=== PATIENT | female | born 1940 | race Caucasian/White ===

== ENCOUNTER 2020-07-13 | Outpatient (REF) | payer MEDICARE, SELFPAY | END 2020-07-13 00:01 | disposition home or self-care (01) | LOC: HO.VC | PROVIDERS: Visit Provider Internal Medicine | DX: Z23 Encounter for immunization (principal) | CPT/HCPCS: 0011A ==

== ENCOUNTER → 2020-07-18 12:46 | Outpatient (REF) | payer MEDICARE, SELFPAY ==
--- NOTE | 2020-07-18 13:08 | CA_ITS ---
Transthoracic Echocardiogram Patient (Last, First, Middle): Eloisa Richards E Gender: Female Date of : 1940 Age: 80 Procedure Date: 07/18/2020 Procedure Type: Transthoracic Echocardiogram Location: OP Height: 157.48 cm Weight: 62.14 kg BSA: 1.63 m2 Heart Rate: bpm BP: 134 / 73 mmHg Engineering Technology Instructor: CHRISTIANA Referring MD: Emmett Vogt MD Symptoms: Z95.2 - Presence of prosthetic heart valve Study Quality: Good ECG Rhythm: Sinus Conclusions: - The left ventricular systolic function is normal. The visually estimated ejection fraction is between 60-65%. - Evidence suggests grade II (moderate) diastolic dysfunction. - [id number] interatrial shunting noted by doppler. Atrial septal defect versus PFO. - A bioprosthetic aortic valve is present. The prosthetic aortic valve appears to be functioning normally. - Mild pulmonary hypertension is present. Findings Left Ventricle Normal left ventricular cavity size. There is mildly increased left ventricular wall thickness. The left ventricular systolic function is normal. The visually estimated ejection fraction is between 60-65%. There is no evidence of regional wall motion abnormalities. E/E prime ratio is >15, consistent with elevated filling pressures. Evidence suggests grade II (moderate) diastolic dysfunction. Right Ventricle Normal right ventricular cavity size and systolic function. Atria Both atria are normal in size. [id number] interatrial shunting noted by doppler. Atrial septal defect versus PFO. Aortic Valve A bioprosthetic aortic valve is present. The prosthetic aortic valve appears to be functioning normally. There is no aortic valve regurgitation. Mitral Valve The mitral valve appears normal. There is mild mitral valve regurgitation. There is no mitral valve stenosis. Pulmonic Valve The pulmonic valve was not well visualized. There is trace pulmonic valve regurgitation. Tricuspid Valve Normal tricuspid valve structure. There is mild tricuspid valve regurgitation. The right ventricular systolic pressure is 36 mmHg. Mild pulmonary hypertension is present. Great Vessels The asc aorta is normal in size. Venous The inferior vena cava is normal in size and collapses greater than 50% with inspiration. Pericardium/Pleural There is no evidence of pericardial effusion. Prior Study Comparison No significant change compared to prior study dated: 07/20/2019. Measurements 2D Linear Measurements IVSd: 1.06 0.6-0.9/0.6-1.0 cm LVIDd: 3.81 3.9-5.3/4.2-5.9 cm LVIDd Index: 2.34 2.4-3.2/2.2-3.1 cm/m2 LVIDs: 2.71 2.0-3.6 cm LVPWd: 1.02 0.7-1.1 cm LA Diam: 3.50 2.7-3.8/3.0-4.0 cm LAIDs Index: 2.15 1.5-2.3 cm/m2 LV Mass: 154.99 67-162/88-224 g LV Mass Index: 95.09 43-95/49-115 g/m2 LVOT Diam: 1.80 3.0+(-)1.3 cm 2D Systolic Function EF 4C: 62.20 >55% EF 2C: 60.40 >55% EF BiP: 62.60 >55% Mitral Valve MV Pk E: 1.19 MV PK A: 0.74 MV Decel Time: 224.00 E/A: 1.60 E'Lateral: 7.94 E'Medial: 6.64 E/E' Med: 17.90 E/E' Lat: 15.00 PHT: 66.00 MVA PHT: 3.33 Decel [place]: 5.33 Aortic Valve AoV Pk Walt: 2.04 AoV Mn Walt: 1.38 AoV VTI: 0.48 AoV Pk Grad: 17.00 Aov Mn Grad: 9.00 HUNTER Cont.VTI: 1.55 LVOT LVOT Pk Walt: 1.17 LVOT Mn Walt: 0.82 LVOT VTI: 0.29 LVOT Pk Grad: 5.00 LVOT Mn Grad: 3.00 LVOT Diam: 1.80 LVOT Area: 2.54 Diastolic Function MV Pk E: 1.19 MV Pk A: 0.74 E/A: 1.60 E'Medial: 6.64 E/E' Med: 17.90 E' Laterial: 7.94 E/E' Lat: 15.00 Tricuspid Valve TR Pk Walt: 2.88 TR Pk Grad: 33.00 RA Press: 3.00 RVSP: 36.00 Great Vessels Aorta Ao Asc: 3.00 2.1-3.4 cm Ao Arch: 2.50 Updated in Other Vendor System with Status of Final Arthur Neymar MD electronically signed on 07/19/2020 11:55:36 AM with status of Final
== END ==
LOC: HO.CARD 12:46
PROVIDERS: PCP Internal Medicine; Visit Provider Internal Medicine Cardiovascular Disease
DX: Z95.2 Presence of prosthetic heart valve (principal)
CPT/HCPCS: 93306

== ENCOUNTER 2020-07-27 08:55 | Outpatient (REF) | payer BC, SELFPAY ==
--- NOTE | ~2020-07-27 | MM_ITS ---
EXAMINATION: MM SCREENING DIGITAL BREAST TOMOSYNTHESIS, BILATERAL CLINICAL INFORMATION: Screening. Asymptomatic. The lifetime risk of breast cancer based on the Tyrer-Cuzick Model is 2%. COMPARISON: Mammography: 07/22/2019, 07/16/2018, 07/08/2017; targeted left breast ultrasound 07/24/2019 TECHNIQUE: Digital breast tomosynthesis is performed in both the craniocaudal and mediolateral oblique views along with computer-aided detection (CAD). Synthesized 2D images are generated from the tomosynthesis. FINDINGS: There are scattered areas of fibroglandular density (ACR BI-RADS breast composition Category b). There are no significant masses, abnormal calcifications, or other abnormalities. Parenchymal pattern similar to prior studies. There is a stable nodule anterior medial left breast. Findings are consistent on targeted ultrasound. No significant changes. The axilla and skin contours are unremarkable. MM/MM tomosynthesis screening BI IMPRESSION: No mammographic evidence of malignancy. ASSESSMENT: BI-RADS 2: Benign RECOMMENDATION: Routine annual mammography screening. This patient's information was entered into a reminder system with a target due date for their next mammogram.
== END 2020-07-27 08:56 | disposition home or self-care (01) ==
LOC: HO.MAMMO 08:55
PROVIDERS: PCP Internal Medicine; Visit Provider Internal Medicine
DX: Z12.31 Encounter for screening mammogram for malignant neoplasm of breast (principal)
CPT/HCPCS: 77063; 77067

== ENCOUNTER → 2020-07-28 08:42 | Outpatient (BNVA) | payer BC, SELFPAY | PROVIDERS: PCP Internal Medicine; Visit Provider Internal Medicine Cardiovascular Disease | DX: I51.89 Other ill-defined heart diseases (principal); Z95.2 Presence of prosthetic heart valve | CPT/HCPCS: 93005 ==

== ENCOUNTER 2020-08-02 07:26 | Outpatient (REF) | payer MEDICARE, SELFPAY ==
[2020-08-02 08:07] LABS: MANUAL DIFF FLAG NO
[2020-08-02 08:12] LABS: Basophils Absolute Auto 0.1 X10*3/uL (0.0-0.2); Basophils Percent Auto 0.9 % (0-2); Eosinophils Absolute Auto 0.1 X10*3/uL (0.0-0.4); Eosinophils Percent Auto 2.3 % (0-4); Hematocrit 38.7 % (37-47); Hemoglobin 12.4 g/dl (12.0-16.0); Imm Gran Abs Auto 0.01 X10*3/uL (0.00-0.03); Imm Gran Pct Auto 0.2 % (0.0-0.4); Lymphocytes Absolute Auto 1.1 X10*3/uL (1.2-4.9); Lymphocytes Percent Auto 18.6 % (20-40); Mean Corpuscular Hemoglobin 30.5 pg (27.0-33.0); Mean Corpuscular Volume 95.3 fL (80-98); Mean Platelet Volume 10.9 fL (9.4-12.3); Monocytes Absolute Auto 0.6 X10*3/uL (0.1-1.2); Monocytes Percent Auto 9.7 % (2-11); Neutrophils Absolute Auto 3.9 X10*3/uL (2.0-8.3); Neutrophils Percent Auto 68.3 % (45-73); Platelet Count 229 X10*3/uL (160-400); Red Blood Count 4.06 X10*6/uL (4.20-5.50); Red Cell Distribution Width 13.2 % (11.0-16.0); White Blood Count 5.8 X10*3/uL (4.8-10.8)
[2020-08-02 09:24] LABS: Alanine Aminotransferase 21 U/L (0-31); Albumin Level 4.2 g/dL (3.5-5.0); Alkaline Phosphatase 52 U/L (39-117); Anion Gap 12 (12-20); Aspartate Amino Transferase 25 U/L (5-31); Bilirubin Total 0.5 mg/dL (0.0-1.0); Blood Urea Nitrogen 24 mg/dL (9-16); Calcium 9.2 mg/dL (8.4-10.2); Carbon Dioxide 25 mmol/L (22-29); Chloride 111 mmol/L (96-108); Cholesterol 133 mg/dL; Estimated Glomerular Filt Rate > 60; Glucose Fasting 90 mg/dL (60-99); HDL Cholesterol 48 mg/dL; LDL Cholesterol Calculated 70 mg/dl; Potassium 4.4 mmol/L (3.3-5.1); Sodium 144 mmol/L (135-145); Total Protein 6.3 g/dL (6.5-8.0); Triglycerides 79 mg/dL
[2020-08-02 09:46] LABS: T4 Thyroxine 6.3 ug/dL (4.5-12.0)
[2020-08-04 22:15] LABS: Folate 12.6 ng/mL (> or = 4.0); Vitamin B12 325 pg/mL (200-900)
== END 2020-08-02 07:27 | disposition home or self-care (01) ==
LOC: HO.LAB 07:26
PROVIDERS: Absent Provider Internal Medicine Cardiovascular Disease; PCP Internal Medicine; Visit Provider Internal Medicine
DX: I72.0 Aneurysm of carotid artery (principal); C34.90 Malignant neoplasm of unspecified part of unspecified bronchus or lung; E04.1 Nontoxic single thyroid nodule; E78.00 Pure hypercholesterolemia, unspecified; Z95.3 Presence of xenogenic heart valve
CPT/HCPCS: 36415; 80053; 80061; 82306; 82607; 82746; 84436; 84443; 85025

== ENCOUNTER 2020-08-10 | Outpatient (REF) | payer MEDICARE, SELFPAY | END 2020-08-10 00:01 | disposition home or self-care (01) | LOC: HO.VC | PROVIDERS: Visit Provider Internal Medicine | DX: Z23 Encounter for immunization (principal) | CPT/HCPCS: 0012A ==

== ENCOUNTER → 2021-01-20 09:36 | Outpatient (BNVA) | payer MEDICARE, SELFPAY | PROVIDERS: PCP Internal Medicine; Referring Provider Internal Medicine; Visit Provider Internal Medicine Cardiovascular Disease | DX: I51.89 Other ill-defined heart diseases (principal); Z95.2 Presence of prosthetic heart valve | CPT/HCPCS: 99212 ==

== ENCOUNTER → 2021-06-19 09:19 | Outpatient (REF) | payer MEDICARE, SELFPAY ==
--- NOTE | 2021-06-19 09:23 | CA_ITS ---
Transthoracic Echocardiogram Patient (Last, First, Middle): Eloisa Richards E Gender: Female Date of : 1940 Age: 81 Procedure Date: 06/19/2021 Procedure Type: Transthoracic Echocardiogram Location: OP Height: 157.48 cm Weight: 62.14 kg BSA: 1.63 m2 Heart Rate: bpm BP: 158 / 64 mmHg Licensed Customs Broker: CHRISTIANA Referring MD: Emmett Vogt MD Symptoms: Z95.2 - Presence of prosthetic heart valve Study Quality: Good ECG Rhythm: Sinus Conclusions: - The visually estimated ejection fraction is between 65-70%. There is no evidence of regional wall motion abnormalities. - Left to right interatrial shunt by doppler, PFO or ASD. - A bioprosthetic aortic valve is present. The prosthetic aortic valve appears to be functioning normally. - Mild pulmonary hypertension is present. Findings Left Ventricle Normal left ventricular cavity size. The left ventricular systolic function is normal. The visually estimated ejection fraction is between 65-70%. There is no evidence of regional wall motion abnormalities. Diastolic function is indeterminate on the basis of available data. There is mild septal asymmetric hypertrophy. Right Ventricle Normal right ventricular cavity size and systolic function. Atria Both atria are normal in size. Left to right interatrial shunt by doppler, PFO or ASD. Aortic Valve A bioprosthetic aortic valve is present. The prosthetic aortic valve appears to be functioning normally. The mean gradient is 8 mmHg. There is no aortic valve regurgitation. Acceleration time 87ms, within acceptable limits. Mitral Valve The mitral valve appears normal. There is mild mitral valve regurgitation. There is no mitral valve stenosis. Pulmonic Valve The pulmonic valve was not well visualized. Tricuspid Valve Normal tricuspid valve structure. There is trace tricuspid valve regurgitation. The right ventricular systolic pressure is 39 mmHg. Mild pulmonary hypertension is present. Great Vessels The aortic annulus, sinuses of valsalva, and asc aorta are normal in size. Venous The inferior vena cava is normal in size and collapses greater than 50% with inspiration. Pericardium/Pleural There is no evidence of pericardial effusion. Prior Study Comparison No significant change compared to prior study dated: 07/18/2020. Measurements 2D Linear Measurements IVSd: 1.03 0.6-0.9/0.6-1.0 cm LVIDd: 3.83 3.9-5.3/4.2-5.9 cm LVIDd Index: 2.35 2.4-3.2/2.2-3.1 cm/m2 LVIDs: 2.28 2.0-3.6 cm LVPWd: 0.89 0.7-1.1 cm LA Diam: 3.50 2.7-3.8/3.0-4.0 cm LAIDs Index: 2.15 1.5-2.3 cm/m2 LV Mass: 139.18 67-162/88-224 g LV Mass Index: 85.39 43-95/49-115 g/m2 LVOT Diam: 1.90 3.0+(-)1.3 cm 2D Systolic Function EF 4C: 65.30 >55% EF 2C: 57.10 >55% EF BiP: 61.60 >55% Mitral Valve MV Pk E: 1.09 MV PK A: 0.90 MV Decel Time: 156.00 E/A: 1.20 E'Lateral: 7.40 E'Medial: 7.40 E/E' Med: 14.70 E/E' Lat: 14.70 PHT: 46.00 MVA PHT: 4.78 Decel [place]: 7.00 Aortic Valve AoV Pk Walt: 2.07 AoV Mn Walt: 1.32 AoV VTI: 0.43 AoV Pk Grad: 17.00 Aov Mn Grad: 8.00 HUNTER Cont.VTI: 1.62 LVOT LVOT Pk Walt: 1.10 LVOT Mn Walt: 0.68 LVOT VTI: 0.24 LVOT Pk Grad: 5.00 LVOT Mn Grad: 2.00 LVOT Diam: 1.90 LVOT Area: 2.84 Diastolic Function MV Pk E: 1.09 MV Pk A: 0.90 E/A: 1.20 E'Medial: 7.40 E/E' Med: 14.70 E' Laterial: 7.40 E/E' Lat: 14.70 Right Ventricle TAPSE (mm): 2.38 TVS' Walt: 13.60 Tricuspid Valve TR Pk Walt: 2.78 TR Pk Grad: 31.00 RA Press: 8.00 RVSP: 39.00 Great Vessels Aorta Ao Asc: 2.90 2.1-3.4 cm Ao Arch: 2.30 Updated in Other Vendor System with Status of Final Arthur Neymar MD electronically signed on 06/20/2021 1:49:51 PM with status of Final
== END ==
LOC: HO.CARD 09:19
PROVIDERS: PCP Internal Medicine; Visit Provider Internal Medicine Cardiovascular Disease
DX: Z95.2 Presence of prosthetic heart valve (principal)
CPT/HCPCS: 93306

== ENCOUNTER 2021-06-28 07:01 | Outpatient (REF) | payer MEDICARE, SELFPAY ==
[2021-06-28 07:26] LABS: MANUAL DIFF FLAG NO
[2021-06-28 07:33] LABS: Basophils Absolute Auto 0.1 X10*3/uL (0.0-0.2); Basophils Percent Auto 0.9 % (0-2); Eosinophils Absolute Auto 0.3 X10*3/uL (0.0-0.4); Eosinophils Percent Auto 5.6 % (0-4); Hemoglobin 11.6 g/dl (12.0-16.0); Imm Gran Abs Auto 0.02 X10*3/uL (0.00-0.03); Imm Gran Pct Auto 0.4 % (0.0-0.4); Lymphocytes Absolute Auto 0.9 X10*3/uL (1.2-4.9); Lymphocytes Percent Auto 16.5 % (20-40); Mean Corpuscular HGB Conc 31.4 g/dl (31.0-35.0); Mean Corpuscular Volume 95.6 fL (80.0-98.0); Monocytes Absolute Auto 0.7 X10*3/uL (0.1-1.2); Monocytes Percent Auto 11.4 % (2-11); Neutrophils Absolute Auto 3.7 x10*3/uL (2.0-8.3); Neutrophils Percent Auto 65.2 % (45-73); Platelet Count 238 X10*3/uL (160-400); Red Blood Count 3.87 X10*6/uL (4.20-5.50); White Blood Count 5.7 X10*3/uL (4.8-10.8)
[2021-06-28 07:55] LABS: B Type Natriuretic Peptide 338 pg/mL (<100)
[2021-06-28 07:57] LABS: Alanine Aminotransferase 16 U/L (0-31); Albumin Level 3.8 g/dL (3.5-5.0); Alkaline Phosphatase 50 U/L (39-117); Anion Gap 9 (12-20); Aspartate Amino Transferase 24 U/L (5-31); Bilirubin Total 0.6 mg/dL (0.0-1.0); Blood Urea Nitrogen 21 mg/dL (9-16); Calcium 9.8 mg/dL (8.4-10.2); Carbon Dioxide 29 mmol/L (22-29); Chloride 111 mmol/L (96-108); Cholesterol 149 mg/dL; Estimated Glomerular Filt Rate > 60; Glucose Random 92 mg/dL (60-115); HDL Cholesterol 43 mg/dL; LDL Cholesterol Calculated 88 mg/dl; Potassium 4.6 mmol/L (3.3-5.1); Sodium 144 mmol/L (135-145); Total Protein 6.3 g/dL (6.5-8.0); Triglycerides 91 mg/dL
[2021-06-28 08:04] LABS: Cholesterol 151 mg/dL; HDL Cholesterol 46 mg/dL; LDL Cholesterol Calculated 87 mg/dl; Triglycerides 94 mg/dL
[2021-06-28 08:20] LABS: Free T4 (Free Thyroxine) 1.04 ng/dL (0.71-1.85); Vitamin D 25-OH Total 30.3 ng/mL (>30)
[2021-06-28 08:31] LABS: Folate 11.6 ng/mL (> or = 4.0); Vitamin B12 1043 pg/mL (200-900)
== END 2021-06-28 07:02 | disposition home or self-care (01) ==
LOC: HO.LAB 07:01
PROVIDERS: Absent Provider Internal Medicine Cardiovascular Disease; PCP Internal Medicine; Visit Provider Internal Medicine
DX: E78.00 Pure hypercholesterolemia, unspecified (principal); I10 Essential (primary) hypertension; I25.10 Atherosclerotic heart disease of native coronary artery without angina pectoris
CPT/HCPCS: 36415; 80053; 80061; 82306; 82607; 82746; 83880; 84439; 84443; 85025

== ENCOUNTER 2021-08-01 11:44 | Outpatient (REF) | payer MEDICARE, SELFPAY ==
--- NOTE | ~2021-08-01 | MM_ITS ---
EXAMINATION: BONE DENSITOMETRY CLINICAL INDICATION: Other specified disorders of bone density and structure. COMPARISON: Previous BD dated 03/10/2019 and baseline BD dated 09/06/2006. TECHNIQUE: Using a [employer] DXA System (software version: 13.1) manufactured by [employer], dual-energy x-ray absorptiometry was performed of the lumbar spine and left hip. The images are of good technical quality. Summary results are attached. FINDINGS: AP SPINE L1-L4: Current: BMD 1.277 g/cm2, Z-score 2.7, T-score 0.8, normal, 2.7% decrease from previous, 0.9% decrease from baseline (<5% change is not significant). Prior: BMD 1.312 g/cm2. Baseline: BMD 1.288 g/cm2. LEFT FEMUR, NECK: Current: BMD 0.818 g/cm2, Z-score 0.6, T-score -1.6, osteopenia. Prior: BMD 0.851 g/cm2. Baseline: BMD 0.884 g/cm2. LEFT FEMUR, TOTAL: Current: BMD 0.774 g/cm2, Z-score 0.2, T-score -1.9, osteopenia, 5.3% decrease from previous, 16.0% decrease from baseline (<5% change is not significant). Prior: BMD 0.817 g/cm2. Baseline: BMD 0.921 g/cm2. IDENTIFIED RISK FACTORS: Menopause, hysterectomy, bilateral oophorectomy, thiazide. HISTORY OF FRACTURE: None listed. MEDICATIONS: Calcium supplements or multivitamin, vitamin D. MM/XR DEXA axial skeleton IMPRESSION: 1. DIAGNOSIS: Osteopenia based on the lowest T-score value of -1.9 in the total femur applying World Health Organization criteria. 2. 10-YEAR FRACTURE RISK PREDICTION, FRAX: Major osteoporotic fracture (clinical spine, forearm, hip or shoulder) 14.2%. Hip fracture 3.6%. 3. Treatment Recommendations: NOF guidelines recommend consideration for treatment in postmenopausal women and men age 50 and older presenting with the following: -A hip or vertebral (clinical or morphometric) fracture. -T-score less than or equal to -2.5 at the femoral neck or spine after appropriate evaluation to exclude secondary causes. -Low bone mass at the hip or spine and a 10-year fracture probability by FRAX of greater than or equal to 3% for hip fracture or greater than or equal to 20% for major osteoporotic fracture based on the [place] adapted WHO algorithm. 4. Other Recommendations: All treatment decisions require clinical judgment and consideration of individual patient factors, including patient preferences, comorbidities, previous drug use, risk factors not captured in the FRAX model (e.g. frailty, falls, vitamin D deficiency, increased bone turnover, interval significant decline in bone density) and possible under or overestimation of fracture risk by FRAX. Additional medical evaluation for secondary cause of low bone mineral density may be appropriate. FUTURE SCAN RECOMMENDATION: People with diagnosed cases of osteoporosis or at high risk for fracture should have regular bone mineral density tests. For patients eligible for Medicare, routine testing is allowed once every 2 years. The testing frequency can be increased to one year for patients who have rapidly progressing disease, those who are receiving or discontinuing medical therapy to restore bone mass, or have additional risk factors.
--- NOTE | ~2021-08-01 | MM_ITS ---
EXAMINATION: MM SCREENING DIGITAL BREAST TOMOSYNTHESIS, BILATERAL CLINICAL INFORMATION: Screening. Asymptomatic. The lifetime risk of breast cancer based on the Tyrer-Cuzick Model is 2%. COMPARISON: Mammography: 07/27/2020, 07/22/2019, 07/16/2018, 07/08/2017, 06/14/2016 TECHNIQUE: Digital breast tomosynthesis is performed in both the craniocaudal and mediolateral oblique views along with computer-aided detection (CAD). Synthesized 2D images are generated from the tomosynthesis. FINDINGS: There are scattered areas of fibroglandular density (ACR BI-RADS breast composition Category b). There are no significant masses, abnormal calcifications, or other abnormalities. Parenchymal pattern is similar to prior studies. There are no significant changes. MM/MM tomosynthesis screening BI IMPRESSION: No mammographic evidence of malignancy. ASSESSMENT: BI-RADS 1: Negative RECOMMENDATION: Routine annual mammography screening. This patient's information was entered into a reminder system with a target due date for their next mammogram.
== END 2021-08-01 11:45 | disposition home or self-care (01) ==
LOC: HO.MAMMO 11:44
PROVIDERS: Visit Provider Internal Medicine
DX: Z12.31 Encounter for screening mammogram for malignant neoplasm of breast (principal); Z13.820 Encounter for screening for osteoporosis; M85.80 Other specified disorders of bone density and structure, unspecified site; Z78.0 Asymptomatic menopausal state; Z79.899 Other long term (current) drug therapy
CPT/HCPCS: 77063; 77067; 77080

== ENCOUNTER → 2021-08-03 09:43 | Outpatient (BNVA) | payer MEDICARE, SELFPAY | PROVIDERS: PCP Internal Medicine; Referring Provider Internal Medicine; Visit Provider Internal Medicine Cardiovascular Disease | DX: I10 Essential (primary) hypertension (principal); R06.02 Shortness of breath; I83.892 Varicose veins of left lower extremity with other complications; Z95.2 Presence of prosthetic heart valve; Z79.82 Long term (current) use of aspirin | CPT/HCPCS: 93005; 99212 ==

== ENCOUNTER 2022-06-14 07:06 | Outpatient (REF) | payer MEDICARE, SELFPAY ==
[2022-06-14 07:18] LABS: MANUAL DIFF FLAG NO
[2022-06-14 07:41] LABS: Basophils Absolute Auto 0.1 X10*3/uL (0.0-0.2); Basophils Percent Auto 0.9 % (0-2); Eosinophils Absolute Auto 0.2 X10*3/uL (0.0-0.4); Hematocrit 38.8 % (37.0-47.0); Hemoglobin 12.4 g/dl (12.0-16.0); Imm Gran Abs Auto 0.02 X10*3/uL (0.00-0.03); Imm Gran Pct Auto 0.4 % (0.0-0.4); Lymphocytes Absolute Auto 1.5 X10*3/uL (1.2-4.9); Lymphocytes Percent Auto 27.1 % (20-40); Mean Corpuscular Volume 93.7 fL (80.0-98.0); Mean Platelet Volume 10.3 fL (9.4-12.3); Monocytes Absolute Auto 0.5 X10*3/uL (0.1-1.2); Monocytes Percent Auto 8.8 % (2-11); Neutrophils Absolute Auto 3.4 x10*3/uL (2.0-8.3); Neutrophils Percent Auto 59.8 % (45-73); Platelet Count 237 X10*3/uL (160-400); Red Blood Count 4.14 X10*6/uL (4.20-5.50); Red Cell Distribution Width 13.4 % (11.0-16.0); White Blood Count 5.7 X10*3/uL (4.8-10.8)
[2022-06-14 08:15] LABS: B Type Natriuretic Peptide 322 pg/mL (<100)
[2022-06-14 08:16] LABS: Alanine Aminotransferase 22 U/L (0-31); Albumin Level 4.1 g/dL (3.5-5.0); Alkaline Phosphatase 45 U/L (39-117); Anion Gap 13 (12-20); Aspartate Amino Transferase 30 U/L (5-31); Bilirubin Total 0.5 mg/dL (0.0-1.0); Blood Urea Nitrogen 24 mg/dL (9-16); Carbon Dioxide 26 mmol/L (22-29); Chloride 111 mmol/L (96-108); Cholesterol 146 mg/dL; Estimated Glomerular Filt Rate > 60; Glucose Random 93 mg/dL (60-115); HDL Cholesterol 47 mg/dL; LDL Cholesterol Calculated 80 mg/dl; Potassium 4.7 mmol/L (3.3-5.1); Sodium 145 mmol/L (135-145); Total Protein 6.3 g/dL (6.5-8.0); Triglycerides 98 mg/dL
[2022-06-14 08:35] LABS: Vitamin B12 735 pg/mL (200-900)
[2022-06-14 08:40] LABS: Free T4 (Free Thyroxine) 0.88 ng/dL (0.71-1.85); Thyroid Stimulating Hormone 1.71 uIU/mL (0.32-4.0); Vitamin D 25-OH Total 24.8 ng/mL (>30)
[2022-06-14 10:44] LABS: Folate 9.4 ng/mL (> or = 4.0)
== END 2022-06-14 07:07 | disposition home or self-care (01) ==
LOC: HO.LAB 07:06
PROVIDERS: PCP Internal Medicine; Visit Provider Internal Medicine
DX: I10 Essential (primary) hypertension (principal); E78.00 Pure hypercholesterolemia, unspecified
CPT/HCPCS: 36415; 80053; 80061; 82306; 82607; 82746; 83880; 84439; 84443; 85025

== ENCOUNTER → 2022-07-18 08:50 | Outpatient (REF) | payer MEDICARE, SELFPAY ==
--- NOTE | 2022-07-18 08:53 | CA_ITS ---
Transthoracic Echocardiogram Patient (Last, First, Middle): Eloisa Richards E Gender: Female Date of : 1940 Age: 82 Procedure Date: 07/18/2022 Procedure Type: Transthoracic Echocardiogram Location: OP Height: 157.48 cm Weight: 61.24 kg BSA: 1.62 m2 Heart Rate: bpm BP: 140 / 50 mmHg Community Outreach Director: TO Referring MD: Emmett Vogt MD Batch Analyst: Emmett Vogt MD Symptoms: Z95.2 - Presence of prosthetic heart valve Study Quality: Fair ECG Rhythm: Sinus Conclusions: - 1. Normal LV systolic function with impaired relaxation filling pattern 2. Mild left atrial enlargement 3. Normally function bioprosthetic aortic valve with mean gradient of 7 mmHg 4. Mild mitral regurgitation 5. Normal RV systolic pressure 6. No pericardial effusion Findings Left Ventricle Normal left ventricular size, thickness, and systolic function. The visually estimated ejection fraction is between 60-65%. Spectral Doppler is indicative of an impaired relaxation filling pattern. E/E prime ratio is between 8 and 15 consistent with indeterminate filling pressures. Right Ventricle Normal right ventricular cavity size and systolic function. Atria The left atrium is mildly dilated. There is no evidence of interatrial shunt. The right atrium is normal in size. Aortic Valve A bioprosthetic aortic valve is present. The prosthetic aortic valve appears to be functioning normally. The mean gradient is 7 mmHg. Mitral Valve There is mild anterior and posterior mitral leaflet thickening. There is mild mitral annular calcification. There is mild mitral valve regurgitation. There is no mitral valve stenosis. Pulmonic Valve The pulmonic valve was not well visualized. Tricuspid Valve Likely normal tricuspid valve structure and function. There is mild tricuspid valve regurgitation. The right ventricular systolic pressure is normal. The right ventricular systolic pressure is 29 mmHg. Normal right atrial pressure. There is no evidence of pulmonary hypertension. Great Vessels All visible segments of the aorta are normal in size. The pulmonary artery was not well visualized. Venous The inferior vena cava is normal in size and collapses greater than 50% with inspiration. Pericardium/Pleural There is no evidence of pericardial effusion. Prior Study Comparison No significant change compared to prior study dated: 06/19/2021. Measurements 2D Linear Measurements IVSd: 1.03 0.6-0.9/0.6-1.0 cm LVIDd: 3.69 3.9-5.3/4.2-5.9 cm LVIDd Index: 2.28 2.4-3.2/2.2-3.1 cm/m2 LVIDs: 2.40 2.0-3.6 cm LVPWd: 0.95 0.7-1.1 cm LA Diam: 3.40 2.7-3.8/3.0-4.0 cm LAIDs Index: 2.10 1.5-2.3 cm/m2 LV Mass: 158.96 67-162/88-224 g LV Mass Index: 98.12 43-95/49-115 g/m2 LVOT Diam: 1.80 3.0+(-)1.3 cm 2D Systolic Function EF 4C: 65.80 >55% EF 2C: 63.90 >55% EF BiP: 64.50 >55% Mitral Valve E'Lateral: 7.51 E'Medial: 6.53 Aortic Valve AoV Pk Walt: 1.83 AoV Mn Walt: 1.19 AoV VTI: 0.41 AoV Pk Grad: 13.00 Aov Mn Grad: 7.00 HUNTER Cont.VTI: 1.51 LVOT LVOT Pk Walt: 1.08 LVOT Mn Walt: 0.67 LVOT VTI: 0.25 LVOT Pk Grad: 5.00 LVOT Mn Grad: 2.00 LVOT Diam: 1.80 LVOT Area: 2.54 Diastolic Function E'Medial: 6.53 E' Laterial: 7.51 Right Ventricle TAPSE (mm): 24.60 TVS' Walt: 14.90 Tricuspid Valve TR Pk Walt: 2.55 TR Pk Grad: 26.00 RA Press: 3.00 RVSP: 29.00 Great Vessels Aorta Ao Asc: 3.00 2.1-3.4 cm Updated in Other Vendor System with Status of Final Emmett Vogt MD electronically signed on 07/19/2022 5:00:43 PM with status of Final
== END ==
LOC: HO.CARD 08:50
PROVIDERS: PCP Internal Medicine; Visit Provider Internal Medicine Cardiovascular Disease
DX: Z95.2 Presence of prosthetic heart valve (principal)
CPT/HCPCS: 93306

== ENCOUNTER → 2022-07-31 09:35 | Outpatient (BNVA) | payer MEDICARE, SELFPAY | PROVIDERS: PCP Internal Medicine; Referring Provider Internal Medicine; Visit Provider Internal Medicine Cardiovascular Disease | DX: R60.0 Localized edema (principal); I10 Essential (primary) hypertension; Z95.2 Presence of prosthetic heart valve | CPT/HCPCS: 93005; 99212 ==

== ENCOUNTER 2022-08-20 11:30 | Outpatient (REF) | payer MEDICARE, SELFPAY ==
--- NOTE | ~2022-08-20 | MM_ITS ---
EXAMINATION: MM SCREENING DIGITAL BREAST TOMOSYNTHESIS, BILATERAL CLINICAL INFORMATION: Screening. Asymptomatic. The lifetime risk of breast cancer based on the Tyrer-Cuzick Model is 1.4%. COMPARISON: Mammography: August 01, 2021 and studies dating back to June 14, 2016 TECHNIQUE: Digital breast tomosynthesis is performed in both the craniocaudal and mediolateral oblique views along with computer-aided detection (CAD). Synthesized 2D images are generated from the tomosynthesis. FINDINGS: There are scattered areas of fibroglandular density (ACR BI-RADS breast composition Category b). There are no new significant masses, abnormal calcifications, or other abnormalities. Circumscribed density about the inferior medial aspect of the left breast again evident. MM/MM tomosynthesis screening BI IMPRESSION: No significant changes from prior exam. ASSESSMENT: BI-RADS 2: Benign RECOMMENDATION: Routine annual mammography screening. This patient's information was entered into a reminder system with a target due date for their next mammogram.
== END 2022-08-20 11:31 | disposition home or self-care (01) ==
LOC: HO.MAMMO 11:30
PROVIDERS: Visit Provider Internal Medicine
DX: Z12.31 Encounter for screening mammogram for malignant neoplasm of breast (principal)
CPT/HCPCS: 77063; 77067

== ENCOUNTER → 2022-10-29 14:00 | Outpatient (BNVA) | payer MEDICARE, SELFPAY | PROVIDERS: PCP Internal Medicine; Visit Provider Internal Medicine Cardiovascular Disease ==

== ENCOUNTER 2022-10-29 14:37 | Inpatient (IN) | payer MEDICARE, SELFPAY ==
--- NOTE | ~2022-10-29 | XR_ITS ---
EXAMINATION: XR CHEST CLINICAL INFORMATION: Weakness COMPARISON: Previous chest x-ray May 2019 and lung biopsy May 2019 and PET/CT scan April 2019 TECHNIQUE: 2 views of the chest were obtained. FINDINGS: The cardiac silhouette does not appear enlarged. There is a new aortic valve stent graft. The thoracic aorta is calcified. Hilar and mediastinal contours are otherwise unremarkable. There are small bilateral pleural effusions. There is an abnormal density in the right perihilar region. It is uncertain whether this corresponds to known pulmonary nodule in the superior segment of the right lower lobe. The lungs are otherwise clear. There are degenerative changes of the spine. XR/XR chest 2V IMPRESSION: Small bilateral pleural effusions. 2 cm abnormal density in the right perihilar region. It is uncertain whether this corresponds to known superior segment right lower lobe pulmonary nodule. Clinical correlation recommended.
[2022-10-29 14:38] VITALS: BP 148/76; PULSE 141; RESP 22; TEMP 36.6; O2SAT 98; BMI 24.3
--- NOTE | 2022-10-29 14:38 | ECG_ITS ---
Test Reason : TACHYCARDIA Blood Pressure : / mmHG Vent. Rate : 135 BPM Atrial Rate : 000 BPM P-R Int : 000 ms QRS Dur : 084 ms QT Int : 322 ms P-R-T Axes : 000 031 042 degrees QTc Int : 483 ms Atrial fibrillation with rapid ventricular response Nonspecific ST abnormality Abnormal ECG When compared with ECG of 19-SEP-2005 15:55, Atrial fibrillation has replaced Sinus rhythm Vent. rate has increased BY 63 BPM Referred By: Kandice Almanza Electronically Signed By:JOHN LORA
--- NOTE | 2022-10-29 14:38 | ED_ITS ---
HPI - General Adult General Chief complaint: Arrhythmia/Palpitations Stated complaint: a fib Time Seen by Provider: 10/29/22 15:01 Source: patient Mode of arrival: ambulatory Limitations: no limitations Related Data Home Medications Medication Instructions Recorded Confirmed aspirin 81 mg tablet,delayed 81 mg PO DAILY 07/28/20 10/29/22 release (Adult Aspirin Regimen) atorvastatin 40 mg tablet 40 mg PO BEDTIME 10/29/22 10/29/22 Previous Rx's Medication Instructions Recorded atenolol 100 mg tablet 100 mg PO DAILY #90 tabs 06/27/22 fenofibrate nanocrystallized 145 145 mg PO DAILY #90 tabs 06/27/22 mg tablet nifedipine 30 mg tablet,extended 30 mg PO DAILY #90 tabs 06/27/22 release Allergies Allergy/AdvReac Type Severity Reaction Status Date / Time Sulfa (Sulfonamide Allergy Mild RASH Verified 06/27/22 11:03 Antibiotics) [SULFA (SULFONAMIDE ANTIBIOTICS)] [facility] Past Medical History Medical History Aortic stenosis Atrial fibrillation Carotid aneurysm, right Diastolic dysfunction HTN (hypertension) Hypercholesterolemia Intracranial aneurysm Non-small cell cancer of right lung Peripheral vascular disease Pre-operative clearance Prolapsed bladder Pulmonary nodule Thyroid nodule Varicose vein of leg Varicose veins of left leg with edema Surgical History History of cataract surgery History of lung biopsy Hx of cardiac cath Hx of hysterectomy Hx of tonsillectomy S/P TAVR (transcatheter aortic valve replacement) Family History Family History Father Brain tumor Mother Uterine cancer, sarcoma Social History Social History Housing: House Alcohol intake: current Alcohol intake frequency: does not drink Alcohol type: wine Patient Tobacco Use Status: Never used Tobacco Smoked in Last 30 Days: No e-Cigarette/Vaping Use: Never Used Second Hand Smoke Exposure: No Use of substances other than those prescribed or required for medical reasons: No Advance Directives: Yes Advance Directives Information Provided: No Advance Directives on File: No service: No Current occupational status: retired Cognitive needs: No Hearing needs: No Vision needs: Yes (glasses) Physical Exam ED Vital Signs: Vital Signs - 24 hr 10/29/22 14:38 10/29/22 16:00 Temperature 97.9 F Pulse Rate 141 H 140 H Respiratory Rate 22 H Blood Pressure 148/76 H Pulse Oximetry 98 Oxygen Delivery Method Room Air BMI result Body Mass Index 24.3 Course Course Course Narrative: This is a rapid medical exam. deferred additional HPI, ROS, PE to primary provider. 82 yo female with history of HTN, HLD, TAVR on 81mg asa daily here with several weeks of feeling generally weak. Went to Dr Vogt and noticed to be in afib with RVR. No history of same. Will obtain labs, EKG, CXR. HR 130-150's in triage. BP stable. Reevaluation(s) Reevaluation #1: Patient does have an elevated troponin level. I believe this is rate related troponin leak. Patient does not have any active chest pain do not believe this represents an unstable plaque or evidence of acute coronary syndrome. This was discussed with the patient. I let the denture technician know as well. Time: 15:52 Reevaluation #2: Heart rate approximately 70 after Cardizem bolus. Will not put patient on a Cardizem drip at this time. Time: 16:04 Consultations Consultation #1: Catrachito Edmonds, recommending Cardizem plus or minus a Cardizem drip, Eliquis and admission. Time: 15:30 Medications Administered Generic Name Dose Route Start Last Admin Trade Name Freq PRN Reason Stop Dose Admin Furosemide 20 mg 10/29/22 16:45 10/29/22 18:01 Furosemide 20 Mg/2 Ml Vial IVPUSH 20 mg DAILY DIAN Administration Protocol Discontinued Medications Generic Name Dose Route Start Last Admin Trade Name Freq PRN Reason Stop Dose Admin Diltiazem HCl 20 mg 10/29/22 15:12 10/29/22 15:56 Diltiazem Hcl 50 Mg/10 Ml Vial IVPUSH 10/29/22 15:13 20 mg STAT STA Administration Medical Decision Making Lab Data 10/29/22 15:00 10/29/22 15:00 Labs: Lab Results 10/29/22 10/29/22 10/29/22 Range/Units 15:00 15:00 15:00 WBC 8.5 (4.8-10.8) X10*3/uL RBC 3.88 L (4.20-5.50) X10*6/uL Hgb 11.5 L (12.0-16.0) g/dl Hct 36.4 L (37.0-47.0) % MCV 93.8 (80.0-98.0) fL MCH 29.6 (27.0-33.0) pg MCHC 31.6 (31.0-35.0) g/dl RDW 13.9 (11.0-16.0) % Plt Count 395 D (160-400) X10*3/uL MPV 10.1 (9.4-12.3) fL Immature Gran % (Auto) 0.5 H (0.0-0.4) % Neut % (Auto) 71.9 (45-73) % Lymph % (Auto) 17.1 L (20-40) % [place] % (Auto) 8.4 (2-11) % Eos % (Auto) 1.3 (0-4) % Baso % (Auto) 0.8 (0-2) % Lymph # (Auto) 1.5 (1.2-4.9) X10*3/uL [place] # (Auto) 0.7 (0.1-1.2) X10*3/uL Eos # (Auto) 0.1 (0.0-0.4) X10*3/uL Baso # (Auto) 0.1 (0.0-0.2) X10*3/uL Abs Immat Gran (auto) 0.04 H (0.00-0.03) X10*3/uL Absolute Neuts (auto) 6.1 (2.0-8.3) x10*3/uL Absolute Nucleated RBC 0.000 (0.0-0.012) X10*3/uL Nucleated RBC % (auto) 0.0 (0.0-0.2) /100WBC PT 11.8 (10.0-13.1) SEC INR 1.0 (0.9-1.1) Sodium 141 (135-145) mmol/L Potassium 4.3 (3.3-5.1) mmol/L Chloride 110 H (96-108) mmol/L Carbon Dioxide 24 (22-29) mmol/L Anion Gap 11 L (12-20) BUN 27 H (9-16) mg/dL Creatinine 0.87 (0.5-1.4) mg/dL Estim Creat Clear Calc 43.4 Estimated GFR > 60 Random Glucose 98 (60-115) mg/dL Calcium 9.7 (8.4-10.2) mg/dL Magnesium 2.3 (1.6-2.6) mg/dL Total Bilirubin 0.4 (0.0-1.0) mg/dL Direct Bilirubin 0.1 (0.0-0.5) mg/dL AST 34 H (5-31) U/L ALT 20 (0-31) U/L Alkaline Phosphatase 60 (39-117) U/L Troponin I High Sens (<3.5-17.0) ng/L Total Protein 6.6 (6.5-8.0) g/dL Albumin 3.9 (3.5-5.0) g/dL 10/29/22 Range/Units 15:00 WBC (4.8-10.8) X10*3/uL RBC (4.20-5.50) X10*6/uL Hgb (12.0-16.0) g/dl Hct (37.0-47.0) % MCV (80.0-98.0) fL MCH (27.0-33.0) pg MCHC (31.0-35.0) g/dl RDW (11.0-16.0) % Plt Count (160-400) X10*3/uL MPV (9.4-12.3) fL Immature Gran % (Auto) (0.0-0.4) % Neut % (Auto) (45-73) % Lymph % (Auto) (20-40) % [place] % (Auto) (2-11) % Eos % (Auto) (0-4) % Baso % (Auto) (0-2) % Lymph # (Auto) (1.2-4.9) X10*3/uL [place] # (Auto) (0.1-1.2) X10*3/uL Eos # (Auto) (0.0-0.4) X10*3/uL Baso # (Auto) (0.0-0.2) X10*3/uL Abs Immat Gran (auto) (0.00-0.03) X10*3/uL Absolute Neuts (auto) (2.0-8.3) x10*3/uL Absolute Nucleated RBC (0.0-0.012) X10*3/uL Nucleated RBC % (auto) (0.0-0.2) /100WBC PT (10.0-13.1) SEC INR (0.9-1.1) Sodium (135-145) mmol/L Potassium (3.3-5.1) mmol/L Chloride (96-108) mmol/L Carbon Dioxide (22-29) mmol/L Anion Gap (12-20) BUN (9-16) mg/dL Creatinine (0.5-1.4) mg/dL Estim Creat Clear Calc Estimated GFR Random Glucose (60-115) mg/dL Calcium (8.4-10.2) mg/dL Magnesium (1.6-2.6) mg/dL Total Bilirubin (0.0-1.0) mg/dL Direct Bilirubin (0.0-0.5) mg/dL AST (5-31) U/L ALT (0-31) U/L Alkaline Phosphatase (39-117) U/L Troponin I High Sens 125.2 H* (<3.5-17.0) ng/L Total Protein (6.5-8.0) g/dL Albumin (3.5-5.0) g/dL Critical Care Time Critical Care Time Critical Care Time: Yes Total Critical Care Time: 35 Attestation: I personally performed approximately 35 minutes of critical care time with direct patient care, documentation, consultation with Cardiology, documentation, interpretation and medical data for the diagnosis of atrial fibrillation with rapid ventricular response. Critical care time outside of any procedures. Discharge Plan Discharge Clinical Impression: Atrial fibrillation Patient Disposition: Admitted As Inpatient
[2022-10-29 15:14] LABS: MANUAL DIFF FLAG NO
--- NOTE | 2022-10-29 15:17 | ED_ITS ---
HPI - Arrhythmia/Palpitations General Chief Complaint: Arrhythmia/Palpitations Stated Complaint: a fib Time Seen by Provider: 10/29/22 15:01 Source: patient Mode of arrival: ambulatory Limitations: no limitations History of Present Illness HPI narrative: 82-year-old female with history of TAVR, hypertension, lung cancer presents with feeling unwell, excitable and palpitations intermittently for the past week. Sh e has also felt some generalized weakness. Symptoms are mild to moderate nature. There is no clear relieving or exacerbating features. Patient has no history of these symptoms. She denies any chest pain, lightheadedness. She is not on any blood thinning medications. She was seen by 1 of the providers at her umbrella repairer office earlier today. An EKG showed atrial fibrillation with rapid ventricular response at that time and she was sent to the hospital for evaluation and management. Related Data Home Medications Medication Instructions Recorded Confirmed aspirin 81 mg tablet,delayed 81 mg PO DAILY 07/28/20 07/31/22 release (Adult Aspirin Regimen) estradiol 0.01% (0.1 mg/gram) g vaginal 07/28/20 07/31/22 vaginal cream Previous Rx's Medication Instructions Recorded atenolol 100 mg tablet 100 mg PO DAILY #90 tabs 06/27/22 atorvastatin 40 mg tablet 40 mg PO DAILY #90 tabs 06/27/22 fenofibrate nanocrystallized 145 145 mg PO DAILY #90 tabs 06/27/22 mg tablet nifedipine 30 mg tablet,extended 30 mg PO DAILY #90 tabs 06/27/22 release Allergies Allergy/AdvReac Type Severity Reaction Status Date / Time Sulfa (Sulfonamide Allergy Mild RASH Verified 06/27/22 11:03 Antibiotics) [SULFA (SULFONAMIDE ANTIBIOTICS)] [facility] Past Medical History Medical History Aortic stenosis Carotid aneurysm, right Diastolic dysfunction HTN (hypertension) Hypercholesterolemia Intracranial aneurysm Non-small cell cancer of right lung Peripheral vascular disease Pre-operative clearance Prolapsed bladder Pulmonary nodule Thyroid nodule Varicose vein of leg Varicose veins of left leg with edema Surgical History History of cataract surgery History of lung biopsy Hx of cardiac cath Hx of hysterectomy Hx of tonsillectomy S/P TAVR (transcatheter aortic valve replacement) Family History Family History Father Brain tumor Mother Uterine cancer, sarcoma Social History Social History Housing: House Alcohol intake: current Alcohol intake frequency: a few times a month Alcohol type: wine Patient Tobacco Use Status: Never used Tobacco e-Cigarette/Vaping Use: Never Used Second Hand Smoke Exposure: No service: No Current occupational status: retired Cognitive needs: No Hearing needs: No Vision needs: Yes (glasses) Physical Exam Vital Signs: Vital Signs: Last Vital Signs Temp 97.9 F 10/29/22 14:38 Pulse 141 H 10/29/22 14:38 Resp 22 H 10/29/22 14:38 BP 148/76 H 10/29/22 14:38 Pulse Ox 98 10/29/22 14:38 O2 Del Method Room Air 10/29/22 14:38 BMI result Body Mass Index 24.3 GEN: Well developed, no acute distress, alert, oriented HEENT: Normocephalic, atraumatic, normal external ears, nose appears normal, no oropharyngeal edema or exudates Eyes: Normal to appearance Neck: Supple, no lymphadenopathy Respiratory: Talks in complete sentences, no respiratory distress, clear to auscultation bilaterally Cardiovascular: Irregularly irregular and tachycardic Abdomen: Soft, nontender, nondistended, no guarding, no rebound Back: No CVA tenderness Extremities: No clubbing cyanosis 1+ pitting edema Neurologic: No focal neurologic deficits, cranial nerves 2-12 intact, strength is 5/5 bilaterally Skin: No rash Course Course Course Narrative: 82-year-old female presents with atrial fibrillation with rapid ventricular response. An IV was placed. She will get Cardizem 20 mg IV push. L provider with a dose of Lovenox. Her symptoms of going on for approximately 1 week. She is not a candidate for cardioversion at this time either electrical or chemically. Her CHADS2 score is 2. Will contact Cardiology to determine a ppropriate disposition assuming her heart rate is appropriately controlled. She is currently on nifedipine and atenolol which have potential AV blocking components to their treatment. Medical Decision Making Medical Decision Making MDM Narrative: Patient presents with atrial fibrillation with rapid ventricular response. Differential diagnosis could include anemia, electrolyte will abnormality, s tructural heart disease. Will check laboratory analysis, continuous cardiac monitoring. Will provide patient with IV Cardizem and subcutaneous Lovenox for treatment. Will need to see if patient might be considered appropriate for NOAC. Differential Diagnosis Differential Diagnoses: The differential diagnosis associated with the presen tation includes (see above) Admission/Observation Consideration of admission/observation: Escalation of care including admission/observation considered (depending on response to treatment and word form cardiology) Consult Healthcare Provider Management of the patient was discussed with: Pipelines Laborer (Cardiology) Lab Data MDM Lab Attestation statement: I reviewed the patient's lab results. 10/29/22 15:00 10/29/22 15:00 Labs: Lab Results 10/29/22 10/29/22 Range/Units 15:00 15:00 WBC 8.5 (4.8-10.8) X10*3/uL RBC 3.88 L (4.20-5.50) X10*6/uL Hgb 11.5 L (12.0-16.0) g/dl Hct 36.4 L (37.0-47.0) % MCV 93.8 (80.0-98.0) fL MCH 29.6 (27.0-33.0) pg MCHC 31.6 (31.0-35.0) g/dl RDW 13.9 (11.0-16.0) % Plt Count 395 D (160-400) X10*3/uL MPV 10.1 (9.4-12.3) fL Immature Gran % (Auto) 0.5 H (0.0-0.4) % Neut % (Auto) 71.9 (45-73) % Lymph % (Auto) 17.1 L (20-40) % [place] % (Auto) 8.4 (2-11) % Eos % (Auto) 1.3 (0-4) % Baso % (Auto) 0.8 (0-2) % Lymph # (Auto) 1.5 (1.2-4.9) X10*3/uL [place] # (Auto) 0.7 (0.1-1.2) X10*3/uL Eos # (Auto) 0.1 (0.0-0.4) X10*3/uL Baso # (Auto) 0.1 (0.0-0.2) X10*3/uL Abs Immat Gran (auto) 0.04 H (0.00-0.03) X10*3/uL Absolute Neuts (auto) 6.1 (2.0-8.3) x10*3/uL Absolute Nucleated RBC 0.000 (0.0-0.012) X10*3/uL Nucleated RBC % (auto) 0.0 (0.0-0.2) /100WBC PT 11.8 (10.0-13.1) SEC INR 1.0 (0.9-1.1) Independent Interpretation I performed an independent interpretation of an: EKG (Atrial fibrillation with rapid ventricular response heart rate 135, nonspecific T-wave changes, no acute ST elevations depressions, QTC 483 milliseconds) and Plain X-Ray (Chest: NAD) Independent Historian Clinical information obtained from an independent historian. History obtained from or confirmed by: Spouse External Record Review External record reviewed: Office record Prescription Management I considered prescription management with: Other (Cardizem for rate control) Chronic Conditions Patient?s care impacted by: Hypertension Discharge Plan Discharge Clinical Impression: Atrial fibrillation Patient Disposition: Still a Patient Instructions: A-fib (Atrial Fibrillation) (ED), Blood Thinners (ED) Prescriptions: No Action atenolol 100 mg tablet 100 mg PO DAILY Qty: 90 3RF atorvastatin 40 mg tablet 40 mg PO DAILY Qty: 90 3RF fenofibrate nanocrystallized 145 mg tablet 145 mg PO DAILY Qty: 90 3RF nifedipine 30 mg tablet extended release 30 mg PO DAILY Qty: 90 3RF estradiol 0.01 % (0.1 mg/gram) cream vaginal aspirin [Adult Aspirin Regimen] 81 mg tablet,delayed release (DR/EC) 81 mg PO DAILY Referrals: Emmett Vogt MD [Physician] -
[2022-10-29 15:19] LABS: Basophils Absolute Auto 0.1 X10*3/uL (0.0-0.2); Basophils Percent Auto 0.8 % (0-2); Eosinophils Absolute Auto 0.1 X10*3/uL (0.0-0.4); Eosinophils Percent Auto 1.3 % (0-4); Hematocrit 36.4 % (37.0-47.0); Hemoglobin 11.5 g/dl (12.0-16.0); Imm Gran Abs Auto 0.04 X10*3/uL (0.00-0.03); Imm Gran Pct Auto 0.5 % (0.0-0.4); Lymphocytes Absolute Auto 1.5 X10*3/uL (1.2-4.9); Lymphocytes Percent Auto 17.1 % (20-40); Mean Corpuscular HGB Conc 31.6 g/dl (31.0-35.0); Mean Corpuscular Hemoglobin 29.6 pg (27.0-33.0); Mean Corpuscular Volume 93.8 fL (80.0-98.0); Mean Platelet Volume 10.1 fL (9.4-12.3); Monocytes Absolute Auto 0.7 X10*3/uL (0.1-1.2); Monocytes Percent Auto 8.4 % (2-11); Neutrophils Absolute Auto 6.1 x10*3/uL (2.0-8.3); Neutrophils Percent Auto 71.9 % (45-73); Platelet Count 395 X10*3/uL (160-400); Red Blood Count 3.88 X10*6/uL (4.20-5.50); Red Cell Distribution Width 13.9 % (11.0-16.0); White Blood Count 8.5 X10*3/uL (4.8-10.8)
[2022-10-29 15:24] LABS: Prothrombin Time 11.8 SEC (10.0-13.1)
[2022-10-29 15:37] LABS: Alanine Aminotransferase 20 U/L (0-31); Albumin Level 3.9 g/dL (3.5-5.0); Alkaline Phosphatase 60 U/L (39-117); Anion Gap 11 (12-20); Aspartate Amino Transferase 34 U/L (5-31); Bilirubin Direct 0.1 mg/dL (0.0-0.5); Bilirubin Total 0.4 mg/dL (0.0-1.0); Blood Urea Nitrogen 27 mg/dL (9-16); Calcium 9.7 mg/dL (8.4-10.2); Carbon Dioxide 24 mmol/L (22-29); Chloride 110 mmol/L (96-108); Creatinine Clr Calc Pharmacy 43.4; Estimated Glomerular Filt Rate > 60; Glucose Random 98 mg/dL (60-115); Magnesium 2.3 mg/dL (1.6-2.6); Potassium 4.3 mmol/L (3.3-5.1); Sodium 141 mmol/L (135-145); Total Protein 6.6 g/dL (6.5-8.0)
[2022-10-29 15:45] LABS: Troponin-I High Sensitivity 125.2 ng/L (<3.5-17.0)
[2022-10-29] MEDS: dilTIAZem HCL 50 MG/10 ML VIAL 20 MG IVPUSH (15:56)
[2022-10-29 16:00] VITALS: PULSE 140
--- NOTE | 2022-10-29 16:00 | PC.NURSE ---
HR low to mid 140s. IV push Cardizem given, HR down mid to high 70s. pt denies chest pain/headache/dizziness/sob.
--- NOTE | 2022-10-29 16:45 | PHA.MEDREC ---
Pharmacy Consult ? Medication Reconciliation Pharmacy has completed the medication reconciliation. Spoke with patient and spouse in ED. Had list of medications. Took all medications this am
--- NOTE | 2022-10-29 16:48 | P.HPHOSP_ITS ---
History of Present Illness Date of Service: 10/29/22 Attending physician on admission: Wilton Reid Chief Complaint: afib rvr 82 year old female with history TAVR (bioprosthetic), hypertension, non-small cell lung cancer in remission ( s/p radiation therapy in 2019), osteopenia, and hyperlipidemia presented to the ED from Cardiology office. She states she has been experiencing fatigue and weakness along with palpitations and anxiety over the last week. She has also had increased dyspnea on exertion ongoing for several weeks. She denies any lightheadedness, chest pain. States she has chronic edema of the bilateral lower extremities. Denies any history of similar symptoms. She was at her cardiology office earlier today for routine follow-up with EKG showing atrial fibrillation with RVR and she was referred to the ED for further evaluation and management. On arrival, patient tachycardic to 141, tachypneic to 22, vital signs otherwise reassuring. There is no leukocytosis. Renal function and electrolyte levels within normal limits. Initial troponin 125.2, repeat pending. CXR showing small bilateral pleural effusions and 2 cm abnormal density in the right perihilar region, question related to known right lower lobe pulmonary nodule. EKG showing AFib with RVR, rate [address] abnormality. In the ED, patient given 20 mg IV push of diltiazem with improvement in heart rate to 50-70s. Review of Systems Review of Systems: General: No fevers, malaise, unintentional weight loss. +fatigue, + generalized weakness HEENT: No blurred vision, diplopia. No sore throat, nasal congestion, rhinorrhea, sinus pain, ear pain Cardiovascular: No chest pain, palpitations. +BLE edema Respiratory: +AGUIAR. No shortness of breath at rest, orthopnea, wheezing, cough GI: No abdominal pain, nausea, vomiting, diarrhea, constipation, melena, hematochezia : No dysuria, hematuria, increased urinary frequency, decreased urinary output MSK: No myalgia, back pain Neuro: No headaches, weakness, paresthesias Skin: No rashes or lesions [facility] Medical History Aortic stenosis Atrial fibrillation Carotid aneurysm, right Diastolic dysfunction HTN (hypertension) Hypercholesterolemia Intracranial aneurysm Non-small cell cancer of right lung Peripheral vascular disease Pre-operative clearance Prolapsed bladder Pulmonary nodule Thyroid nodule Varicose vein of leg Varicose veins of left leg with edema Family History Father Brain tumor Mother Uterine cancer, sarcoma Surgical History History of cataract surgery History of lung biopsy Hx of cardiac cath Hx of hysterectomy Hx of tonsillectomy S/P TAVR (transcatheter aortic valve replacement) Social History Housing: House Alcohol intake: current Alcohol intake frequency: does not drink Alcohol type: wine Patient Tobacco Use Status: Never used Tobacco e-Cigarette/Vaping Use: Never Used Second Hand Smoke Exposure: No service: No Current occupational status: retired Cognitive needs: No Hearing needs: No Vision needs: Yes (glasses) Meds Allergies Allergy/AdvReac Type Severity Reaction Status Date / Time Sulfa (Sulfonamide Allergy Mild RASH Verified 06/27/22 11:03 Antibiotics) [SULFA (SULFONAMIDE ANTIBIOTICS)] Active Medications: Current Medications Acetaminophen (Acetaminophen 325 Mg Tablet) 650 mg PO Q6H PRN PRN Reason: Pain, Mild (Pain Scale 1-3) Apixaban (Apixaban 5 Mg Tablet) 5 mg PO BID DIAN Docusate Sodium (Docusate Sodium 100 Mg Capsule) 100 mg PO DAILY PRN PRN Reason: Constipation Furosemide (Furosemide 20 Mg/2 Ml Vial) 20 mg IVPUSH DAILY DIAN; Protocol Metoprolol Tartrate (Metoprolol Tartrate 50 Mg Tablet) 50 mg PO BID DIAN; Protocol Sodium Chloride (0.9 % Sodium Chloride Flush 3 Ml Syringe) 3 ml IVFLUSH [facility] Home Medications Medication Instructions Recorded Confirmed Last Taken Type aspirin 81 mg tablet,delayed 81 mg PO DAILY 07/28/20 10/29/22 10/29/22 History release (Adult Aspirin Regimen) atorvastatin 40 mg tablet 40 mg PO BEDTIME 10/29/22 10/29/22 10/28/22 History Physical Exam Vital Signs and Narrative: Vital Signs: Last Vital Signs Temp 97.9 F 10/29/22 14:38 Pulse 140 H 10/29/22 16:00 Resp 22 H 10/29/22 14:38 BP 148/76 H 10/29/22 14:38 Pulse Ox 98 10/29/22 14:38 O2 Del Method Room Air 10/29/22 14:38 BMI result Body Mass Index 24.3 Constitutional - Awake and Alert, No apparent distress Eyes - PERRLA, EOMI Cardiovascular - S1S2, RRR, 3+ pitting edema LLE, 2+ pitting edema RLE Respiratory - Normal lung expansion, Normal respiratory effort, No respiratory distress, bibasilar crackles Gastrointestinal - NT / ND; +BS; No rebound or guarding Extremities - no calf tenderness bilaterally, no swelling Skin - Warm/Dry Neurological - Alert & oriented x3, CN II-XII in tact, 5/5 strength BUE and BLE Psychological - Appropriate affect Results Labs 10/29/22 15:00 10/29/22 15:00 Labs: Laboratory Results - last 24 hr 10/29/22 10/29/22 10/29/22 15:00 15:00 15:00 MCV 93.8 MCH 29.6 MCHC 31.6 RDW 13.9 Plt Count 395 D MPV 10.1 Immature Gran % (Auto) 0.5 H Neut % (Auto) 71.9 Lymph % (Auto) 17.1 L [place] % (Auto) 8.4 Eos % (Auto) 1.3 Baso % (Auto) 0.8 Lymph # (Auto) 1.5 [place] # (Auto) 0.7 Eos # (Auto) 0.1 Baso # (Auto) 0.1 Abs Immat Gran (auto) 0.04 H Absolute Neuts (auto) 6.1 Absolute Nucleated RBC 0.000 Nucleated RBC % (auto) 0.0 PT 11.8 INR 1.0 Anion Gap 11 L Estim Creat Clear Calc 43.4 Estimated GFR > 60 Random Glucose 98 Calcium 9.7 Magnesium 2.3 Total Bilirubin 0.4 Direct Bilirubin 0.1 AST 34 H ALT 20 Alkaline Phosphatase 60 Troponin I High Sens Total Protein 6.6 Albumin 3.9 10/29/22 15:00 MCV MCH MCHC RDW Plt Count MPV Immature Gran % (Auto) Neut % (Auto) Lymph % (Auto) [place] % (Auto) Eos % (Auto) Baso % (Auto) Lymph # (Auto) [place] # (Auto) Eos # (Auto) Baso # (Auto) Abs Immat Gran (auto) Absolute Neuts (auto) Absolute Nucleated RBC Nucleated RBC % (auto) PT INR Anion Gap Estim Creat Clear Calc Estimated GFR Random Glucose Calcium Magnesium Total Bilirubin Direct Bilirubin AST ALT Alkaline Phosphatase Troponin I High Sens 125.2 H* Total Protein Albumin Imaging Radiologist's Impressions: Impressions Chest X-Ray 10/29/22 15:24 IMPRESSION: Small bilateral pleural effusions. 2 cm abnormal density in the right perihilar region. It is uncertain whether this corresponds to known superior segment right lower lobe pulmonary nodule. Clinical correlation recommended. Assessment and Plan (1) Atrial fibrillation: Status: Acute (2) Acute exacerbation of CHF (congestive heart failure): Status: Acute (3) Elevated troponin: Status: Acute Plan 82 year old female with history TAVR (bioprosthetic), hypertension, non-small cell lung cancer in remission ( s/p radiation therapy in 2019), osteopenia, and hyperlipidemia admitted for new onset atrial fibrillation. #New onset atrial fibrillation -initially with RVR, rate now controlled following 20mg IV diltiazem -Change atenolol to metoprolol 50mg BID, continue nifedipine -[id number] score 5. Initiate eliquis 5mg BID. No hx GI bleeding, cerebral hemorrhage, or known bleeding disorder -Last echo 07/18/22 showing Normal LV systolic function, EF 60-65%, with impaired relaxation filling pattern, mild left atrial enlargement, normal function of bioprosthetic aortic valve - cardiac diet - appreciate cardiology input - monitor on telemetry # acute CHF exacerbation -HFpEF as above at baseline - CXR with small bilateral pleural effusions with 3+ lower extremity edema, symptomatic with dyspnea on exertion - BNP pending - IV Lasix 20 mg daily - strict I&O - cardiac diet - appreciate cardiology input # elevated troponins- likely related to demand from AFib with RVR and CHF exacerbation - initial 127, repeat pending. EKG is nonischemic # hypertension-reasonably controlled - change atenolol to metoprolol as above, continue nifedipine # HLD - continue fenofibrate # non-small cell lung cancer in remission - CXR showing possible right lower lobe nodule - outpatient follow-up with [facility] on 11/08 as scheduled DVT prophylaxis-Eliquis full code patient requires inpatient stay at least 2 midnights for management of new onset atrial fibrillation with RVR and acute CHF exacerbation Time Spent With Patient Time: Total time managing care of this patient today ____ minutes. Quality Stroke Does the patient have a stroke diagnosis?: No VTE Prior VTE?: No VTE Risk Level:: Medical - moderate - high VTE Device Contraindication: Treatment Not Indicated VTE Drug Contraindication: N/A - Med Ordered
[2022-10-29 17:46] LABS: B Type Natriuretic Peptide 878 pg/mL (<100)
[2022-10-29] MEDS: Furosemide 20 MG/2 ML VIAL IVPUSH ×2 (18:01→19:16)
[2022-10-29 18:04] LABS: Troponin-I High Sensitivity 143.7 ng/L (<3.5-17.0)
--- NOTE | 2022-10-29 19:53 | PC.NURSE ---
Attempted to call report at 1950. Stefanie attempted around 1900. Pt is being transferred upstairs. Receiving RN has been messaged and will call down for report when she can.
[2022-10-29 20:08] VITALS: BMI 53.6
[2022-10-29 20:23] VITALS: BP 170/50; PULSE 82; RESP 20; TEMP 36.6; O2SAT 100
[2022-10-29] MEDS: 0.9 % Sodium Chloride Flush 3 ML SYRINGE IVFLUSH (20:31)
[2022-10-29] MEDS: Atorvastatin Calcium 40 MG TABLET PO (20:31)
[2022-10-29] MEDS: Apixaban 5 MG TABLET PO (20:31)
[2022-10-29 20:40] VITALS: BP 158/50; PULSE 60; RESP 18
--- NOTE | 2022-10-30 | ECG_ITS ---
Test Reason : converted to sr Blood Pressure : / mmHG Vent. Rate : 078 BPM Atrial Rate : 078 BPM P-R Int : 166 ms QRS Dur : 092 ms QT Int : 408 ms P-R-T Axes : 070 050 049 degrees QTc Int : 465 ms Normal sinus rhythm Normal ECG When compared with ECG of 29-OCT-2022 15:02, Sinus rhythm has replaced Atrial fibrillation Vent. rate has decreased BY 57 BPM Referred By: Wilton Reid Electronically Signed By:JOHN LORA
[2022-10-30 03:53] VITALS: BP 138/64; PULSE 71; RESP 18; TEMP 36.8; O2SAT 97
[2022-10-30 06:35] LABS: MANUAL DIFF FLAG NO
[2022-10-30 07:00] LABS: Anion Gap 11 (12-20); Blood Urea Nitrogen 25 mg/dL (9-16); Calcium 9.2 mg/dL (8.4-10.2); Carbon Dioxide 25 mmol/L (22-29); Chloride 111 mmol/L (96-108); Creatinine Clr Calc Pharmacy 60.4; Estimated Glomerular Filt Rate 56; Glucose Random 75 mg/dL (60-115); Potassium 3.6 mmol/L (3.3-5.1); Sodium 143 mmol/L (135-145)
[2022-10-30 07:01] LABS: Basophils Absolute Auto 0.1 X10*3/uL (0.0-0.2); Basophils Percent Auto 0.9 % (0-2); Eosinophils Absolute Auto 0.2 X10*3/uL (0.0-0.4); Eosinophils Percent Auto 2.9 % (0-4); Hemoglobin 10.9 g/dl (12.0-16.0); Imm Gran Abs Auto 0.01 X10*3/uL (0.00-0.03); Imm Gran Pct Auto 0.2 % (0.0-0.4); Lymphocytes Absolute Auto 1.5 X10*3/uL (1.2-4.9); Mean Corpuscular HGB Conc 32.1 g/dl (31.0-35.0); Mean Corpuscular Hemoglobin 29.5 pg (27.0-33.0); Mean Corpuscular Volume 91.9 fL (80.0-98.0); Mean Platelet Volume 9.9 fL (9.4-12.3); Monocytes Absolute Auto 0.7 X10*3/uL (0.1-1.2); Monocytes Percent Auto 11.3 % (2-11); Neutrophils Absolute Auto 3.5 x10*3/uL (2.0-8.3); Neutrophils Percent Auto 59.7 % (45-73); Platelet Count 299 X10*3/uL (160-400); White Blood Count 5.8 X10*3/uL (4.8-10.8)
[2022-10-30 07:05] LABS: B Type Natriuretic Peptide 518 pg/mL (<100)
[2022-10-30 07:30] VITALS: BP 166/50; PULSE 75; RESP 20; TEMP 36.6; O2SAT 98
--- NOTE | 2022-10-30 09:00 | MHC.CM.PN ---
CM met with Patient and her at bedside and addressed IMM with her, providing her with the original and placing a copy on the chart. Patient lives in a house with her /HCP and she required no services nor DME [employer]. Home/self care is the goal and CM has initiated and will follow for dc planning. Patient has received Moderna/Covid vax x4 and her PCP is Dr. Shelbi Infante.
[2022-10-30] MEDS: NIFEdipine ER 30 MG TAB.ER.24 PO (09:09)
[2022-10-30] MEDS: Potassium Chloride ER 20 MEQ TAB.ER.PRT PO (09:10)
[2022-10-30] MEDS: Apixaban 5 MG TABLET PO (09:10)
[2022-10-30] MEDS: 0.9 % Sodium Chloride Flush 3 ML SYRINGE IVFLUSH (09:10)
[2022-10-30] MEDS: Fenofibrate 160 MG TABLET PO (09:10)
[2022-10-30] MEDS: Metoprolol Tartrate 50 MG TABLET PO (09:10)
[2022-10-30] MEDS: Furosemide 20 MG/2 ML VIAL 40 MG IVPUSH (09:23)
[2022-10-30] MEDS: Acetaminophen 325 MG TABLET 650 MG PO (09:41)
--- NOTE | 2022-10-30 10:24 | P.CONCA_ITS ---
History of Present Illness History of Present Illness Date of Service: 10/30/22 Chief complaint: Afib w/ RVR Narrative: This is a cardiology consultation regarding atrial fibrillation rapid ventricular rate. Patient has a history of transcatheter aortic valve replacement as listed her last office note. Otherwise, multiple medical comorbidities including hypertension, non-small cell lung cancer in remission, hyperlipidemia who was sent to the emergency room from cardiology office. It seems that she was generally not feeling well for the last few days including generalized weakness, fatigue, palpitations and shortness of breath. EKG had apparently shown atrial fibrillation with rapid rate and then she was sent to the emergency room. While in the emergency room, she got IV diltiazem and over time, she converted from atrial fibrillation sinus rhythm. Currently she stays in sinus rhythm. She is also being treated for congestive heart failure with diuretics. Overall, she states that she is feeling better since the time of admission. Review of Systems Review of Systems: Yes all other systems are reviewed and are negative Constitutional: Constitutional: Reports as per HPI, Reports no additional constitutional complaints, Reports fatigue, Reports lethargy, Reports malaise and Reports weakness Eyes: Eyes: Reports as per HPI and Denies no additional eye complaints ENT: Denies system reviewed and no additional complaints, except as documented and Reports as per HPI Cardiovascular: Cardiovascular: Reports as per HPI, Reports no additional cardiovascular complaints, Denies acrocyanosis, Denies cool extremities, Denies chest pain, Denies leg edema, Denies lightheadedness, Denies palpitations and Reports dyspnea Respiratory: Respiratory: Reports as per HPI, Denies no additional respiratory complaints and Reports dyspnea Gastrointestinal: Gastrointestinal: Reports as per HPI and Denies no additional gastrointestinal complaints Genitourinary: Genitourinary: Reports as per HPI Musculoskeletal: Musculoskeletal: Reports no additional musculoskeletal complaints and Reports as per HPI Integumentary/Breasts: Skin/Breast: Reports system reviewed and no additional complaints, except as docu Neurologic: Reports system reviewed and no additional complaints, except as documented, Reports as per HPI and Reports weakness Psychiatric: Psychiatric: Reports no additional psychiatric complaints and Reports as per HPI Endocrine: Endocrine: Reports no additional endocrine complaints, Reports as per HPI, Reports fatigue and Denies palpitations Hematologic/Lymphatic: Hematologic/Lymphatic: Reports no additional hematologic/lymphatic complaints and Reports as per HPI Allergic/Immunologic: Allergic/Immunologic: Reports no additional allergic/immunologic complaints and Reports as per HPI PMFSH Past Medical History Medical History Aortic stenosis Atrial fibrillation Carotid aneurysm, right Diastolic dysfunction HTN (hypertension) Hypercholesterolemia Intracranial aneurysm Non-small cell cancer of right lung Peripheral vascular disease Pre-operative clearance Prolapsed bladder Pulmonary nodule Thyroid nodule Varicose vein of leg Varicose veins of left leg with edema Family History Family History Father Brain tumor Mother Uterine cancer, sarcoma Surgical History Surgical History History of cataract surgery History of lung biopsy Hx of cardiac cath Hx of hysterectomy Hx of tonsillectomy S/P TAVR (transcatheter aortic valve replacement) Social History Social History Household Members: Spouse Housing: House Alcohol intake: current Alcohol intake frequency: does not drink Alcohol type: wine Patient Tobacco Use Status: Never used Tobacco Smoked in Last 30 Days: No e-Cigarette/Vaping Use: Never Used Second Hand Smoke Exposure: No Use of substances other than those prescribed or required for medical reasons: No Currently Displaying Signs/Symptoms of Drug Intoxication Withdrawal: No Have you been hit, kicked, punched, or otherwise hurt by someone within the past year? If so, by whom?: No Do you feel safe in your current relationship?: Yes Is there a partner from a previous relationship who is making you feel unsafe now?: No Are you made to feel afraid or neglected: No Advance Directives: Yes Advance Directives Information Provided: No Advance Directives on File: No Advance Directives Date on File: 10/29/22 Do you have thoughts of harming others: None Do you have a plan to hurt others: No Plan Recently lost weight without trying: No Nutrition Risks: No Nutritional Risk Patient : No : No service: No Current occupational status: retired Cognitive needs: No Hearing needs: No Vision needs: Yes (glasses) Meds Allergies Allergy/AdvReac Type Severity Reaction Status Date / Time Sulfa (Sulfonamide Allergy Mild RASH Verified 06/27/22 11:03 Antibiotics) [SULFA (SULFONAMIDE ANTIBIOTICS)] Active Medications: Current Medications Acetaminophen (Acetaminophen 325 Mg Tablet) 650 mg PO Q6H PRN PRN Reason: Pain, Mild (Pain Scale 1-3) Last Admin: 10/30/22 09:41 Dose: 650 mg Apixaban (Apixaban 5 Mg Tablet) 5 mg PO BID [facility] Last Admin: 10/30/22 09:10 Dose: 5 mg Atorvastatin Calcium (Atorvastatin Calcium 40 Mg Tablet) 40 mg PO BEDTIME [facility] Last Admin: 10/29/22 20:31 Dose: 40 mg Docusate Sodium (Docusate Sodium 100 Mg Capsule) 100 mg PO DAILY PRN PRN Reason: Constipation Fenofibrate (Fenofibrate 160 Mg Tablet) 160 mg PO DAILY [facility] Last Admin: 10/30/22 09:10 Dose: 160 mg Furosemide (Furosemide 20 Mg/2 Ml Vial) 40 mg IVPUSH DAILY [facility]; Protocol Last Admin: 10/30/22 09:23 Dose: 40 mg Metoprolol Tartrate (Metoprolol Tartrate 50 Mg Tablet) 50 mg PO BID [facility]; Protocol Last Admin: 10/30/22 09:10 Dose: 50 mg Nifedipine (Nifedipine Er 30 Mg Tab.Er.24) 30 mg PO DAILY [facility] Last Admin: 10/30/22 09:09 Dose: 30 mg Potassium Chloride (Potassium Chloride Er 20 Meq Tab.Er.Prt) 20 meq PO DAILY [facility] Last Admin: 10/30/22 09:10 Dose: 20 meq Sodium Chloride (0.9 % Sodium Chloride Flush 3 Ml Syringe) 3 ml IVFLUSH QSHIFT [facility] Last Admin: 10/30/22 09:10 Dose: 3 ml Home Medications Medication Instructions Recorded Confirmed Last Taken Type aspirin 81 mg tablet,delayed 81 mg PO DAILY 07/28/20 10/29/22 10/29/22 History release (Adult Aspirin Regimen) atorvastatin 40 mg tablet 40 mg PO BEDTIME 10/29/22 10/29/22 10/28/22 History Physical Exam Vital Signs: Vital Signs: Last Vital Signs Temp 97.8 F 10/30/22 07:30 Pulse 75 10/30/22 07:30 Resp 20 10/30/22 07:30 BP 166/50 H 10/30/22 07:30 Pulse Ox 98 10/30/22 07:30 O2 Del Method Room Air 10/30/22 07:30 BMI result Body Mass Index 53.6 Const: General: comfortable and no acute distress Orientation/consciousness: patient oriented x3 HEENT: Other: Unremarkable Head: Yes normal to inspection Neck: Neck: Yes normal visual inspection Chest: Chest palpation & inspection: normal inspection of the chest Resp: Auscultation: clear to auscultation bilaterally Cardio: Palpation: normal PMI Heart sounds: S1 normal heart sound present, S2 normal heart sound present, no gallops, no murmurs and no rubs GI: Palpation (GI): Soft to palpation Back/Spine/Pelvis: Other: unremarkable Skin: General skin exam: no rashes or lesions noted Neuro: General: patient oriented x3 Extrem: General: Yes normal to inspection Psych: Mental Status: mental status grossly normal Objective Labs and Meds 10/30/22 06:16 10/30/22 06:16 Lab results: Laboratory Results - last 24 hr 10/29/22 10/29/22 10/29/22 15:00 15:00 15:00 WBC 8.5 RBC 3.88 L Hgb 11.5 L Hct 36.4 L MCV 93.8 MCH 29.6 MCHC 31.6 RDW 13.9 Plt Count 395 D MPV 10.1 Immature Gran % (Auto) 0.5 H Neut % (Auto) 71.9 Lymph % (Auto) 17.1 L [place] % (Auto) 8.4 Eos % (Auto) 1.3 Baso % (Auto) 0.8 Lymph # (Auto) 1.5 [place] # (Auto) 0.7 Eos # (Auto) 0.1 Baso # (Auto) 0.1 Abs Immat Gran (auto) 0.04 H Absolute Neuts (auto) 6.1 Absolute Nucleated RBC 0.000 Nucleated RBC % (auto) 0.0 PT 11.8 INR 1.0 Sodium 141 Potassium 4.3 Chloride 110 H Carbon Dioxide 24 Anion Gap 11 L BUN 27 H Creatinine 0.87 Estim Creat Clear Calc 43.4 Estimated GFR > 60 Random Glucose 98 Calcium 9.7 Magnesium 2.3 Total Bilirubin 0.4 Direct Bilirubin 0.1 AST 34 H ALT 20 Alkaline Phosphatase 60 Troponin I High Sens B-Natriuretic Peptide Total Protein 6.6 Albumin 3.9 10/29/22 10/29/22 10/29/22 15:00 17:17 17:17 WBC RBC Hgb Hct MCV MCH MCHC RDW Plt Count MPV Immature Gran % (Auto) Neut % (Auto) Lymph % (Auto) [place] % (Auto) Eos % (Auto) Baso % (Auto) Lymph # (Auto) [place] # (Auto) Eos # (Auto) Baso # (Auto) Abs Immat Gran (auto) Absolute Neuts (auto) Absolute Nucleated RBC Nucleated RBC % (auto) PT INR Sodium Potassium Chloride Carbon Dioxide Anion Gap BUN Creatinine Estim Creat Clear Calc Estimated GFR Random Glucose Calcium Magnesium Total Bilirubin Direct Bilirubin AST ALT Alkaline Phosphatase Troponin I High Sens 125.2 H* 143.7 H* B-Natriuretic Peptide 878 H Total Protein Albumin 10/30/22 10/30/22 10/30/22 06:16 06:16 06:16 WBC 5.8 RBC 3.70 L Hgb 10.9 L Hct 34.0 L MCV 91.9 MCH 29.5 MCHC 32.1 RDW 14.0 Plt Count 299 MPV 9.9 Immature Gran % (Auto) 0.2 Neut % (Auto) 59.7 Lymph % (Auto) 25.0 [place] % (Auto) 11.3 H Eos % (Auto) 2.9 Baso % (Auto) 0.9 Lymph # (Auto) 1.5 [place] # (Auto) 0.7 Eos # (Auto) 0.2 Baso # (Auto) 0.1 Abs Immat Gran (auto) 0.01 Absolute Neuts (auto) 3.5 Absolute Nucleated RBC 0.000 Nucleated RBC % (auto) 0.0 PT INR Sodium 143 Potassium 3.6 Chloride 111 H Carbon Dioxide 25 Anion Gap 11 L BUN 25 H Creatinine 0.96 Estim Creat Clear Calc 60.4 Estimated GFR 56 Random Glucose 75 Calcium 9.2 Magnesium Total Bilirubin Direct Bilirubin AST ALT Alkaline Phosphatase Troponin I High Sens B-Natriuretic Peptide 518 H Total Protein Albumin ECG Interpretation: EKG today shows sinus rhythm at 78/Min; no significant ST-T changes and otherwise unremarkable. EKG from yesterday shows atrial fibrillation at a rate of 135/Min with nonspecific ST-T changes. Imaging Radiologist's impression: Impressions Chest X-Ray 10/29/22 15:24 IMPRESSION: Small bilateral pleural effusions. 2 cm abnormal density in the right perihilar region. It is uncertain whether this corresponds to known superior segment right lower lobe pulmonary nodule. Clinical correlation recommended. Assessment and Plan (1) Atrial fibrillation with rapid ventricular response: Status: Acute (2) Elevated troponin: Status: Acute (3) Acute diastolic (congestive) heart failure: Status: Acute Plan Last echocardiogram shows LVEF of 60-65%. Mild diastolic dysfunction with indeterminate filling pressures are normally functioning bioprosthetic aortic valve. With regard to labs, troponins are 125 and 143. Cardiac BNP is 518. On admission, 878. Prior to that, 322. Overall, atrial fibrillation with rapid ventricular rate leading to acute diastolic heart failure and also some troponin leak. She seems otherwise improved. Continue home dose of atenolol. Add amiodarone loading followed by maintenance. Continue Eliquis. Overall diuretics. Discharge planning. Discussed with . Time Spent With Patient Time: Total time managing care of this patient today ____ minutes. Procedures Date of Service Date of Service: 10/30/22
--- NOTE | 2022-10-30 11:07 | MHC.CM.PN ---
Per ROUNDS discussion, Patient will be medically cleared for dc to home today, self care. IMM addressed with Patient this morning.
[2022-10-30] MEDS: Amiodarone HCL 200 MG TABLET 400 MG PO (11:26)
[2022-10-30 11:30] VITALS: BP 178/62; PULSE 75; RESP 20; TEMP 36.9; O2SAT 98
--- NOTE | 2022-10-30 12:14 | MHC.CM.PN ---
Per MD's request, MEG provided Patient with the Eliquis 3o day free trial coupon.
--- NOTE | 2022-10-30 13:13 | PM.DS ---
DS: Providers Provider Date of Service: 10/30/22 Date of admission: 10/29/22 16:38 Primary care physician: Shelbi Infante MD Consults: 10/29/22 16:42 Consult to Cardiology Routine Consulting Provider: [facility] [place] [facility] Reason for consultation: new onset afib DS: Diagnosis Discharge Diagnosis (1) Atrial fibrillation with rapid ventricular response: Status: Acute (2) Elevated troponin: Status: Acute (3) Acute diastolic (congestive) heart failure: Status: Acute DS: Summary Hospital Course Hospital Course: History of presenting illness : Date of Service: 10/29/22 Attending physician on admission: Wilton Reid Chief Complaint: afib rvr 82 year old female with history TAVR (bioprosthetic), hypertension, non-small cell lung cancer in remission ( s/p radiation therapy in 2019),? osteopenia, and hyperlipidemia presented to the ED from Cardiology office.? She states she has been experiencing fatigue and weakness along with palpitations and anxiety over the last week.? She has also had increased dyspnea on exertion ongoing for several weeks.? She denies any lightheadedness, chest pain.? States she has chronic edema of the bilateral lower extremities.? Denies any history of similar symptoms.? She was at her cardiology office earlier today for routine follow-up with EKG showing atrial fibrillation with RVR and she was referred to the ED for further evaluation and management. ? On arrival, patient tachycardic to 141, tachypneic to 22, vital signs otherwise reassuring. ? There is no leukocytosis.? Renal function and electrolyte levels within normal limits.? Initial troponin 125.2, repeat pending.? CXR showing small bilateral pleural effusions and 2 cm abnormal density in the right perihilar region, question related to known right lower lobe pulmonary nodule.? EKG showing AFib with RVR, rate [address] abnormality.? In the ED, patient given 20 mg IV push of diltiazem with improvement in heart rate to 50-70s. Hospital course: 82 year old female with history TAVR (bioprosthetic), hypertension, non-small cell lung cancer in remission ( s/p radiation therapy in 2019),? osteopenia, and hyperlipidemia admitted for new onset atrial fibrillation. #New onset atrial fibrillation,initially with RVR, treated with 20mg IV diltiazem, ventricular rate improved ,admitted to intermediate care unit, continued on beta blockers started on Eliquis 5 mg b.i.d. due to [id number] score 5,Last echo 07/18/22 showed Normal LV systolic function, EF 60-65%, with impaired relaxation filling pattern, mild left atrial enlargement, normal function of bioprosthetic aortic valve Overnight patient converted to normal sinus rhythm this morning seen by community association manager placed on amiodarone 400 mg twice daily for 2 weeks followed by amiodarone 200 mg daily since patient is hemodynamically stable and feeling better is being discharged home and recommended to continue atenolol and nifedipine. # acute CHF exacerbation, patient noted to have heart failure with preserved EF, CXR with small bilateral pleural effusions with elevated BNP patient treated with IV Lasix with good response , stable renal function BNPs trended down therefore will discharge home on Lasix 20 mg by mouth daily. # elevated troponins-? likely related to demand from AFib with RVR and CHF exacerbation, EKG non STEMI CKD4 no further workup recommended. # hypertension-reasonably controlled recommend to continue atenolol and nifedipine and follow BP closely # HLD continue fenofibrate and statins # non-small cell lung cancer in remission, CXR showing possible right lower lobe nodule, outpatient follow-up with [facility]? on 11/08 as scheduled. # morbid obesity recommended low-calorie diet and exercise. Time Spent with Patient Time attestation: Total time managing care of this patient today ____ minutes. Discharge coordination time: Greater than 30 minutes Quality: Safe Use of Opioids Does Pt have an Active Cancer Diagnosis on the Problem List?: No Quality: Stroke Does the patient have a stroke diagnosis?: No Physical Exam Vital Signs: Vital Signs: Last Vital Signs Temp 98.4 F 10/30/22 11:30 Pulse 75 10/30/22 11:30 Resp 20 10/30/22 11:30 BP 178/62 H 10/30/22 11:30 Pulse Ox 98 10/30/22 11:30 O2 Del Method Room Air 10/30/22 11:30 BMI result Body Mass Index 53.6 Const: Other: General awake alert x3, resting comfortably in no acute distress. Neck supple no JVD. CVS regular rate rhythm, Respiratory lungs clear to auscultation, no respiratory distress, no wheeze, no rhonchi. Gastrointestinal abdomen soft, nontender, bowel sounds audible, no guarding , no rigidity. Extremities no edema. Neuro nonfocal Skin no rash Psych appropriate affect DS: Data Data Completed and Pending Labs on day of discharge: Laboratory Results - last 24 hr 10/29/22 10/29/22 10/29/22 15:00 15:00 15:00 WBC 8.5 RBC 3.88 L Hgb 11.5 L Hct 36.4 L MCV 93.8 MCH 29.6 MCHC 31.6 RDW 13.9 Plt Count 395 D MPV 10.1 Immature Gran % (Auto) 0.5 H Neut % (Auto) 71.9 Lymph % (Auto) 17.1 L [place] % (Auto) 8.4 Eos % (Auto) 1.3 Baso % (Auto) 0.8 Lymph # (Auto) 1.5 [place] # (Auto) 0.7 Eos # (Auto) 0.1 Baso # (Auto) 0.1 Abs Immat Gran (auto) 0.04 H Absolute Neuts (auto) 6.1 Absolute Nucleated RBC 0.000 Nucleated RBC % (auto) 0.0 PT 11.8 INR 1.0 Sodium 141 Potassium 4.3 Chloride 110 H Carbon Dioxide 24 Anion Gap 11 L BUN 27 H Creatinine 0.87 Estim Creat Clear Calc 43.4 Estimated GFR > 60 Random Glucose 98 Calcium 9.7 Magnesium 2.3 Total Bilirubin 0.4 Direct Bilirubin 0.1 AST 34 H ALT 20 Alkaline Phosphatase 60 Troponin I High Sens B-Natriuretic Peptide Total Protein 6.6 Albumin 3.9 10/29/22 10/29/22 10/29/22 15:00 17:17 17:17 WBC RBC Hgb Hct MCV MCH MCHC RDW Plt Count MPV Immature Gran % (Auto) Neut % (Auto) Lymph % (Auto) [place] % (Auto) Eos % (Auto) Baso % (Auto) Lymph # (Auto) [place] # (Auto) Eos # (Auto) Baso # (Auto) Abs Immat Gran (auto) Absolute Neuts (auto) Absolute Nucleated RBC Nucleated RBC % (auto) PT INR Sodium Potassium Chloride Carbon Dioxide Anion Gap BUN Creatinine Estim Creat Clear Calc Estimated GFR Random Glucose Calcium Magnesium Total Bilirubin Direct Bilirubin AST ALT Alkaline Phosphatase Troponin I High Sens 125.2 H* 143.7 H* B-Natriuretic Peptide 878 H Total Protein Albumin 10/30/22 10/30/22 10/30/22 06:16 06:16 06:16 WBC 5.8 RBC 3.70 L Hgb 10.9 L Hct 34.0 L MCV 91.9 MCH 29.5 MCHC 32.1 RDW 14.0 Plt Count 299 MPV 9.9 Immature Gran % (Auto) 0.2 Neut % (Auto) 59.7 Lymph % (Auto) 25.0 [place] % (Auto) 11.3 H Eos % (Auto) 2.9 Baso % (Auto) 0.9 Lymph # (Auto) 1.5 [place] # (Auto) 0.7 Eos # (Auto) 0.2 Baso # (Auto) 0.1 Abs Immat Gran (auto) 0.01 Absolute Neuts (auto) 3.5 Absolute Nucleated RBC 0.000 Nucleated RBC % (auto) 0.0 PT INR Sodium 143 Potassium 3.6 Chloride 111 H Carbon Dioxide 25 Anion Gap 11 L BUN 25 H Creatinine 0.96 Estim Creat Clear Calc 60.4 Estimated GFR 56 Random Glucose 75 Calcium 9.2 Magnesium Total Bilirubin Direct Bilirubin AST ALT Alkaline Phosphatase Troponin I High Sens B-Natriuretic Peptide 518 H Total Protein Albumin Discharge Plan Discharge Anticipated Discharge Date/Time: 10/30/22 13:07 Patient Disposition: Home, Self-Care Discharge Diagnosis: Acute diastolic congestive heart failure Atrial fibrillation with RVR Referrals: Shelbi Infante MD [Primary Care Provider] - 1 Week Emmett Vogt MD [Physician] - Discharge Medications: New Eliquis 5 mg Tablet 5 mg PO BID Qty: 60 0RF amiodarone 200 mg tablet 200 mg PO BID Qty: 90 0RF Rx Instructions: Take amiodarone 400 mg ( 2x 200mg ) twice daily for 2 weeks, followed by amiodarone 200 mg 1 tablet daily furosemide [Lasix] 20 mg tablet 20 mg PO DAILY Qty: 30 0RF Continued atorvastatin 40 mg tablet 40 mg PO BEDTIME atenolol 100 mg tablet 100 mg PO DAILY Qty: 90 3RF fenofibrate nanocrystallized 145 mg tablet 145 mg PO DAILY Qty: 90 3RF nifedipine 30 mg tablet extended release 30 mg PO DAILY Qty: 90 3RF Discontinued aspirin [Adult Aspirin Regimen] 81 mg tablet,delayed release (DR/EC) 81 mg PO DAILY Discharge Orders: Discharge Order (Routine); Ordered 10/30/22 Ordered By: Wilton Reid Diet: Low fat, low cholesterol Activity on Discharge: As tolerated Stand Alone Forms: Patient Portal Discharge page Care Plan Goals: Take amiodarone 400 mg ( 200mg x2 twice daily) x 2 weeks, then amiodarone 200 mg 1 tablet daily Take Lasix 20 mg 1 tablet daily Eliquis 5 mg 1 tablet twice daily stop Aspirin Health Concerns: Non-small cell lung cancer/New onset AFib Plan of Treatment: Call primary care physician and community association manager Dr. Harris for follow-up appointment Follow-up with Oncology in regard to right lung nodule Assessment: As above Patient Instructions: A-fib (Atrial Fibrillation) (ED), Blood Thinners (ED)
== END 2022-10-30 14:50 | disposition home or self-care (01) | DRG 308 ==
LOC: HO.ED 15:53 → HO.EDOVER 16:45 → HO.IMC 18:54
PROVIDERS: Nurse Practitioner Family; Admitting Provider Physician Assistant; Emergency Provider Emergency Medicine; PCP Internal Medicine; Visit Provider Hospitalist
DX: I48.91 Unspecified atrial fibrillation (principal); I50.33 Acute on chronic diastolic (congestive) heart failure; I24.8 Other forms of acute ischemic heart disease; Z68.43 Body mass index [BMI] 50.0-59.9, adult; R91.1 Solitary pulmonary nodule; I11.0 Hypertensive heart disease with heart failure; E66.01 Morbid (severe) obesity due to excess calories; E78.5 Hyperlipidemia, unspecified; Z85.118 Personal history of other malignant neoplasm of bronchus and lung; Z92.3 Personal history of irradiation; Z95.2 Presence of prosthetic heart valve; Z88.2 Allergy status to sulfonamides; Z79.899 Other long term (current) drug therapy
CPT/HCPCS: 36415; 71046; 80048; 80076; 83735; 83880; 84484; 85025; 85610; 93005; 99285; J1940

== ENCOUNTER → 2022-11-06 13:24 | Outpatient (BNVA) | payer MEDICARE, SELFPAY | PROVIDERS: PCP Internal Medicine; Visit Provider Internal Medicine Cardiovascular Disease | DX: E78.00 Pure hypercholesterolemia, unspecified (principal); Z79.899 Other long term (current) drug therapy | CPT/HCPCS: 93005 ==

== ENCOUNTER → 2022-11-14 12:45 | Outpatient (REF) | payer MEDICARE, SELFPAY ==
--- NOTE | 2022-11-14 12:47 | HM_ITS ---
Conclusion: 1. Patient was monitored for total period of 6 days and 16 hours with 11% of data artifactual 2. Baseline was normal sinus rhythm with average heart of 61 beats per minute 3. Intermittent episodes of atrial fibrillation with total burden of 1% with longest episode lasting 1 hour and 3 minutes with fastest heart of 117 beats per minute 4. No significant pauses noted 5. Rare PACs noted 6. No patient reported events MTDD
== END ==
LOC: HO.CARD 12:45
PROVIDERS: PCP Internal Medicine; Visit Provider Internal Medicine Cardiovascular Disease
DX: I49.9 Cardiac arrhythmia, unspecified (principal); I48.91 Unspecified atrial fibrillation
CPT/HCPCS: 93242

== ENCOUNTER 2022-12-26 08:26 | Outpatient (AMB) | payer MEDICARE, SELFPAY ==
[2022-12-26 08:30] VITALS: BP 122/62; PULSE 64; O2SAT 97; BMI 22.9
--- NOTE | 2022-12-26 08:30 | A.OFFPC_ITS ---
Vital Signs 12/26/22 08:30 Height 5 ft 2 in Weight 125 lb BMI 22.9 BP 122/62 Blood Pressure Location Lt brachial Position Sitting Pulse 64 Pulse Source Pulse Oximeter Pulse Oximetry (%) 97 Oxygen Delivery Method Room Air Intake Visit Reasons: 6m F/U s/p TAVR, PVD Allergies Sulfa (Sulfonamide Antibiotics) [SULFA (SULFONAMIDE ANTIBIOTICS)] Allergy (Mild, Verified 12/26/22 08:30) RASH Medication List - Last Reconciled 12/26/22 by Shelbi Infante MD amiodarone 200 mg PO DAILY apixaban (Eliquis) 5 mg PO BID atenolol 100 mg PO DAILY atorvastatin 40 mg PO BEDTIME fenofibrate nanocrystallized 145 mg PO DAILY furosemide (Lasix) 20 mg PO DAILY nifedipine ER 30 mg PO DAILY Tobacco use date assessed: 11/14/22 Fall risk assessment: No Falls in past year Last assessed Fall Risk: 12/26/22 Dental Screening Dental Screen Date: 12/26/22 Did you have a dental visit in the last 12 months?: Yes Did you have a dental problem in the last 6 months where you did not have access to dental care?: No Was dental information given to patient?: Patient has dentist HPI 6m F/U s/p TAVR, PVD HPI Details 82-year-old female with history of status post TAVR right lung cancer(status post radiation therapy 2019) hypercholesterolemia hypertension and peripheral vascular disease last seen in June 2022. Review of the notes was in the hospital in October 2022 for atrial fibrillation and congestive heart failure. Placed on anticoagulation echocardiogram in July 2022 ejection fraction 60-65% with impaired relaxation normal bioprosthetic valve placed on amiodarone patient discharged home on diuretic. [facility] Medical History (Updated 12/26/22 @ 08:40 by Shelbi Infante MD) Aortic stenosis Atrial fibrillation Carotid aneurysm, right Diastolic dysfunction Elevated troponin Hospital discharge follow-up HTN (hypertension) Hypercholesterolemia Intracranial aneurysm Non-small cell cancer of right lung Peripheral vascular disease Pre-operative clearance Prolapsed bladder Pulmonary nodule Thyroid nodule Varicose vein of leg Varicose veins of left leg with edema Surgical History History of cataract surgery History of lung biopsy Hx of cardiac cath Hx of hysterectomy Hx of tonsillectomy S/P TAVR (transcatheter aortic valve replacement) Family History Father Brain tumor Mother Uterine cancer, sarcoma Social History Household Members: Spouse Housing: House Alcohol intake: current Alcohol intake frequency: does not drink Alcohol type: wine Patient Tobacco Use Status: Never used Tobacco e-Cigarette/Vaping Use: Never Used Second Hand Smoke Exposure: No Advance Directives Date on File: 10/29/22 service: No Current occupational status: retired Cognitive needs: No Hearing needs: No Vision needs: Yes (glasses) Questionnaire PHQ-9 Over the last 2 weeks, how often have you been bothered by any of the following problems? 1. Little interest or pleasure in doing things: not at all 2. Feeling down, depressed, or hopeless: not at all 3. Trouble falling or staying asleep, or sleeping too much: not at all 4. Feeling tired or having little energy: not at all 5. Poor appetite or overeating: not at all 6. Feeling bad about yourself - or that you are a failure or have let yourself or your family down: not at all 7. Trouble concentrating on things, such as reading the newspaper or watching television: not at all 8. Moving or speaking so slowly that other people could have noticed. Or the opposite - being so fidgety or restless that you have been moving around a lot more than usual: not at all 9. Thoughts that you would be better off or of hurting yourself in some way: not at all Total score: 0 Depression Screening Interpretation: Negative 48381 - PHQ-9 Billing: Yes Source: Developed by Drs. Steve Kim, Madalyn Vee, Isaac Maza and colleagues, with an educational eddie from [employer]. Thrive Questionnaire Date Thrive assessed: 11/14/22 AUDIT C Alcohol Use Questionnaire (AUDIT-C) 1. How often do you have a drink containing alcohol?: Never 3. How often do you have six or more drinks on one occasion?: Never Total Score: 0 Score Reviewed/Action Taken: No CRISTAL-7 AMB Questionnaire CRISTAL-7 Date CRISTAL - 7 assessed: 11/14/22 Source: Developed by Drs. Steve Kim, Madalyn Vee, Isaac Maza and colleagues, with an educational eddie from [employer]. Physical exam (Primary Care) Vital Signs: Last Vital Signs Pulse 64 12/26/22 08:30 BP 122/62 12/26/22 08:30 Pulse Ox 97 12/26/22 08:30 Oxygen Delivery Method Room Air 12/26/22 08:30 BMI result Body Mass Index 22.9 Tobacco/Smoking Status: Tobacco use Status Tobacco use date assessed 11/14/22 12/26/22 08:31 Patient Tobacco Use Status Never used Tobacco 12/26/22 08:31 e-Cigarette/Vaping Use Never Used 12/26/22 08:31 PHQ-9: PHQ-9 Score PHQ-9: Total score 0 12/26/22 08:31 Depression Screening Interpretation: Negative Thrive Assessment: Date of Thrive Assessment Date Thrive assessed 11/14/22 12/26/22 08:31 Const General: alert; No acute distress Eyes Conjunctivae: conjunctivae normal Resp Auscultation: clear to auscultation bilaterally Cardio Rate: regular rate Rhythm: regular rhythm GI Inspection: Yes normal to inspection Extrem General: Yes normal to inspection and No edema Assessment and Plan Assessment & Plan (1) S/P TAVR (transcatheter aortic valve replacement): Comment: 07/30. 26 mm Evolut bioprosthesis Code(s): Z95.2 - Presence of prosthetic heart valve Plan: Stable (2) HTN (hypertension): Comment: Heart catheterization for TAVR severe July 2019 echo normal left ventricular function with grade 2 diastolic dysfunction Code(s): I10 - Essential (primary) hypertension Plan: Continue with blood pressure medication. Decrease salt intake and exercise continue with atenolol 100 mg once a day nifedipine 30 mg once a day (3) Hypercholesterolemia: Code(s): E78.00 - Pure hypercholesterolemia, unspecified Plan: Avoid fried foods, chicken skin, eggs, butter margarine, pastries and meat. Be it pork or beef they have a lot of cholesterol patient is on atorvastatin 40 mg once a day LDL goal of less than 100 (4) Non-small cell cancer of right lung: Comment: May 2019, CT scan 2021October 2022 Code(s): C34.91 - Malignant neoplasm of unspecified part of right bronchus or lung Plan: Patient continues follow-up with hematology oncology (5) Atrial fibrillation: Code(s): I48.91 - Unspecified atrial fibrillation Plan: Continue with anticoagulation (6) Congestive heart failure with preserved left ventricular function, NYHA class 3: Code(s): I50.30 - Unspecified diastolic (congestive) heart failure Plan: Continue with diuresis (7) Anemia: Code(s): D64.9 - Anemia, unspecified Orders: Orders Ferritin Today D64.9 - Anemia, unspecified IRON PROFILE Today D64.9 - Anemia, unspecified Reticulocyte Count Today D64.9 - Anemia, unspecified Medications: Refilled amiodarone 200 mg PO DAILY 30 tabs 3RF I48.91 - Unspecified atrial fibrillation Discontinued atorvastatin 40 mg PO DAILY 90 tabs 3RF E78.00 - Pure hypercholesterolemia, unspecified Coding Level of Care Code Est Pt Level 4 (13492) Diagnoses S/P TAVR (transcatheter aortic valve replacement) Z95.2 HTN (hypertension) I10 Hypercholesterolemia E78.00 Non-small cell cancer of right lung C34.91 Atrial fibrillation I48.91 Congestive heart failure with preserved left ventricular function, NYHA class 3 I50.30 Anemia D64.9
== END 2022-12-26 09:35 | disposition home or self-care (01) ==
PROVIDERS: Visit Provider Internal Medicine
DX: I11.0 Hypertensive heart disease with heart failure (principal); I50.30 Unspecified diastolic (congestive) heart failure; I48.91 Unspecified atrial fibrillation; C34.91 Malignant neoplasm of unspecified part of right bronchus or lung; Z95.2 Presence of prosthetic heart valve; E78.00 Pure hypercholesterolemia, unspecified; D64.9 Anemia, unspecified
CPT/HCPCS: 99214

== ENCOUNTER 2022-12-29 07:10 | Outpatient (REF) | payer MEDICARE, SELFPAY ==
[2022-12-29 07:36] LABS: MANUAL DIFF FLAG NO
[2022-12-29 08:23] LABS: Basophils Absolute Auto 0.1 X10*3/uL (0.0-0.2); Eosinophils Absolute Auto 0.1 X10*3/uL (0.0-0.4); Eosinophils Percent Auto 1.9 % (0-4); Hematocrit 35.5 % (37.0-47.0); Hemoglobin 11.3 g/dl (12.0-16.0); Imm Gran Abs Auto 0.02 X10*3/uL (0.00-0.03); Imm Gran Pct Auto 0.4 % (0.0-0.4); Immature Retic Fraction 10.7 % (3.0-15.9); Lymphocytes Absolute Auto 0.8 X10*3/uL (1.2-4.9); Lymphocytes Percent Auto 15.7 % (20-40); Mean Corpuscular HGB Conc 31.8 g/dl (31.0-35.0); Mean Corpuscular Hemoglobin 29.7 pg (27.0-33.0); Mean Corpuscular Volume 93.4 fL (80.0-98.0); Mean Platelet Volume 10.6 fL (9.4-12.3); Monocytes Absolute Auto 0.4 X10*3/uL (0.1-1.2); Neutrophils Absolute Auto 3.8 x10*3/uL (2.0-8.3); Platelet Count 186 X10*3/uL (160-400); Red Cell Distribution Width 14.9 % (11.0-16.0); Retic HGB Equivalent 35.7 pg (30.0-35.0); Reticulocyte Percent 1.5 % (0.5-1.8); Reticulocytes Absolute 0.057 X10*6/uL (0.026-0.095); White Blood Count 5.2 X10*3/uL (4.8-10.8)
[2022-12-29 08:43] LABS: B Type Natriuretic Peptide 290 pg/mL (<100)
[2022-12-29 09:06] LABS: Alanine Aminotransferase 25 U/L (0-31); Albumin Level 3.7 g/dL (3.5-5.0); Alkaline Phosphatase 47 U/L (39-117); Anion Gap 11 (12-20); Aspartate Amino Transferase 30 U/L (5-31); Bilirubin Total 0.4 mg/dL (0.0-1.0); Blood Urea Nitrogen 28 mg/dL (9-16); Calcium 9.3 mg/dL (8.4-10.2); Carbon Dioxide 25 mmol/L (22-29); Chloride 112 mmol/L (96-108); Cholesterol 134 mg/dL; Estimated Glomerular Filt Rate 42; Glucose Random 92 mg/dL (60-115); HDL Cholesterol 50 mg/dL; Iron 89 mcg/dL (30-160); LDL Cholesterol Calculated 70 mg/dl; Percent Iron Saturation 28 % (15-50); Potassium 3.5 mmol/L (3.3-5.1); Sodium 144 mmol/L (135-145); Total Iron Binding Capacity 316 mcg/dL (228-428); Triglycerides 71 mg/dL; Unsaturated Iron Binding 227 ug/dL
[2022-12-29 09:23] LABS: Ferritin 201 ng/mL (10-250); Free T4 (Free Thyroxine) 1.11 ng/dL (0.71-1.85); Thyroid Stimulating Hormone 1.13 uIU/mL (0.32-4.0); Vitamin D 25-OH Total 22.7 ng/mL (>30)
[2022-12-29 09:49] LABS: Folate 10.3 ng/mL (> or = 4.0); Vitamin B12 526 pg/mL (200-900)
== END 2022-12-29 07:11 | disposition home or self-care (01) ==
LOC: HO.LAB 07:10
PROVIDERS: PCP Internal Medicine; Visit Provider Internal Medicine
DX: D64.9 Anemia, unspecified (principal); E78.00 Pure hypercholesterolemia, unspecified; Z95.2 Presence of prosthetic heart valve; M85.80 Other specified disorders of bone density and structure, unspecified site; E55.9 Vitamin D deficiency, unspecified
CPT/HCPCS: 36415; 80053; 80061; 82306; 82607; 82728; 82746; 83540; 83880; 84439; 84443; 85025; 85045

== ENCOUNTER 2023-02-20 12:55 | Outpatient (AMB) | payer MEDICARE, SELFPAY ==
--- NOTE | 2023-02-20 12:58 | A.OFFVIS_ITS ---
Intake Vital Signs 02/20/23 12:59 Height 5 ft 2 in Weight 127 lb 13.89 oz BMI 23.4 BP 144/76 H Blood Pressure Location Lt brachial Position Sitting Pulse 62 Intake Visit Reasons: FOLLOW UP (R/S BY PT 12/20) Intake Note: Follow-up with ekg c/o fatigue Contract Driver Required: No Allergies Sulfa (Sulfonamide Antibiotics) [SULFA (SULFONAMIDE ANTIBIOTICS)] Allergy (Mild, Verified 12/26/22 08:30) RASH Medication List - Last Reconciled 02/20/23 by Emmett Vogt MD amiodarone 200 mg PO DAILY apixaban (Eliquis) 5 mg PO BID atenolol 100 mg PO DAILY atorvastatin 40 mg PO BEDTIME fenofibrate nanocrystallized 145 mg PO DAILY furosemide (Lasix) 20 mg PO DAILY nifedipine ER 30 mg PO DAILY HPI HPI Comments History of Present Illness Details Eloisa comes for follow-up. Since last hospitalization she has not had any significant heart failure symptoms. Denies orthopnea, PND, leg edema. No prolonged palpitations irregular heartbeat. Holter monitor subsequent to hospitalization at shown low burden of atrial fibrillation with total burden of 1%. She denies any bleeding issues or neurologic events. Although she notices increased fatigue since the last hospitalization when she is not able to have the same exercise level as she was prior to. She has to stop intermittently because of fatigue. She can rest and then catch on with activity again. Denies any lightheadedness, syncope. [facility] Medical History (Updated 02/20/23 @ 14:04 by Emmett Vogt MD) (HFpEF) heart failure with preserved ejection fraction Paroxysmal atrial fibrillation Atrial fibrillation Hospital discharge follow-up Elevated troponin Varicose vein of leg Pre-operative clearance Varicose veins of left leg with edema Carotid aneurysm, right Intracranial aneurysm Non-small cell cancer of right lung Thyroid nodule Pulmonary nodule Prolapsed bladder Hypercholesterolemia Peripheral vascular disease Diastolic dysfunction HTN (hypertension) Aortic stenosis Surgical History History of cataract surgery S/P TAVR (transcatheter aortic valve replacement) History of lung biopsy Hx of hysterectomy Hx of cardiac cath Hx of tonsillectomy Family History Father Brain tumor Mother Uterine cancer, sarcoma Social History Household Members: Spouse Housing: House Alcohol intake: current Alcohol intake frequency: does not drink Alcohol type: wine Patient Tobacco Use Status: Never used Tobacco e-Cigarette/Vaping Use: Never Used Second Hand Smoke Exposure: No Advance Directives Date on File: 10/29/22 service: No Current occupational status: retired Cognitive needs: No Hearing needs: No Vision needs: Yes (glasses) Review of Systems Const Denies chills, Denies fatigue, Denies fever(s), Denies frequent falls, Denies weakness, Denies weight gain and Denies weight loss ENT Denies dizziness Card Denies chest pain, Denies leg edema, Denies lightheadedness, Denies palpitations, Denies dyspnea, Denies dyspnea on exertion, Denies orthopnea and Denies other (loss of consciousness) Resp Denies cough, Denies dyspnea and Denies dyspnea on exertion GI Denies hematochezia and Denies change in stool character Musc Denies abnormal gait, Denies muscle weakness, Denies numbness, Denies radiating pain into limb and Denies tingling Neuro Denies abnormal gait, Denies dizziness, Denies frequent falls, Denies numbness, Denies tingling and Denies weakness Endo Denies fatigue and Denies palpitations Physical Exam Vital Signs: Last Vital Signs Pulse 62 02/20/23 12:59 BP 144/76 H 02/20/23 12:59 BMI result Body Mass Index 23.4 Const General: cooperative, comfortable, no acute distress, alert, awake and well groomed Nutritional Appearance: average body habitus Orientation/consciousness: patient oriented x3 Limitations: no limitations Neck Neck: Yes trachea midline, Yes supple and Yes no JVD Chest Chest palpation & inspection: normal inspection of the chest Resp Effort & Inspection: normal respiratory effort Auscultation: clear to auscultation bilaterally Cardio Jugular venous distension: no JVD Palpation: normal PMI Rate: regular rate Rhythm: regular rhythm Heart sounds: S1 normal heart sound present, S2 normal heart sound present and Murmur heart sound present systolic early GI Auscultation: normal bowel sounds Skin General skin exam: no rashes or lesions noted Neuro General: patient oriented x3 and no focal motor deficits Extrem General: Yes no clubbing, cyanosis or edema and Yes venous stasis dermatitis Psych Appearance: grossly normal Office Procedures EKG Details: EKG shows normal sinus rhythm with PACs with normal QT interval 50632-[id number], Complete Assessment & Plan Assessment & Plan (1) Paroxysmal atrial fibrillation: Code(s): I48.0 - Paroxysmal atrial fibrillation Plan: Paroxysmal atrial fibrillation leading to heart failure syndrome. Patient doing very well with rhythm management. Will continue pursue rhythm control approach with this was discussed with herTherapy 200 mg daily. Will follow-up in 6 months time in remains in sinus rhythm may transition to over of lesser toxic medication a long run. Avoidance of stimulants was discussed. Continue full oral anticoagulation, currently on Eliquis 5 mg b.i.d.. Semi annual renal function test should be pursued. We discussed about symptoms of fatigue most likely related to chronotropic incompetence. Advised to pursue regular physical activity. (2) (HFpEF) heart failure with preserved ejection fraction: Code(s): I50.30 - Unspecified diastolic (congestive) heart failure Plan: Heart failure preserved ejection fraction, clinically euvolemic and well compensated. Continue rhythm control approach which has helped her significantly from heart failure perspective. Continue current low-dose diuretic therapy. Heart failure management discussed. Daily weight monitoring avoidance of salt loading was discussed. Blood pressure is currently well optimized advised to monitor blood pressure at home maintain a log. Additional diuretics as need be. Advised to call me with worsening symptoms. (3) S/P TAVR (transcatheter aortic valve replacement): Comment: 07/30. 26 mm Evolut bioprosthesis Code(s): Z95.2 - Presence of prosthetic heart valve Plan: Status post transcatheter aortic valve replacement working well. Continue full oral anticoagulation Eliquis. There is no indication for additional antiplatelet therapy. SBE prophylaxis as per ACC/[place] guidelines. Follow up in the clinic in 6 months time after an echocardiogram and Holter monitor. Thank you for allowing me to partake in her care Coding Level of Care Code Est Pt Level 4 (14653) Diagnoses Paroxysmal atrial fibrillation I48.0 (HFpEF) heart failure with preserved ejection fraction I50.30 S/P TAVR (transcatheter aortic valve replacement) Z95.2 CPT Codes EKG - CPT: 39848-[id number], Complete ([id number])
[2023-02-20 12:59] VITALS: BP 144/76; PULSE 62; BMI 23.4
== END 2023-02-20 13:37 | disposition home or self-care (01) ==
PROVIDERS: PCP Internal Medicine; Referring Provider Internal Medicine; Visit Provider Internal Medicine Cardiovascular Disease
DX: I48.0 Paroxysmal atrial fibrillation (principal); I50.30 Unspecified diastolic (congestive) heart failure; Z95.2 Presence of prosthetic heart valve
CPT/HCPCS: 93010; 99214

== ENCOUNTER → 2023-02-20 12:55 | Outpatient (BNVA) | payer MEDICARE, SELFPAY | PROVIDERS: PCP Internal Medicine; Referring Provider Internal Medicine; Visit Provider Internal Medicine Cardiovascular Disease | DX: I48.0 Paroxysmal atrial fibrillation (principal); I50.30 Unspecified diastolic (congestive) heart failure; Z95.2 Presence of prosthetic heart valve | CPT/HCPCS: 93005; 99212 ==

== ENCOUNTER 2023-04-12 09:23 | Outpatient (AMB) | payer MEDICARE, SELFPAY ==
[2023-04-12 09:30] VITALS: BP 116/38; PULSE 64; O2SAT 99; BMI 23.2
--- NOTE | 2023-04-12 09:30 | A.OFFPC_ITS ---
Vital Signs 04/12/23 09:30 Height 5 ft 2 in Weight 127 lb BMI 23.2 BP 116/38 L Blood Pressure Location Lt brachial Position Sitting Pulse 64 Pulse Source Pulse Oximeter Pulse Oximetry (%) 99 Oxygen Delivery Method Room Air Intake Visit Reasons: 3mon f/u Animal Physiologist Required: No Accompanied by: Spouse Allergies Sulfa (Sulfonamide Antibiotics) [SULFA (SULFONAMIDE ANTIBIOTICS)] Allergy (Mild, Verified 04/12/23 09:49) RASH Tobacco use date assessed: 11/14/22 Fall risk assessment: No Falls in past year Last assessed Fall Risk: 04/12/23 Dental Screening Dental Screen Date: 04/12/23 Did you have a dental visit in the last 12 months?: Yes Did you have a dental problem in the last 6 months where you did not have access to dental care?: No Was dental information given to patient?: Patient has dentist HPI 3mon f/u HPI Details 83-year-old female with a history of TAV R hypertension hypercholesterolemia history of non-small cell cancer of the right lung atrial fibrillation with congestive heart failure last seen in December 2022. Patient is here for follow-up review of the notes patient had CT scan of the chest March 2023 showing no new suspicious pulmonary nodule. Patient did see cardiology atrial fibrillation under the management on anticoagulation semi annual renal function heart failure ejection fraction preserved on low-dose diuretic weight monitoring. R knee twisted the wroing way had swelling but no pain PFSH Medical History (Updated 04/12/23 @ 09:54 by Shelbi Infante MD) (HFpEF) heart failure with preserved ejection fraction Paroxysmal atrial fibrillation Atrial fibrillation Hospital discharge follow-up Elevated troponin Varicose vein of leg Pre-operative clearance Varicose veins of left leg with edema Carotid aneurysm, right Intracranial aneurysm Non-small cell cancer of right lung Thyroid nodule Pulmonary nodule Prolapsed bladder Hypercholesterolemia Peripheral vascular disease Diastolic dysfunction HTN (hypertension) Aortic stenosis Surgical History History of cataract surgery S/P TAVR (transcatheter aortic valve replacement) History of lung biopsy Hx of hysterectomy Hx of cardiac cath Hx of tonsillectomy Family History Father Brain tumor Mother Uterine cancer, sarcoma Social History Household Members: Spouse Housing: House Alcohol intake: current Alcohol intake frequency: does not drink Alcohol type: wine Patient Tobacco Use Status: Never used Tobacco e-Cigarette/Vaping Use: Never Used Second Hand Smoke Exposure: No Advance Directives Date on File: 10/29/22 service: No Current occupational status: retired Cognitive needs: No Hearing needs: No Vision needs: Yes (glasses) Questionnaire Thrive Questionnaire Date Thrive assessed: 11/14/22 CRISTAL-7 AMB Questionnaire CRISTAL-7 Date CRISTAL - 7 assessed: 11/14/22 Source: Developed by Drs. Steve Kim, Madalyn Vee, Isaac Maza and colleagues, with an educational eddie from [employer]. Physical exam (Primary Care) Vital Signs: Last Vital Signs Pulse 64 04/12/23 09:30 BP 116/38 L 04/12/23 09:30 Pulse Ox 99 04/12/23 09:30 Oxygen Delivery Method Room Air 04/12/23 09:30 BMI result Body Mass Index 23.2 Tobacco/Smoking Status: Tobacco use Status Tobacco use date assessed 11/14/22 04/12/23 09:31 Patient Tobacco Use Status Never used Tobacco 04/12/23 09:31 e-Cigarette/Vaping Use Never Used 04/12/23 09:31 Thrive Assessment: Date of Thrive Assessment Date Thrive assessed 11/14/22 04/12/23 09:31 Const General: alert; No acute distress Eyes Conjunctivae: conjunctivae normal Resp Auscultation: clear to auscultation bilaterally Cardio Rate: regular rate Rhythm: regular rhythm GI Inspection: Yes normal to inspection Extrem General: Yes normal to inspection and No edema Office Procedures Flu Questionnaire Does the patient have a severe egg allergy?: No Does the patient have severe life threatening allergies?: No Does the patient have a fever or illness today?: No Has the patient ever had Guillain-[place] Syndrome?: No Has the patient ever had any past reaction to a flu shot?: No Immunizations flu vacc [id number] 6mos up(PF) 60 mcg(15 mcgx4)/0.5 mL IM syringe Performing Provider: Shelbi Infante MD Performing Location: [facility] Administered by: RAKESH Celis on 04/12/23 09:48 Dose Route Admin Location Dispensed Lot Number Expiration Date NDC Service Establishment Attendant 0.5 mL IM Left Deltoid 0.5 mL [id number] 12/08/23 [id number] [employer] VIS Given Date VIS Provided VIS Publication Date 04/12/23 Single Vaccine 21 Eligibility Eligibility Date Funding Source Not VFC Eligible 04/12/23 Private Assessment and Plan Assessment & Plan (1) S/P TAVR (transcatheter aortic valve replacement): Comment: 07/30. 26 mm Evolut bioprosthesis Code(s): Z95.2 - Presence of prosthetic heart valve Plan: Continue to be followed up by Cardiology stable (2) Non-small cell cancer of right lung: Comment: May 2019, CT scan 2021October 202203/2023 Code(s): C34.91 - Malignant neoplasm of unspecified part of right bronchus or lung Plan: CT scan done March 2023 for surveillance no new nodules (3) Thyroid nodule: Comment: Thyroid biopsy May 2019 benign, November 2019 CT scan stable 03/2023 Code(s): E04.1 - Nontoxic single thyroid nodule Plan: CT scan done March 2023 stable (4) HTN (hypertension): Comment: Heart catheterization for TAVR severe July 2019 echo normal left ventricular function with grade 2 diastolic dysfunction Code(s): I10 - Essential (primary) hypertension Plan: Continue with blood pressure medication. Decrease salt intake and exercise patient on atenolol 100 mg once a day nifedipine 30 mg once a day (5) Paroxysmal atrial fibrillation: Code(s): I48.0 - Paroxysmal atrial fibrillation Plan: Continue with anticoagulation with Eliquis (6) (HFpEF) heart failure with preserved ejection fraction: Code(s): I50.30 - Unspecified diastolic (congestive) heart failure Plan: Low-dose diuretic continue to monitor weight (7) Hypercholesterolemia: Code(s): E78.00 - Pure hypercholesterolemia, unspecified Plan: Avoid fried foods, chicken skin, eggs, butter margarine, pastries and meat. Be it pork or beef they have a lot of cholesterol LDL goal of less than 100 and triglyceride less than 150 on atorvastatin 40 mg once a day Orders: Orders Influenza [id number] Immunization Today Z23 - Encounter for immunization Comprehensive Met. Panel Today I50.30 - Unspecified diastolic (congestive) heart failure Ferritin Today I50.30 - Unspecified diastolic (congestive) heart failure Vitamin B12 and Folate Today I50.30 - Unspecified diastolic (congestive) heart failure Thyroid Stimulating Hormone Today I50.30 - Unspecified diastolic (congestive) heart failure B Type Natriuretic Peptide Today I50.30 - Unspecified diastolic (congestive) heart failure Complete Blood Count Auto Diff Today I50.30 - Unspecified diastolic (congestive) heart failure IRON PROFILE Today I50.30 - Unspecified diastolic (congestive) heart failure Reticulocyte Count Today I50.30 - Unspecified diastolic (congestive) heart failure Free T4 (Free Thyroxine) Today I50.30 - Unspecified diastolic (congestive) heart failure Coding Level of Care Code Est Pt Level 4 (08415) Diagnoses S/P TAVR (transcatheter aortic valve replacement) Z95.2 Non-small cell cancer of right lung C34.91 Thyroid nodule E04.1 HTN (hypertension) I10 Paroxysmal atrial fibrillation I48.0 (HFpEF) heart failure with preserved ejection fraction I50.30 Hypercholesterolemia E78.00
== END 2023-04-12 10:37 | disposition home or self-care (01) ==
PROVIDERS: PCP Internal Medicine; Visit Provider Internal Medicine
DX: Z23 Encounter for immunization (principal); C34.91 Malignant neoplasm of unspecified part of right bronchus or lung; I11.0 Hypertensive heart disease with heart failure; I50.30 Unspecified diastolic (congestive) heart failure; I48.0 Paroxysmal atrial fibrillation
CPT/HCPCS: 90471; 90686; 99214

== ENCOUNTER 2023-07-12 06:57 | Outpatient (REF) | payer MEDICARE, SELFPAY ==
[2023-07-12 07:17] LABS: MANUAL DIFF FLAG NO
[2023-07-12 07:34] LABS: Basophils Absolute Auto 0.1 X10*3/uL (0.0-0.2); Eosinophils Absolute Auto 0.2 X10*3/uL (0.0-0.4); Eosinophils Percent Auto 3.1 % (0-4); Hematocrit 35.6 % (37.0-47.0); Hemoglobin 11.4 g/dl (12.0-16.0); Imm Gran Abs Auto 0.02 X10*3/uL (0.00-0.03); Imm Gran Pct Auto 0.3 % (0.0-0.4); Immature Retic Fraction 8.3 % (3.0-15.9); Lymphocytes Absolute Auto 1.2 X10*3/uL (1.2-4.9); Lymphocytes Percent Auto 19.5 % (20-40); Mean Corpuscular Hemoglobin 29.4 pg (27.0-33.0); Mean Corpuscular Volume 91.8 fL (80.0-98.0); Mean Platelet Volume 10.3 fL (9.4-12.3); Monocytes Absolute Auto 0.6 X10*3/uL (0.1-1.2); Monocytes Percent Auto 9.4 % (2-11); Neutrophils Absolute Auto 4.1 x10*3/uL (2.0-8.3); Neutrophils Percent Auto 66.7 % (45-73); Platelet Count 213 X10*3/uL (160-400); Red Blood Count 3.88 X10*6/uL (4.20-5.50); Red Cell Distribution Width 15.9 % (11.0-16.0); Retic HGB Equivalent 33.7 pg (30.0-35.0); Reticulocyte Percent 1.4 % (0.5-1.8); Reticulocytes Absolute 0.054 X10*6/uL (0.026-0.095); White Blood Count 6.2 X10*3/uL (4.8-10.8)
[2023-07-12 08:02] LABS: B Type Natriuretic Peptide 509 pg/mL (<100)
[2023-07-12 08:05] LABS: Alanine Aminotransferase 25 U/L (0-31); Albumin Level 3.7 g/dL (3.5-5.0); Alkaline Phosphatase 56 U/L (39-117); Anion Gap 11 (12-20); Aspartate Amino Transferase 30 U/L (5-31); Bilirubin Total 0.4 mg/dL (0.0-1.0); Blood Urea Nitrogen 27 mg/dL (9-16); Calcium 9.6 mg/dL (8.4-10.2); Carbon Dioxide 28 mmol/L (22-29); Chloride 112 mmol/L (96-108); Estimated Glomerular Filt Rate 39; Glucose Random 81 mg/dL (60-115); Iron 82 mcg/dL (30-160); Percent Iron Saturation 23 % (15-50); Potassium 5.1 mmol/L (3.3-5.1); Sodium 146 mmol/L (135-145); Total Iron Binding Capacity 350 mcg/dL (228-428); Total Protein 6.5 g/dL (6.5-8.0); Unsaturated Iron Binding 268 ug/dL
[2023-07-12 08:26] LABS: Ferritin 153 ng/mL (10-250); Free T4 (Free Thyroxine) 1.05 ng/dL (0.71-1.85); Thyroid Stimulating Hormone 1.46 uIU/mL (0.32-4.0)
[2023-07-12 08:37] LABS: Folate 6.7 ng/mL (> or = 4.0); Vitamin B12 415 pg/mL (200-900)
== END 2023-07-12 06:58 | disposition home or self-care (01) ==
LOC: HO.LAB 06:57
PROVIDERS: PCP Internal Medicine; Visit Provider Internal Medicine
DX: I50.30 Unspecified diastolic (congestive) heart failure (principal)
CPT/HCPCS: 36415; 80053; 82607; 82728; 82746; 83540; 83880; 84439; 84443; 85025; 85045

== ENCOUNTER → 2023-07-23 08:51 | Outpatient (REF) | payer MEDICARE, SELFPAY ==
--- NOTE | 2023-07-23 08:54 | HM_ITS ---
* Total monitoring time 3 days. * Underlying rhythm is sinus with an average rate of 60/Min. * Rare supraventricular ectopy. * No significant pauses or AV blocks. * Weakness in patient diary correlates with sinus bradycardia at 56/Min. MTDD
--- NOTE | 2023-07-23 08:54 | CA_ITS ---
Transthoracic Echocardiogram Patient (Last, First, Middle): Eloisa Richards E Gender: Female Date of : 1940 Age: 83 Procedure Date: 07/23/2023 Procedure Type: Transthoracic Echocardiogram Location: OP Height: 157.48 cm Weight: 57.61 kg BSA: 1.58 m2 Heart Rate: 63 bpm BP: 142 / 58 mmHg Arcade Game Technician: SB Referring MD: Emmett Vogt MD Symptoms: Z95.2 - Presence of prosthetic heart valve Study Quality: Adequate ECG Rhythm: Sinus Conclusions: - The left ventricular systolic function is normal. The calculated ejection fraction is 65% by biplane method. - Evidence suggests grade II (moderate) diastolic dysfunction. - A bioprosthetic aortic valve is present. The prosthetic aortic valve appears to be functioning normally. - Small atrial septal defect (vs PFO) with [id number] shunt. Findings Left Ventricle Normal left ventricular cavity size. The left ventricular systolic function is normal. The calculated ejection fraction is 65% by biplane method. There is no evidence of regional wall motion abnormalities. Evidence suggests grade II (moderate) diastolic dysfunction. There is mild septal asymmetric hypertrophy. Right Ventricle Normal right ventricular cavity size and systolic function. Atria The left atrium is mildly dilated. The right atrium is normal in size. Small atrial septal defect (vs PFO) with [id number]-bjkeg shunt. Aortic Valve A bioprosthetic aortic valve is present. The prosthetic aortic valve appears to be functioning normally. There is no aortic valve regurgitation. Mitral Valve There is mild mitral annular calcification. There is mild mitral valve regurgitation. There is no mitral valve stenosis. Pulmonic Valve There is trace to mild pulmonic valve regurgitation. Tricuspid Valve Normal tricuspid valve structure. There is mild tricuspid valve regurgitation. Borderline RVSP. Great Vessels The asc aorta is normal in size. Venous The inferior vena cava is normal in size and collapses greater than 50% with inspiration. Pericardium/Pleural There is no evidence of pericardial effusion. Prior Study Comparison No significant change compared to prior study dated: 07/18/2022. Measurements 2D Linear Measurements IVSd: 1.23 0.6-0.9/0.6-1.0 cm LVIDd: 4.32 3.9-5.3/4.2-5.9 cm LVIDd Index: 2.73 2.4-3.2/2.2-3.1 cm/m2 LVIDs: 2.70 2.0-3.6 cm LVPWd: 0.69 0.7-1.1 cm LA Diam: 3.80 2.7-3.8/3.0-4.0 cm LAIDs Index: 2.41 1.5-2.3 cm/m2 LV Mass: 168.84 67-162/88-224 g LV Mass Index: 106.86 43-95/49-115 g/m2 LVOT Diam: 2.00 3.0+(-)1.3 cm 2D Systolic Function EF 4C: 58.80 >55% EF 2C: 69.80 >55% EF BiP: 64.80 >55% Mitral Valve MV Pk E: 1.30 MV PK A: 0.61 MV Decel Time: 187.00 E/A: 2.10 E'Lateral: 5.62 E'Medial: 4.37 E/E' Med: 29.70 E/E' Lat: 23.10 PHT: 55.00 MVA PHT: 4.00 Decel Carolina: 6.97 MR Vol - PW Dopp: 7.32 MR VTI: 1.83 MR ERO: 4.00 MR Alias Walt: 0.39 MR RAD: 0.30 Aortic Valve AoV Pk Walt: 1.71 AoV Mn Walt: 1.17 AoV VTI: 0.38 AoV Pk Grad: 12.00 Aov Mn Grad: 7.00 HUNTER Cont.VTI: 1.99 LVOT LVOT Pk Walt: 1.01 LVOT Mn Walt: 0.68 LVOT VTI: 0.24 LVOT Pk Grad: 4.00 LVOT Mn Grad: 2.00 LVOT Diam: 2.00 LVOT Area: 3.14 Diastolic Function MV Pk E: 1.30 MV Pk A: 0.61 E/A: 2.10 E'Medial: 4.37 E/E' Med: 29.70 E' Laterial: 5.62 E/E' Lat: 23.10 Right Ventricle TAPSE (mm): 24.80 TVS' Walt: 13.80 Tricuspid Valve TR Pk Walt: 2.84 TR Pk Grad: 32.00 RA Press: 3.00 RVSP: 35.00 Great Vessels Aorta Ao Asc: 3.00 2.1-3.4 cm Pulmonary Valve PV Pk Walt: 1.06 Peak PV Grad: 4.00 DE Pk Walt: 2.00 Updated in Other Vendor System with Status of Final Arthur Blackmon MD electronically signed on 07/23/2023 9:51:10 AM with status of Final
== END ==
LOC: HO.CARD 08:51
PROVIDERS: PCP Internal Medicine; Visit Provider Internal Medicine Cardiovascular Disease
DX: Z95.2 Presence of prosthetic heart valve (principal); I48.0 Paroxysmal atrial fibrillation
CPT/HCPCS: 93242; 93306

== ENCOUNTER → 2023-07-23 08:54 | Outpatient (BNV) | payer MEDICARE, SELFPAY | PROVIDERS: PCP Internal Medicine; Visit Provider Internal Medicine | DX: I47.10 Supraventricular tachycardia, unspecified (principal) | CPT/HCPCS: 93244; 93306 ==

== ENCOUNTER 2023-07-24 09:50 | Outpatient (AMB) | payer MEDICARE, SELFPAY ==
[2023-07-24 09:44] VITALS: BP 130/60; PULSE 64; O2SAT 98; BMI 24.0
--- NOTE | 2023-07-24 09:44 | MHC.PC.OV ---
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 Development Required: No Allergies Sulfa (Sulfonamide Antibiotics) [SULFA (SULFONAMIDE ANTIBIOTICS)] Allergy (Mild, Verified 07/24/23 09:45) RASH Tobacco use date assessed: 07/24/23 Fall risk assessment: No Falls in past year Last assessed Fall Risk: 07/24/23 Dental Screening Dental Screen Date: 07/24/23 Did you have a dental visit in the last 12 months?: Yes Did you have a dental problem in the last 6 months where you did not have access to dental care?: No Was dental information given to patient?: Patient has dentist HPI TAVR HPI Details 83-year-old female with a history of TAVR right lung cancer May 2019 thyroid nodule hypertension atrial fibrillation congestive heart failure hypercholesterolemia last seen in April 2023. Patient's mammogram is up-to-date colonoscopy is up-to-date bone density is due. Echocardiogram done in July 2023The left ventricular systolic function is normal. The calculated ejection fraction is 65% by biplane method. - Evidence suggests grade II (moderate) diastolic dysfunction. - A bioprosthetic aortic valve is present. The prosthetic aortic valve appears to be functioning normally. - Small atrial septal defect (vs PFO) with rnyu-ze-iimqs shunt. Patient also follows up with Hematology-Oncology on surveillance seen in April 2023 CT chest advised 6 months [facility] Medical History (Updated 07/24/23 @ 10:24 by Shelbi Infante MD) Osteopenia (HFpEF) heart failure with preserved ejection fraction Paroxysmal atrial fibrillation Atrial fibrillation Hospital discharge follow-up Elevated troponin Varicose vein of leg Pre-operative clearance Varicose veins of left leg with edema Carotid aneurysm, right Intracranial aneurysm Non-small cell cancer of right lung Thyroid nodule Pulmonary nodule Prolapsed bladder Hypercholesterolemia Peripheral vascular disease Diastolic dysfunction HTN (hypertension) Aortic stenosis Surgical History History of cataract surgery S/P TAVR (transcatheter aortic valve replacement) History of lung biopsy Hx of hysterectomy Hx of cardiac cath Hx of tonsillectomy Family History Father Brain tumor Mother Uterine cancer, sarcoma Social History Household Members: Spouse Housing: House Alcohol intake: current Alcohol intake frequency: does not drink Alcohol type: wine Patient Tobacco Use Status: Never used Tobacco e-Cigarette/Vaping Use: Never Used Second Hand Smoke Exposure: No Advance Directives Date on File: 10/29/22 service: No Current occupational status: retired Cognitive needs: No Hearing needs: No Vision needs: Yes (glasses) Questionnaire Thrive Questionnaire Date Thrive assessed: 07/24/23 AUDIT C Alcohol Use Questionnaire (AUDIT-C) 1. How often do you have a drink containing alcohol?: Never 3. How often do you have six or more drinks on one occasion?: Never Total Score: 0 Score Reviewed/Action Taken: No CRISTAL-7 AMB Questionnaire CRISTAL-7 Date CRISTAL - 7 assessed: 07/24/23 Source: Developed by Drs. Steve Kim, Madalyn Vee, Isaac Maza and colleagues, with an educational eddie from [employer]. Physical exam (Primary Care) Vital Signs: Last Vital Signs Pulse 64 07/24/23 09:44 BP 130/60 07/24/23 09:44 Pulse Ox 98 07/24/23 09:44 Oxygen Delivery Method Room Air 07/24/23 09:44 BMI result Body Mass Index 24.0 Tobacco/Smoking Status: Tobacco use Status Tobacco use date assessed 07/24/23 07/24/23 09:45 Patient Tobacco Use Status Never used Tobacco 07/24/23 09:45 e-Cigarette/Vaping Use Never Used 07/24/23 09:45 Thrive Assessment: Date of Thrive Assessment Date Thrive assessed 07/24/23 07/24/23 09:45 Const General: alert; No acute distress Eyes Conjunctivae: conjunctivae normal Resp Auscultation: clear to auscultation bilaterally Cardio Rate: regular rate Rhythm: regular rhythm GI Inspection: Yes normal to inspection Extrem General: Yes normal to inspection and No edema Assessment and Plan Assessment & Plan (1) Non-small cell cancer of right lung: Comment: May 2019, CT scan 2021October 202203/2023 Code(s): C34.91 - Malignant neoplasm of unspecified part of right bronchus or lung Plan: Patient continue to follow-up with Hematology-Oncology seen in April 2023 and has been advised to get a CT scan in 6 months which will be in October 2023 (2) Hypercholesterolemia: Code(s): E78.00 - Pure hypercholesterolemia, unspecified Plan: Avoid fried foods, chicken skin, eggs, butter margarine, pastries and meat. Be it pork or beef they have a lot of cholesterol LDL goal of less than 70 and triglyceride of less than 150 presently on atorvastatin 40 mg (3) HTN (hypertension): Comment: Heart catheterization for TAVR severe July 2019 echo normal left ventricular function with grade 2 diastolic dysfunction Code(s): I10 - Essential (primary) hypertension Plan: Continue with blood pressure medication. Decrease salt intake and exercise takes nifedipine 30 mg once a day atenolol 100 mg once a day (4) S/P TAVR (transcatheter aortic valve replacement): Comment: 07/30. 26 mm Evolut bioprosthesis Code(s): Z95.2 - Presence of prosthetic heart valve Plan: Continuing to monitor and echocardiogram done in July 2023 working good (5) Osteopenia: Comment: 07/2021 Code(s): M85.80 - Other specified disorders of bone density and structure, unspecified site Plan: Reminded about bone density (6) Paroxysmal atrial fibrillation: Code(s): I48.0 - Paroxysmal atrial fibrillation Plan: Continue with amiodarone and anticoagulation with Eliquis (7) (HFpEF) heart failure with preserved ejection fraction: Code(s): I50.30 - Unspecified diastolic (congestive) heart failure Plan: Continue with diuretic Orders: Orders Free T4 (Free Thyroxine) 3 Months I50.30 - Unspecified diastolic (congestive) heart failure Thyroid Stimulating Hormone 3 Months I50.30 - Unspecified diastolic (congestive) heart failure Complete Blood Count Auto Diff 3 Months I50.30 - Unspecified diastolic (congestive) heart failure Comprehensive Met. Panel 3 Months I50.30 - Unspecified diastolic (congestive) heart failure B Type Natriuretic Peptide 3 Months I50.30 - Unspecified diastolic (congestive) heart failure Lipid Panel 3 Months E78.00 - Pure hypercholesterolemia, unspecified, I50.30 - Unspecified diastolic (congestive) heart failure Medications: Changed From apixaban (Eliquis) 5 mg PO BID 60 tabs 5RF I48.0 - Paroxysmal atrial fibrillation To apixaban (Eliquis) 5 mg PO BID 90 days 180 tabs 3RF I48.0 - Paroxysmal atrial fibrillation Coding Level of Care Code Est Pt Level 4 (93936) Diagnoses Non-small cell cancer of right lung C34.91 Hypercholesterolemia E78.00 HTN (hypertension) I10 S/P TAVR (transcatheter aortic valve replacement) Z95.2 Osteopenia M85.80 Paroxysmal atrial fibrillation I48.0 (HFpEF) heart failure with preserved ejection fraction I50.30
== END 2023-07-24 10:58 | disposition home or self-care (01) ==
PROVIDERS: PCP Internal Medicine; Visit Provider Internal Medicine
DX: I48.0 Paroxysmal atrial fibrillation (principal); I50.30 Unspecified diastolic (congestive) heart failure; C34.91 Malignant neoplasm of unspecified part of right bronchus or lung; I11.9 Hypertensive heart disease without heart failure; E78.00 Pure hypercholesterolemia, unspecified; Z95.2 Presence of prosthetic heart valve; M85.80 Other specified disorders of bone density and structure, unspecified site
CPT/HCPCS: 99214

== ENCOUNTER 2023-08-26 14:27 | Outpatient (REF) | payer MEDICARE, SELFPAY | END 2023-08-26 14:28 | disposition home or self-care (01) | LOC: HO.MAMMO 14:27 | PROVIDERS: PCP Internal Medicine; Visit Provider Internal Medicine | DX: Z12.31 Encounter for screening mammogram for malignant neoplasm of breast (principal) | CPT/HCPCS: 77063; 77067 ==

== ENCOUNTER → 2023-08-26 14:45 | Outpatient (BNV) | payer MEDICARE, SELFPAY | PROVIDERS: PCP Internal Medicine; Visit Provider Radiology Diagnostic Radiology | DX: Z12.31 Encounter for screening mammogram for malignant neoplasm of breast (principal) | CPT/HCPCS: 77063; 77067 ==

== ENCOUNTER 2023-08-29 10:22 | Outpatient (AMB) | payer MEDICARE, SELFPAY ==
[2023-08-29 10:46] VITALS: BP 114/62; PULSE 60; BMI 23.8
--- NOTE | 2023-08-29 10:46 | A.OFFVIS_ITS ---
Intake Vital Signs 08/29/23 10:46 Height 5 ft 2 in Weight 130 lb 1.164 oz BMI 23.8 BP 114/62 Blood Pressure Location Lt brachial Position Sitting Pulse 60 Intake Visit Reasons: 6 mth fu w/ ekg Intake Note: 6 month follow-up with ekg c/o fatigue no energy Bean Sorter Required: No Naval Architect Specialist: Naval Architect Specialist Present Accompanied by: Spouse Allergies Sulfa (Sulfonamide Antibiotics) [SULFA (SULFONAMIDE ANTIBIOTICS)] Allergy (Mild, Verified 07/24/23 09:45) RASH Medication List - Last Reconciled 08/29/23 by Emmett Vogt MD amiodarone 200 mg PO DAILY apixaban (Eliquis) 5 mg PO BID 90 days atenolol 100 mg PO DAILY atorvastatin 40 mg PO BEDTIME fenofibrate nanocrystallized 145 mg PO DAILY furosemide 20 mg PO DAILY nifedipine ER 30 mg PO DAILY HPI HPI Comments History of Present Illness Details Eloisa comes for a regular follow-up. She had a recent echocardiogram which showed normally functioning bioprosthetic aortic valve with normal LV ejection fraction grade 2 diastolic dysfunction. She has no signs or symptoms of heart failure. No recurrent episodes of atrial fibrillation. She does complain of episodes of orthostatic lightheadedness or feeling weak. She usua lly has to sit down and the symptoms usually resolve within few minutes. No syncopal episodes. No orthopnea, PND, leg edema. No exertional chest pain. She says occasionally she has noted to have low blood pressure. But generally blood pressure in the 130 systolic range [facility] Medical History Osteopenia (HFpEF) heart failure with preserved ejection fraction Paroxysmal atrial fibrillation Atrial fibrillation Hospital discharge follow-up Elevated troponin Varicose vein of leg Pre-operative clearance Varicose veins of left leg with edema Carotid aneurysm, right Intracranial aneurysm Non-small cell cancer of right lung Thyroid nodule Pulmonary nodule Prolapsed bladder Hypercholesterolemia Peripheral vascular disease Diastolic dysfunction HTN (hypertension) Aortic stenosis Surgical History History of cataract surgery S/P TAVR (transcatheter aortic valve replacement) History of lung biopsy Hx of hysterectomy Hx of cardiac cath Hx of tonsillectomy Family History Father Brain tumor Mother Uterine cancer, sarcoma Social History Household Members: Spouse Housing: House Alcohol intake: current Alcohol intake frequency: does not drink Alcohol type: wine Patient Tobacco Use Status: Never used Tobacco e-Cigarette/Vaping Use: Never Used Second Hand Smoke Exposure: No Advance Directives Date on File: 10/29/22 service: No Current occupational status: retired Cognitive needs: No Hearing needs: No Vision needs: Yes (glasses) Review of Systems Const Denies chills, Denies fatigue, Denies fever(s), Denies frequent falls, Denies weakness, Denies weight gain and Denies weight loss ENT Denies dizziness Card Denies chest pain, Denies leg edema, Denies lightheadedness, Denies palpitations, Denies dyspnea, Denies dyspnea on exertion, Denies orthopnea and Denies other (loss of consciousness) Resp Denies cough, Denies dyspnea and Denies dyspnea on exertion GI Denies hematochezia and Denies change in stool character Musc Denies abnormal gait, Denies muscle weakness, Denies numbness, Denies radiating pain into limb and Denies tingling Neuro Denies abnormal gait, Denies dizziness, Denies frequent falls, Denies numbness, Denies tingling and Denies weakness Endo Denies fatigue and Denies palpitations Physical Exam Vital Signs: Last Vital Signs Pulse 60 08/29/23 10:46 BP 114/62 08/29/23 10:46 BMI result Body Mass Index 23.8 Const General: cooperative, comfortable, no acute distress, alert, awake and well groomed Nutritional Appearance: average body habitus Orientation/consciousness: patient oriented x3 Limitations: no limitations Neck Neck: Yes trachea midline, Yes supple and Yes no JVD Chest Chest palpation & inspection: normal inspection of the chest Resp Effort & Inspection: normal respiratory effort Auscultation: clear to auscultation bilaterally Cardio Jugular venous distension: no JVD Palpation: normal PMI Rate: regular rate Rhythm: regular rhythm Heart sounds: S1 normal heart sound present, S2 normal heart sound present and Murmur heart sound present systolic early GI Auscultation: normal bowel sounds Skin General skin exam: no rashes or lesions noted Neuro General: patient oriented x3 and no focal motor deficits Extrem General: Yes no clubbing, cyanosis or edema and Yes venous stasis dermatitis Psych Appearance: grossly normal Office Procedures EKG Details: EKG shows normal sinus rhythm with normal EKG [id number], Complete Assessment & Plan Assessment & Plan (1) (HFpEF) heart failure with preserved ejection fraction: Code(s): I50.30 - Unspecified diastolic (congestive) heart failure Plan: Heart failure preserved ejection fraction with underlying diastolic dysfunction with atrial fibrillation. Heart failure in the setting of atrial fibrillation. Clinically doing well at this point time on current diuretic dose management of rhythm. Will reduce Lasix to 20 mg Saturday. Signs and symptoms of heart failure were discussed. Daily weight monitoring avoidance of salt loading was discussed advised to call me with any worsening symptoms. Will check BNP today. (2) Paroxysmal atrial fibrillation: Code(s): I48.0 - Paroxysmal atrial fibrillation Plan: Paroxysmal atrial fibrillation has remained suppressed on amiodarone therapy. Has done extremely well with amiodarone therapy and rhythm management with avoidance of hospitalization. Will pursue the same. Annual check for amiodarone toxicity. Continue full oral anticoagulation, currently on Eliquis 5 mg b.i.d.. Quarterly renal function test should be pursued. (3) S/P TAVR (transcatheter aortic valve replacement): Comment: 07/30. 26 mm Evolut bioprosthesis Code(s): Z95.2 - Presence of prosthetic heart valve Plan: Status post transcatheter aortic valve replacement for severe aortic stenosis. Clinically doing well. Recent echocardiogram shows normal function of the remigio ve. Continue full oral anticoagulation above. SBE prophylaxis as per ACC/[place] guidelines. She understands management of this very well. Annual echocardiogram will be pursued. Will follow up in the clinic in 6 months time, sooner p.r.n.. Thank you for allowing me to partake in the care (4) Orthostasis: Code(s): I95.1 - Orthostatic hypotension Plan: Patient with symptoms suggestive of orthostatic hypotension. Advised to increase fluid intake. Will reduce Lasix as above. Monitor blood pressure during his episodes. Orthostatic precautions were discussed. Difficulty managing labile blood pressure was discussed. Will follow up in the clinic in 6 months time Orders: Orders Basic Metabolic Panel Today I48.0 - Paroxysmal atrial fibrillation Complete Blood Count no Diff Today I48.0 - Paroxysmal atrial fibrillation TSH reflex Free T4 Today I48.0 - Paroxysmal atrial fibrillation Liver Panel Today I48.0 - Paroxysmal atrial fibrillation XR chest 2V Today I48.0 - Paroxysmal atrial fibrillation Medications: Refilled amiodarone 200 mg PO DAILY 30 tabs 3RF I48.91 - Unspecified atrial fibrillation Coding Level of Care Code Est Pt Level 4 (11589) Diagnoses (HFpEF) heart failure with preserved ejection fraction I50.30 Paroxysmal atrial fibrillation I48.0 S/P TAVR (transcatheter aortic valve replacement) Z95.2 Orthostasis I95.1 CPT Codes EKG - CPT: 65119-[id number], Complete ([id number])
== END 2023-08-29 11:21 | disposition home or self-care (01) ==
PROVIDERS: PCP Internal Medicine; Visit Provider Internal Medicine Cardiovascular Disease
DX: I50.30 Unspecified diastolic (congestive) heart failure (principal); I48.0 Paroxysmal atrial fibrillation; Z95.2 Presence of prosthetic heart valve; I95.1 Orthostatic hypotension
CPT/HCPCS: 93010; 99214

== ENCOUNTER 2023-08-29 10:22 | Outpatient (REF) | payer MEDICARE, SELFPAY ==
--- NOTE | ~2023-08-29 | XR_ITS ---
EXAMINATION: XR CHEST CLINICAL INFORMATION: Paroxysmal atrial fibrillation COMPARISON: 10/29/2022 TECHNIQUE: 2 views of the chest were obtained. FINDINGS: Lungs are clear without nodules infiltrates or pleural effusion and no vascular congestion seen. Cardiomediastinal silhouette revealed stable position of aortic stent graft. There is diffuse osteopenia and mild dextroscoliosis. XR/XR chest 2V IMPRESSION: Clear lungs and stable positioning of aortic stent graft
[2023-08-29 11:51] LABS: MANUAL DIFF FLAG NO
[2023-08-29 12:10] LABS: Basophils Absolute Auto 0.1 X10*3/uL (0.0-0.2); Basophils Percent Auto 0.9 % (0-2); Eosinophils Absolute Auto 0.1 X10*3/uL (0.0-0.4); Eosinophils Percent Auto 1.4 % (0-4); Hematocrit 36.2 % (37.0-47.0); Hemoglobin 11.6 g/dl (12.0-16.0); Imm Gran Abs Auto 0.04 X10*3/uL (0.00-0.03); Imm Gran Pct Auto 0.5 % (0.0-0.4); Lymphocytes Absolute Auto 0.9 X10*3/uL (1.2-4.9); Lymphocytes Percent Auto 11.2 % (20-40); Mean Corpuscular Hemoglobin 30.2 pg (27.0-33.0); Mean Corpuscular Volume 94.3 fL (80.0-98.0); Mean Platelet Volume 9.9 fL (9.4-12.3); Monocytes Absolute Auto 0.7 X10*3/uL (0.1-1.2); Monocytes Percent Auto 9.4 % (2-11); Neutrophils Percent Auto 76.6 % (45-73); Platelet Count 237 X10*3/uL (160-400); Red Blood Count 3.84 X10*6/uL (4.20-5.50); Red Cell Distribution Width 15.1 % (11.0-16.0); White Blood Count 7.9 X10*3/uL (4.8-10.8)
[2023-08-29 12:50] LABS: Alanine Aminotransferase 24 U/L (0-31); Alkaline Phosphatase 63 U/L (39-117); Anion Gap 11 (12-20); Aspartate Amino Transferase 29 U/L (5-31); Bilirubin Direct 0.2 mg/dL (0.0-0.5); Bilirubin Total 0.4 mg/dL (0.0-1.0); Blood Urea Nitrogen 34 mg/dL (9-16); Calcium 9.7 mg/dL (8.4-10.2); Carbon Dioxide 27 mmol/L (22-29); Chloride 110 mmol/L (96-108); Cholesterol 151 mg/dL (<200); Estimated Glomerular Filt Rate 52; Glucose Random 92 mg/dL (60-115); HDL Cholesterol 48 mg/dL (>40); LDL Cholesterol Calculated 80 mg/dL (<100); Potassium 3.8 mmol/L (3.3-5.1); Sodium 144 mmol/L (135-145); Total Protein 6.8 g/dL (6.5-8.0); Triglycerides 115 mg/dL (<150)
[2023-08-29 12:55] LABS: B Type Natriuretic Peptide 458 pg/mL (<100)
[2023-08-29 13:01] LABS: TSH reflex Free T4 0.87 uIU/mL (0.32-4.0)
[2023-08-29 13:07] LABS: Free T4 (Free Thyroxine) 1.17 ng/dL (0.71-1.85)
== END 2023-08-29 10:23 | disposition home or self-care (01) ==
LOC: HO.LAB 10:22
PROVIDERS: PCP Internal Medicine; Visit Provider Internal Medicine Cardiovascular Disease
DX: I50.30 Unspecified diastolic (congestive) heart failure (principal); E78.00 Pure hypercholesterolemia, unspecified; I48.0 Paroxysmal atrial fibrillation
CPT/HCPCS: 36415; 71046; 80053; 80061; 82248; 83880; 84439; 84443; 85025; 85027; 93005; 99212

== ENCOUNTER 2023-10-16 10:44 | Outpatient (AMB) | payer MEDICARE, SELFPAY ==
[2023-10-16 10:47] VITALS: BP 140/52; PULSE 92; O2SAT 96; BMI 23.8
--- NOTE | 2023-10-16 10:47 | A.OFFPC_ITS ---
Vital Signs 10/16/23 10:47 Height 5 ft 2 in Weight 130 lb BMI 23.8 BP 140/52 H Blood Pressure Location Lt brachial Position Sitting Pulse 92 Pulse Source Pulse Oximeter Pulse Oximetry (%) 96 Oxygen Delivery Method Room Air Intake Visit Reasons: ED F/U Allergies Sulfa (Sulfonamide Antibiotics) [SULFA (SULFONAMIDE ANTIBIOTICS)] Allergy (Mild, Verified 10/16/23 10:47) RASH Tobacco use date assessed: 07/24/23 Fall risk assessment: 1 Fall in past year Last assessed Fall Risk: 10/16/23 Dental Screening Dental Screen Date: 07/24/23 HPI ED F/U HPI Details 83-year-old female with a history of lucy g cancer right on surveillance every 6 months follows up with Hematology-Oncology. Hypercholesterolemia hypertension status post TAVR atrial fibrillation congestive heart failure coming in for follow-up. Last seen in July 2023. Noted ER visit in 09/24/2023 had a fall feeling dizzy hitting the left side of her head denies any loss of consciousness. Patient had left intertrochanteric fracture. patient was just recently seen by Cardiology in 08/29/2023 normally functioning bioprosthetic valve aortic and normal ejection fraction with grade 2 diastolic dysfunction on echocardiogram does have orthostatic lightheadedness. Advised decrease in Lasix. Surgery done in [facility] for the L femoral fracture. rehab done [facility]. Patient has been exercising at home. Did discuss about the problem of weakness and will advised to get blood work again. [facility] Medical History Osteopenia (HFpEF) heart failure with preserved ejection fraction Paroxysmal atrial fibrillation Atrial fibrillation Hospital discharge follow-up Elevated troponin Varicose vein of leg Pre-operative clearance Varicose veins of left leg with edema Carotid aneurysm, right Intracranial aneurysm Non-small cell cancer of right lung Thyroid nodule Pulmonary nodule Prolapsed bladder Hypercholesterolemia Peripheral vascular disease Diastolic dysfunction HTN (hypertension) Aortic stenosis Surgical History History of cataract surgery S/P TAVR (transcatheter aortic valve replacement) History of lung biopsy Hx of hysterectomy Hx of cardiac cath Hx of tonsillectomy Family History Father Brain tumor Mother Uterine cancer, sarcoma Social History Household Members: Spouse Housing: House Alcohol intake: current Alcohol intake frequency: does not drink Alcohol type: wine Patient Tobacco Use Status: Never used Tobacco e-Cigarette/Vaping Use: Never Used Second Hand Smoke Exposure: No Advance Directives Date on File: 10/29/22 service: No Current occupational status: retired Cognitive needs: No Hearing needs: No Vision needs: Yes (glasses) Questionnaire PHQ-9 Over the last 2 weeks, how often have you been bothered by any of the following problems? 1. Little interest or pleasure in doing things: not at all 2. Feeling down, depressed, or hopeless: not at all 3. Trouble falling or staying asleep, or sleeping too much: not at all 4. Feeling tired or having little energy: not at all 5. Poor appetite or overeating: not at all 6. Feeling bad about yourself - or that you are a failure or have let yourself or your family down: not at all 7. Trouble concentrating on things, such as reading the newspaper or watching television: not at all 8. Moving or speaking so slowly that other people could have noticed. Or the opposite - being so fidgety or restless that you have been moving around a lot m ore than usual: not at all 9. Thoughts that you would be better off or of hurting yourself in some way: not at all Total score: 0 Depression Screening Interpretation: Negative Depression Screening Done: Yes 28868 - PHQ-9 Billing: Yes Source: Developed by Drs. Steve Kim, Isaac Cee and colleagues, with an educational eddie from [employer]. Thrive Questionnaire Date Thrive assessed: 07/24/23 AUDIT C Alcohol Use Questionnaire (AUDIT-C) 1. How often do you have a drink containing alcohol?: Never 3. How often do you have six or more drinks on one occasion?: Never Total Score: 0 Score Reviewed/Action Taken: No CRISTAL-7 AMB Questionnaire CRISTAL-7 Date CRISTAL - 7 assessed: 07/24/23 Source: Developed by Madalyn Tran Kurt Kroenke and colleagues, with an educational eddie from [employer]. Physical exam (Primary Care) Vital Signs: Oxygen Delivery Method Room Air 10/16/23 10:47 BMI result Body Mass Index 23.8 Tobacco/Smoking Status: Tobacco use Status Tobacco use date assessed 07/24/23 07/24/23 09:45 Patient Tobacco Use Status Never used Tobacco 07/24/23 09:45 e-Cigarette/Vaping Use Never Used 07/24/23 09:45 Depression Screening Interpretation: Negative Thrive Assessment: Date of Thrive Assessment Date Thrive assessed 07/24/23 07/24/23 09:45 Const General: alert; No acute distress Eyes Conjunctivae: conjunctivae normal Resp Auscultation: clear to auscultation bilaterally Cardio Rate: regular rate Rhythm: regular rhythm GI Inspection: Yes normal to inspection Assessment and Plan Assessment & Plan (1) Paroxysmal atrial fibrillation: Code(s): I48.0 - Paroxysmal atrial fibrillation Plan: Patient presently on anticoagulation with apixaban and on amiodarone. (2) (HFpEF) heart failure with preserved ejection fraction: Code(s): I50.30 - Unspecified diastolic (congestive) heart failure Plan: Noted to have orthostasis and so was placed on a lower diuretic furosemide (3) Anemia: Code(s): D64.9 - Anemia, unspecified Plan: Continue to monitor (4) S/P TAVR (transcatheter aortic valve replacement): Comment: 07/30. 26 mm Evolut bioprosthesis Code(s): Z95.2 - Presence of prosthetic heart valve Plan: Echocardiogram surveillance being done by Cardiology (5) HTN (hypertension): Comment: Heart catheterization for TAVR severe July 2019 echo normal left ventricular function with grade 2 diastolic dysfunction Code(s): I10 - Essential (primary) hypertension Plan: Patient has nifedipine 30 mg once a day lisinopril 10 mg once a day on a diuretic concerned about orthostasis. Blood pressure medication changes done (6) Hypercholesterolemia: Code(s): E78.00 - Pure hypercholesterolemia, unspecified Plan: Avoid fried foods, chicken skin, eggs, butter margarine, pastries and meat. Be it pork or beef they have a lot of cholesterol on atorvastatin 40 mg once a day (7) Fracture, intertrochanteric, left femur: Comment: 09/2023 Dr. Kamila Bain peritrochanteric femur fracture with intramedullary implant Code(s): S72.142A - Displaced intertrochanteric fracture of left femur, initial encounter for closed fracture Plan: Patient is being followed up by ortho Dr. Workman Orders: Orders Complete Blood Count Auto Diff Today S72.142A - Displaced intertrochanteric fracture of left femur, initial encounter for closed fracture Comprehensive Met. Panel Today S72.142A - Displaced intertrochanteric fracture of left femur, initial encounter for closed fracture B Type Natriuretic Peptide Today S72.142A - Displaced intertrochanteric fracture of left femur, initial encounter for closed fracture Thyroid Stimulating Hormone Today S72.142A - Displaced intertrochanteric fracture of left femur, initial encounter for closed fracture Free T4 (Free Thyroxine) Today S72.142A - Displaced intertrochanteric fracture of left femur, initial encounter for closed fracture Magnesium Today S72.142A - Displaced intertrochanteric fracture of left femur, initial encounter for closed fracture Referrals Orthopedics Referral S72.142A - Displaced intertrochanteric fracture of left femur, initial encounter for closed fracture Medications: New estradiol 0.01%(0.1mg/gram) 1 g vaginal 2XW 42.5 grams 0RF Coding Level of Care Code Est Pt Level 4 (08087) Diagnoses Paroxysmal atrial fibrillation I48.0 (HFpEF) heart failure with preserved ejection fraction I50.30 Anemia D64.9 S/P TAVR (transcatheter aortic valve replacement) Z95.2 HTN (hypertension) I10 Hypercholesterolemia E78.00 Fracture, intertrochanteric, left femur S72.142A
== END 2023-10-16 11:26 | disposition home or self-care (01) ==
PROVIDERS: PCP Internal Medicine; Visit Provider Internal Medicine
DX: I11.0 Hypertensive heart disease with heart failure (principal); I48.0 Paroxysmal atrial fibrillation; I50.30 Unspecified diastolic (congestive) heart failure; S72.142A Displaced intertrochanteric fracture of left femur, initial encounter for closed fracture; D64.9 Anemia, unspecified; Z95.2 Presence of prosthetic heart valve; E78.00 Pure hypercholesterolemia, unspecified
CPT/HCPCS: 99214

== ENCOUNTER 2023-10-23 07:13 | Outpatient (REF) | payer MEDICARE, SELFPAY ==
[2023-10-23 07:26] LABS: MANUAL DIFF FLAG NO
[2023-10-23 07:59] LABS: Basophils Absolute Auto 0.1 X10*3/uL (0.0-0.2); Basophils Percent Auto 0.7 % (0-2); Eosinophils Absolute Auto 0.1 X10*3/uL (0.0-0.4); Hematocrit 34.1 % (37.0-47.0); Hemoglobin 10.8 g/dl (12.0-16.0); Imm Gran Abs Auto 0.04 X10*3/uL (0.00-0.03); Imm Gran Pct Auto 0.6 % (0.0-0.4); Lymphocytes Absolute Auto 1.3 X10*3/uL (1.2-4.9); Lymphocytes Percent Auto 18.4 % (20-40); Mean Corpuscular HGB Conc 31.7 g/dl (31.0-35.0); Mean Corpuscular Hemoglobin 30.5 pg (27.0-33.0); Mean Corpuscular Volume 96.3 fL (80.0-98.0); Monocytes Absolute Auto 0.8 X10*3/uL (0.1-1.2); Neutrophils Absolute Auto 4.6 x10*3/uL (2.0-8.3); Neutrophils Percent Auto 67.3 % (45-73); Platelet Count 299 X10*3/uL (160-400); Red Blood Count 3.54 X10*6/uL (4.20-5.50); Red Cell Distribution Width 16.1 % (11.0-16.0); White Blood Count 6.8 X10*3/uL (4.8-10.8)
[2023-10-23 08:42] LABS: B Type Natriuretic Peptide 248 pg/mL (<100)
[2023-10-23 08:52] LABS: Alanine Aminotransferase 35 U/L (0-31); Albumin Level 3.5 g/dL (3.5-5.0); Alkaline Phosphatase 125 U/L (39-117); Anion Gap 12 (12-20); Aspartate Amino Transferase 37 U/L (5-31); Bilirubin Total 0.5 mg/dL (0.0-1.0); Blood Urea Nitrogen 30 mg/dL (9-16); Calcium 10.2 mg/dL (8.4-10.2); Carbon Dioxide 25 mmol/L (22-29); Chloride 111 mmol/L (96-108); Estimated Glomerular Filt Rate 42; Glucose Random 85 mg/dL (60-115); Magnesium 2.1 mg/dL (1.6-2.6); Potassium 4.3 mmol/L (3.3-5.1); Sodium 144 mmol/L (135-145); Total Protein 6.2 g/dL (6.5-8.0)
[2023-10-23 09:09] LABS: Free T4 (Free Thyroxine) 1.33 ng/dL (0.71-1.85); Thyroid Stimulating Hormone 0.54 uIU/mL (0.32-4.0)
== END 2023-10-23 07:14 | disposition home or self-care (01) ==
LOC: HO.LAB 07:13
PROVIDERS: PCP Internal Medicine; Visit Provider Internal Medicine
DX: S72.142A Displaced intertrochanteric fracture of left femur, initial encounter for closed fracture (principal)
CPT/HCPCS: 36415; 80053; 83735; 83880; 84439; 84443; 85025

== ENCOUNTER 2023-10-30 12:14 | Outpatient (AMB) | payer MEDICARE, SELFPAY ==
[2023-10-30 12:15] VITALS: BP 118/54; PULSE 77; O2SAT 97; BMI 23.4
--- NOTE | 2023-10-30 12:15 | A.OFFPC_ITS ---
Vital Signs 10/30/23 12:15 Height 5 ft 2 in Weight 128 lb BMI 23.4 BP 118/54 L Blood Pressure Location Lt brachial Position Sitting Pulse 77 Pulse Source Pulse Oximeter Pulse Oximetry (%) 97 Oxygen Delivery Method Room Air Intake Visit Reasons: Congestive heart failure Allergies Sulfa (Sulfonamide Antibiotics) [SULFA (SULFONAMIDE ANTIBIOTICS)] Allergy (Mild, Verified 10/16/23 10:47) RASH Tobacco use date assessed: 07/24/23 Fall risk assessment: 1 Fall in past year Last assessed Fall Risk: 10/30/23 Dental Screening Dental Screen Date: 07/24/23 HPI Congestive heart failure HPI Details 83-year-old female with a history of atr ial fibrillation status post TAVR congestive heart failure with preserved ejection fraction anemia, hypertension, hypercholesterolemia and history of intertrochanteric left femoral fracture. Last seen in 10/16/2023. Did receive the notes from Orthopedics for the left pertrochanteric femur all fracture with intramedullary implant 09/25/23 [facility] Medical History Osteopenia (HFpEF) heart failure with preserved ejection fraction Paroxysmal atrial fibrillation Atrial fibrillation Hospital discharge follow-up Elevated troponin Varicose vein of leg Pre-operative clearance Varicose veins of left leg with edema Carotid aneurysm, right Intracranial aneurysm Non-small cell cancer of right lung Thyroid nodule Pulmonary nodule Prolapsed bladder Hypercholesterolemia Peripheral vascular disease Diastolic dysfunction HTN (hypertension) Aortic stenosis Surgical History History of cataract surgery S/P TAVR (transcatheter aortic valve replacement) History of lung biopsy Hx of hysterectomy Hx of cardiac cath Hx of tonsillectomy Family History Father Brain tumor Mother Uterine cancer, sarcoma Social History Household Members: Spouse Housing: House Alcohol intake: current Alcohol intake frequency: does not drink Alcohol type: wine Patient Tobacco Use Status: Never used Tobacco e-Cigarette/Vaping Use: Never Used Second Hand Smoke Exposure: No Advance Directives Date on File: 10/29/22 service: No Current occupational status: retired Cognitive needs: No Hearing needs: No Vision needs: Yes (glasses) Questionnaire PHQ-9 Over the last 2 weeks, how often have you been bothered by any of the following problems? 1. Little interest or pleasure in doing things: not at all 2. Feeling down, depressed, or hopeless: not at all 3. Trouble falling or staying asleep, or sleeping too much: not at all 4. Feeling tired or having little energy: not at all 5. Poor appetite or overeating: not at all 6. Feeling bad about yourself - or that you are a failure or have let yourself or your family down: not at all 7. Trouble concentrating on things, such as reading the newspaper or watching television: not at all 8. Moving or speaking so slowly that other people could have noticed. Or the opposite - being so fidgety or restless that you have been moving around a lot more than usual: not at all 9. Thoughts that you would be better off or of hurting yourself in some way: not at all Total score: 0 Depression Screening Interpretation: Negative Depression Screening Done: Yes 33966 - PHQ-9 Billing: Yes Source: Developed by Drs. Steve Kim, Madalyn Vee, Isaac Maza and colleagues, with an educational eddie from [employer]. Thrive Questionnaire Date Thrive assessed: 07/24/23 AUDIT C Alcohol Use Questionnaire (AUDIT-C) 1. How often do you have a drink containing alcohol?: Never 3. How often do you have six or more drinks on one occasion?: Never Total Score: 0 Score Reviewed/Action Taken: No CRISTAL-7 AMB Questionnaire CRISTAL-7 Date CRISTAL - 7 assessed: 07/24/23 Source: Developed by Drs. Steve Kim, Isaac Cee and colleagues, with an educational eddie from [employer]. Physical exam (Primary Care) Vital Signs: Last Vital Signs Pulse 77 10/30/23 12:15 BP 118/54 L 10/30/23 12:15 Pulse Ox 97 10/30/23 12:15 Oxygen Delivery Method Room Air 10/30/23 12:15 BMI result Body Mass Index 23.4 Tobacco/Smoking Status: Tobacco use Status Tobacco use date assessed 07/24/23 10/30/23 12:20 Patient Tobacco Use Status Never used Tobacco 10/30/23 12:20 e-Cigarette/Vaping Use Never Used 10/30/23 12:20 PHQ-9: PHQ-9 Score PHQ-9: Total score 0 10/30/23 12:20 Depression Screening Interpretation: Negative Thrive Assessment: Date of Thrive Assessment Date Thrive assessed 07/24/23 10/30/23 12:20 Assessment and Plan Assessment & Plan (1) Fracture, intertrochanteric, left femur: Comment: 09/2023 Dr. Kamila Bain peritrochanteric femur fracture with intramedullary implant Code(s): S72.142A - Displaced intertrochanteric fracture of left femur, initial encounter for closed fracture Plan: Continue to keep active and do the exercises. (2) Anemia: Code(s): D64.9 - Anemia, unspecified Plan: Did discuss about the anemia causing problems of tiredness patient is advised to take iron and vitamin-C and vitamin B12 to help with the anemia (3) S/P TAVR (transcatheter aortic valve replacement): Comment: 07/30. 26 mm Evolut bioprosthesis Code(s): Z95.2 - Presence of prosthetic heart valve Plan: From the last note cardiology this is good (4) HTN (hypertension): Comment: Heart catheterization for TAVR severe July 2019 echo normal left ventricular function with grade 2 diastolic dysfunction Code(s): I10 - Essential (primary) hypertension Plan: Continue with blood pressure medication. Decrease salt intake and exercise Orders: Orders Complete Blood Count Auto Diff 3 Months D64.9 - Anemia, unspecified Vitamin B12 and Folate 3 Months D64.9 - Anemia, unspecified Reticulocyte Count 3 Months D64.9 - Anemia, unspecified B Type Natriuretic Peptide 3 Months I50.30 - Unspecified diastolic (congestive) heart failure Ferritin 3 Months D64.9 - Anemia, unspecified IRON PROFILE 3 Months D64.9 - Anemia, unspecified Comprehensive Met. Panel 3 Months I50.30 - Unspecified diastolic (congestive) heart failure Medications: New calcium carbonate-vitamin D3 600 mg-10 mcg (400 unit) (Calcium 600 with Vitamin D3) 1 tab PO BID 90 days 180 tabs 3RF D64.9 - Anemia, unspecified lisinopril 5 mg PO DAILY 90 tabs 3RF I10 - Essential (primary) hypertension ferrous sulfate (Feosol) 325 mg PO DAILY 30 tabs 3RF D64.9 - Anemia, unspecified ascorbate calcium (vitamin C) 500 mg PO DAILY 30 tabs 4RF D50.9 - Iron deficiency anemia, unspecified, D64.9 - Anemia, unspecified Coding Level of Care Code Est Pt Level 4 (42016) Diagnoses Fracture, intertrochanteric, left femur S72.142A Anemia D64.9 S/P TAVR (transcatheter aortic valve replacement) Z95.2 HTN (hypertension) I10
== END 2023-10-30 12:49 | disposition home or self-care (01) ==
PROVIDERS: PCP Internal Medicine; Visit Provider Internal Medicine
DX: S72.142A Displaced intertrochanteric fracture of left femur, initial encounter for closed fracture (principal); D64.9 Anemia, unspecified; Z95.2 Presence of prosthetic heart valve; I10 Essential (primary) hypertension
CPT/HCPCS: 99214

== ENCOUNTER 2023-11-09 16:40 | Inpatient (IN) | payer MEDICARE, SELFPAY ==
[2023-11-09] VITALS (18 sets, daily range): BP systolic 125–222; BP diastolic 54–87; PULSE 70–87; RESP 18–20; TEMP 36.6–37; O2SAT 94–100; BMI 23.4
--- NOTE | ~2023-11-09 | XR_ITS ---
EXAMINATION: XR CHEST CLINICAL INFORMATION: Uncontrolled hypertension, elevated troponin COMPARISON: Chest radiograph 08/29/2023 TECHNIQUE: AP view of the chest was obtained. FINDINGS: The lungs are well expanded. Bilateral perihilar bronchial cuffing. No dense focal consolidation, pleural effusion, pulmonary edema pneumothorax. The cardiomediastinal silhouette is within normal limits for technique and unchanged. TAVR in place. Aortic arch calcifications again seen. No acute osseous abnormality. XR/XR chest 1V IMPRESSION: Bilateral perihilar bronchial cuffing can be seen with small airways disease or atypical/viral infection.
--- NOTE | ~2023-11-09 | CT_ITS ---
EXAMINATION: CT HEAD WITHOUT CONTRAST CLINICAL INFORMATION: Headache, hypertension COMPARISON: None available. TECHNIQUE: Contiguous axial imaging was performed from the skull base to vertex without intravenous administration of contrast. This CT examination was performed using dose optimization techniques as appropriate, variously including the following: *Automated exposure control *Adjustment of mA and/or kV according to patient size (this includes techniques or standardized protocols for targeted exams where dose is matched to indication/reason for exam; i.e. extremities or head) *Use of iterative reconstruction technique DLP: 637 mGy-cm FINDINGS: There is no acute intra-axial, extra-axial bleed, masses or midline shift. There is no acute infarction evolution. There is bibasal ganglia calcification. The lateral ventricles are symmetrical in size but mildly enlarged. The muhammad to white matter differentiation is maintained normal. Bone windows reveal no calvarial abnormality. There is no scalp soft tissue normality. Bilateral paranasal sinuses and mastoid air cells are well-aerated. CT/CT head/brain wo IV con IMPRESSION: No acute intracranial process seen.
--- NOTE | 2023-11-09 16:51 | ED_ITS ---
HPI - General Adult General Chief complaint: General Medical Stated complaint: High blood pressure Time Seen by Provider: 11/09/23 17:59 Source: patient and family Mode of arrival: ambulatory Limitations: no limitations History of Present Illness ED Provider: Dr. Leia Friend HPI narrative: Patient comes to the emergency room complaining of hypertension. Patient states that for the last couple of weeks, several of her medications have been changed from the short-term rehab facility. Patient states that she used to take atenolol, nifedipine, Lasix. Patient states that she was recently hospitalized for hypotension due to her blood pressure medications. Which caused her to fall and have a humerus fracture. That has the reason patient was in the hospital. According to the patient's family, all of the above mentioned patient's medications were discontinued and was started on 10 mg of lisinopril. Patient states that for a few days now, her blood pressure has been above 170 systolic. Today, patient has been having blood pressure above 210 systolic and having a headache. Patient denies chest pain or shortness of breath. Patient states that she takes apixaban daily Related Data Home Medications ?Medication ?Instructions ?Recorded ?Confirmed acetaminophen 325 mg capsule 650 mg PO Q6H PRN 10/16/23 amiodarone 200 mg tablet 100 mg PO DAILY 10/16/23 oxycodone 5 mg tablet 5 mg PO Q6H PRN 10/16/23 Previous Rx's ?Medication ?Instructions ?Recorded apixaban 5 mg tablet (Eliquis) 5 mg PO BID 90 days #180 tabs 07/24/23 atorvastatin 40 mg tablet 40 mg PO BEDTIME #90 tabs 08/02/23 fenofibrate nanocrystallized 145 145 mg PO DAILY #90 tabs 08/02/23 mg tablet furosemide 20 mg tablet 20 mg PO DAILY #90 tabs 08/26/23 estradiol 0.01% (0.1 mg/gram) 1 g vaginal 2XW #42.5 grams 10/16/23 vaginal cream ascorbate calcium (vitamin C) 500 500 mg PO DAILY #30 tabs 10/30/23 mg tablet calcium carbonate 600 mg-vitamin 1 tab PO BID 90 days #180 tabs 10/30/23 D3 10 mcg (400 unit) chewable tablet (Calcium 600 with Vitamin D3) ferrous sulfate 325 mg (65 mg 325 mg PO DAILY #30 tabs 10/30/23 iron) tablet (Feosol) lisinopril 10 mg tablet 10 mg PO DAILY #30 tabs 11/06/23 Allergies Allergy/AdvReac Type Severity Reaction Status Date / Time Sulfa (Sulfonamide Allergy Mild RASH Verified 11/09/23 16:54 Antibiotics) [SULFA (SULFONAMIDE ANTIBIOTICS)] Review of Systems 2 Review of Systems: Constitutional : No Weight loss, No Fever, No Chills, No Night Sweats, No Fatigue, No Malaise ENT/Mouth : No Hearing loss, No Ear Pain, No Nasal Congestion, No Sinus Pain, No Hoarseness, No sore throat, No Rhinorrhea, No Swallowing Difficulty Eyes: No Eye Pain, No Swelling, No Redness, No Foreign Body, No Discharge, No Vision Changes Cardiovascular : No Chest Pain, No SOB, No Dyspnea on Exertion, No Orthopnea, No Edema, No Palpitations, complaining of high blood pressure above 210 systolic Respiratory : No Cough, No Sputum, No Wheezing, No Smoke Exposure, No Dyspnea Gastrointestinal : No Nausea, No Vomiting, No Diarrhea, No Constipation, No abdominal Pain, No Hematochezia, No Melena Genitourinary : no irregular bleeding, No Dysuria, No Urinary Frequency, No Hematuria, No Urinary Incontinence, No Urgency, No Flank Pain, No Urinary Flow Changes, No Hesitancy Musculoskeletal : No joint pain, No Myalgias, No Joint Swelling Skin : No Skin Lesions, No rash Neuro : No Weakness, No Numbness, No Paresthesias, No Loss of Consciousness, No Dizziness, complaining of Headache Psych : No Anxiety/Panic, No Depression, No SI/HI/AH/VH, No Social Issues, Heme/Lymph: No Bruising, No Bleeding,No Lymphadenopathy Endocrine : No Polyuria, No Polydipsia, No Temperature Intolerance [facility] Past Medical History Medical History Osteopenia (HFpEF) heart failure with preserved ejection fraction Paroxysmal atrial fibrillation Atrial fibrillation Hospital discharge follow-up Elevated troponin Varicose vein of leg Pre-operative clearance Varicose veins of left leg with edema Carotid aneurysm, right Intracranial aneurysm Non-small cell cancer of right lung Thyroid nodule Pulmonary nodule Prolapsed bladder Hypercholesterolemia Peripheral vascular disease Diastolic dysfunction HTN (hypertension) Aortic stenosis Surgical History History of cataract surgery S/P TAVR (transcatheter aortic valve replacement) History of lung biopsy Hx of hysterectomy Hx of cardiac cath Hx of tonsillectomy Family History Family History Father Brain tumor Mother Uterine cancer, sarcoma Social History Social History Household Members: Spouse Housing: House Alcohol intake: current Alcohol intake frequency: does not drink Alcohol type: wine Patient Tobacco Use Status: Never used Tobacco Smoked in Last 30 Days: No e-Cigarette/Vaping Use: Never Used Second Hand Smoke Exposure: No Use of substances other than those prescribed or required for medical reasons: No Advance Directives: Yes Advance Directives on File: Yes Advance Directives Date on File: 10/29/22 Do you have a plan to hurt others: No Plan service: No Current occupational status: retired Cognitive needs: No Hearing needs: No Vision needs: Yes (glasses) Physical Exam ED Vital Signs: Vital Signs - 24 hr 11/09/23 16:49 11/09/23 18:36 11/09/23 19:24 Temperature 98.6 F Pulse Rate 87 74 Respiratory Rate 18 Blood Pressure 218/86 H 215/87 H 213/67 H Pulse Oximetry 97 Oxygen Delivery Method Room Air 11/09/23 19:36 11/09/23 19:59 11/09/23 20:03 Temperature 98.3 F Pulse Rate 73 73 72 Respiratory Rate 20 20 20 Blood Pressure 214/82 H 222/81 H 215/80 H Pulse Oximetry 99 100 100 Oxygen Delivery Method Room Air Room Air Room Air 11/09/23 20:16 11/09/23 20:23 11/09/23 20:43 Temperature Pulse Rate 73 71 70 Respiratory Rate 20 20 Blood Pressure 125/80 214/81 H 211/84 H Pulse Oximetry 99 99 Oxygen Delivery Method Room Air Room Air 11/09/23 21:04 11/09/23 21:30 11/09/23 21:47 Temperature 98.1 F Pulse Rate 72 73 Respiratory Rate 20 20 Blood Pressure 217/83 H 204/86 H 216/78 H Pulse Oximetry 97 98 Oxygen Delivery Method Room Air Room Air 11/09/23 22:12 11/09/23 22:35 11/09/23 23:06 Temperature Pulse Rate 72 Respiratory Rate Blood Pressure 207/85 H 139/54 L 134/54 L Pulse Oximetry Oxygen Delivery Method 11/09/23 23:08 11/09/23 23:23 11/09/23 23:42 Temperature 97.8 F Pulse Rate 72 74 73 Respiratory Rate 18 18 Blood Pressure 139/54 L 143/58 H 144/59 H Pulse Oximetry 100 94 Oxygen Delivery Method Room Air 11/10/23 00:12 Temperature Pulse Rate Respiratory Rate Blood Pressure 156/57 H Pulse Oximetry Oxygen Delivery Method BMI result Body Mass Index 23.4 Const Other: Appearance: Alert. Oriented X3. No acute distress. Eyes: Pupils equal, round and reactive to light. ENT: Pharynx normal. Neck: Normal inspection. Neck supple. No lymph nodes noted. No crepitus CVS: Normal heart rate and rhythm. Pulses normal. Normal S1 and S2 Respiratory: No respiratory distress. Breath sounds normal. No Wheezing. No rales Abdomen: Soft and nontender. No rigidity. No distention. Skin: Skin warm and dry. Normal skin color. Normal skin turgor. Extremities: No lower extremity edema. No Lacerations. No Rash Neuro: Oriented X 3. No motor deficit. No sensory deficit. Moving all extremities. No slurred speech. CN 2 through 12 grossly intact Psych: calm, cooperative, normal affect Course Course Course Narrative: This is a Rapid Medical Examination (RME) performed by La Gardner PA-C in triage. Full HPI, ROS, assessment and treatment plan per primary provider in the Main ED. 83 yo female with history of HTN, afib on eliquis and amio, HFpEF on lasix, history of recent hip fracture s/p surgery in September who presents to the ER for evaluation of elevated BP at home - 212 systolic. yesterday it was 189/76. has been compliant with her lisinpril 10 mg (recently increased from 5mg). after surgery atenolol was stopped. nifedipine was also recently stopped as well. She follows w/ Dr. Infante and her visiting nurse have been making med adjustments recently but no agreeing on what to do. patient has a mild headache but denies chest pain, vision changes, sob. Plan: labs, EKG, treat BP and reassess Medications Administered Generic Name Dose Route Start Last Admin Trade Name Freq PRN Reason Stop Dose Admin Nicardipine HCl 25 mg/ Sodium 260 mls @ 0 mls/hr 11/09/23 22:00 11/09/23 23:08 Chloride IVCONT 0 mg/hr .Q0M DIAN 0 mls/hr Titration Protocol Per Protocol Discontinued Medications Generic Name Dose Route Start Last Admin Trade Name Rose PRN Reason Stop Dose Admin Amlodipine Besylate 10 mg 11/09/23 20:44 11/09/23 21:04 Amlodipine Besylate 10 Mg Tablet PO 11/09/23 20:45 10 mg ONCE ONE Administration Protocol Labetalol HCl 10 mg 11/09/23 18:12 11/09/23 18:36 Labetalol Hcl 100 Mg/20 Ml Vial IVPUSH 11/09/23 18:13 10 mg ONCE ONE Administration Labetalol HCl 10 mg 11/09/23 19:37 11/09/23 20:16 Labetalol Hcl 100 Mg/20 Ml Vial IVPUSH 11/09/23 19:38 10 mg ONCE ONE Administration Nitroglycerin 1 inch 11/09/23 20:45 11/09/23 21:04 Nitroglycerin 2 % Oint 1 Gm Packet TRANSDERMA 11/09/23 20:46 1 inch ONCE ONE Administration Medical Decision Making Medical Decision Making MDM Narrative: -patient's blood pressure 218/86, heart rate 87, complaining of headache -my interpretation of EKG, normal sinus rhythm, heart rate 78, no ST segment depression or elevation, nonspecific T-wave inversion in lead III, QTC 469 -patient was given labetalol 10 mg IV -my interpretation of head CT, no intracranial bleed. -after the initial 10 mg of IV labetalol, patient's blood pressure did not improve much, currently 213/67. Patient was given a 2nd dose of labetalol IV. -2nd dose of labetalol, patient's blood pressure is still 211/84, patient being given p.o. amlodipine and nitro paste. -patient's blood pressure remains unchanged, still above 210 systolic. Patient is still having mild headache, no chest pain or shortness of breath -patient has been started on a Cardene drip. -troponin 1 is 604, 2nd troponin 625. -I discussed the patient with Dr. Blackmon from Cardiology, at this time, starting heparin is not indicated. -shortly after the Cardene drip was started, blood pressure dropped to 130s, patient states that she feels completely back to baseline, no headache, no chest pain or shortness of breath. -the cutting was stopped for 1 hour, blood pressure 157/56, heart rate in the 70s -I discussed the patient with Dr. Vidales, patient being admitted Differential Diagnosis Differential Diagnoses: The differential diagnosis associated with the presentation includes (Hypertension emergency, ACS, intracranial bleed) Admission/Observation Consideration of admission/observation: Escalation of care including admission/observation considered Consult Healthcare Provider Management of the patient was discussed with: Hospitalist and Surveillance Monitor Lab Data MDM Lab Attestation statement: I reviewed the patient's lab results. 11/09/23 17:18 11/09/23 17:18 Labs: Lab Results 11/09/23 11/09/23 Range/Units 17:18 19:58 WBC 7.0 (4.8-10.8) X10*3/uL RBC 3.49 L (4.20-5.50) X10*6/uL Hgb 10.7 L (12.0-16.0) g/dl Hct 32.8 L (37.0-47.0) % MCV 94.0 (80.0-98.0) fL MCH 30.7 (27.0-33.0) pg MCHC 32.6 (31.0-35.0) g/dl RDW 15.9 (11.0-16.0) % Plt Count 221 D (160-400) X10*3/uL MPV 10.2 (9.4-12.3) fL Immature Gran % (Auto) 0.4 (0.0-0.4) % Neut % (Auto) 73.5 H (45-73) % Lymph % (Auto) 15.9 L (20-40) % Hayes % (Auto) 8.2 (2-11) % Eos % (Auto) 1.6 (0-4) % Baso % (Auto) 0.4 (0-2) % Lymph # (Auto) 1.1 L (1.2-4.9) X10*3/uL Hayes # (Auto) 0.6 (0.1-1.2) X10*3/uL Eos # (Auto) 0.1 (0.0-0.4) X10*3/uL Baso # (Auto) 0.0 (0.0-0.2) X10*3/uL Abs Immat Gran (auto) 0.03 (0.00-0.03) X10*3/uL Absolute Neuts (auto) 5.1 (2.0-8.3) x10*3/uL Absolute Nucleated RBC 0.000 (0.0-0.012) X10*3/uL Nucleated RBC % (auto) 0.0 (0.0-0.2) /100WBC Sodium 143 (135-145) mmol/L Potassium 3.9 (3.3-5.1) mmol/L Chloride 109 H (96-108) mmol/L Carbon Dioxide 22 (22-29) mmol/L Anion Gap 16 (12-20) BUN 25 H (9-16) mg/dL Creatinine 0.92 (0.5-1.4) mg/dL Estim Creat Clear Calc 37.2 Estimated GFR 58 Random Glucose 90 (60-115) mg/dL Calcium 9.9 (8.4-10.2) mg/dL Magnesium 2.1 (1.6-2.6) mg/dL Total Bilirubin 0.4 (0.0-1.0) mg/dL Direct Bilirubin 0.2 (0.0-0.5) mg/dL AST 41 H (5-31) U/L ALT 25 (0-31) U/L Alkaline Phosphatase 98 (39-117) U/L Troponin I High Sens 604.3 H* D 625.4 H* (<3.5-17.0) ng/L B-Natriuretic Peptide 361 H (<100) pg/mL Total Protein 6.4 L (6.5-8.0) g/dL Albumin 3.7 (3.5-5.0) g/dL Urine Color Yellow Urine Appearance Clear Urine pH 7.5 (5.0-9.0) Ur Specific [place] <= 1.005 (1.005-1.025) Urine Protein Negative (Neg-Trace) mg/dL Urine Glucose (UA) Negative (Negative) mg/dL Urine Ketones Negative (Negative) mg/dL Urine Blood Negative (Negative) Urine Nitrite Negative (Negative) Ur Leukocyte Esterase Moderate (2+) H (Negative) Urine RBC 0-2 (0-2) /HPF Urine WBC 0-5 (0-5) /HPF Ur Squamous Epith Cells 0-2 (0-2) /HPF Urine Bacteria None Seen (None Seen) Hyaline Casts 0-2 (0-2) /LPF Independent Interpretation I performed an independent interpretation of an: EKG and CT Scan Radiology Impression Discussion of test interpretation with radiology: I have reviewed the radiologist's reading. Radiologist Impression: There is no acute intra-axial, extra-axial bleed, masses or midline shift. There is no acute infarction evolution. There is bibasal ganglia calcification. The lateral ventricles are symmetrical in size but mildly enlarged. The muhammad to white matter differentiation is maintained normal. Bone windows reveal no calvarial abnormality. There is no scalp soft tissue normality. Bilateral paranasal sinuses and mastoid air cells are well-aerated. CT/CT head/brain wo IV con IMPRESSION: No acute intracranial process seen. Critical Care Time Critical Care Time Critical Care Time: Yes Total Critical Care Time: 90 Attestation: I have personally provided critical care time. Time includes review of lab data, radiology results, discussion with consultants, and monitoring for potential decompensation. Intervention performed as documented. Discharge Plan Discharge Clinical Impression: Hypertensive emergency, Elevated troponin, Headache Patient Disposition: Admitted As Inpatient Prescriptions: No Action fenofibrate nanocrystallized 145 mg tablet 145 mg PO DAILY Qty: 90 3RF atorvastatin 40 mg tablet 40 mg PO BEDTIME Qty: 90 3RF furosemide 20 mg tablet 20 mg PO DAILY Qty: 90 3RF lisinopril 10 mg tablet 10 mg PO DAILY Qty: 30 3RF Eliquis 5 mg tablet 5 mg PO BID 90 Days Qty: 180 3RF amiodarone 200 mg tablet 100 mg PO DAILY acetaminophen 325 mg capsule 650 mg PO Q6H PRN oxycodone 5 mg tablet 5 mg PO Q6H PRN estradiol 0.01 % (0.1 mg/gram) cream 1 g vaginal 2XW Qty: 42.5 0RF Calcium 600 with Vitamin D3 600 mg-10 mcg (400 unit) tablet,chewable 1 tab PO BID 90 Days Qty: 180 3RF ferrous sulfate [Feosol] 325 mg (65 mg iron) tablet 325 mg PO DAILY Qty: 30 3RF ascorbate calcium (vitamin C) 500 mg tablet 500 mg PO DAILY Qty: 30 4RF Print Language: [place]
--- NOTE | 2023-11-09 16:56 | ECG_ITS ---
Test Reason : HYPERTENSION Blood Pressure : / mmHG Vent. Rate : 078 BPM Atrial Rate : 078 BPM P-R Int : 176 ms QRS Dur : 088 ms QT Int : 412 ms P-R-T Axes : 060 029 028 degrees QTc Int : 469 ms Normal sinus rhythm Normal ECG When compared with ECG of 30-OCT-2022 09:27, No significant change was found Referred By: Amanda Gardner Electronically Signed By:JOHN LORA
[2023-11-09 17:22] LABS: MANUAL DIFF FLAG NO
[2023-11-09 17:34] LABS: Basophils Percent Auto 0.4 % (0-2); Eosinophils Absolute Auto 0.1 X10*3/uL (0.0-0.4); Eosinophils Percent Auto 1.6 % (0-4); Hematocrit 32.8 % (37.0-47.0); Hemoglobin 10.7 g/dl (12.0-16.0); Imm Gran Abs Auto 0.03 X10*3/uL (0.00-0.03); Imm Gran Pct Auto 0.4 % (0.0-0.4); Lymphocytes Absolute Auto 1.1 X10*3/uL (1.2-4.9); Lymphocytes Percent Auto 15.9 % (20-40); Mean Corpuscular HGB Conc 32.6 g/dl (31.0-35.0); Mean Corpuscular Hemoglobin 30.7 pg (27.0-33.0); Mean Platelet Volume 10.2 fL (9.4-12.3); Monocytes Absolute Auto 0.6 X10*3/uL (0.1-1.2); Monocytes Percent Auto 8.2 % (2-11); Neutrophils Absolute Auto 5.1 x10*3/uL (2.0-8.3); Neutrophils Percent Auto 73.5 % (45-73); Platelet Count 221 X10*3/uL (160-400); Red Blood Count 3.49 X10*6/uL (4.20-5.50); Red Cell Distribution Width 15.9 % (11.0-16.0)
[2023-11-09 17:40] LABS: Alanine Aminotransferase 25 U/L (0-31); Albumin Level 3.7 g/dL (3.5-5.0); Alkaline Phosphatase 98 U/L (39-117); Anion Gap 16 (12-20); Aspartate Amino Transferase 41 U/L (5-31); Bilirubin Direct 0.2 mg/dL (0.0-0.5); Bilirubin Total 0.4 mg/dL (0.0-1.0); Blood Urea Nitrogen 25 mg/dL (9-16); Calcium 9.9 mg/dL (8.4-10.2); Carbon Dioxide 22 mmol/L (22-29); Chloride 109 mmol/L (96-108); Creatinine Clr Calc Pharmacy 37.2; Estimated Glomerular Filt Rate 58; Glucose Random 90 mg/dL (60-115); Magnesium 2.1 mg/dL (1.6-2.6); Potassium 3.9 mmol/L (3.3-5.1); Sodium 143 mmol/L (135-145); Total Protein 6.4 g/dL (6.5-8.0)
[2023-11-09 17:46] LABS: Troponin-I High Sensitivity 604.3 ng/L (<3.5-17.0)
[2023-11-09 18:29] LABS: B Type Natriuretic Peptide 361 pg/mL (<100)
[2023-11-09] MEDS: Labetalol HCL 100 MG/20 ML VIAL 10 MG IVPUSH ×2 (18:36→20:16)
--- NOTE | 2023-11-09 19:01 | PC.NURSE ---
Assumed care of pt. pt lying on stretcher, family at bedside. pt in no acute distress. Denies CP/SOB. Pt with no meaningful zonia in BLE. Pt endorsing mild headache, with current SBP. Continuing plan of care to monitor SBP and repeat Troponin a 1999.
--- NOTE | 2023-11-09 19:38 | MHC.EDTECH ---
This tech took over care of patient at 1900,hourly rounds and vitals completed,BP is elevated 214/82,RN aware.
--- NOTE | 2023-11-09 19:51 | MHC.EDTECH ---
Patient got up to commode with minimal assist,patient urinated 900MLS of clear yellow urine,carmelita-care given ,sample obtained and repeat trop,drawn and sent to lab
[2023-11-09 20:09] LABS: Appearance Urine Clear; Color Urine Yellow; Glucose Urine UA Negative (Negative); Leukocyte Esterase Urine Moderate (2+) (Negative); Nitrite Urine Negative (Negative); PH 7.5 (5.0-9.0); Specific Gravity - Urine <= 1.005 (1.005-1.025); UMIC TRIGGER UACC YES; Urine Blood Negative (Negative); Urine Ketones Negative (Negative); Urine Protein Negative (Neg-Trace)
[2023-11-09 20:21] LABS: Bacteria Urine None Seen (None Seen); Hyaline Casts Urine 0-2 /LPF (0-2); RBC Urine 0-2 /HPF (0-2); Squamous Epithelial Cell Urine 0-2 /HPF (0-2); WBC Urine 0-5 /HPF (0-5)
[2023-11-09 20:32] LABS: Troponin-I High Sensitivity 625.4 ng/L (<3.5-17.0)
[2023-11-09] MEDS: amLODIPine Besylate 10 MG TABLET PO (21:04)
[2023-11-09] MEDS: Nitroglycerin 2 % Oint 1 GM Packet 1 INCH TRANSDERMA (21:04)
--- NOTE | 2023-11-09 21:31 | MHC.EDTECH ---
Hourly rounds and vitals completed BP is 204/86 RN is aware,family at bedside and call saunders in reach
--- NOTE | 2023-11-09 21:33 | MHC.EDTECH ---
Belongings list completed
[2023-11-09] MEDS: niCARdipine HCL 25 MG in 0.9 % Sodium Chloride 250 ML 52 MG IVCONT (22:12)
--- NOTE | 2023-11-09 23:08 | PC.NURSE ---
Target SBP met, per MD Friend, Nicardipine stopped and will continue to monitor for SBP.
--- NOTE | 2023-11-09 23:53 | MHC.EDTECH ---
Patient got up to the commode with minimal assist,patient urinated a large amount, carmelita- care given. Vitals taken,patient was given a ham sandwich and a can of david rukhsana
[2023-11-10] VITALS (19 sets, daily range): BP systolic 134–178; BP diastolic 51–69; PULSE 65–76; RESP 18–20; TEMP 36.1–37.1; O2SAT 96–100; BMI 23.6
[2023-11-10] MEDS: Aspirin Enteric Coated 325 MG TABLET.DR PO (00:23)
--- NOTE | 2023-11-10 03:15 | P.HPHOSP_ITS ---
History of Present Illness Date of Service: 11/10/23 Attending physician on admission: Victor Hugo Sow Chief Complaint: High blood pressure Eloisa Richards is a very pleasant 83 years old woman with past medical history significant for essential hypertension, HFpEF, hyperlipidemia, paroxysmal atrial fibrillation on Eliquis, lung CA in remission (status post radiation therapy in 2019) and severe aortic stenosis status post transcatheter aortic valve replacement (bioprosthetic) presents to the emergency department complaining of elevated blood pressure (systolic > 212). She stated that recently her nifedipine and atenolol were discontinued due to low blood pressure but later she was started on lisinopril (currently taking 10 mg PO daily). She only complained of occipital mild headache that is resolved now. She denied any associated visual disturbances, nausea, vomiting, palpitations or dizziness. She also denies headache or shortness on breath. She was recently discharged home from rehab after recent left hip surgery. Denied alcohol abuse, tobacco smoking or illicit drug use. In the ED, she was initially found to have a blood pressure of 218/86. The rest of the vital signs are remarkable. Labs including CBC and CMP are basically unremarkable. Troponin came back elevated at 604.3 --> 625.4, BNP is 360 (higher than before). Head CT scan showed no acute intracranial abnormality. ECG showed normal sinus rhythm with a heart rate 78 beats per minutes. ED tx: Labetalol 10 mg IV x2, amlodipine 10 mg p.o. x1, nitro 1 in transdermal, nifedipine IV infusion (now off) and aspirin. Review of Systems 2 Review of Systems: All 12 systems were reviewed and normal except as noted in HPI. [facility] [place] Medical History Osteopenia (HFpEF) heart failure with preserved ejection fraction Paroxysmal atrial fibrillation Atrial fibrillation Hospital discharge follow-up Elevated troponin Varicose vein of leg Pre-operative clearance Varicose veins of left leg with edema Carotid aneurysm, right Intracranial aneurysm Non-small cell cancer of right lung Thyroid nodule Pulmonary nodule Prolapsed bladder Hypercholesterolemia Peripheral vascular disease Diastolic dysfunction HTN (hypertension) Aortic stenosis Family History Father Brain tumor Mother Uterine cancer, sarcoma Surgical History History of cataract surgery S/P TAVR (transcatheter aortic valve replacement) History of lung biopsy Hx of hysterectomy Hx of cardiac cath Hx of tonsillectomy Social History Household Members: Spouse Housing: House Alcohol intake: current Alcohol intake frequency: does not drink Alcohol type: wine Patient Tobacco Use Status: Never used Tobacco Smoked in Last 30 Days: No e-Cigarette/Vaping Use: Never Used Second Hand Smoke Exposure: No Use of substances other than those prescribed or required for medical reasons: No Advance Directives: Yes Advance Directives on File: Yes Advance Directives Date on File: 10/29/22 Do you have a plan to hurt others: No Plan service: No Current occupational status: retired Cognitive needs: No Hearing needs: No Vision needs: Yes (glasses) Meds Allergies Allergy/AdvReac Type Severity Reaction Status Date / Time Sulfa (Sulfonamide Allergy Mild RASH Verified 11/09/23 16:54 Antibiotics) [SULFA (SULFONAMIDE ANTIBIOTICS)] Active Medications: Current Medications Acetaminophen (Acetaminophen 325 Mg Tablet) 975 mg PO Q6H PRN PRN Reason: mild pain, headche or fever Nicardipine HCl 25 mg/ Sodium (Chloride) 260 mls @ 0 mls/hr IVCONT .Q0M DIAN; Protocol Last Titration: 11/09/23 23:08 Dose: 0 mg/hr, 0 mls/hr Sodium Chloride (0.9 % Sodium Chloride Flush 3 Ml Syringe) 3 ml IVFLUSH QSHIFT [facility] Home Medications ?Medication ?Instructions ?Recorded ?Confirmed ?Last Taken ?Type acetaminophen 325 mg capsule 650 mg PO Q6H PRN 10/16/23 Unknown History amiodarone 200 mg tablet 100 mg PO DAILY 10/16/23 Unknown History oxycodone 5 mg tablet 5 mg PO Q6H PRN 10/16/23 Unknown History Physical Exam 2 Vital Signs and Narrative: Vital Signs: Last Vital Signs Temp 97.9 F 11/10/23 01:36 Pulse 72 11/10/23 03:04 Resp 20 11/10/23 03:04 BP 140/58 H 11/10/23 03:04 Pulse Ox 100 11/10/23 03:04 O2 Del Method Room Air 11/10/23 03:04 BMI result Body Mass Index 23.4 Constitutional - Awake and Alert, No apparent distress. Cooperative. Pleasant. HEENT - Pupils equally round. Normal sclerae. Heart - RRR. Lung - Normal lung expansion, Normal respiratory effort, No respiratory distress, CTA bilaterally Abdomen - NT / ND; +BS; No rebound or guarding Extremities - no calf tenderness bilaterally, no swelling Musculoskeletal - Normal inspection, normal ROM Skin - Warm/Dry Neurological - Alert & oriented x3. No focal weakness. Normal speech Psychological - Appropriate affect Results Labs 11/09/23 17:18 11/09/23 17:18 Labs: Laboratory Results - last 24 hr 11/09/23 11/09/23 17:18 19:58 MCV 94.0 MCH 30.7 MCHC 32.6 RDW 15.9 Plt Count 221 D MPV 10.2 Immature Gran % (Auto) 0.4 Neut % (Auto) 73.5 H Lymph % (Auto) 15.9 L [place] % (Auto) 8.2 Eos % (Auto) 1.6 Baso % (Auto) 0.4 Lymph # (Auto) 1.1 L [place] # (Auto) 0.6 Eos # (Auto) 0.1 Baso # (Auto) 0.0 Abs Immat Gran (auto) 0.03 Absolute Neuts (auto) 5.1 Absolute Nucleated RBC 0.000 Nucleated RBC % (auto) 0.0 Anion Gap 16 Estim Creat Clear Calc 37.2 Estimated GFR 58 Random Glucose 90 Calcium 9.9 Magnesium 2.1 Total Bilirubin 0.4 Direct Bilirubin 0.2 AST 41 H ALT 25 Alkaline Phosphatase 98 Troponin I High Sens 604.3 H* D 625.4 H* B-Natriuretic Peptide 361 H Total Protein 6.4 L Albumin 3.7 Urine Color Yellow Urine Appearance Clear Urine pH 7.5 Ur Specific [place] <= 1.005 Urine Protein Negative Urine Glucose (UA) Negative Urine Ketones Negative Urine Blood Negative Urine Nitrite Negative Ur Leukocyte Esterase Moderate (2+) H Urine RBC 0-2 Urine WBC 0-5 Ur Squamous Epith Cells 0-2 Urine Bacteria None Seen Hyaline Casts 0-2 Imaging Radiologist's Impressions: Impressions Head CT 11/09/23 18:33 IMPRESSION: No acute intracranial process seen. Assessment and Plan (1) Elevated troponin: Status: Acute (2) Hypertensive urgency: Status: Acute (3) (HFpEF) heart failure with preserved ejection fraction: Qualifiers: Heart failure chronicity: chronic Qualified Code(s): I50.32 - Chronic diastolic (congestive) heart failure Status: Acute (4) Paroxysmal atrial fibrillation: Status: Acute Plan Eloisa Richards is a 83 y/o woman admitted with: * Hypertensive urgency, improving. Admit to hospitalist service. Telemetry. Continue to monitor blood pressure closely. Start with amlodipine 5 mg p.o. daily. Continue lisinopril 10 mg p.o. daily. * Elevated troponin. No chest pain or shortness on breath. EKG is normal. Check CXR. Discussed with pain medicine physician by ED; appreciate input. Telemetry. Continue to monitor. * Atrial fibrillation, paroxysmal. Continue amiodarone and Eliquis. * Chronic anemia. Continue oral iron. Continue to monitor. * Hyperlipidemia. Continue statin and fenofibrate. * HFpEF. No acute symptoms. Continue Lasix. * s/p transcatheter aortic valve replacement. * History of lung cancer remission. s/p radiation. Receives follow as an outpatient with Hematology Oncology. * s/p left hip surgery. Mobility improving and good participation with PT at home. PT eval. Code status: Full DVT prophylaxis: Eliquis Patient will need hospitalization for at least 2 midnights for hypertensive urgency evaluation and treatment p.o. antihypertensive meds and IV p.r.n.. Patient will need close monitoring of blood pressure and troponin as well as evaluation by subspecialty Quality Stroke Does the patient have a stroke diagnosis?: No VTE Prior VTE?: No VTE Risk Level:: Medical - moderate - high VTE Device Contraindication: Treatment Not Indicated VTE Drug Contraindication: N/A - Med Ordered
[2023-11-10] MEDS: Apixaban 5 MG TABLET PO ×2 (03:21→21:31)
[2023-11-10 06:25] LABS: MANUAL DIFF FLAG NO
[2023-11-10 06:37] LABS: Basophils Absolute Auto 0.1 X10*3/uL (0.0-0.2); Basophils Percent Auto 0.8 % (0-2); Eosinophils Absolute Auto 0.1 X10*3/uL (0.0-0.4); Eosinophils Percent Auto 1.6 % (0-4); Hematocrit 30.9 % (37.0-47.0); Hemoglobin 10.2 g/dl (12.0-16.0); Imm Gran Abs Auto 0.02 X10*3/uL (0.00-0.03); Imm Gran Pct Auto 0.3 % (0.0-0.4); Lymphocytes Absolute Auto 0.7 X10*3/uL (1.2-4.9); Lymphocytes Percent Auto 11.3 % (20-40); Mean Corpuscular Volume 93.9 fL (80.0-98.0); Mean Platelet Volume 10.3 fL (9.4-12.3); Monocytes Absolute Auto 0.6 X10*3/uL (0.1-1.2); Monocytes Percent Auto 9.3 % (2-11); Neutrophils Absolute Auto 4.9 x10*3/uL (2.0-8.3); Neutrophils Percent Auto 76.7 % (45-73); Platelet Count 188 X10*3/uL (160-400); Red Blood Count 3.29 X10*6/uL (4.20-5.50); Red Cell Distribution Width 15.9 % (11.0-16.0); White Blood Count 6.4 X10*3/uL (4.8-10.8)
[2023-11-10 06:45] LABS: Alanine Aminotransferase 21 U/L (0-31); Albumin Level 3.2 g/dL (3.5-5.0); Alkaline Phosphatase 77 U/L (39-117); Anion Gap 9 (12-20); Aspartate Amino Transferase 31 U/L (5-31); Bilirubin Total 0.3 mg/dL (0.0-1.0); Blood Urea Nitrogen 18 mg/dL (9-16); Carbon Dioxide 23 mmol/L (22-29); Chloride 115 mmol/L (96-108); Creatinine Clr Calc Pharmacy 40.8; Estimated Glomerular Filt Rate > 60; Glucose Random 65 mg/dL (60-115); Potassium 3.4 mmol/L (3.3-5.1); Sodium 144 mmol/L (135-145); Total Protein 5.4 g/dL (6.5-8.0)
--- NOTE | 2023-11-10 07:28 | PHA.MEDREC ---
Pharmacy Consult ? Medication Reconciliation Pharmacy has completed the medication reconciliation. MED REC COMPLETE USING LIST PROVIDED BY [facility].
--- NOTE | 2023-11-10 08:42 | MHC.CM.PN ---
IMM 11/10/23, Pt lives with her , HCP form will be completed and added to chart. She is active with [facility], following rehab at [facility] for a fractured hip. She does not have any other home health services. PCP confirmed: Dr. Infante. to transport home at [place]. DCP: home, resume [facility] services. CM to follow and assist with DC plans.
[2023-11-10] MEDS: 0.9 % Sodium Chloride Flush 3 ML SYRINGE IVFLUSH ×2 (08:47→16:43)
[2023-11-10] MEDS: lisinopriL 10 MG TABLET PO (09:13)
[2023-11-10] MEDS: Amiodarone HCL 200 MG TABLET 100 MG PO (11:11)
--- NOTE | 2023-11-10 11:20 | P.CONCA_ITS ---
History of Present Illness History of Present Illness Date of Service: 11/10/23 Chief complaint: Uncontrolled Hypertension, Elevated Troponin Narrative: This is a patient currently admitted for hypertensive emergency type situation. Generally seen by Dr. Vogt. Last seen in August this year. Per his note, she has a history of TAVR as well as diastolic congestive heart failure. She is paroxysmal atrial fibrillation. She also has hypertension/orthostatic hypotension/labile. It seems that patient was recently at [facility] for hip surgery and after that discharge to rehab and then home in in this transition of care, changes have been made. Per note by Dr. Vogt, she was on atenolol 100 mg daily and nifedipine ER 30 mg daily. However, she was apparently discharged home only on lisinopril 5 mg daily. Apparently other meds were stopped. Then PCP had increase the lisinopril to 10 mg daily advised her to do home blood pressures. As they were markedly high, she came to the ER. She is denying any clear-cut chest pains. Troponins were abnormal but thought to be from myocardial stress from uncontrolled hypertension. Otherwise, she states she feels okay. Blood pressure today is much better but still high. Review of Systems 2 Review of Systems: Yes all other systems are reviewed and are negative Constitutional: Constitutional: Reports as per HPI and Reports no additional constitutional complaints Eyes: Eyes: Reports as per HPI and Denies no additional eye complaints ENT: Denies system reviewed and no additional complaints, except as documented and Reports as per HPI Cardiovascular: Cardiovascular: Reports as per HPI, Reports no additional cardiovascular complaints, Denies acrocyanosis, Denies cool extremities, Denies chest pain, Denies leg edema, Denies lightheadedness, Denies palpitations and Denies dyspnea Respiratory: Respiratory: Reports as per HPI, Denies no additional respiratory complaints and Denies dyspnea Gastrointestinal: Gastrointestinal: Reports as per HPI and Denies no additional gastrointestinal complaints Genitourinary: Genitourinary: Reports as per HPI Musculoskeletal: Musculoskeletal: Reports no additional musculoskeletal complaints and Reports as per HPI Integumentary/Breasts: Skin/Breast: Reports system reviewed and no additional complaints, except as docu Neurologic: Reports system reviewed and no additional complaints, except as documented and Reports as per HPI Psychiatric: Psychiatric: Reports no additional psychiatric complaints and Reports as per HPI Endocrine: Endocrine: Reports no additional endocrine complaints, Reports as per HPI and Denies palpitations Hematologic/Lymphatic: Hematologic/Lymphatic: Reports no additional hematologic/lymphatic complaints and Reports as per HPI Allergic/Immunologic: Allergic/Immunologic: Reports no additional allergic/immunologic complaints and Reports as per HPI [facility] Past Medical History Medical History Osteopenia (HFpEF) heart failure with preserved ejection fraction Paroxysmal atrial fibrillation Atrial fibrillation Hospital discharge follow-up Elevated troponin Varicose vein of leg Pre-operative clearance Varicose veins of left leg with edema Carotid aneurysm, right Intracranial aneurysm Non-small cell cancer of right lung Thyroid nodule Pulmonary nodule Prolapsed bladder Hypercholesterolemia Peripheral vascular disease Diastolic dysfunction HTN (hypertension) Aortic stenosis Family History Family History Father Brain tumor Mother Uterine cancer, sarcoma Surgical History Surgical History History of cataract surgery S/P TAVR (transcatheter aortic valve replacement) History of lung biopsy Hx of hysterectomy Hx of cardiac cath Hx of tonsillectomy Social History Social History Household Members: Spouse Housing: House Do you presently have visiting nurse or other home services: Yes (Since hip fx this 2023, 1-2 times per week) Alcohol intake: current Alcohol intake frequency: does not drink Alcohol type: wine Patient Tobacco Use Status: Never used Tobacco e-Cigarette/Vaping Use: Never Used Second Hand Smoke Exposure: No Advance Directives Date on File: 10/29/22 service: No Current occupational status: retired Cognitive needs: No Hearing needs: No Vision needs: Yes (glasses) Meds Allergies Allergy/AdvReac Type Severity Reaction Status Date / Time Sulfa (Sulfonamide Allergy Mild RASH Verified 11/09/23 16:54 Antibiotics) [SULFA (SULFONAMIDE ANTIBIOTICS)] Active Medications: Current Medications Acetaminophen (Acetaminophen 325 Mg Tablet) 975 mg PO Q6H PRN PRN Reason: mild pain, headche or fever Amiodarone HCl (Amiodarone Hcl 200 Mg Tablet) 100 mg PO DAILY DIAN Last Admin: 11/10/23 11:11 Dose: 100 mg Apixaban (Apixaban 5 Mg Tablet) 5 mg PO BID DIAN Atenolol (Atenolol 50 Mg Tablet) 50 mg PO BID [facility]; Protocol Atorvastatin Calcium (Atorvastatin Calcium 40 Mg Tablet) 40 mg PO DAILY [facility] Calcium Carbonate/Cholecalciferol (Calcium + Vitamin D 250 Mg Tablet) 1 mg PO BID [facility] Fenofibrate (Fenofibrate 160 Mg Tablet) 160 mg PO DAILY [facility] Furosemide (Furosemide 20 Mg Tablet) 20 mg PO DAILY [facility]; Protocol Last Admin: 11/10/23 11:17 Dose: Not Given Lisinopril (Lisinopril 10 Mg Tablet) 10 mg PO DAILY [facility]; Protocol Multivitamins/Vitamin C (Multivitamin Tablet) 1 tab PO DAILY [facility] Oxycodone HCl (Oxycodone Hcl Immed Release 5 Mg Tablet) 5 mg PO Q6H PRN PRN Reason: Pain (Scale Score 7-10) Sodium Chloride (0.9 % Sodium Chloride Flush 3 Ml Syringe) 3 ml IVFLUSH QSHIFT [facility] Last Admin: 11/10/23 08:47 Dose: 3 ml Home Medications ?Medication ?Instructions ?Recorded ?Confirmed ?Last Taken ?Type acetaminophen 325 mg capsule 650 mg PO Q6H PRN Pain (Scale 10/16/23 11/10/23 Unknown History Score 1-3) amiodarone 200 mg tablet 100 mg PO DAILY 10/16/23 11/10/23 Unknown History oxycodone 5 mg tablet 5 mg PO Q6H PRN Pain (Scale Score 10/16/23 11/10/23 Unknown History 7-10) atorvastatin 40 mg tablet 40 mg PO DAILY 11/10/23 11/10/23 Unknown History multivitamin-ferrous 1 tab PO DAILY 11/10/23 11/10/23 Unknown History fumarate-folic acid 18 mg-400 mcg tablet Physical Exam 2 Vital Signs: Vital Signs: Last Vital Signs Temp 98.8 F 11/10/23 11:03 Pulse 76 11/10/23 11:03 Resp 18 11/10/23 11:03 BP 172/64 H 11/10/23 11:17 Pulse Ox 96 11/10/23 11:03 O2 Del Method Room Air 11/10/23 11:03 BMI result Body Mass Index 23.6 Const: General: comfortable and no acute distress O rientation/consciousness: patient oriented x3 HEENT: Other: Unremarkable Head: Yes normal to inspection Neck: Neck: Yes normal visual inspection Chest: Chest palpation & inspection: normal inspection of the chest Resp: Auscultation: clear to auscultation bilaterally Cardio: Palpation: normal PMI Heart sounds: S1 normal heart sound present, S2 normal heart sound present, no gallops, Murmur heart sound present systolic II/ and at the right sternal border and no rubs GI: Palpation (GI): Soft to palpation Back/Spine/Pelvis: Other: unremarkable Skin: General skin exam: no rashes or lesions noted Neuro: General: patient oriented x3 Extrem: General: Yes normal to inspection Psych: Mental Status: mental status grossly normal Objective Labs and Meds 11/10/23 05:52 11/10/23 05:52 Lab results: Laboratory Results - last 24 hr 11/09/23 11/09/23 11/10/23 17:18 19:58 03:09 WBC 7.0 RBC 3.49 L Hgb 10.7 L Hct 32.8 L MCV 94.0 MCH 30.7 MCHC 32.6 RDW 15.9 Plt Count 221 D MPV 10.2 Immature Gran % (Auto) 0.4 Neut % (Auto) 73.5 H Lymph % (Auto) 15.9 L [place] % (Auto) 8.2 Eos % (Auto) 1.6 Baso % (Auto) 0.4 Lymph # (Auto) 1.1 L [place] # (Auto) 0.6 Eos # (Auto) 0.1 Baso # (Auto) 0.0 Abs Immat Gran (auto) 0.03 Absolute Neuts (auto) 5.1 Absolute Nucleated RBC 0.000 Nucleated RBC % (auto) 0.0 Sodium 143 Potassium 3.9 Chloride 109 H Carbon Dioxide 22 Anion Gap 16 BUN 25 H Creatinine 0.92 Estim Creat Clear Calc 37.2 Estimated GFR 58 Random Glucose 90 Calcium 9.9 Magnesium 2.1 Total Bilirubin 0.4 Direct Bilirubin 0.2 AST 41 H ALT 25 Alkaline Phosphatase 98 Troponin I High Sens 604.3 H* D 625.4 H* 464.0 H* B-Natriuretic Peptide 361 H Total Protein 6.4 L Albumin 3.7 Urine Color Yellow Urine Appearance Clear Urine pH 7.5 Ur Specific [place] <= 1.005 Urine Protein Negative Urine Glucose (UA) Negative Urine Ketones Negative Urine Blood Negative Urine Nitrite Negative Ur Leukocyte Esterase Moderate (2+) H Urine RBC 0-2 Urine WBC 0-5 Ur Squamous Epith Cells 0-2 Urine Bacteria None Seen Hyaline Casts 0-2 11/10/23 05:52 WBC 6.4 RBC 3.29 L Hgb 10.2 L Hct 30.9 L MCV 93.9 MCH 31.0 MCHC 33.0 RDW 15.9 Plt Count 188 MPV 10.3 Immature Gran % (Auto) 0.3 Neut % (Auto) 76.7 H Lymph % (Auto) 11.3 L [place] % (Auto) 9.3 Eos % (Auto) 1.6 Baso % (Auto) 0.8 Lymph # (Auto) 0.7 L [place] # (Auto) 0.6 Eos # (Auto) 0.1 Baso # (Auto) 0.1 Abs Immat Gran (auto) 0.02 Absolute Neuts (auto) 4.9 Absolute Nucleated RBC 0.000 Nucleated RBC % (auto) 0.0 Sodium 144 Potassium 3.4 Chloride 115 H Carbon Dioxide 23 Anion Gap 9 L BUN 18 H Creatinine 0.84 Estim Creat Clear Calc 40.8 Estimated GFR > 60 Random Glucose 65 Calcium 9.0 D Magnesium Total Bilirubin 0.3 Direct Bilirubin AST 31 ALT 21 Alkaline Phosphatase 77 Troponin I High Sens B-Natriuretic Peptide Total Protein 5.4 L Albumin 3.2 L Urine Color Urine Appearance Urine pH Ur Specific [place] Urine Protein Urine Glucose (UA) Urine Ketones Urine Blood Urine Nitrite Ur Leukocyte Esterase Urine RBC Urine WBC Ur Squamous Epith Cells Urine Bacteria Hyaline Casts ECG Interpretation: EKG with sinus rhythm at 78/Min; no significant ST-T changes and otherwise unremarkable. Normal OR and corrected QT. Imaging Radiologist's impression: Impressions Head CT 11/09/23 18:33 IMPRESSION: No acute intracranial process seen. Assessment and Plan (1) Hypertensive emergency: Status: Acute (2) Elevated troponin: Status: Acute Plan Yesterday, blood pressure was as much as 218 mm systolic but diastolic was okay. Today, blood pressure is much improved but still on the higher side. As mentioned above, per Dr. Vogt's note medication regimen was atenolol 100 mg daily and nifedipine ER 30 mg daily. However, it seems they have been stopped and she is only on lisinopril. Patient states she has been on atenolol for numerous years. Hence we can resume that possibly smaller dose of atenolol 50 mg daily and then gradually bring it up to the current dose unless there was a clear reason why this was stopped. She can be monitored for any significant bradycardia on telemetry. With regard to lisinopril, may continue. Again dose will need to be changed based on blood pressure. Finally, with regard to nifedipine, may hold as there have been too many changes. We can reintroduce as necessary. If these changes do not work, then just go back to the initial regimen of atenolol 100 mg daily and nifedipine ER 30 mg daily. With regard to elevated troponins, she does not have any chest pain or EKG changes. Most likely from myocardial strain related to uncontrolled blood pressures. Discussed with Ursula Whitehead. Procedures Date of Service Date of Service: 11/10/23
--- NOTE | 2023-11-10 11:33 | HO.PM.IMPN ---
Subjective Subjective Date of Service: 11/10/23 Physical Exam Vital Signs: Vital Signs: Last Vital Signs Temp 98.8 F 11/10/23 11:03 Pulse 76 11/10/23 11:03 Resp 18 11/10/23 11:03 BP 172/64 H 11/10/23 11:17 Pulse Ox 96 11/10/23 11:03 O2 Del Method Room Air 11/10/23 11:03 BMI result Body Mass Index 23.6 Objective Data Active Medications Acetaminophen (Acetaminophen 325 Mg Tablet) 975 mg PO Q6H PRN PRN Reason: mild pain, headche or fever Amiodarone HCl (Amiodarone Hcl 200 Mg Tablet) 100 mg PO DAILY [facility] Last Admin: 11/10/23 11:11 Dose: 100 mg Documented By: ASIA Apixaban (Apixaban 5 Mg Tablet) 5 mg PO BID [facility] Atenolol (Atenolol 50 Mg Tablet) 50 mg PO BID [facility]; Protocol Atorvastatin Calcium (Atorvastatin Calcium 40 Mg Tablet) 40 mg PO DAILY [facility] Calcium Carbonate/Cholecalciferol (Calcium + Vitamin D 250 Mg Tablet) 1 mg PO BID [facility] Fenofibrate (Fenofibrate 160 Mg Tablet) 160 mg PO DAILY [facility] Furosemide (Furosemide 20 Mg Tablet) 20 mg PO DAILY [facility]; Protocol Last Admin: 11/10/23 11:17 Dose: Not Given Documented By: ASIA Non-Admin Reason: Physician Held Med Comments: per provider Leatha Whitehead Lisinopril (Lisinopril 10 Mg Tablet) 10 mg PO DAILY [facility]; Protocol Multivitamins/Vitamin C (Multivitamin Tablet) 1 tab PO DAILY [facility] Oxycodone HCl (Oxycodone Hcl Immed Release 5 Mg Tablet) 5 mg PO Q6H PRN PRN Reason: Pain (Scale Score 7-10) Sodium Chloride (0.9 % Sodium Chloride Flush 3 Ml Syringe) 3 ml IVFLUSH QSHIFT [facility] Last Admin: 11/10/23 08:47 Dose: 3 ml Documented By: ASIA Labs 11/10/23 05:52 11/10/23 05:52 Labs: Laboratory Results - last 24 hr 11/09/23 11/09/23 11/10/23 17:18 19:58 03:09 MCV 94.0 MCH 30.7 MCHC 32.6 RDW 15.9 Plt Count 221 D MPV 10.2 Immature Gran % (Auto) 0.4 Neut % (Auto) 73.5 H Lymph % (Auto) 15.[address] % (Auto) 8.2 Eos % (Auto) 1.6 Baso % (Auto) 0.4 Lymph # (Auto) 1.[address] [place] # (Auto) 0.6 Eos # (Auto) 0.1 Baso # (Auto) 0.0 Abs Immat Gran (auto) 0.03 Absolute Neuts (auto) 5.1 Absolute Nucleated RBC 0.000 Nucleated RBC % (auto) 0.0 Anion Gap 16 Estim Creat Clear Calc 37.2 Estimated GFR 58 Random Glucose 90 Calcium 9.9 Magnesium 2.1 Total Bilirubin 0.4 Direct Bilirubin 0.2 AST 41 H ALT 25 Alkaline Phosphatase 98 Troponin I High Sens 604.3 H* D 625.4 H* 464.0 H* B-Natriuretic Peptide 361 H Total Protein 6.4 L Albumin 3.7 Urine Color Yellow Urine Appearance Clear Urine pH 7.5 Ur Specific [place] <= 1.005 Urine Protein Negative Urine Glucose (UA) Negative Urine Ketones Negative Urine Blood Negative Urine Nitrite Negative Ur Leukocyte Esterase Moderate (2+) H Urine RBC 0-2 Urine WBC 0-5 Ur Squamous Epith Cells 0-2 Urine Bacteria None Seen Hyaline Casts 0-2 11/10/23 05:52 MCV 93.9 MCH 31.0 MCHC 33.0 RDW 15.9 Plt Count 188 MPV 10.3 Immature Gran % (Auto) 0.3 Neut % (Auto) 76.7 H Lymph % (Auto) 11.[address] [place] % (Auto) 9.3 Eos % (Auto) 1.6 Baso % (Auto) 0.8 Lymph # (Auto) 0.[address] [place] # (Auto) 0.6 Eos # (Auto) 0.1 Baso # (Auto) 0.1 Abs Immat Gran (auto) 0.02 Absolute Neuts (auto) 4.9 Absolute Nucleated RBC 0.000 Nucleated RBC % (auto) 0.0 Anion Gap 9 L Estim Creat Clear Calc 40.8 Estimated GFR > 60 Random Glucose 65 Calcium 9.0 D Magnesium Total Bilirubin 0.3 Direct Bilirubin AST 31 ALT 21 Alkaline Phosphatase 77 Troponin I High Sens B-Natriuretic Peptide Total Protein 5.4 L Albumin 3.2 L Urine Color Urine Appearance Urine pH Ur Specific [place] Urine Protein Urine Glucose (UA) Urine Ketones Urine Blood Urine Nitrite Ur Leukocyte Esterase Urine RBC Urine WBC Ur Squamous Epith Cells Urine Bacteria Hyaline Casts Quality Stroke Does the patient have a stroke diagnosis?: No VTE Prior VTE?: No VTE Risk Level:: Medical - moderate - high VTE Device Contraindication: Treatment Not Indicated VTE Drug Contraindication: N/A - Med Ordered
--- NOTE | 2023-11-10 11:34 | PM.EVENT ---
Event Note Date of Service: 11/10/23 Event Note: Seen and examined this morning Follow-up for uncontrolled hypertension Patient observed sitting up in bed, awake, alert, in no acute distress She denies any headache, chest pain, shortness of breath, blurry vision, dizziness Hypertensive urgency. Had been on atenolol since 1994, changed to lisinopril at rehab Will continue lisinopril 10 mg daily, add lower dose of atenolol, 50 mg daily Monitor blood pressure closely Cardiology following Elevated troponin, type 2 NSTEMI No chest pain or shortness on breath. EKG is normal. Seen by Cardiology, likely type 2 secondary to demand from uncontrolled hypertension Chest x-ray pending but no respiratory symptoms Atrial fibrillation, paroxysmal. Continue amiodarone and Eliquis. Chronic anemia. Continue oral iron. Continue to monitor. Hyperlipidemia. Continue statin and fenofibrate. HFpEF. No acute symptoms. Continue Lasix. s/p transcatheter aortic valve replacement. History of lung cancer remission. s/p radiation. Receives follow as an outpatient with Hematology Oncology. s/p left hip surgery. Mobility improving and good participation with PT at home Time Spent With Patient Time: Total time managing care of this patient today ____ minutes.
[2023-11-10] MEDS: atenoloL 50 MG TABLET PO (11:45)
[2023-11-10] MEDS: Calcium + Vitamin D 250 MG TABLET PO (21:31)
[2023-11-11] VITALS (8 sets, daily range): BP systolic 159–197; BP diastolic 60–91; PULSE 59–65; RESP 18–20; TEMP 36.3–36.7; O2SAT 96–98
[2023-11-11] MEDS: NIFEdipine ER 30 MG TAB.ER.24 PO (00:36)
[2023-11-11] MEDS: atenoloL 50 MG TABLET PO ×2 (04:29→09:28)
[2023-11-11] MEDS: lisinopriL 10 MG TABLET PO ×2 (04:30→09:40)
[2023-11-11] MEDS: Atorvastatin Calcium 40 MG TABLET PO (09:28)
[2023-11-11] MEDS: Furosemide 20 MG TABLET PO (09:28)
[2023-11-11] MEDS: Fenofibrate 160 MG TABLET PO (09:29)
[2023-11-11] MEDS: Calcium + Vitamin D 250 MG TABLET PO (09:29)
[2023-11-11] MEDS: Multivitamin TABLET 1 TAB PO (09:29)
[2023-11-11] MEDS: Apixaban 5 MG TABLET PO (09:29)
[2023-11-11] MEDS: Amiodarone HCL 200 MG TABLET 100 MG PO (09:30)
[2023-11-11] MEDS: 0.9 % Sodium Chloride Flush 3 ML SYRINGE IVFLUSH (09:30)
--- NOTE | 2023-11-11 10:20 | MHC.CM.PN ---
Per ROUNDS discussion, Patient is not yet medically cleared for dc(monitoring BP); Alta/resume vna is the goal and CM will continue to follow.
--- NOTE | 2023-11-11 12:18 | P.DS_ITS ---
DS: Providers Provider Date of Service: 11/11/23 Date of admission: 11/10/23 02:58 Primary care physician: Shelbi Infante MD Consults: 11/10/23 02:59 Consult to Cardiology Routine Consulting Provider: [facility] Reason for consultation: Hypertensive crisis, elevated troponin Has provider been notified: Yes DS: Diagnosis Discharge Diagnosis (1) Hypertensive emergency: Status: Acute (2) Elevated troponin: Status: Acute DS: Summary Hospital Course Hospital Course: HP as per admitting provider. Eloisa Richards is a very pleasant 83 years old woman with past medical history significant for essential hypertension, HFpEF, hyperlipidemia, paroxysmal atrial fibrillation on Eliquis, lung CA in remission (status post radiation therapy in 2019) and severe aortic stenosis status post transcatheter aortic valve replacement (bioprosthetic) presents to the emergency department complaining of elevated blood pressure (systolic > 212). She stated that recently her nifedipine and atenolol were discontinued due to low blood pressure but later she was started on lisinopril (currently taking 10 mg PO daily). She only complained of occipital mild headache that is resolved now. She denied any associated visual disturbances, nausea, vomiting, palpitations or dizziness. She also denies headache or shortness on breath. She was recently d ischarged home from rehab after recent left hip surgery. Denied alcohol abuse, tobacco smoking or illicit drug use. In the ED, she was initially found to have a blood pressure of 218/86. She was treated with IV labetolol x 2 and oral antihypertensive medications with good effect. Her lisinopril will be stopped and she will continue on atenolol 50 mg daily and nifedipine at bedtime. She was seen evaluated by Cardiology who recommended these medication changes and recommended follow-up for her in the outpatient office. Patient is agreeable to be discharged home and will log her blood pressure results daily to share with the primary care provider for further medication adjustments. Elevated troponin, type 2 NSTEMI . No chest pain or shortness on breath. EKG normal. Seen by Cardiology, likely type 2 secondary to demand from uncontrolled hypertension Atrial fibrillation, paroxysmal. Continue amiodarone and Eliquis. Chronic anemia. Continue oral iron. Continue to monitor. Hyperlipidemia. Continue statin and fenofibrate. HFpEF. No acute symptoms. Continue Lasix. s/p transcatheter aortic valve replacement. History of lung cancer remission. s/p radiation. Receives follow as an outpatient with Hematology Oncology. s/p left hip surgery. Mobility improving and good participation with PT at home Time Attestation Discharge Coordination Time (in mins): 35 Quality: Safe Use of Opioids Does Pt have an Active Cancer Diagnosis on the Problem List?: No Quality: Stroke Does the patient have a stroke diagnosis?: No Physical Exam Vital Signs: Vital Signs: Last Vital Signs Temp 97.8 F 11/11/23 08:00 Pulse 59 11/11/23 08:00 Resp 18 11/11/23 08:00 BP 165/91 H 11/11/23 08:00 Pulse Ox 96 11/11/23 08:00 O2 Del Method Room Air 11/11/23 08:00 BMI result Body Mass Index 23.6 Appearing in no acute distress head is normocephalic atraumatic eyes pupils are PERRLA sclera is anicteric mouth throat mucous membranes are intact and moist neck is supple no lymphadenopathy, no JVD noted lung sounds are clear to auscultation heart regular rate rhythm, clear S1, S2 positive bowel sounds, abdomen is soft, nontender neuro patient is alert x3, no focal deficits Discharge Plan Discharge Anticipated Discharge Date/Time: 11/11/23 11:54 Patient Disposition: Home, Self-Care Discharge Diagnosis: Hypertensive urgency Referrals: Po,Shelib Anne MD [Primary Care Provider] - 1 Week Discharge Medications: New nifedipine 30 mg Tablet Extended Release 24hr 30 mg PO BEDTIME Qty: 30 0RF Protocol: Hold for SBP< HOLD for SBP < : 90 atenolol 50 mg Tablet 50 mg PO DAILY Qty: 30 0RF Protocol: Hold for SBP/HR < HOLD for SBP < : 90 HOLD for HR < : 60 Continued fenofibrate nanocrystallized 145 mg tablet 145 mg PO DAILY Qty: 90 3RF furosemide 20 mg tablet 20 mg PO DAILY Qty: 90 3RF kkunroljgdhh-dtuy-nnamb acid 18-400 mg-mcg Tablet 1 tab PO DAILY atorvastatin 40 mg tablet 40 mg PO DAILY Eliquis 5 mg tablet 5 mg PO BID 90 Days Qty: 180 3RF amiodarone 200 mg tablet 100 mg PO DAILY acetaminophen 325 mg capsule 650 mg PO Q6H PRN (Reason: Pain (Scale Score 1-3)) oxycodone 5 mg tablet 5 mg PO Q6H PRN (Reason: Pain (Scale Score 7-10)) estradiol 0.01 % (0.1 mg/gram) cream 1 g vaginal 2XW Qty: 42.5 0RF Calcium 600 with Vitamin D3 600 mg-10 mcg (400 unit) tablet,chewable 1 tab PO BID 90 Days Qty: 180 3RF Discontinued lisinopril 10 mg tablet 10 mg PO DAILY Qty: 30 3RF Discharge Orders: Discharge Order (Routine); Ordered 11/11/23 Ordered By: Sindy Villalta Diet: Advance to usual diet Activity on Discharge: As tolerated Stand Alone Forms: Patient Portal Discharge page Print Language: Ecuadorean Care Plan Goals: Take all medications as described monitor blood pressure daily You have been started on 2 new medications atenolol and nifedipine. Health Concerns: Hypertensive urgency Plan of Treatment: Follow up with primary care as needed Keep a log of your daily blood pressures Assessment: treated for hypertensive urgency
--- NOTE | 2023-11-11 12:25 | MHC.CM.PN ---
Patient has been medically cleared for dc to home, self care.Last IMM addressed yesterday.
--- NOTE | 2023-11-11 13:04 | PM.PNCARD ---
Subjective Subjective Date of Service: 11/11/23 Principal diagnosis: Labile blood pressure Interval history: Patient currently has no cardiac symptoms. Blood pressure in the morning was elevated. She has been restarted on her nifedipine yesterday and blood pressure is better controlled. Also atenolol has been restarted at 50 mg daily. No overnight arrhythmias. Denies any chest pain, shortness of breath. Review of Systems Review of Systems Yes all other systems are reviewed and are negative Physical Exam Vital Signs: Last Vital Signs Temp 98.1 F 11/11/23 12:00 Pulse 60 11/11/23 12:00 Resp 20 11/11/23 12:00 BP 159/72 H 11/11/23 12:00 Pulse Ox 96 11/11/23 12:00 O2 Del Method Room Air 11/11/23 12:00 BMI result Body Mass Index 23.6 Const General: comfortable and no acute distress Orientation/consciousness: patient oriented x3 HEENT Other: Unremarkable Head: Yes normal to inspection Neck Neck: Yes normal visual inspection Chest Chest palpation & inspection: normal inspection of the chest Resp Auscultation: clear to auscultation bilaterally Cardio Palpation: normal PMI Heart sounds: S1 normal heart sound present, S2 normal heart sound present, no gallops, Murmur heart sound present systolic II/ and at the right sternal border and no rubs GI Palpation (GI): Soft to palpation Back/Spine/Pelvis Other: unremarkable Skin General skin exam: no rashes or lesions noted Neuro General: patient oriented x3 Extrem General: Yes normal to inspection Psych Mental Status: mental status grossly normal Objective Labs and Meds 11/10/23 05:52 11/10/23 05:52 Imaging Radiologist's impression: Impressions Chest X-Ray 11/10/23 07:34 IMPRESSION: Bilateral perihilar bronchial cuffing can be seen with small airways disease or atypical/viral infection. Progress Note: A&P Assessment and plan (1) Hypertensive emergency: Status: Acute Assessment and Plan: Patient with significantly elevated blood pressure on admission and prior to admission at another hospital with what appears to be orthostatic hypertension syncope leading to hip injury and requiring surgery. Patient currently has significantly labile blood pressure. Discussed with the patient and her at bedside that this is a very difficult clinical situation to resolved. Would require permissive hypertension up to systolic blood pressure of 150 and avoid over correcting of her systolic blood pressure. I have advised to restart nifedipine to be taken at nighttime and atenolol 50 mg to be taken in the morning. Discontinue lisinopril for now. Advise adequate hydration. Orthostatic precautions were discussed in details. Advised to monitor blood pressure at home multiple times a day and maintain a log and will guide her management based on that data. Time Spent With Patient Time: Total time managing care of this patient today ____ minutes. Progress Note: Quality Stroke Does the patient have a stroke diagnosis?: No Procedures Date of Service Date of Service: 11/11/23
--- OUTSIDE RECORDS SUMMARY | 2023-11-15 08:51 | XMS_ITS | Continuity of Care Document ---
Author Organization [facility] Address [address] [facility], [address]r d Floor, [address] [place] [id number]- Care Team Providers Care Floor Layer Tile Name Role Phone Po Shelbi DUNLAP Primary Care Physician [facility]counter [facility] Date(s): 02/10/20 - 03/11/20 [facility] [address], 3rd Floor, [address] [place] [address]- [facility] Allergies, Adverse Reactions, Alerts Substance Reaction Severity Status sulfa drugs Rash Unknown Active Medications acetaminophen 325 mg oral tablet 650 mg, By Mouth, Every 8 hours, PRN, Refills 0, Maintenance, Pain , Mild, 06/19/19 10:27:00 EST Start Date: 06/19/19 Status: Ordered amoxicillin 500 mg oral capsule 4 capsule = 2,000 mg, By Mouth, Once, take 30 to 60 minutes prior to dental cleaning and procedures, # 4 capsule, 1 Refills, Soft Stop, 06/19/19 10:27:00 EST, [facility], only fill per pt request, 155, cm, 06/19/19 7:33:00 EST, Height,... Start Date: 06/19/19 Status: Ordered aspirin 81 mg oral tablet 1 tablet = 81 mg, By Mouth, Daily, 0 Refills, Maintenance, 08/08/18 10:33:37 EST Start Date: 08/08/18 Status: Ordered Atenolol = 100 mg, By Mouth, Daily, 0 Refills, Maintenance, 08/08/18 10:31:54 EST Start Date: 08/08/18 Status: Ordered atorvastatin 10 mg oral tablet 1 tablet = 10 mg, By Mouth, Daily, 0 Refills, Maintenance Start Date: 08/08/18 Status: Ordered clopidogrel 75 mg oral tablet 75 mg, 1, tablet, By Mouth, Daily, # 90 tablet, Refills 2, Tot. Refills 2, Maintenance, 02/22/20 15:57:00 EDT, Route to Pharmacy Electronically, [facility] #[id number], 155, cm, 02/16/20 11:38:00 EDT, Height, 63, kg, 11/12/19 9:33:00 EDT, Dry Weight Start Date: 02/22/20 Stop Date: 11/18/20 Status: Ordered Estrace Vaginal Cream 0.1 mg/g See Instructions, 1 Gm Vaginally nightly for 2 weeks, then twice per week, # 42.5 Gm, 3 Refills, Maintenance, 11/12/19 9:56:00 EDT, [facility] #[id number], 155, cm, 11/12/19 9:33:00 EDT, Height,63, kg, 11/12/19 9:33:00 EDT, Dry Weight Start Date: 11/12/19 Status: Ordered fenofibrate 30 mg oral capsule 1 capsule = 30 mg, By Mouth, Daily, 0 Refills, Maintenance, 08/08/18 10:33:07 EST Start Date: 08/08/18 Status: Ordered NIFEdipine = 30 mg, By Mouth, Daily, 0 Refills, Maintenance, 08/08/18 10:32:03 EST Start Date: 08/08/18 Status: Ordered Problem List Condition Effective Dates Status Health Status Inform ant Aortic stenosis(Confirmed) Active AGUIAR (dyspnea on exertion)(Confirmed) Active Stress incontinence(Confirmed) Active Rectocele(Confirmed) Active High cholesterol(Confirmed) Active Hypertension(Confirmed) Active Cystocele, 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
--- OUTSIDE RECORDS SUMMARY | 2023-11-15 08:51 | XMS_ITS | Continuity of Care Document ---
Author Organization [facility] Address [address] [place] [address]- Care Team Providers Care Administrative Intern Name Role Phone Po Shelbi DUNLAP Primary Care Physician [phone] [place] [facility] [place] 06/27/20 - 08/06/[address] [address]- Attending Physician: Harlan DUNLAP, Ashdelphine Admitting Physician: Harlan DUNLAP, Ashequdl Referring Physician: Harlan DUNLAP, Ashdelphine Allergies, Adverse Reactions, Alerts Substance Reaction Severity [...] 06/19/19 10:27:00 EST, [facility], only fill per pt request, 155, cm, [...] Refills, Maintenance Start Date: 08/08/18 Status: Ordered Estrace Vaginal Cream 0.1 mg/g See Instructions, 1 Gm Vaginally nightly for 2 weeks, then twice per week, # 42.5 Gm, 3 Refills, Maintenance, 11/12/19 9:56:00 EDT, [facility] #[id number], 155, cm, 11/12/19 9:33:00 EDT, Height,63, kg, [...]
--- OUTSIDE RECORDS SUMMARY | 2023-11-15 08:51 | XMS_ITS | Continuity of Care Document ---
Author Organization [facility] Address [address] [facility], 3r d Floor, [address] [place] [address]- Care Team Providers Care Board Of Directors Name Role Phone Po Shelbi DUNLAP Primary Care Physician [phone] [facility]counter [facility] Date[facility]s): 12/22/19 - 01/21/20 [facility] [address] [place], [address] Floor, [address] [place] [address]- [facility] Allergies, Adverse Reactions, Alerts Substance Reaction Severity [...] 06/19/19 10:27:00 EST, [facility], only fill per pt request, 155, cm, [...] tablet, Refills 2, Tot. Refills 2, Maintenance, 06/19/19 10:27:00 EST, Route to Pharmacy Electronically, [facility], 155, cm, 06/19/19 7:33:00 EST, Height, 63.2, kg, 06/18/19 16:20:00 EST, Dry We... Start Date: 06/19/19 Stop Date: 03/15/20 Status: Ordered Estrace Vaginal Cream 0.1 mg/g See Instructions, 1 Gm Vaginally nightly for 2 weeks, then twice per week, # 42.5 Gm, 3 Refills, Maintenance, 11/12/19 9:56:00 EDT, [facility] #[id number], 155, cm, 11/12/19 9:33:00 EDT, Height,63, kg, [...]
--- OUTSIDE RECORDS SUMMARY | 2023-11-15 08:51 | XMS_ITS | Continuity of Care Document ---
Author Organization [facility] Address [address] [facility], 3r d Floor, [address] [place] [address]- Care Team Providers Care Carder Blankets Name Role Phone Po Shelbi DUNLAP Primary Care Physician [facility] Date[facility]s): 12/26/19 - 01/25/20 [facility] [address], 3[address] Floor, [address] [place] [id number]- [facility] Allergies, Adverse Reactions, Alerts Substance Reaction Severity [...] 06/19/19 10:27:00 EST, [facility], only fill per pt request, [...] to Pharmacy Electronically, [facility] [address], 155, cm, 06/19/19 7:33:00 EST, Height, 63.2, kg, 06/18/19 16:20:00 EST, Dry We... Start Date: 06/19/19 Stop Date: 03/15/20 Status: Ordered Estrace Vaginal Cream 0.1 mg/g See Instructions, 1 Gm Vaginally nightly for 2 weeks, then twice per week, # 42.5 Gm, 3 Refills, Maintenance, 11/12/19 9:56:00 EDT, [facility] #[id number], 155, cm, 11/12/19 9:33:00 EDT, Height,63, kg, [...]
--- OUTSIDE RECORDS SUMMARY | 2023-11-15 08:51 | XMS_ITS | Continuity of Care Document ---
Author Organization [facility] Address [address] [place] [address]- Care Team Providers Care Nailing Machine Operator Name Role Phone Po Shelbi DUNLAP Primary Care Physician Encounter [facility] Date(s): 07/24/19 - 08/03/19 [facility] [address] [place] [address]- [facility] Attending Physician: AdmJerri pillai Admitting Physician: Admtr, Ar8 Referring Physician: Admtr, Ar8 Allergies, Adverse Reactions, Alerts Substance Reaction Severity [...] 06/19/19 10:27:00 EST, [facility], only fill per pt request, [...] EST, Route to Pharmacy Electronically, [facility] [address], 155, cm, 06/19/19 7:33:00 EST, Height, 63.2, kg, 06/18/19 16:20:00 EST, Dry We... Start Date: 06/19/19 Stop Date: 03/15/20 Status: Ordered Estrace Vaginal Cream 0.1 mg/g See Instructions, 1 Gm Vaginally nightly for 2 weeks, then twice per week, # 42.5 Gm, 3 Refills, Maintenance, 08/08/18 10:34:30 EST Start Date: 08/08/18 Status: Ordered fenofibrate 30 mg oral capsule 1 capsule = 30 mg, By Mouth, Daily, 0 Refills, Maintenance, 08/08/18 10:33:07 EST Start Date: 08/08/18 Status: Ordered Hydrochlorothiazide = 12.5 mg, By Mouth, Daily, 0 Refills, Maintenance, 08/08/18 10:32:38 EST Start Date: 08/08/18 Status: Ordered NIFEdipine [...]
--- OUTSIDE RECORDS SUMMARY | 2023-11-15 08:52 | XMS_ITS | Continuity of Care Document ---
Author Organization [facility] Address [address] [facility], 3r d Floor, [address] [place] [address]- Care Team Providers Care Boat Joiner Helper Name Role Phone Po Shelbi DUNLAP Primary Care Physician [phone] Encounter [facility] Date[facility]s): 02/16/20 - 03/17/20 [facility] [address] [place], 3rd Floor, [address] [place] [address]- [facility] Attending Physician: AdmJerri pillai Admitting Physician: AdmtrJerri Referring Physician: Admtr, Ar8 Allergies, Adverse Reactions, [...] 06/19/19 10:27:00 EST, [facility], only fill per pt request, [...] 02/22/20 15:57:00 EDT, Route to Pharmacy Electronically, [facility] #[id number], 155, cm, 02/16/20 11:38:00 EDT, Height, 63, kg, 11/12/19 9:33:00 EDT, Dry Weight Start Date: 02/22/20 Stop Date: 11/18/20 Status: Ordered Estrace Vaginal Cream 0.1 mg/g See Instructions, 1 Gm Vaginally nightly for 2 weeks, then twice per week, # 42.5 Gm, 3 Refills, Maintenance, 11/12/19 9:56:00 EDT, [facility] #[id number], 155, cm, 11/12/19 9:33:00 EDT, Height,63, kg, [...]
--- OUTSIDE RECORDS SUMMARY | 2023-11-15 08:52 | XMS_ITS | Continuity of Care Document ---
Author Organization [facility] Address [address] [facility], 3r d Floor, [address] [place] [address]- Care Team Providers Care Project Management Director Name Role Phone Shelbi Infante MD Primary Care Physician [phone] [place] [facility] [place](s): 10/06/19 - 01/21/20 [facility] [address] [place], [address] Floor, [address] [place] [address]- [facility] Attending Physician: Colton Jeronimo MD Admitting Physician: Colton Jernoimo MD Referring Physician: Shelbi Infante MD Allergies, Adverse Reactions, Alerts Substance Reaction Severity [...] 06/19/19 10:27:00 EST, [facility], only fill per pt request, 155, cm, [...] EST, Route to Pharmacy Electronically, [facility], 155, cm, 06/19/19 7:33:00 EST, Height, 63.2, kg, 06/18/19 16:20:00 EST, Dry We... Start Date: 06/19/19 Stop Date: 03/15/20 Status: Ordered Estrace Vaginal Cream 0.1 mg/g See Instructions, 1 Gm Vaginally nightly for 2 weeks, then twice per week, # 42.5 Gm, 3 Refills, Maintenance, 11/12/19 9:56:00 EDT, [facility] #[id number], 155, cm, 11/12/19 9:33:00 EDT, Height,63, kg, [...]
--- OUTSIDE RECORDS SUMMARY | 2023-11-15 08:52 | XMS_ITS | Continuity of Care Document ---
Author Organization [facility] Address [address] [facility], [address] [place] [address]- Care Team Providers Care Shop Cooper Name Role Phone Po Shelbi DUNLAP Primary Care Physician [phone] [facility] [place](s): 04/09/22 [facility] [address] [facility], [address] [place], [place] [address] Allergies, Adverse Reactions, Alerts Substance Reaction Severity [...] 06/19/19 10:27:00 EST, [facility], only fill per pt request, 155, [...] 0.1 mg/g See Instructions, 1 Gm Vaginally at bedtime twice weekly, # 42.5 Gm, 3 Refills, Maintenance, 04/09/22 13:09:00 EDT, [facility] #[id number], 155, cm, 12/25/21 9:43:00 EDT, Height, 61.7, kg, 12/25/21 9:43:00 EDT, Dry Weight Start Date: 04/09/22 Status: Ordered fenofibrate 30 mg oral capsule 1 capsule = 30 mg, By Mouth, Daily, 0 Refills, Maintenance, 08/08/18 10:33:07 EST Start Date: 08/08/18 Status: Ordered NIFEdipine = 30 mg, By Mouth, Daily, 0 Refills, Maintenance, 08/08/18 10:32:03 EST Start Date: 08/08/18 Status: Ordered Problem List Condition Confirmation Course Effective Dates Status Health St atus Informant Aortic stenosis Confirmed Active AGUIAR (dyspnea on exertion) Confirmed Active Stress incontinence Confirmed Active Rectocele Confirmed Active High cholesterol Confirmed Active Hypertension Confirmed Active Cystocele, midline Confirmed Active Vaginal vault prolapse after hysterectomy Confirmed Active Social History Social History Type Response Smoking Status Never (less than 100 in lifetime) entered on: 01/21/19 Sex Patient Care team information Care Team Personnel Name: Elidia Soto RN Position: S RN Member Role: Primary Care Nurse Name: Leia Richards NP Position: S Associate Professional Member Role: Primary Care Nurse Address: Address: [address] [place] [id number]- Name: Milana Jaquez RN Position: S RN Member Role: Primary Care Nurse Name: Shelbi Infante MD Position: Reference Physician Member Role: PCP Address: Address: [address] [place] [address]- Name: Ruma Alex RN Position: S RN Member Role: Primary Care Nurse Care Team Related Persons Name: ODALYS RICHARDS Address: home [address] [place] [address]
--- OUTSIDE RECORDS SUMMARY | 2023-11-15 08:52 | XMS_ITS | Continuity of Care Document ---
Author Organization [facility] ter Address [address] [place] [address]- Care Team Providers Care Embedded Developer Name Role Phone Po Shelbi DUNLAP Primary Care Physician Encounter [facility] Date(s): 06/18/19 - 06/19/[address] [id number]- [facility] Discharge Disposition: A-D/C Home Attending Physician: Srini Johnson MD Admitting Physician: Srini Johnson MD Referring Physician: Srini Johnson MD Allergies, Adverse Reactions, Alerts Substance Reaction [...] 06/19/19 10:27:00 EST, [facility], only fill per pt request, 155, cm, [...] to Pharmacy Electronically, [facility] [address], 155, cm, 06/19/19 7:33:00 EST, Height, [...] 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 FINDINGS: LINES AND TUBES: None. LUNGS AND PLEURA: Mild pulmonary vascular congestion without jaciel pulmonary edema. Right mid lung nodule, better seen on prior CT. No pleural effusion. No pneumothorax. HEART, MEDIASTINUM AND HEATHER: Heart is normal in size. Aorta is calcified. BONES AND SOFT TISSUES: No acute abnormality. Status post TAVR. IMPRESSION: Mild pulmonary vascular congestion without jaciel edema. Right midlung nodule, better seen on prior CT. I have personally reviewed the images and I agree with this report. WSN: [id number] Dictated By: Michael Chen DO Dictated Date/Time: 06/19/19 8:47 am Reviewed By: Shawn Herrera MD Signed By: Shawn Herrera MD Signed Date/Time: 06/19/19 8:52 am Transcribed By: KEISHA Transcribed Date/Time: 06/19/19 8:34 am Vital Signs Most recent to oldest [Reference Range]: 1 2 3 Height 155 cm (06/19/19 7:33 AM) 155 cm (06/19/19 4:10 AM) 155 cm (06/19/19 12:17 AM) Weight 63.5 kg (06/19/19 4:52 AM) 63.5 kg (06/19/19 4:10 AM) 63.1 kg (06/18/19 4:04 PM) Oxygen Saturation [94-100 %] 98 % (06/19/19 7:33 AM) 99 % (06/19/19 4:10 AM) 98 % (06/19/19 12:17 AM) Pulse Rate [55-90 bpm] 80 bpm (06/19/19 9:54 AM) 80 bpm (06/19/19 7:33 AM) 95 bpm *H* (06/19/19 4:10 AM) Body Mass Index [18.5-24.99] 26.43 *H* (06/19/19 4:10 AM) 26.26 *H* (06/18/19 4:04 PM) 26.26 *H* (06/18/19 10:28 AM) Blood Pressure [90-138/55-84 mm Hg] 147/51mm Hg *H* (06/19/19 9:54 AM) 147/51mm Hg *H* (06/19/19 9:54 AM) 147/51mm Hg *H* (06/19/19 7:33 AM) Respiratory Rate [16-30 br/min] 18 br/min (06/19/19 7:33 AM) 18 br/min (06/19/19 4:10 AM) 18 br/min (06/19/19 12:17 AM) Temperature [96.8-100.4 DegF] 99.0 DegF (06/19/19 7:33 AM) 99.2 DegF (06/19/19 4:10 AM) 98.6 DegF (06/19/19 12:17 AM) Mode of Delivery (Oxygen) Room air (06/19/19 7:33 AM) Room air (06/19/19 4:10 AM) Room air (06/19/19 12:17 AM) Blood pressure sites Arm, left (06/19/19 7:33 AM) Arm, left (06/19/19 4:10 AM) Arm, left (06/19/19 12:17 AM) Temperature Route Oral (06/19/19 7:33 AM) Oral (06/19/19 4:10 AM) Oral (06/19/19 12:17 AM) Dry Weight 63.2 kg (06/18/19 4:04 PM) Weight Obtained Via Bed scale (06/19/19 4:52 AM) Standing scale (06/18/19 10:28 AM) Standing scale (06/18/19 10:23 AM) Sensory deficits None (06/18/19 4:04 PM) Mobility assistance Independent (06/18/19 4:04 PM) Social History Social History Type Response Smoking Status Never (less than 100 in lifetime) entered on: 01/21/19 Sex
--- OUTSIDE RECORDS SUMMARY | 2023-11-15 08:52 | XMS_ITS | Continuity of Care Document ---
Author Organization [facility] Address [address], [address] [place] [address]- Care Team Providers Care Anchor Operator Name Role Phone Po Shelbi DUNLAP Primary Care Physician Encounter [facility] Date(s): 09/10/19 - 09/20/19 [facility] [address] [place] [address]- Attending Physician: Jerri Carballo Admitting Physician: Jerri Carballo Referring Physician: AdmtrJerri Allergies, Adverse Reactions, Alerts Substance Reaction Severity [...] 06/19/19 10:27:00 EST, [facility] [address] [facility], only fill per pt request, 155, [...] to Pharmacy Electronically, [facility] - [address], 155, cm, 06/19/19 7:33:00 EST, Height, [...]
--- OUTSIDE RECORDS SUMMARY | 2023-11-15 08:52 | XMS_ITS | Continuity of Care Document ---
Author Organization [facility] Address [address] [place] [address]- Care Team Providers Care Plastics Patternmaker Name Role Phone Po Shelbi DUNLAP Primary Care Physician Encounter [facility] [place] Date(s): 08/10/20 - 09/09/20 [facility] [address] [place] [address]- Attending Physician: AdmJerri pillai Admitting Physician: AdmtrJerri [...] 06/19/19 10:27:00 EST, [facility] [address] [facility], only fill per pt request, [...] Gm, 3 Refills, Maintenance, 11/12/19 9:56:00 EDT, [id number], 155, cm, 11/12/19 9:33:00 EDT, Height,63, kg, [...]
--- OUTSIDE RECORDS SUMMARY | 2023-11-15 08:52 | XMS_ITS | Continuity of Care Document ---
Author Organization [facility] Address [address] [facility], [address] [place] [address]- Care Team Providers Care Manager Of Radiology Name Role Phone Shelbi Infante MD Primary Care Physician Encounter [facility] Date(s): 06/12/19 - 10/10/19 [facility] [address] [facility] [place] [address]- [facility] Attending Physician: Cammy Russell MD Admitting Physician: Cammy Russell MD Referring Physician: Shelbi Infante MD Allergies, [...] 06/19/19 10:27:00 EST, [facility] [address] [facility], only fill per pt request, 155, [...] to Pharmacy Electronically, [facility] - [address], 155, cm, 06/19/19 7:33:00 EST, Height, [...]
--- OUTSIDE RECORDS SUMMARY | 2023-11-15 08:52 | XMS_ITS | Continuity of Care Document ---
Author Organization [facility] Address [address] [place] [address]- Care Team Providers Care Horticultural Technical Officer Name Role Phone Po Shelbi DUNLAP Primary Care Physician Encounter [facility] [place] Date(s): 08/29/20 - 09/28/20 [facility] [address] [place] [id number]- Allergies, Adverse Reactions, Alerts Substance Reaction Severity [...] Stop, 06/19/19 10:27:00 EST, [facility] - [address] [place] [address], only fill per pt request, 155, cm, [...] Gm, 3 Refills, Maintenance, 11/12/19 9:56:00 EDT, [facility][id number], 155, cm, 11/12/19 9:33:00 EDT, Height,63, kg, [...]
--- OUTSIDE RECORDS SUMMARY | 2023-11-15 08:52 | XMS_ITS | Continuity of Care Document ---
Author Organization [facility] Address [address] [facility], [address] Floor, [address] [place] [address]- Care Team Providers Care Ventilator Specialist Name Role Phone Po Shelbi DUNLAP Primary Care Physician Encounter [facility] Date(s): 12/22/19 - 01/21/20 [facility] [address], [address] Floor, [address] [place] [address]- [facility] Attending Physician: AdmJerri pillai Admitting Physician: AdmtrJerri [...] 06/19/19 10:27:00 EST, [facility] [address] [facility], only fill per pt request, [...] Route to Pharmacy Electronically, [facility] [address] [facility], 155, cm, 06/19/19 7:33:00 EST, Height, 63.2, kg, 06/18/19 16:20:00 EST, Dry We... Start Date: 06/19/19 Stop Date: 03/15/20 Status: Ordered Estrace Vaginal Cream 0.1 mg/g See Instructions, 1 Gm Vaginally nightly for 2 weeks, then twice per week, # 42.5 Gm, 3 Refills, Maintenance, 11/12/19 9:56:00 EDT, [facility] #[id number], 155, cm, 11/12/19 9:33:00 EDT, Height,63, kg, [...]
--- OUTSIDE RECORDS SUMMARY | 2023-11-15 08:52 | XMS_ITS | Continuity of Care Document ---
Author Organization [facility] Address [address] [facility], [address] Floor, [address] [place] [address]- Care Team Providers Care Machine Package Sealer Name Role Phone Po Shelbi DUNLAP Primary Care Physician Encounter [facility] [place] Date(s): 07/17/19 - 11/12/19 [facility] [address], [address], [address] [place] [address]- [facility] Attending Physician: Colton Jeronimo MD Admitting Physician: Colton Jeronimo MD Referring Physician: Paty Krishnan MD Allergies, Adverse Reactions, Alerts Substance Reaction [...] Stop, 06/19/19 10:27:00 EST, [facility] - [address] [place] [address], only fill per pt request, 155, cm, [...] 10:27:00 EST, Route to Pharmacy Electronically, [facility] - [address], 155, cm, 06/19/19 7:33:00 EST, Height, 63.2, kg, 06/18/19 16:20:00 EST, Dry We... Start Date: 06/19/19 Stop Date: 03/15/20 Status: Ordered Estrace Vaginal Cream 0.1 mg/g See Instructions, 1 Gm Vaginally nightly for 2 weeks, then twice per week, # 42.5 Gm, 3 Refills, Maintenance, 11/12/19 9:56:00 EDT, [facility] #[id number], 155, cm, 11/12/19 9:33:00 EDT, Height,63, kg, [...]
--- OUTSIDE RECORDS SUMMARY | 2023-11-15 08:52 | XMS_ITS | Continuity of Care Document ---
Author Organization [facility] ter Address [address] [place] [address]- Care Team Providers Care Mineralogy Professor Name Role Phone Po Shelbi DUNLAP Primary Care Physician [place] [facility] [place] 10/01/[address] [address]- Encounter Diagnosis Intertrochanteric fracture(Final) - 09/24/23 Fall(Final) - 09/24/23 Syncope(Final) - 09/24/23 Discharge Disposition: A-Transfer SNF Attending Physician: Clare Grant DO Admitting Physician: Jhon Pride MD Referring Physician: Not on Staff, Referring MD Allergies, Adverse Reactions, Alerts Substance Reaction Severity Status sulfa drugs Rash Unknown Active Medications acetaminophen 325 mg oral tablet 650 mg, By Mouth, Every 4 hours, PRN, Temperature Greater than 100.5, Refills 0, Maintenance, Pain , Mild, 10/01/23 10:02:00 EDT, Partial fill upon patient request if the prescription is for a schedule II opioid drug. Start Date: 10/01/23 Status: Ordered amiodarone 200 mg oral tablet 200 mg, 1, tablet, By Mouth, Daily, Refills 0, Maintenance, 04/29/23 10:17:00 EST, Partial fill upon patient request if the prescription is for a schedule II opioid drug. Start Date: 04/29/23 Status: Ordered Eliquis 5 mg oral tablet 1 tablet = 5 mg, By Mouth, 2 times a day, 0 Refills, Maintenance, 04/29/23 10:16:00 EST, Partial fill upon patient request if the prescription is for a schedule II opioid drug. Start Date: 04/29/23 Status: Ordered estradiol 0.1 mg/g vaginal cream 1 application, Vaginally, Every 14 days, Maintenance, 09/24/23 18:36:00 EDT, Partial fill upon patient request if the prescription is for a schedule II opioid drug. Start Date: 09/24/23 Status: Ordered lidocaine 5% topical film Topically, Daily, 0 Refills, Maintenance, 10/01/23 10:02:00 EDT, Patch, Partial fill upon patient request if the prescription is for a schedule II opioid drug. Start Date: 10/01/23 Status: Ordered Lipitor 40 mg oral tablet 1 tablet = 40 mg, By Mouth, Daily, Maintenance, 09/24/23 18:35:00 EDT, Partial fill upon patient request if the prescription is for a schedule II opioid drug. Start Date: 09/24/23 Status: Ordered MiraLax Powder 1 pack/packet = 17 Gm, By Mouth, Daily, Hold for loose stools, 0 Refills, Maintenance, 10/01/23 10:01:00 EDT, Powder, Partial fill upon patient request if the prescription is for a schedule II opioiddrug. Start Date: 10/01/23 Status: Ordered NIFEdipine (Eqv-Adalat CC) 30 mg oral tablet, extended release 1 tablet = 30 mg, By Mouth, Daily, Maintenance, 09/24/23 18:35:00 EDT, Partial fill upon patient request if the prescription is for a schedule II opioid drug. Start Date: 09/24/23 Status: Ordered oxyCODONE 5 mg oral tablet 5 mg, Tablet, By Mouth, Every 6 hours, PRN for Pain , Severe, Routine, 09/26/23 9:38:00 EDT Start Date: 09/26/23 Stop Date: 10/02/23 Status: Discontinued oxyCODONE 5 mg oral tablet 5 mg, By Mouth, Every 6 hours, PRN, Refills 0, Tot. Refills 0, Maintenance, Pain , Severe, 09/30/2409:02:00 EDT, Partial fill upon patient request if the prescription is for a schedule II opioid drug. Start Date: 10/01/23 Status: Ordered Remove Patch Start Date: 10/01/23 Status: Ordered TriCor 145 mg oral tablet 1 tablet = 145 mg, By Mouth, Daily, Maintenance, 09/24/23 18:35:00 EDT, Partial fill upon patient request if the prescription is for a schedule II opioid drug. 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 COMPARISON: 09/24/2023. FINDINGS: 4 fluoroscopic spot views labeled left for ongoing left proximal femoral nail insertion. Please see procedural report for further information. IMPRESSION: As above. WSN: [id number] Ordering Physician: Kamila Workman Dictated By: Geoff Orr MD Dictated Date/Time: 09/26/23 2:35 pm Reviewed By: Geoff Orr MD Signed By: Geoff Orr MD Signed Date/Time: 09/26/23 2:35 pm Transcribed By: KEISHA Transcribed Date/Time: 09/26/23 2:32 pm * Exam Date Time Procedure Performing Provider Status 09/25/23 6:06 PM C-Arm < 1 Hour Isaac Santiago; Auth (Ve rified) Notes: (C-Arm < 1 Hour) Reason For Exam: Left Hip FX ORIF RESULT: C-Arm < 1 Hour C-Arm < 1 Hour INDICATION: Reason: Left Hip FX ORIF COMPARISONS: None TECHNIQUE: Fluoroscopy support was provided. There was no radiologist in attendance. FLUOROSCOPY TIME: 18.2 seconds EXPOSURE: 5.04 mGy TECHNOLOGIST TIME: 35 minutes FINDINGS: Fluoroscopy support was provided. There was no radiologist in attendance. IMPRESSION: See above. WSN: [id number] Ordering Physician: Kamila Workman Dictated By: Heri Sequeira MD Dictated Date/Time: 09/26/23 9:10 am Reviewed By: Heri Sequeira MD Signed By: Heri Sequeira MD Signed Date/Time: 09/26/23 9:10 am Transcribed By: KEISHA Transcribed Date/Time: 09/25/23 9:29 pm * Exam Date Time Procedure Performing Provider Status 09/25/23 8:[address] Angio Neck Michelle Strickland; Auth (Verified) Notes: (CT Angio Neck) Reason For Exam: aneurysm ;Other: RESULT: CT Angio Neck CT Angio Head, CT Angio Neck Reason: aneurysm; Clinical Question(s): Aneurysm; Order Comment: / Aneurysm TECHNIQUE: CT angiogram of the head and neck was performed after bolus administration of intravenous contrast. 100 mL of Omnipaque 300 was administered intravenously. Coronal and sagittal MIP reformatted images were obtained. Additional 3-D images were created on a separate workstation under concurrent supervision by the attending radiologist. All stenoses are measured using NASCET criteria. Weight-based protocol using automatic tube modulation was used to optimize exposure parameters. RADIATION DOSE PARAMETERS: CTDIvol Head: 48.29 mGy, DLP Head: 1177 mGy*cm. COMPARISON: Noncontrast CT head performed concurrently. FINDINGS: There is a 3 vessel arch. Mural calcified and noncalcified atherosclerotic plaques are seen along the visualized aortic arch and the supraaortic proximal great neck vessel. No hemodynamically significant stenosis. The right common carotid artery is normal in caliber. The right carotid bulb is normal. The right proximal ICA shows 0% stenosis by NASCET criteria. The left common carotid artery is normal in caliber. The left carotid bulb is normal. Mild mural calcifications are seen at the left proximal internal carotid artery. The left proximal ICA shows 0% stenosis by NASCET criteria. Right vertebral artery: Patent without stenosis. Left vertebral artery: Dominant. Patent without stenosis. Cervical spine: Multiple levels of spondylosis. A mild anterolisthesis seen at C4 over C5-C5 over C6. Soft tissues and lung apices: The visualized upper lungs show diffuse ill- defined groundglass densities suggesting atelectasis. There is a 1.6 x 0.6 cm nodular density associated with the scar in thevisualized right upper lung posteriorly which is not completely included in this study. Please correlate with CT chest. Bilateral thyroid lobes contain multiple nodules with the largest one on the right measuring up to 1.8 cm in size. Further evaluation with thyroid ultrasound is suggested. There is no other abnormality throughout the soft tissue neck. [place] of [place]: Concurrent CT of head showed no acute pathology. A small cystic area is seen in the left inferior basal ganglia which could represent a prominent perivascular space. Generalized volume loss and bilateral periventricular hypodensities are noted. Status post bilateral lens extractions. Bilateral internal carotid arteries at the skull base have multiple mural calcifications. No definite stenosis is seen. The left posterior communicating artery is visualized. There is a 2 mm outpouching arising from the presumed the origin of the right posterior communicating artery suggesting a small aneurysm. Bilateral ACAs, MCAs and their branches are patent. No stenosis or vessel cut off is seen. No definite aneurysm is noted. Bilateral intracranial vertebral arteries show no definite stenosis. The vertebrobasilar junction is normal. The basilar artery is patent. No stenosis or dissection is seen. There is no basilar tip aneurysm. The P1 segment of left EDGE MOLDER is aplastic. There is a origin of left EDGE MOLDER. Otherwise PCAsand their branches are patent. The superior sagittal sinuses, the straight sinus, bilateral transverse and sigmoid sinuses: Patentwithout dural sinus thrombosis. IMPRESSION: No cutoff or high-grade stenosis of the major branches of the intracranial arteries. There is a 2 mm outpouching arising from the presumed the origin of the right posterior communicating artery suggesting a small aneurysm. The right proximal internal carotid artery show no significant stenosis by NASCET criteria. The left proximal internal carotid artery show no significant stenosis by NASCET criteria. The right cervical vertebral artery shows no significant stenosis. The left cervical vertebral artery shows no significant stenosis. There is a 1.6 x 0.6 cm nodular density associated with the scar in the visualized right upper lungposteriorly which is not completely included in this study. Please correlate with CT chest. Bilateral thyroid lobes contain multiple nodules with the largest one on the right measuring up to 1.8 cm in size. Further evaluation with thyroid ultrasound is suggested. REFERENCE: NASCET Criteria: The degree of internal carotid stenosis is based on NASCET Criteria: Normal: No stenosis Mild: Less than 50% stenosis Moderate: 50-69% stenosis Severe: 70-99% stenosis Total occlusion: No detectable patent lumen. The report was text to Helena Marrero MD at 9:22 AM and Sanjeev Miles MD at 9:25 AM on 09/25/2023. WSN: [id number] Ordering Physician: Helena Marrero Dictated By: Sameer Hu MD Dictated Date/Time: 09/25/23 9:25 am Reviewed By: Sameer Hu MD Signed By: Sameer Hu MD Signed Date/Time: 09/25/23 9:25 am Transcribed By: KEISHA Transcribed Date/Time: 09/25/23 9:23 am * Exam Date Time Procedure Performing Provider Status 09/25/23 8:[address] Angio Head Michelle Strickland; Auth (Verified) Notes: (CT Angio Head) Reason For Exam: aneurysm ;Other: RESULT: CT Angio Head CT Angio Head, CT Angio Neck Reason: aneurysm; Clinical Question(s): Aneurysm; Order Comment: / Aneurysm TECHNIQUE: CT angiogram of the head and neck was performed after bolus administration of intravenous contrast. 100 mL of Omnipaque 300 was administered intravenously. Coronal and sagittal MIP reformatted images were obtained. Additional 3-D images were created on a separate workstation under concurrent supervision by the attending radiologist. All stenoses are measured using NASCET criteria. Weight-based protocol using automatic tube modulation was used to optimize exposure parameters. RADIATION DOSE PARAMETERS: CTDIvol Head: 48.29 mGy, DLP Head: 1177 mGy*cm. COMPARISON: Noncontrast CT head performed concurrently. FINDINGS: There is a 3 vessel arch. Mural calcified and noncalcified atherosclerotic plaques are seen along the visualized aortic arch and the supraaortic proximal great neck vessel. No hemodynamically significant stenosis. The right common carotid artery is normal in caliber. The right carotid bulb is normal. The right proximal ICA shows 0% stenosis by NASCET criteria. The left common carotid artery is normal in caliber. The left carotid bulb is normal. Mild mural calcifications are seen at the left proximal internal carotid artery. The left proximal ICA shows 0% stenosis by NASCET criteria. Right vertebral artery: Patent without stenosis. Left vertebral artery: Dominant. Patent without stenosis. Cervical spine: Multiple levels of spondylosis. A mild anterolisthesis seen at C4 over C5-C5 over C6. Soft tissues and lung apices: The visualized upper lungs show diffuse ill- defined groundglass densities suggesting atelectasis. There is a 1.6 x 0.6 cm nodular density associated with the scar in thevisualized right upper lung posteriorly which is not completely included in this study. Please correlate with CT chest. Bilateral thyroid lobes contain multiple nodules with the largest one on the right measuring up to 1.8 cm in size. Further evaluation with thyroid ultrasound is suggested. There is no other abnormality throughout the soft tissue neck. [place] of [place]: Concurrent CT of head showed no acute pathology. A small cystic area is seen in the left inferior basal ganglia which could represent a prominent perivascular space. Generalized volume loss and bilateral periventricular hypodensities are noted. Status post bilateral lens extractions. Bilateral internal carotid arteries at the skull base have multiple mural calcifications. No definite stenosis is seen. The left posterior communicating artery is visualized. There is a 2 mm outpouching arising from the presumed the origin of the right posterior communicating artery suggesting a small aneurysm. Bilateral ACAs, MCAs and their branches are patent. No stenosis or vessel cut off is seen. No definite aneurysm is noted. Bilateral intracranial vertebral arteries show no definite stenosis. The vertebrobasilar junction is normal. The basilar artery is patent. No stenosis or dissection is seen. There is no basilar tip aneurysm. The P1 segment of left EDGE MOLDER is aplastic. There is a origin of left EDGE MOLDER. Otherwise PCAsand their branches are patent. The superior sagittal sinuses, the straight sinus, bilateral transverse and sigmoid sinuses: Patentwithout dural sinus thrombosis. IMPRESSION: No cutoff or high-grade stenosis of the major branches of the intracranial arteries. There is a 2 mm outpouching arising from the presumed the origin of the right posterior communicating artery suggesting a small aneurysm. The right proximal internal carotid artery show no significant stenosis by NASCET criteria. The left proximal internal carotid artery show no significant stenosis by NASCET criteria. The right cervical vertebral artery shows no significant stenosis. The left cervical vertebral artery shows no significant stenosis. There is a 1.6 x 0.6 cm nodular density associated with the scar in the visualized right upper lungposteriorly which is not completely included in this study. Please correlate with CT chest. Bilateral thyroid lobes contain multiple nodules with the largest one on the right measuring up to 1.8 cm in size. Further evaluation with thyroid ultrasound is suggested. REFERENCE: NASCET Criteria: The degree of internal carotid stenosis is based on NASCET Criteria: Normal: No stenosis Mild: Less than 50% stenosis Moderate: 50-69% stenosis Severe: 70-99% stenosis Total occlusion: No detectable patent lumen. The report was text to Helena Marrero MD at 9:22 AM and Sanjeev Miles MD at 9:25 AM on 09/25/2023. WSN: [id number] Ordering Physician: Helena Marrero Dictated By: Sameer Hu MD Dictated Date/Time: 09/25/23 9:25 am Reviewed By: Sameer Hu MD Signed By: Sameer Hu MD Signed Date/Time: 09/25/23 9:25 am Transcribed By: KEISHA Transcribed Date/Time: 09/25/23 9:23 am * Exam Date Time Procedure Performing Provider Status 09/24/23 2:43 PM XR Femur 2 Views Left Marlene Fontenot; Auth (Verified) Notes: (XR Femur 2 Views Left) Reason For Exam: with Pain;Trauma RESULT: Femur 2 Views Left Femur 2 Views Left, 2 views Hx of Present Illness: FALL; Reason: Trauma; with Pain; Clinical Question(s): Fracture COMPARISON: None. FINDINGS: Impacted intertrochanteric fracture of the greater trochanter extending into the lesser trochanter. Moderate degenerative changes of the left hip joint with acetabular spurring. Severe joint space narrowing of the left knee at the medial compartment. Moderate vascular calcification. IMPRESSION: Impacted intertrochanteric fracture extending from the greater trochanter into the lesser trochanter. I have personally reviewed the images and I agree with this report. WSN: [id number] Ordering Physician: Zeus Pappas Dictated By: Veronica Montesinos MD Dictated Date/Time: 09/24/23 3:25 pm Reviewed By: Leonides Yanez MD, V Signed By: Leonides Yanez MD, V Signed Date/Time: 09/24/23 3:30 pm Transcribed By: KEISHA Transcribed Date/Time: 09/24/23 3:18 pm * Exam Date Time Procedure Performing Provider Status 09/24/23 2:43 PM Chest 2 Views Frontal and Lat Jigar Preciado; Auth (Verified) Notes: (Chest 2 Views Frontal and Lat) Reason For Exam: Pain;Other: RESULT: Chest 2 Views Frontal and Lat Chest 2 Views Frontal and Lat Hx of Present Illness: FALL; Reason: Pain; Clinical Question(s): Fracture, pneumothorax, pulmonary contusion COMPARISON: Chest x-ray 06/19/2019 FINDINGS: LINES AND TUBES: None. LUNGS AND PLEURA: Clear lungs. Normal pulmonary vascularity. Mildly elevated left hemidiaphragm. No pleural effusion. No pneumothorax. HEART, MEDIASTINUM AND HEATHER: Heart is normal in size. Status post TAVR. Aorta is mildly calcified. BONES AND SOFT TISSUES: No acute abnormality. IMPRESSION: No acute abnormality. I have personally reviewed the images and I agree with this report. WSN: [id number] Ordering Physician: Zeus Pappas Dictated By: Veronica Montesinos MD Dictated Date/Time: 09/24/23 3:12 pm Reviewed By: Leonides Yanez MD, V Signed By: Leonides Yanez MD, V Signed Date/Time: 09/24/23 3:17 pm Transcribed By: KEISHA Transcribed Date/Time: 09/24/23 3:06 pm * Exam Date Time Procedure Performing Provider Status 09/24/23 1:[address] Maxilloface W/O Contrast Rodney Araiza; Alexy (Verified) Notes: (CT Maxilloface W/O Contrast) Reason For Exam: Trauma RESULT: CT Maxilloface W/O Contrast CT Head/Brain W/O Contrast, CT Cervical Spine W/O Contrast, CT Maxillofacial W/O Contrast INDICATION: Hx of Present Illness: FALL; Reason: Trauma; Clinical Question(s): Hematoma TECHNIQUE: Noncontrast head CT using axial technique was reconstructed in axial and coronal planes.Noncontrast spiral CT through the facial bones and cervical spine was formatted in 3 planes. Automatic tube modulation was used for the cervical spine and iterative dose reconstruction was used for the head, face, and cervical spine to optimize scan parameters and image quality. CTDIvol Body: 9.90 mGy, DLP Body: 342 mGy*cm. CTDIvol Head: 41.00 mGy, DLP Head: 672 mGy*cm. COMPARISON: None. FINDINGS: Manager Telemarketing View Findings, Lines and Tubes: None. BRAIN AND EXTRA-AXIAL SPACES: No parenchymal hemorrhage, midline shift, or mass effect. Henderson-white matter differentiation is wellpreserved. No acute infarct. Old left basal ganglia lacunar infarct. Bilateral basal ganglia mineralization. Ventricles, sulci, and basilar cisterns are normal. Mild low-density white matter changes. No subarachnoid hemorrhage. No subdural or epidural collection. CALVARIUM, SKULL BASE, AND SOFT TISSUES: No fractures or suspicious bony lesions. Small retention cyst within the left maxillary sinus. The remaining paranasal sinuses and mastoid air cells are clear. Visualized orbits and globes are intact. The extracranial soft tissues are unremarkable. MAXILLOFACIAL: Facial soft tissues: No hematoma or swelling. Nasal bones: No fracture. Orbits and orbital amin: No fracture of the orbital amin. No intraorbital hematoma. Maxilla and alveolus: No fracture. Pterygoid plates: No fracture. Visualized parapharyngeal spaces: Symmetric without suspicious or acute abnormality. Zygomatic arches: No fracture. Mandible: The portions included on the exam are normal. No fracture or dislocation. CERVICAL SPINE: No fracture. No acute osseous abnormalities. Normal alignment. No locked or perched facet. Moderate multilevel degenerative disc space narrowingand end plate irregularity. Narrowing of the atlantodens interval. OTHER BONES: No acute abnormality. CERVICAL SOFT TISSUES AND LUNG APICES: Normal soft tissues. Visualized lung apices are clear. 6 mm low-attenuation area within the right thyroid lobe. IMPRESSION: No acute abnormality of the head, face, or cervical spine. WSN: [id number] Ordering Physician: Zeus Pappas Dictated By: Jon Frost MD Dictated Date/Time: 09/24/23 1:31 pm Reviewed By: Jon Frost MD Signed By: Jon Frost MD Signed Date/Time: 09/24/23 1:31 pm Transcribed By: KEISHA Transcribed Date/Time: 09/24/23 1:09 pm * Exam Date Time Procedure Performing Provider Status 09/24/23 1:[address] Cervical Spine W/O Contrast Reena Araiza; Auth (Verified) Notes: (CT Cervical Spine W/O Contrast) Reason For Exam: Neck trauma, dangerous injury mechanism;Other: RESULT: CT Cervical Spine W/O Contrast CT Head/Brain W/O Contrast, CT Cervical Spine W/O Contrast, CT Maxillofacial W/O Contrast INDICATION: Hx of Present Illness: FALL; Reason: Trauma; Clinical Question(s): Hematoma TECHNIQUE: Noncontrast head CT using axial technique was reconstructed in axial and coronal planes.Noncontrast spiral CT through the facial bones and cervical spine was formatted in 3 planes. Automatic tube modulation was used for the cervical spine and iterative dose reconstruction was used for the head, face, and cervical spine to optimize scan parameters and image quality. CTDIvol Body: 9.90 mGy, DLP Body: 342 mGy*cm. CTDIvol Head: 41.00 mGy, DLP Head: 672 mGy*cm. COMPARISON: None. FINDINGS: Manager Telemarketing View Findings, Lines and Tubes: None. BRAIN AND EXTRA-AXIAL SPACES: No parenchymal hemorrhage, midline shift, or mass effect. Henderson-white matter differentiation is wellpreserved. No acute infarct. Old left basal ganglia lacunar infarct. Bilateral basal ganglia mineralization. Ventricles, sulci, and basilar cisterns are normal. Mild low-density white matter changes. No subarachnoid hemorrhage. No subdural or epidural collection. CALVARIUM, SKULL BASE, AND SOFT TISSUES: No fractures or suspicious bony lesions. Small retention cyst within the left maxillary sinus. The remaining paranasal sinuses and mastoid air cells are clear. Visualized orbits and globes are intact. The extracranial soft tissues are unremarkable. MAXILLOFACIAL: Facial soft tissues: No hematoma or swelling. Nasal bones: No fracture. Orbits and orbital amin: No fracture of the orbital amin. No intraorbital hematoma. Maxilla and alveolus: No fracture. Pterygoid plates: No fracture. Visualized parapharyngeal spaces: Symmetric without suspicious or acute abnormality. Zygomatic arches: No fracture. Mandible: The portions included on the exam are normal. No fracture or dislocation. CERVICAL SPINE: No fracture. No acute osseous abnormalities. Normal alignment. No locked or perched facet. Moderate multilevel degenerative disc space narrowingand end plate irregularity. Narrowing of the atlantodens interval. OTHER BONES: No acute abnormality. CERVICAL SOFT TISSUES AND LUNG APICES: Normal soft tissues. Visualized lung apices are clear. 6 mm low-attenuation area within the right thyroid lobe. IMPRESSION: No acute abnormality of the head, face, or cervical spine. WSN: [id number] Ordering Physician: Zeus Pappas Dictated By: Jon Frost MD Dictated Date/Time: 09/24/23 1:31 pm Reviewed By: Jon Frost MD Signed By: Jon Frost MD Signed Date/Time: 09/24/23 1:31 pm Transcribed By: KEISHA Transcribed Date/Time: 09/24/23 1:09 pm * Exam Date Time Procedure Performing Provider Status 09/24/23 1:[address] Head/Brain W/O Contrast Harpreet Araiza george; Auth (Verified) Notes: (CT Head/Brain W/O Contrast) Reason For Exam: Trauma RESULT: CT Head/Brain W/O Contrast CT Head/Brain W/O Contrast, CT Cervical Spine W/O Contrast, CT Maxillofacial W/O Contrast INDICATION: Hx of Present Illness: FALL; Reason: Trauma; Clinical Question(s): Hematoma TECHNIQUE: Noncontrast head CT using axial technique was reconstructed in axial and coronal planes.Noncontrast spiral CT through the facial bones and cervical spine was formatted in 3 planes. Automatic tube modulation was used for the cervical spine and iterative dose reconstruction was used for the head, face, and cervical spine to optimize scan parameters and image quality. CTDIvol Body: 9.90 mGy, DLP Body: 342 mGy*cm. CTDIvol Head: 41.00 mGy, DLP Head: 672 mGy*cm. COMPARISON: None. FINDINGS: Manager Telemarketing View Findings, Lines and Tubes: None. BRAIN AND EXTRA-AXIAL SPACES: No parenchymal hemorrhage, midline shift, or mass effect. Henderson-white matter differentiation is wellpreserved. No acute infarct. Old left basal ganglia lacunar infarct. Bilateral basal ganglia mineralization. Ventricles, sulci, and basilar cisterns are normal. Mild low-density white matter changes. No subarachnoid hemorrhage. No subdural or epidural collection. CALVARIUM, SKULL BASE, AND SOFT TISSUES: No fractures or suspicious bony lesions. Small retention cyst within the left maxillary sinus. The remaining paranasal sinuses and mastoid air cells are clear. Visualized orbits and globes are intact. The extracranial soft tissues are unremarkable. MAXILLOFACIAL: Facial soft tissues: No hematoma or swelling. Nasal bones: No fracture. Orbits and orbital amin: No fracture of the orbital amin. No intraorbital hematoma. Maxilla and alveolus: No fracture. Pterygoid plates: No fracture. Visualized parapharyngeal spaces: Symmetric without suspicious or acute abnormality. Zygomatic arches: No fracture. Mandible: The portions included on the exam are normal. No fracture or dislocation. CERVICAL SPINE: No fracture. No acute osseous abnormalities. Normal alignment. No locked or perched facet. Moderate multilevel degenerative disc space narrowingand end plate irregularity. Narrowing of the atlantodens interval. OTHER BONES: No acute abnormality. CERVICAL SOFT TISSUES AND LUNG APICES: Normal soft tissues. Visualized lung apices are clear. 6 mm low-attenuation area within the right thyroid lobe. IMPRESSION: No acute abnormality of the head, face, or cervical spine. WSN: [id number] Ordering Physician: Zeus Pappas Dictated By: Jon Frost MD Dictated Date/Time: 09/24/23 1:31 pm Reviewed By: Jon Frost MD Signed By: Jon Frost MD Signed Date/Time: 09/24/23 1:31 pm Transcribed By: KEISHA Transcribed Date/Time: 09/24/23 1:09 pm Vital Signs Most recent to oldest [Reference Range]: 1 2 3 Height 158 cm (10/01/23 4:00 PM) 158 cm (10/01/23 11:50 AM) 158 cm (10/01/23 7:26 AM) Weight 60.8 kg (09/25/23 4:00 PM) 60.8 kg (09/24/23 8:11 PM) 60.8 kg (09/24/23 8:00 PM) Oxygen Saturation [94-100 %] 99 % (10/01/23 4:00 PM) 99 % (10/01/23 2:00 PM) 99 % (10/01/23 11:50 AM) Pulse Rate [55-90 bpm] 98 bpm *H* (10/01/23 4:00 PM) 87 bpm (10/01/23 2:00 PM) 82 bpm (10/01/23 11:50 AM) Body Mass Index [18.5-24.99 kg/m2] 24.36 kg/m2 (09/25/23 4:00 PM) 24.36 kg/m2 (09/24/23 8:11 PM) Blood Pressure [90-138/55-84 mm Hg] 160/50mm Hg *H* (10/01/23 4:00 PM) 150/48mm Hg *H* (10/01/23 2:00 PM) 148/47mm Hg *H* (10/01/23 11:50 AM) Respiratory Rate [16-30 br/min] 18 br/min (10/01/23 6:31 PM) 18 br/min (10/01/23 4:00 PM) 18 br/min (10/01/23 2:00 PM) Temperature [96.8-100.4 DegF] 98.7 DegF (10/01/23 4:00 PM) 98.5 DegF (10/01/23 2:00 PM) 98.2 DegF (10/01/23 11:50 AM) Liters per Minute 6 L/min (09/25/23 6:15 PM) Mode of Delivery (Oxygen) Room air (10/01/23 4:00 PM) Room air (10/01/23 2:00 PM) Room air (10/01/23 11:50 AM) Blood pressure sites Arm, right (10/01/23 4:00 PM) Arm, right (10/01/23 2:00 PM) Arm, left (10/01/23 11:50 AM) Temperature Route Oral (10/01/23 4:00 PM) Oral (10/01/23 2:00 PM) Oral (10/01/23 11:50 AM) Dry Weight 60.8 kg (09/24/23 8:11 PM) 60.8 kg (09/24/23 8:00 PM) 56 kg (09/24/23 11:13 AM) Weight Obtained Via Bed scale (09/24/23 8:00 PM) Dry Weight Obtained Via Patient/family s tated (09/24/23 11:13 AM) Social History Social History Type Response Smoking Status Never (less than 100 in lifetime) entered on: 08/08/18 Sex Admission evaluation note * Elida DUNLAP, [place]: PERFORM, MODIFY, MODIFY, MODIFY, MODIFY, MODIFY, MODIFY, MODIFY, MODIFY, MODIFY, MODIFY, MODIFY, MODIFY Event Display: Admission Note Authored Date: Patient: ??YOSEF RICHARDS ? Age:??83 Years?Sex:??Female?:??1940?? Chief Complaint/Reason for Consultation Patient coming from home after falling. Patient got dizzy and fell when walkign to the living room.patient has swelling above left eyebrow. on thinners. 10/10 left hip and leg pain. positive CMS. Patient has not been feeling well for the last month, weak History of Present Illness Yosef Richards is an 83yoF??with a PMHx??of A-fib on Eliquis, aortic stenosis status post TAVR, hypertension, hypercholesterolemia??presenting??for??a left femur fracture in setting of syncope that occurred today. ?? Patient states that today??she??had felt weak and fatigued this morning.?She also states thatfor the past week her head felt funny ??and that sensation improved with Tylenol but denies that this was a headache. ??She also notes intermittent left eye blurriness. ??She only wears reading glasses at baseline.?She ate breakfast and felt little better.?? However later in the day she again felt tired and sat down.?? She got up to??walk to the couch to lay down when she blacked out ??and fell hitting??the left side of??her face??on a grandfather clock??and her left hip??when she fell to the floor.?? She was immediately brought to the??hospital. ?? Vitals in the ED notable for no fever, heart rate in the 60s to 70s no tachypnea, blood pressure 130s to 150s systolic over 40s to 60s diastolic, saturating well on room air.?? CBC notable for no leukocytosis, anemia 11.4 (normocytic, appears to be around baseline), no thrombocytopenia, INR 1.2, PTT 12.4, normal PTT, CMP notable for BUN of 30, creatinine 1.3 (has had normal creatinine in the past), BNP elevated at 1852. ?? CT head brain, musculofascial, cervical spine did not have any acute abnormality.?? X-ray of the left femur did show an impacted intertrochanteric fracture.?Chest x-ray did not have any acute abnormality.?? 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 ?? Of note patient states that she has??3 prior episodes of blacking out.?? She had 1??in August and2 in??July.?? She has been seen by coupon and bond collection clerk since having these episodes,??who??performed anecho and Holter monitor without significant normalities per patient and family (performed proxy 1 month ago).?? Patient's Lasix dose was decreased from 20 mg daily to 21 mg 3 times a week.?? Patient was continued on her Eliquis, her??atenolol and her??nifedipine. She reports a 1 year history of rhinorrhea. Review of Systems General:??Negative for fevers, chills, fatigue HEENT:??+rhinorrhea, +left eye blurriness Cardiovascular:??Negative for chest pain, palpitations Respiratory:??Negative for shortness of breath, wheezing Gastrointestinal:??Negative for abdominal pain, nausea/vomiting, diarrhea/constipation Genitourinary:??Negative for dysuria, hematuria Neurologic:??+lightheadedness?? Skin:??+bruising?? MSK: +left hip pain?? Objective Measurements?? Height: 158 cm (09/24/23) Weight: 60.8 kg (09/24/23) Dry Weight: 60.8 kg (09/24/23) Body Mass Index: 24.36 kg/m2 (09/24/23) ?? Vital Signs?? Temperature: 99.1 DegF (09/24/23 23:00:00) Temperature Route: Oral (09/24/23 23:00:00) Pulse Rate: 67 bpm (09/24/23 23:00:00) Respiratory Rate: 18 br/min (09/24/23 23:29:00) Systolic Blood Pressure:??160 mm Hg??High (09/24/23 23:00:00) Diastolic Blood Pressure:??49 mm Hg??Low (09/24/23 23:00:00) Blood pressure sites: Arm, left (09/24/23 23:00:00) Mean Arterial Pressure: 86 mm Hg (09/24/23 20:11:00) Pulse Pressure: 111 mm Hg (09/24/23 23:00:00) Oxygen Saturation: 95 % (09/24/23 23:00:00) Mode of Delivery (Oxygen): Room air (09/24/23 23:00:00) Early Warning Score: 2 (09/25/23 00:37:30) ?? Intake/Output? No Data Available ?? Physical Exam General: Well appearing. In mild distress due to pain.?? Head: Ecchymosis surrounding left eye.?? Eyes: [place] conjunctiva. Anicteric sclera. EOMI.?? Ears: Bilateral pinnae without discharge or lesions. Nose:?? No discharge or congestion. Throat/Mouth: MMM. Oral mucosa was pink and without any lesions. Cardiovascular: Physiologic S1 and S2. No murmurs, rubs or gallops could be auscultated. Respiratory: CTA bilaterally with good inspiratory effort and symmetric chest wall movement. No wheezes, rales, or rhonchi. Abdominal: Positive bowel sounds in all four quadrants. No tenderness to palpation. No rebound or guarding. Musculoskeletal: Motors [employer] Generators Inspector strength intact and symmetric bilaterally. Strength is 5/5 in the upper extremities. Strength is 5/5 in the RLE. Dorsiflexion and plantar flexion intact in the LLE. Limited ROM of the left hip due to pain. No tenderness to palpation of the left ankle or knee.?? Vascular: Pulses are 2+ at radial bilaterally. 1+ pitting edema, L>R. Neurologic: Mental Status is alert and oriented to person, place, time, situation. ? Assessment/Plan Yosef Richards is an 83yoF??with a PMHx??of A-fib on Eliquis, aortic stenosis status post TAVR, hypertension, hypercholesterolemia??presenting??for??a left femur fracture in setting of syncope that occurred today. ?? Intertrochanteric fracture (S72.143A): Patient has a impacted??intertrochanteric fracture on the left side.?? She has been evaluated by orthopedic surgery who recommended??going to the OR for??surgical fixation. Plan: -Please see pre-op risk stratification at the??bottom of this note. -Pain control with 1mg Dilaudid q4, PRN PO Tylenol, lidocaine patch -PT/OT after surgery, disposition per their evaluation ? Syncope (R55): It appears the patient's??4 total events that have occurred over the last few months or true syncope's.?? She describes a sensation of blacking out ??though??today's??event was the first??to cause significant injury.?? She has undergone??prior outpatient workup including a normal echo and normal Holter monitor??per??her report.?? Patient does have??several risk factors??possible causes of??syncope.?? She does have a history of atrial fibrillation which is??rhythm controlled on amiodarone??which??if decompensated may contribute to cardiogenic syncope.?? She also has history of aortic stenosisstatus post a TAVR which if she has developed restenosis could also contribute to cardiogenic syncope. ??She is also on 2 blood pressure medications, but??has noted lower blood pressures at home??than is typical,??and she may have some degree of orthostatic??hypotension contributing to syncope.?? TSH is within normal limits, electrolytes are within normal limits,??patient does not have a significant anemia to??be significant contributing factors to??syncope.?? Unlikely related to hypoglycemia or??seizure disorder. She does have a history of aneurysm with possible neurologic symptoms this pastweek ( funny feeling in the head ??and left eye blurring) though she currently does not have any neurological deficits. Plan: -Will need to obtain echo report and Holter monitor report from patient's outpatient coupon and bond collection clerk, she sees ??Emmett Vogt at [facility] to assess for arrhythmia or valvular??abnormality -Will trend troponins to rule out ACS as a cause of syncope -Hold diuretics for now, hold Eliquis for now -Neuro checks q4 -CT angiogram of the head and neck to assess aneurysms ?? Chronic/Stable Medication Conditions: HTN (hypertension) (I10): Pt is currently hypertensive though suspect this is related to pain.?? Will treat her pain as above??and reassess.?? Will currently hold her home??antihypertensives??in light of recent hypotension at home,??but if she remains persistently hypertensive will reorder. HLD (hyperlipidemia) (E78.5): Continue home atorvastatin Atrial fibrillation (I48.91): Currently in NSR with rate in the 60s, hold Eliquis, can continue amiodarone ?? Quality Measures DVT PPx: Will hold Eliquis??tonight, start DVT prophylaxis with subcu heparin tomorrow (will order pending timing of surgery) Code Status: Full (discussed with??patient at bedside on 09/23) Diet: NPO at midnight, cardiac diet otherwise NOK: , Odalys, updated at bedside on 09/23 ?? Patient seen and discussed with Attending, Dr. Miles ?? Helena Marrero MD PGY-2, Internal Medicine-Pediatrics Pager [phone] ?? Pre-Op Risk Stratification:? Cardiac Risk: This patient has cardiac risk factors including aortic stenosis s/p TAVR, atrial fibrillation, HTN,HLD. An EKG was done and showed NSR with rate in the 60s. Their functional status is mostly independent. Using the Vasques preoperative risk calculator we can estimate that the patient has a??0.2%?risk of significant cardiac events post operatively giving the patient an overall??low??risk for surgery. Pulmonary Risk: Using the ARISCAT calculator the overall risk of respiratory failure is??intermediate (32 points)??for in-hospital pulmonary complications (composite including respiratory failure, respiratory infection, pleural effusion, atelectasis, pneumothorax, bronchospasm, aspiration pneumonitis). The patient's STOP BANG predicts they have a??intermediate??(3 points) risk of YI. All postoperative patients should receive incentive spirometry and early ambulation should be encouraged. ?? Recommendations - Cardiac telemetry:??Indicated due to history of atrial fibrillation - Further testing: Indicated:??ECHO report and Holter monitor report??? - YI Risk:??This patient has a intermediate risk of YI - Anticoagulation: This patient??has been on Eliquis for A Fib, holding prior to surgery. - DVT Risk assessment:??High risk for DVT, will order SQ heparin when appropriate. ?? (Mention following 2 only for patients 70 or older. If not delete prior to signing) Frailty assessment: Using the clinical frailty score I believe the patient is??living with very mild to mild frailty Delirium Risk:??low risk ?? - Medications to be HELD on the day of surgery: Eliquis ?? Chronic Medical Issues: Test pending at this time: ECHO and Holter Monitor report from pt's outpatient coupon and bond collection clerk, CT Angio Head and Neck (though this should not??delay surgery)? After reviewing this information with the patient we recommend can be cleared for surgery once ECHO and Holter monitor reports are reviewed. Histories Allergies Allergies ?(Active and Proposed Allergies Only) sulfa drugs? (Severity: Unknown, Onset: Unknown) ?Reactions: Rash ?? Past Medical History/Problem List Active Problems(8) Aortic stenosis Cystocele, midline AGUIAR (dyspnea on exertion) High cholesterol Hypertension Rectocele Stress incontinence Vaginal vault prolapse after hysterectomy ?? Past Surgical History TAVR - transcatheter aortic valve replacement: 06/18/19 Cataract extraction - right eye: 12/27/08 Vaginal hysterectomy and anterior repair: 2005 ?? Social History Alcohol Details:??Use: Past. ??Other: Quit last year, intermittent use before. Employment/School Details:??Status: Retired. Exercise Details:??Self assessment: Fair condition. Home/Environment Details:??Living situation: Home/Independent. ??Lives with: Spouse. Nutrition/Health Details:??Diet: Regular. Sexual Details:??Sexually involved in last 6 months: No. Substance Abuse Details:??Use: Never. Tobacco Details:??Use: Never (less than 100 in lifetime). Electronic Cigarette/Vaping Details:??Electronic Cigarette Use: Never. ?? Family History Mother: Endometriosis; Stroke Mat. Grandmother: Diabetes mellitus type II Other??(Maternal Aunt): Cancer of breast Medications Home Medications amiODARONE (amiodarone 200 mg oral tablet)?200?Milligram?1?tablet?By Mouth?Daily apixaban (Eliquis 5 mg oral tablet)?1?tab(s)?5?Milligram?By Mouth?2 times a day Atenolol (Tenormin 100 mg oral tablet)?1?tab(s)?100?Milligram?By Mouth?Daily Atorvastatin (Lipitor 40 mg oral tablet)?1?tab(s)?40?Milligram?By Mouth?Daily Estradiol Topical (estradiol 0.1 mg/g vaginal cream)?1?michelle?Vaginally?Every 14 days Fenofibrate (TriCor 145 mg oral tablet)?1?tab(s)?145?Milligram?By Mouth?Daily Furosemide (furosemide 20 mg oral tablet)?20?Milligram?1?tablet?By Mouth?Every Saturday, Saturday and Saturday NIFEdipine (NIFEdipine (Eqv-Adalat CC) 30 mg oral tablet, extended release)?1?tab(s)?30?Milligram?By Mouth?Daily ?? Inpatient Medications Medications (10) Active SCHEDULED: (2) HYDROmorphone 1 mg/mL Inj Syringe (Dilaudid Inj) ??1 mg 1 mL, IV Push Slowly, Every 4 hours NaCl 0.9% Flush 3ml (NaCL 0.9% Flush) ??3 mL, IV Push, Every 8 hours CONTINUOUS: (0) PRN: (8) Acetaminophen 325 mg Tablet (Acetaminophen Tablet) ??650 mg, By Mouth, Every 4 hours Dextromethorphan-Guaifenesin 20 mg-200 mg/10 mL Liqu UD (Robitussin DM Liquid) ??10 mL, By Mouth, Every 4 hours Docusate Sodium 100 mg Capsule (Docusate Sodium Capsule) ??100 mg 1 capsule, By Mouth, 2 times a day Melatonin 3 mg Tablet (Melatonin Tablet) ??3 mg, By Mouth, Daily at bedtime NaCl 0.9% Flush 3ml (NaCL 0.9% Flush) ??3 mL, IV Push, Every 8 hours Polyethylene Glycol 17 Gm Powder (MiraLax Powder) ??17 Gm 1 pack/packet, By Mouth, Daily Senna Tablet ??8.6 mg 1 tablet, By Mouth, 2 times a day Simethicone 80 mg Chewable Tablet (Simethicone Tablet) ??80 mg, Chew, 3 times a day Results Recent Labs BLOOD BANK Blood Type O Positive ()?? 09/24/2023 16:30 Antibody Screen Negative ()?? 09/24/2023 16:30 ?? BLOOD COUNT & DIFF WBC 9.5 k/mm3 ()?? 09/24/2023 12:05 RBC 3.79 m/mm3 (Low)?? 09/24/2023 12:05 Hgb 11.4 Gm/dL (Low)?? 09/24/2023 12:05 Hct 36.2 % ()?? 09/24/2023 12:05 MCV 95.5 femtoliters ()?? 09/24/2023 12:05 MCH 30.1 pg ()?? 09/24/2023 12:05 MCHC 31.5 g/dL (Low)?? 09/24/2023 12:05 Platelet Count 212 k/mm3 ()?? 09/24/2023 12:05 RDW-SD 50.8 femtoliters (High)?? 09/24/2023 12:05 MPV 9.9 femtoliters ()?? 09/24/2023 12:05 Nucleated RBC (Automated) 0.0 #/100 WBC'S ()?? 09/24/2023 12:05 Abs. NRBC 0.0 k/mm3 ()?? 09/24/2023 12:05 Abs. Neut 7.9 k/mm3 (High)?? 09/24/2023 12:05 Abs. Lymph 0.7 k/mm3 (Low)?? 09/24/2023 12:05 Abs. [place] 0.6 k/mm3 ()?? 09/24/2023 12:05 Abs. Eo 0.1 k/mm3 ()?? 09/24/2023 12:05 Abs. Baso 0.1 k/mm3 ()?? 09/24/2023 12:05 Neut % 83.7 % (High)?? 09/24/2023 12:05 Lymph % 7.6 % (Low)?? 09/24/2023 12:05 [place] % 6.3 % ()?? 09/24/2023 12:05 Eos % 0.8 % ()?? 09/24/2023 12:05 Baso % 0.6 % ()?? 09/24/2023 12:05 Imm Gran 1.0 % ()?? 09/24/2023 12:05 Abs. Imm Gran 0.1 k/mm3 ()?? 09/24/2023 12:05 ?? CARDIAC Nt-Probnp 1852 pg/mL (High)?? 09/24/2023 12:05 ?? CHEM GENERAL Sodium 141 mmol/L ()?? 09/24/2023 12:05 Potassium 4.5 mmol/L ()?? 09/24/2023 12:05 Chloride 107 mmol/L ()?? 09/24/2023 12:05 Bicarbonate Level 23 mmol/L ()?? 09/24/2023 12:05 Anion Gap 11 ()?? 09/24/2023 12:05 Glucose Level 103 mg/dL (High)?? 09/24/2023 12:05 Glucose, POC 102 mg/dL (High)?? 09/24/2023 11:29 BUN 30 mg/dL (High)?? 09/24/2023 12:05 Creatinine-Blood 1.3 mg/dL (High)?? 09/24/2023 12:05 Estimated GFR Creatinine 41 ML/MIN/1.73 M2 ()?? 09/24/2023 12:05 Calcium 9.4 mg/dL ()?? 09/24/2023 12:05 Magnesium 2.3 mg/dL ()?? 09/24/2023 12:05 Protein, Total 6.4 Gm/dL ()?? 09/24/2023 12:05 Albumin 4.4 Gm/dL ()?? 09/24/2023 12:05 AG Ratio 2.2 ()?? 09/24/2023 12:05 Alkaline Phosphatase 66 units/L ()?? 09/24/2023 12:05 AST (SGOT) 31 units/L ()?? 09/24/2023 12:05 ALT (SGPT) 28 units/L ()?? 09/24/2023 12:05 Bilirubin, Total 0.4 mg/dL ()?? 09/24/2023 12:05 ?? COAG INR 1.2 (High)?? 09/24/2023 12:05 Protime (PT) 12.4 seconds (High)?? 09/24/2023 12:05 APTT 26.8 seconds ()?? 09/24/2023 12:05 ?? ENDOCRINE/TUMOR MARKER TSH 1.84 uIU/mL ()?? 09/24/2023 12:05 ?? HEME OTHER Hold Blue Top SPECIMEN DISCARDED AFTER 4 HOURS. ()?? 09/24/2023 12:05 ?? MISC. CHEMISTRY Hold Gel Top SPECIMEN DISCARDED AFTER 1 WEEK ()?? 09/25/2023 01:33 ?? URINE OTHER Est Creatinine Clearance 26.64 mL/min ()?? 09/24/2023 20:11 ?? Urinalysis Est Creatinine Clearance: 26.64 mL/min (20:11) Est Creatinine Clearance: 27.11 mL/min (12:58) * Sanjeev Miles MD: PERFORM Event Display: Admission Note Authored Date: [id number] ??Attending Attestation: ?? I have seen and evaluated this patient. ?? I have discussed the case and its management with the resident and agree with the findings and juan documented in the resident's note.?? I?? will continue to provide care to this patient till 7 AMof the admitting date.? 83-year-old female with a past medical history of A-fib on Eliquis, aortic stenosis s/p TAVR, hyperlipidemia, hypertension complaint of syncopal episode and had a fall on her left side.?? She is found to have left impacted intertrochanteric femur fracture.?? CT of the head ruled out any acute intrac ranial pathology.?? CT cervical spine is normal.?? CT maxillofacial is also normal.?? Chest x-ray ruled out any acute abnormality.?? She is evaluated by Ortho who recommended to admit her to the medicine and to get a preoperative medical optimization.?? EKG showed normal sinus rhythm.? She denied any exertional anginal symptoms.?? Lab workup showed hemoglobin 11.4 and creatinine 1.3.?? Troponins are flat.?? She does have a history of syncopal episode in this year and recently have echocardiogram/Holter by her coupon and bond collection clerk as outpatient.?? Her preoperative risk assessment as mentioned above.?? She does have a history of right internal carotid artery apparent two communicating saccular aneurysms probably in the supraclinoid segment measuring up to 8 mm.?? Also Left internal carotid artery cavernous segment 4 mm saccular aneurysm. Complaint of some weird feeling in the head before the syncopal episode with some vision issue in the left eye from last 1 week..?? Will get a CT angiogram of head and neck to evaluate aneurysm.?? She is low risk for delirium. EKG study * Event Display: ECG 12-Lead Authored Date: Please click on pdf link to open report * Event Display: ECG 12-Lead Authored Date: Ventricular Rate: 61 BPM Atrial Rate: 61 BPM P-R Interval: 170 ms QRS Duration: 84 ms Q-T Interval: 448 ms QTC Calculation(Bazett): 450 ms P Linn: 53 degrees R Linn: 52 degrees T Linn: 44 degrees Normal sinus rhythm Normal ECG When compared with ECG of 24-JUL-2019 13:08, No significant change was found Confirmed by Artie Hart ([id number]) on 09/24/2023 11:29:03 AM [place]: Artie Hart [facility] * Event Display: Cardiac Rhythm Strips Authored Date: Hospital Progress note * Ursula Astudillo: VERIFY, PERFORM, SIGN Event Display: Progress Note Hospital Authored Date: Patient: YOSEF RICHARDS Age: 83 years Sex: Female : 1940 Associated Diagnoses: None Author: Ursula Astudillo Findings Problem Related to Alteration in Musculoskeletal : Alteration in Musculoskeletal Func/new 10/01/2023 13:02 EDT Alteration in Musculoskeletal Related to Fracture Goals & Outcomes, Musculoskeletal Affected extremity will maintain color/motion/sensation, Pt able to perform ADL's to best of ability, Pt demonstrates precautions/exercise/ transfers per protocol, Pt will ambulate safely with assistive device, Pt will be free from complications of immobility, Pt will demonstrate ability to participate in ADL's, Pt will report acceptable level of comfort/painrelief Interventions, Musculoskeletal Monitor patients ambulation status, monitor Color/Motion/Sensation, Assist with repositioning BH Goals/Interventions, Musculoskeletal Yes Musculoskeletal, Problem Start 09/25/2023 10:36 Reviewed Plan with, Musculoskeletal Patient Patient Progression, Musculoskeletal Pt progressing according to plan . Evaluation Assumed care of pt @ 0700 on W4. A&O x3. Tele SR. Working w/ PT stepping side to side on EOB r/t femur fx. BM 09/30, voiding well. C/o left leg pain, medicated as per AUG. Pending STR placement. See CIS for full assessment and plan of care per Dr Junior and team.... Discharge Information Rehabilitation Discharge : Rehab Discharge Index 09/30/2023 13:09 EDT Walker: distance < 10 09/29/2023 15:43 EDT Walker: distance < 10 09/27/2023 15:12 EDT Walker: distance < 10 09/26/2023 9:36 EDT Comments on treatment indicated ADLs, func mob, txfers, safety Full chart review completed Yes Hospital course See comment: 09/26/2023 8:43 EDT Comments on treatment indicated see comment Distance pt will ambulate ~10' with RW and fair balance Full chart review completed Yes Plan of care PT Gait training, Transfer training, Therapeutic exercise, Functional Activities, Balance training * Ruby Garza RN: SIGN, PERFORM, SIGN, VERIFY, MODIFY Event Display: Progress Note Hospital Authored Date: Patient: YOSEF RICHARDS Age: 83 years Sex: Female : 1940 Associated Diagnoses: None Author: Ruby Garza RN Findings Problem Related to Alteration in Fluid Electrolyte : Alteration in Fluid Electrolyte Func/new 09/30/2023 14:00 EDT Alteration Fluid Electrolytes Related to Anemia Goals/Interventions,Fluid Electrolyte Yes Fluid Electrolyte, Problem Start 09/28/2023 6:00 Goals & Outcomes, Fluid/Electrolyte Pt will resume/maintain adequate hemodynamic status Interventions, Fluid Electrolyte monitor cardiac status, monitor dietary intake, monitor GI/ status, monitor hydration status, monitor mucous membranes Patient Progression, Fluid Electrolyte Pt progressing according to plan Reviewed plan with, Fluid Electrolyte Patient 09/29/2023 17:00 EDT Alteration Fluid Electrolytes Related to Anemia Goals/Interventions,Fluid Electrolyte Yes Fluid Electrolyte, Problem Start 09/28/2023 6:00 Goals & Outcomes, Fluid/Electrolyte Pt will resume/maintain adequate hemodynamic status Interventions, Fluid Electrolyte monitor cardiac status, monitor mucous membranes, monitor peripheral pulses Patient Progression, Fluid Electrolyte Pt progressing according to plan Reviewed plan with, Fluid Electrolyte Patient 09/28/2023 17:00 EDT Alteration Fluid Electrolytes Related to Anemia Goals/Interventions,Fluid Electrolyte Yes Fluid Electrolyte, Problem Start 09/28/2023 6:00 Goals & Outcomes, Fluid/Electrolyte Pt will resume/maintain adequate hemodynamic status Interventions, Fluid Electrolyte monitor cardiac status, monitor hydration status, monitor mucous membranes Patient Progression, Fluid Electrolyte Pt progressing according to plan Reviewed plan with, Fluid Electrolyte Patient 09/28/2023 6:00 EDT Alteration Fluid Electrolytes Related to Anemia Goals/Interventions,Fluid Electrolyte Yes Fluid Electrolyte, Problem Start 09/28/2023 6:00 Goals & Outcomes, Fluid/Electrolyte Pt will resume/maintain adequate hemodynamic status Interventions, Fluid Electrolyte monitor for s/s of anemia: weakness, fatigue,, Assess/monitor any signs of bleeding Patient Progression, Fluid Electrolyte Plan Initiation Reviewed plan with, Fluid Electrolyte Patient . Alteration in Genitourinary : Alteration in Genitourinary Function/new 09/30/2023 14:00 EDT Alteration in Status Related to Urinary retention Goals/Interventions, Genitourinary Yes Genitourinary, Problem Ongoing Yes Genitourinary, Problem Start 09/28/2023 6:00 Goals & Outcomes, Genitourinary Pt will achieve normal/improved fluid balance, Pt will maintainadequate function appropriate for pt, Pt will empty bladder completely Interventions, Assess/monitor/maintain Genitourinary status Patient Progression, Genitourinary Patient progressing according to plan Reviewed Plan with, Genitourinary Patient 09/29/2023 17:00 EDT Alteration in Status Related to Urinary retention Goals/Interventions, Genitourinary Yes Genitourinary, Problem Ongoing Yes Genitourinary, Problem Start 09/28/2023 6:00 Goals & Outcomes, Genitourinary Pt will achieve normal/improved fluid balance, Pt will maintainadequate function appropriate for pt, Pt will empty bladder completely Interventions, Assess/monitor/maintain Genitourinary status Patient Progression, Genitourinary Patient progressing according to plan Reviewed Plan with, Genitourinary Patient 09/28/2023 17:00 EDT Alteration in Status Related to Urinary retention Goals/Interventions, Genitourinary Yes Genitourinary, Problem Ongoing Yes Genitourinary, Problem Start 09/28/2023 6:00 Goals & Outcomes, Genitourinary Pt will achieve normal/improved fluid balance, Pt will maintainadequate function appropriate for pt, Pt will empty bladder completely Interventions, Assess/monitor/maintain Genitourinary status Patient Progression, Genitourinary Patient progressing according to plan Reviewed Plan with, Genitourinary Patient 09/28/2023 6:00 EDT Alteration in Status Related to Urinary retention Goals/Interventions, Genitourinary Yes Genitourinary, Problem Ongoing Yes Genitourinary, Problem Start 09/28/2023 6:00 Goals & Outcomes, Genitourinary Pt will achieve normal/improved fluid balance, Pt will maintainadequate function appropriate for pt, Pt will empty bladder completely Interventions, Assess causative factors of urinary retention, Teach signs & symptoms of distended bladder Patient Progression, Genitourinary Plan Initiation Reviewed Plan with, Genitourinary Patient . Alteration in Musculoskeletal : Alteration in Musculoskeletal Func/new 09/30/2023 14:00 EDT Alteration in Musculoskeletal Related to Fracture Goals/Interventions, Musculoskeletal Yes Goals & Outcomes, Musculoskeletal Affected extremity will maintain color/motion/sensation, Pt able to perform ADL's to best of ability, Pt demonstrates precautions/exercise/ transfers per protocol, Pt will ambulate safely with assistive device, Pt will be free from complications of immobility, Pt will demonstrate ability to participate in ADL's, Pt will report acceptable level of comfort/painrelief Interventions, Musculoskeletal Monitor patients ambulation status, Assist with repositioning Musculoskeletal, Problem Start 09/25/2023 10:36 Patient Progression, Musculoskeletal Pt progressing according to plan Reviewed Plan with, Musculoskeletal Patient 09/29/2023 17:00 EDT Alteration in Musculoskeletal Related to Fracture Goals/Interventions, Musculoskeletal Yes Goals & Outcomes, Musculoskeletal Affected extremity will maintain color/motion/sensation, Pt able to perform ADL's to best of ability, Pt demonstrates precautions/exercise/ transfers per protocol, Pt will ambulate safely with assistive device, Pt will be free from complications of immobility, Pt will demonstrate ability to participate in ADL's, Pt will report acceptable level of comfort/painrelief Interventions, Musculoskeletal Monitor patients ambulation status, Assist with repositioning, Teachpt/caregiver on use of pain scale Musculoskeletal, Problem Start 09/25/2023 10:36 Patient Progression, Musculoskeletal Pt progressing according to plan Reviewed Plan with, Musculoskeletal Patient . Nursing Data Vital Signs : Vital Signs Section 09/30/2023 14:52 EDT Early Warning Score 0.00 09/30/2023 14:00 EDT Temperature 98.6 DegF Temperature Route Oral Pulse Rate 86 bpm Respiratory Rate 18 br/min Systolic Blood Pressure 147 mm Hg H Diastolic Blood Pressure 48 mm Hg L Blood pressure sites Arm, left Oxygen Saturation 100 % Mode of Delivery (Oxygen) Room air 09/30/2023 11:46 EDT Early Warning Score 0.00 09/30/2023 11:01 EDT Early Warning Score 0.00 09/30/2023 11:00 EDT Temperature 98.2 DegF Temperature Route Oral Pulse Rate 85 bpm Respiratory Rate 18 br/min Systolic Blood Pressure 140 mm Hg H Diastolic Blood Pressure 45 mm Hg L Blood pressure sites Arm, left Oxygen Saturation 97 % Mode of Delivery (Oxygen) Room air 09/30/2023 8:51 EDT Early Warning Score 0.00 09/30/2023 8:51 EDT Respiratory Rate 18 br/min 09/30/2023 8:46 EDT Early Warning Score 0.00 09/30/2023 8:41 EDT Systolic Blood Pressure 128 mm Hg Diastolic Blood Pressure 64 mm Hg 09/30/2023 7:16 EDT Early Warning Score 0.00 09/30/2023 7:00 EDT Temperature 98.5 DegF Temperature Route Oral Pulse Rate 79 bpm Respiratory Rate 18 br/min Systolic Blood Pressure 128 mm Hg Diastolic Blood Pressure 64 mm Hg Blood pressure sites Arm, left Oxygen Saturation 96 % Mode of Delivery (Oxygen) Room air 09/30/2023 3:45 EDT Early Warning Score 2.00 09/30/2023 3:00 EDT Temperature 98.2 DegF Temperature Route Oral Pulse Rate 84 bpm Respiratory Rate 18 br/min Systolic Blood Pressure 145 mm Hg H Diastolic Blood Pressure 52 mm Hg L Blood pressure sites Arm, left Oxygen Saturation 94 % Mode of Delivery (Oxygen) Room air 09/30/2023 2:36 EDT Early Warning Score 0.00 09/30/2023 2:14 EDT Early Warning Score 0.00 09/29/2023 23:41 EDT Early Warning Score 0.00 09/29/2023 23:00 EDT Temperature 98.2 DegF Temperature Route Oral Pulse Rate 65 bpm Respiratory Rate 18 br/min Systolic Blood Pressure 110 mm Hg Diastolic Blood Pressure 60 mm Hg Blood pressure sites Arm, left Oxygen Saturation 99 % Mode of Delivery (Oxygen) Room air 09/29/2023 22:16 EDT Early Warning Score 0.00 09/29/2023 22:15 EDT Respiratory Rate 18 br/min 09/29/2023 20:20 EDT Early Warning Score 0.00 09/29/2023 20:00 EDT Temperature 98 DegF Temperature Route Oral Pulse Rate 60 bpm Respiratory Rate 18 br/min Systolic Blood Pressure 103 mm Hg Diastolic Blood Pressure 62 mm Hg Blood pressure sites Arm, left Oxygen Saturation 99 % Mode of Delivery (Oxygen) Room air 09/29/2023 16:54 EDT Early Warning Score 0.00 09/29/2023 16:54 EDT Temperature 98.8 DegF Temperature Route Oral Pulse Rate 80 bpm Respiratory Rate 18 br/min Systolic Blood Pressure 146 mm Hg H Diastolic Blood Pressure 43 mm Hg L Blood pressure sites Arm, left Mean Arterial Pressure 77 mm Hg Pulse Pressure 103 mm Hg Oxygen Saturation 98 % Mode of Delivery (Oxygen) Room air 09/29/2023 11:47 EDT Early Warning Score 0.00 09/29/2023 11:47 EDT Temperature 98.7 DegF Temperature Route Oral Pulse Rate 78 bpm Respiratory Rate 18 br/min Systolic Blood Pressure 157 mm Hg H Diastolic Blood Pressure 53 mm Hg L Blood pressure sites Arm, left Mean Arterial Pressure 88 mm Hg Pulse Pressure 104 mm Hg Oxygen Saturation 100 % Mode of Delivery (Oxygen) Room air 09/29/2023 9:03 EDT Early Warning Score 0.00 09/29/2023 9:03 EDT Early Warning Score 0.00 09/29/2023 9:02 EDT Respiratory Rate 18 br/min 09/29/2023 8:39 EDT Early Warning Score 0.00 09/29/2023 8:38 EDT Temperature 98.3 DegF Temperature Route Oral Pulse Rate 84 bpm Respiratory Rate 18 br/min Systolic Blood Pressure 151 mm Hg H Diastolic Blood Pressure 51 mm Hg L Blood pressure sites Arm, left Mean Arterial Pressure 84 mm Hg Pulse Pressure 100 mm Hg Oxygen Saturation 98 % Mode of Delivery (Oxygen) Room air 09/29/2023 4:10 EDT Early Warning Score 2.00 09/29/2023 4:00 EDT Temperature 97.6 DegF Temperature Route Oral Pulse Rate 70 bpm Respiratory Rate 18 br/min Systolic Blood Pressure 135 mm Hg Diastolic Blood Pressure 65 mm Hg Blood pressure sites Arm, left Oxygen Saturation 99 % Mode of Delivery (Oxygen) Room air 09/29/2023 2:36 EDT Early Warning Score 2.00 09/29/2023 2:15 EDT Early Warning Score 2.00 09/28/2023 23:06 EDT Early Warning Score 2.00 09/28/2023 23:00 EDT Temperature 97.4 DegF Temperature Route Oral Pulse Rate 71 bpm Respiratory Rate 18 br/min Systolic Blood Pressure 149 mm Hg H Diastolic Blood Pressure 74 mm Hg Blood pressure sites Arm, left Oxygen Saturation 98 % Mode of Delivery (Oxygen) Room air 09/28/2023 19:33 EDT Early Warning Score 2.00 09/28/2023 19:22 EDT Early Warning Score 0.00 09/28/2023 19:00 EDT Temperature 98 DegF Temperature Route Oral Pulse Rate 87 bpm Respiratory Rate 18 br/min Systolic Blood Pressure 148 mm Hg H Diastolic Blood Pressure 47 mm Hg L Blood pressure sites Arm, left Oxygen Saturation 94 % Mode of Delivery (Oxygen) Room air 09/28/2023 16:51 EDT Early Warning Score 0.00 09/28/2023 16:50 EDT Respiratory Rate 18 br/min 09/28/2023 16:19 EDT Early Warning Score 0.00 09/28/2023 16:19 EDT Temperature 99.3 DegF Temperature Route Oral Pulse Rate 88 bpm Respiratory Rate 18 br/min Systolic Blood Pressure 145 mm Hg H Diastolic Blood Pressure 53 mm Hg L Blood pressure sites Arm, left Mean Arterial Pressure 84 mm Hg Pulse Pressure 92 mm Hg Oxygen Saturation 98 % Mode of Delivery (Oxygen) Room air 09/28/2023 12:05 EDT Early Warning Score 0.00 09/28/2023 12:05 EDT Temperature 98.6 DegF Temperature Route Oral Pulse Rate 81 bpm Respiratory Rate 18 br/min Systolic Blood Pressure 143 mm Hg H Diastolic Blood Pressure 45 mm Hg L Blood pressure sites Arm, right Mean Arterial Pressure 78 mm Hg Pulse Pressure 98 mm Hg Oxygen Saturation 97 % Mode of Delivery (Oxygen) Room air 09/28/2023 8:58 EDT Early Warning Score 0.00 09/28/2023 8:55 EDT Systolic Blood Pressure 126 mm Hg Diastolic Blood Pressure 41 mm Hg L 09/28/2023 7:59 EDT Early Warning Score 0.00 09/28/2023 7:58 EDT Temperature 98.4 DegF Temperature Route Oral Pulse Rate 71 bpm Respiratory Rate 17 br/min Systolic Blood Pressure 126 mm Hg Diastolic Blood Pressure 41 mm Hg L Blood pressure sites Arm, left Mean Arterial Pressure 69 mm Hg Pulse Pressure 85 mm Hg Oxygen Saturation 96 % Mode of Delivery (Oxygen) Room air 09/28/2023 6:44 EDT Respiratory Rate 18 br/min 09/28/2023 6:42 EDT Early Warning Score 0.00 09/28/2023 6:42 EDT Early Warning Score 0.00 09/28/2023 6:41 EDT Respiratory Rate 18 br/min 09/28/2023 5:45 EDT Early Warning Score 0.00 09/28/2023 5:41 EDT Respiratory Rate 18 br/min 09/28/2023 4:18 EDT Early Warning Score 0.00 09/28/2023 4:03 EDT Early Warning Score 0.00 09/28/2023 3:00 EDT Early Warning Score 3.00 09/28/2023 2:59 EDT Temperature 99.0 DegF Temperature Route Oral Pulse Rate 77 bpm Respiratory Rate 18 br/min Systolic Blood Pressure 132 mm Hg Diastolic Blood Pressure 50 mm Hg L Blood pressure sites Arm, left (Modified) Mean Arterial Pressure 77 mm Hg Pulse Pressure 82 mm Hg Oxygen Saturation 97 % Mode of Delivery (Oxygen) Room air . Evaluation Assumed care of pt at 0700. Pt A&Ox4, able to make needs known. c/o left leg pain 11/17. PRN Oxycodone 5 mg given PO w/good effect. F/C removed per provider orders. Pt incontinent of large amount of urine in bed. Bladder Scan 178. Urine output 400 clear yellow urine. ADLs provided. PT at the bedside. Pt able to stand for linen change while w/PT. at bedside. Maintained safety and comfort. Call saunders within reach. See [facility] for further evaluation. . Discharge Information Rehabilitation Discharge : Rehab Discharge Index 09/30/2023 13:09 EDT Walker: distance < 10 09/29/2023 15:43 EDT Walker: distance < 10 09/27/2023 15:12 EDT Walker: distance < 10 09/26/2023 9:36 EDT Comments on treatment indicated ADLs, func mob, txfers, safety Full chart review completed Yes Hospital course See comment: 09/26/2023 8:43 EDT Comments on treatment indicated see comment Distance pt will ambulate ~10' with RW and fair balance Full chart review completed Yes Plan of care PT Gait training, Transfer training, Therapeutic exercise, Functional Activities, Balance training * Sandi DUNLAP, Donna F: PERFORM, MODIFY, MODIFY Event Display: Progress Note Hospital Authored Date: Patient: ??YOSEF RICHARDS ? Age:??83 Years?Sex:??Female?:??1940?? Subjective No acute events overnight Feeling well, pain is under control Still has hamilton in place Concerned because she hasn't had a BM in 2 days ?? Review of Systems General:??Feels well and slept overnight. Cardiovascular:??Denies any chest pain or palpitations. Pulmonary:??Denies any shortness of breath or cough. GI:??Denies any abdominal pain, nausea, vomiting, diarrhea ?? Objective Vital Signs?? Temperature: 98.5 DegF (09/30/23 07:00:00) Temperature Route: Oral (09/30/23 07:00:00) Pulse Rate: 79 bpm (09/30/23 07:00:00) Respiratory Rate: 18 br/min (09/30/23 08:51:00) Systolic Blood Pressure: 128 mm Hg (09/30/23 08:41:00) Diastolic Blood Pressure: 64 mm Hg (09/30/23 08:41:00) Blood pressure sites: Arm, left (09/30/23 07:00:00) Mean Arterial Pressure: 77 mm Hg (09/29/23 16:54:00) Pulse Pressure: 103 mm Hg (09/29/23 16:54:00) Oxygen Saturation: 96 % (09/30/23 07:00:00) Mode of Delivery (Oxygen): Room air (09/30/23 07:00:00) Early Warning Score: 0 (09/30/23 08:51:19) ? Intake/Output? 04/16 17:01 09/29 07:00 09/28 07:00 09/27 07:00 09/26 07:00 ?? 09/29 10:12 09/29 10:12 09/29 06:59 09/28 06:59 09/27 06:59 Intake ? 3980 ?180 ? 1635 ?519 ?480 Output ?36729 ?350 ? 3150 ? 2150 ? 2700 Net Total ?-8470 ? -170 ?-1515 ?-1631 ?-2220 ? Urine Count ?1 ?0 ?0 ?0 ?1 ? Physical Exam General:??No acute distress, well-nourished HEENT:??Moist mucus membranes, PERRL, no nystagmus, no scleral icterus, bruising on face Neck:??Supple, no lymphadenopathy Respiratory:??Clear to auscultation bilaterally, no increased work of breathing, no wheezes/crackles, good aeration to lung bases Cardiovascular:??Normal rate, regular rhythm, no murmurs, peripheral pulses intact Abdomen:??Normal active bowel sounds, soft, non-tender, non-distended Musculoskeletal:??No LE edema, moving all extremities normally Neurologic:??Alert & Oriented X3, No focal neurologic deficits Skin:??Warm and dry, No rashes or lesions Psychiatric:??Normal mood/affect, normal cognition, normal judgement _ Inpatient Medications Medications (18) Active SCHEDULED: (11) Amiodarone 200 mg Tablet (amiodarone 200 mg oral tablet) ??200 mg, By Mouth, Daily Apixaban 5 mg Tablet (Apixaban Tablet) ??5 mg, By Mouth, 2 times a day Atorvastatin 40 mg Tablet (Lipitor 40 mg oral tablet) ??40 mg, By Mouth, Daily Docusate Sodium 100 mg Capsule (Docusate Sodium Capsule) ??100 mg 1 capsule, By Mouth, 2 times a day Fenofibrate 130 mg Capsule (fenofibrate 130 mg oral capsule) ??130 mg, By Mouth, Daily Lidocaine 5% Topical Patch (Lidocaine 5% Patch) ??1 each, Topically, Daily NaCl 0.9% Flush 3ml (NaCL 0.9% Flush) ??3 mL, IV Push, Every 8 hours NIFEdipine 30 mg ER Tablet (NIFEdipine 30 mg oral tablet, extended release) ??30 mg, By Mouth, Daily Polyethylene Glycol 17 Gm Powder (MiraLax Powder) ??17 Gm 1 pack/packet, By Mouth, Daily Remove Patch (Remove Lidocaine Patch) ??1 each, Topically, Daily at bedtime Senna Tablet ??8.6 mg 1 tablet, By Mouth, 2 times a day CONTINUOUS: (0) PRN: (7) Acetaminophen 325 mg Tablet (Acetaminophen Tablet) ??650 mg, By Mouth, Every 4 hours Bisacodyl 10 mg Suppository (Bisacodyl Supp) ??10 mg 1 supp, Rectally, Daily Dextromethorphan-Guaifenesin 20 mg-200 mg/10 mL Liqu UD (Robitussin DM Liquid) ??10 mL, By Mouth, Every 4 hours Melatonin 3 mg Tablet (Melatonin Tablet) ??3 mg, By Mouth, Daily at bedtime NaCl 0.9% Flush 3ml (NaCL 0.9% Flush) ??3 mL, IV Push, Every 8 hours OxyCODONE 5 mg IR Tablet (oxyCODONE 5 mg oral tablet) ??5 mg, By Mouth, Every 6 hours Simethicone 80 mg Chewable Tablet (Simethicone Tablet) ??80 mg, Chew, 3 times a day ? Results Recent Labs BLOOD BANK RBC Unit ID [id number] ()?? 09/28/2023 05:20 RBC Available PT ()?? 09/28/2023 05:20 ?? BLOOD COUNT & DIFF WBC 7.2 k/mm3 ()?? 09/30/2023 01:33 RBC 2.76 m/mm3 (Low)?? 09/30/2023 01:33 Hgb 8.3 Gm/dL (Low)?? 09/30/2023 01:33 Hct 25.1 % (Low)?? 09/30/2023 01:33 MCV 90.9 femtoliters ()?? 09/30/2023 01:33 MCH 30.1 pg ()?? 09/30/2023 01:33 MCHC 33.1 g/dL ()?? 09/30/2023 01:33 Platelet Count 217 k/mm3 ()?? 09/30/2023 01:33 RDW-SD 52.5 femtoliters (High)?? 09/30/2023 01:33 MPV 9.3 femtoliters (Low)?? 09/30/2023 01:33 Nucleated RBC (Automated) 0.0 #/100 WBC'S ()?? 09/30/2023 01:33 Abs. NRBC 0.0 k/mm3 ()?? 09/30/2023 01:33 ?? CHEM GENERAL Sodium 140 mmol/L ()?? 09/30/2023 01:33 Potassium 4.7 mmol/L ()?? 09/30/2023 01:33 Chloride 108 mmol/L (High)?? 09/30/2023 01:33 Bicarbonate Level 24 mmol/L ()?? 09/30/2023 01:33 Anion Gap 8 ()?? 09/30/2023 01:33 Glucose Level 100 mg/dL (High)?? 09/30/2023 01:33 BUN 24 mg/dL (High)?? 09/30/2023 01:33 Creatinine-Blood 1.4 mg/dL (High)?? 09/30/2023 01:33 Estimated GFR Creatinine 38 ML/MIN/1.73 M2 ()?? 09/30/2023 01:33 Calcium 8.7 mg/dL ()?? 09/30/2023 01:33 ?? URINE OTHER Est Creatinine Clearance 24.73 mL/min ()?? 09/30/2023 02:36 ? Assessment/Plan Assessment:??83-year-old female with a past medical history significant for A- fib on Eliquis, status post TAVR, HTN, HLD presenting for a left femur fracture in setting of syncope. Now status postintramedullary implant to left femur in 09/25. ?? Constipation (K59.00):?? Intertrochanteric fracture (S72.143A):?? Patient has a impacted intertrochanteric fracture on the left side. She is postop day #5 from intramedullary implant to left femur. PT recommends rehab. ?Plan: ?- Tylenol 650 mg PO Q4H PRN ?- Lidocaine patch ?- Oxycodone 5 mg PO Q6H PRN ?- Scheduled Bowel regimen while on pain medications ?- Rehab placement per CM ?- Pt will need to be on outpatient bisphosphonates, vitamin D, and calcium ?? Atrial fibrillation (I48.91):?? Syncope (R55):?? Unclear what the cause is of patient's presyncope as patient never really had any episodes of loss of consciousness. Unlikely to be due to hypotension as patient does not endorse any dizziness lightheadedness. Unlikely to be due to neurogenic causes as patient had a witnessed fall and did not notice any convulsive activity. Could be due to medications that are causing this feeling of fatigue/presyncope episodes. Holter monitor for 3 days showed underlying rhythm and sinus with an average rate of 60 bpm, rare supraventricular ectopy, no significant pauses or AV blocks, weakness in patient diary correlated with sinus bradycardia at 56 bpm. Echo from [facility] showed left ventricular systolic function is normal, the calculated ejection fraction is 60% biplane method, evidence suggests grade 2 moderate diastolic function, a bioprosthetic aortic valve is present, prosthetic aortic valve appearsto be functioning normally, small atrial septal defect versus PFO with [id number] shunt. CT angio head/neck showed No cutoff or high-grade stenosis of the major branches of the intracranial arterie s. There is a 2 mm outpouching arising from the presumed the origin of the right posterior communicating artery suggesting a small aneurysm. ?Plan: ?- Continue Amiodarone 200 mg PO QD ?- Eliquis 5 mg PO BID ?? Normocytic anemia (D64.9):?? Most likely in the setting of blood loss from surgery. Hgb 6.7 on morning of 09/27. S/P 1U PRBC. Hgb8.6 this AM. Iron level 18, TIBC 246, % sat 7%, Ferritin 238. ?Plan: ?- Monitor CBC ?- Patient will need iron supplementation outpatient ?? Urinary retention (R33.9):?? Acute kidney injury (N17.9):?? Bacteriuria (R82.71):?? Likely in the setting of recent surgery. Urine culture growing E coli. S/p 3 day course of CTX. Hamilton placed 09/27, will attempt a voiding trial Cr 1.4, baseline 0.9 ?? Plan: ?- Monitor urine output ?- Monitor for signs of UTI ?- Voiding trial with q6 bladder scans ?-Monitor Cr daily ?? Chronic Medical Conditions HLD (hyperlipidemia) (E78.5):??Continue home atorvastatin HTN (hypertension) (I10):??Pt is currently hypertensive though suspect this is related to pain. Restart pt's Nifedipine 30mg daily. DC atenolol on discharge continue to hold here. ?? Incidental Imaging Findings Requiring Outpatient Follow Up: Aneurysm: There is a 2 mm outpouching arising from the presumed the origin of the right posterior communicating artery suggesting a small aneurysm. Lung nodule (R91.1): 1.6 x 0.6 cm nodular density associated with the scar in the visualized right upper lung posteriorly which is not completely included in this study. Please correlate with CT chest. - PCP follow up outpatient Thyroid nodule (E04.1)- Bilateral thyroid lobes contain multiple nodules with the largest one on the right measuring up to 1.8 cm in size. Further evaluation with thyroid ultrasound is suggested. ? Quality Measures Diet: Cardiac Access: Peripheral IV Anticoagulation: Eliquis 5 mg PO BID Code status: FULL CODE OMN: constipation, urinary retention Dispo: rehab when medically cleared ?? Donna [facility] PGY[facility] Pager #[phone] ?? Patient was discussed with attending, ??Rudy ? * Clare Grant DO: PERFORM Event Display: Progress Note Hospital Authored Date: Attending Attestation: I have seen and evaluated this patient.?? I have discussed the case and its management with the resident and agree with the findings and plan as documented in the resident???s note. Note * Ursula Astudillo: PERFORM Event Display: Discharge/Transfer Note Hospital Authored Date: [id number] Nursing Discharge Note Entered On: 10/01/2023 18:40 EDT Performed On: 10/01/2023 18:40 EDT by Ursula Astudillo Nursing Discharge Note 2 Discharge Time : 10/01/2023 18:40 EDT Discharge Level of Care at Discharge : Short-term Acute Inpatient Discharge Nursing Homes/Rehab Facilities : [facility] Patient Left Unit Via : Ambulance Patient Accompanied Off Unit with : [facility] Handover Given to Transport Personnel : Yes DC Instructions Provided & Signed by Pt : Yes Patient Understands D/C Instructions : Yes Patient Instructions Discharge Signed : Yes Did Pt have Specialty Bed or Wound Vac : No Ursula Astudillo - 10/01/2023 18:40 EDT * Donna Junior MD F: PERFORM Event Display: Discharge/Transfer Note Hospital Authored Date: [id number] Patient: ??YOSEF RICHARDS ? Age:??83 Years?Sex:??Female?:??1940?? Patient Information Discharge Location: W4 Primary Care Physician: Po MD , Lorenver Admit Date/Time: 09/24/23 17:01 Discharge Disposition Discharge Disposition: Alf Facility/Rehab Discharge Diagnosis Constipation (K59.00) Intertrochanteric fracture (S72.143A) Atrial fibrillation (I48.91) Syncope (R55) Normocytic anemia (D64.9) Urinary retention (R33.9) Acute kidney injury (N17.9) Bacteriuria (R82.71) Fall (W19.XXXA) HLD (hyperlipidemia) (E78.5) HTN (hypertension) (I10) Lung nodule (R91.1) Thyroid nodule (E04.1) _ Discharge Medications Acetaminophen (acetaminophen 325 mg oral tablet)?650?Milligram?By Mouth?Every 4 hours?as needed?Temperature Greater than 100.5?Pain , Mild amiODARONE (amiodarone 200 mg oral tablet)?200?Milligram?1?tablet?By Mouth?Daily apixaban (Eliquis 5 mg oral tablet)?1?tab(s)?5?Milligram?By Mouth?2 times a day Atorvastatin (Lipitor 40 mg oral tablet)?1?tab(s)?40?Milligram?By Mouth?Daily Estradiol Topical (estradiol 0.1 mg/g vaginal cream)?1?michelle?Vaginally?Every 14 days Fenofibrate (TriCor 145 mg oral tablet)?1?tab(s)?145?Milligram?By Mouth?Daily Lidocaine Topical (lidocaine 5% topical film)?Topically?Daily NIFEdipine (NIFEdipine (Eqv-Adalat CC) 30 mg oral tablet, extended release)?1?tab(s)?30?Milligram?By Mouth?Daily Oxycodone (oxyCODONE 5 mg oral tablet)?5?Milligram?By Mouth?Every 6 hours?as needed?Pain , Severe Polyethylene Glycol 3350 (MiraLax Powder)?1?pack/packet?17?gram?By Mouth?Daily?Hold for loose stools ? Medications Started Oxycodone (oxyCODONE 5 mg oral tablet)?5?Milligram?By Mouth?Every 6 hours?as needed?Pain , Severe Polyethylene Glycol 3350 (MiraLax Powder)?1?pack/packet?17?gram?By Mouth?Daily?Hold for loose stools Lidocaine Topical (lidocaine 5% topical film)?Topically?Daily Acetaminophen (acetaminophen 325 mg oral tablet)?650?Milligram?By Mouth?Every 4 hours?as needed?Temperature Greater than 100.5?Pain , Mil Medications Discontinued Atenolol (Tenormin 100 mg oral tablet)?1?tab(s)?100?Milligram?By Mouth?Daily Furosemide (furosemide 20 mg oral tablet)?20?Milligram?1?tablet?By Mouth?Every Saturday, Saturday and Saturday Doses Changed None Allergies Allergies ?(Active and Proposed Allergies Only) sulfa drugs? (Severity: Unknown, Onset: Unknown) ?Reactions: Rash ? PCP Follow-Up/Heads-Up Incidental Imaging Findings Requiring Outpatient Follow Up: Aneurysm: There is a 2 mm outpouching arising from the presumed the origin of the right posterior communicating artery suggesting a small aneurysm. Lung nodule (R91.1): 1.6 x 0.6 cm nodular density associated with the scar in the visualized right upper lung posteriorly which is not completely included in this study. Please correlate with CT chest. - PCP follow up outpatient Thyroid nodule (E04.1)- Bilateral thyroid lobes contain multiple nodules with the largest one on the right measuring up to 1.8 cm in size. Further evaluation with thyroid ultrasound is suggested. ?? -Will need to be on outpatient bisphosphonates, vitamin D, and calcium ?? -Patient will need iron supplementation outpatient once off opiates to avoid worsening constipation ?? -Stopped atenolol this admission in the setting of syncope and normotension. Holding Lasix but can be restarted if needed outpatient Future Appointments Saturday 9:40 AM EDT ?? With: Irene [place], Shaila Salvador Where: [facility] [address] [address]- Status: Pending Hospital Course 83-year-old female with a past medical history significant for A-fib on Eliquis, status post TAVR, HTN, HLD presenting for a left impacted intertrochanteric femur fracture in setting of syncope. Now status post intramedullary implant to left femur in 09/24 with no complications. Syncope work up negative with no events on cardiac monitoring and no episodes of dizziness or lightheadedness during hospitalization. Hospital course complicated by mild KATIE which resolved with oral hydration and constipation which improved with scheduled bowel regiment. ?? Intertrochanteric fracture (S72.143A): ??Patient has a impacted intertrochanteric fracture on the left side. She is postop day #6 from intramedullary implant to left femur. ? Recommendations ?- Tylenol 650 mg PO Q4H PRN ?- Lidocaine patch ?- Oxycodone 5 mg PO Q6H PRN ?- Scheduled Bowel regimen while on pain medications ?- Pt will need to be on outpatient bisphosphonates, vitamin D, and calcium ? - weight bear as tolerated on operative extremity ?- staple removal after 2 weeks - this can be done in rehab or nursing facility or by home health care providers or if necessary orthopedic office visit (October 08)? - routine x-rays at 4-6 weeks including pelvis and 2 views left hip ? -??dressings can be exchanged if terribly soiled in first three days, and removed routinely after 7-10 days (October 31-) ? Atrial fibrillation (I48.91): Syncope (R55): Unclear what the cause is of patient's presyncope as patient never really had any episodes of loss of consciousness. Unlikely to be due to hypotension as patient does not endorse any dizziness lightheadedness. Unlikely to be due to neurogenic causes as patient had a witnessed fall and did not notice any convulsive activity. Could be due to medications that are causing this feeling of fatigue/presyncope episodes. Holter monitor for 3 days showed underlying rhythm and sinus with an average rate of 60 bpm, rare supraventricular ectopy, no significant pauses or AV blocks, weakness in patient diary correlated with sinus bradycardia at 56 bpm. Echo from [facility] showed left ventricular systolic function is normal, the calculated ejection fraction is 60% biplane method, evidence suggests grade 2 moderate diastolic function, a bioprosthetic aortic valve is present, prosthetic aortic valve appearsto be functioning normally, small atrial septal defect versus PFO with [id number]-[id number] shunt. CT angio head/neck showed No cutoff or high-grade stenosis of the major branches of the intracranial arterie s. There is a 2 mm outpouching arising from the presumed the origin of the right posterior communicating artery suggesting a small aneurysm. ? Recommendations ?- Continue Amiodarone 200 mg PO QD ?- Eliquis 5 mg PO BID ? Normocytic anemia (D64.9): ??Most likely in the setting of blood loss from surgery. Hgb 6.7 on morning of 09/27. S/P 1U PRBC. Iron level 18, TIBC 246, % sat 7%, Ferritin 238. ? Recommendations ?- Monitor CBC ?- Patient will need iron supplementation outpatient once off opiates to avoid worsening constipation ? Urinary retention (R33.9): -resolved Acute kidney injury (N17.9): - resolved Bacteriuria (R82.71): Urine culture growing E coli. S/p 3 day course of CTX. [place] removed and not retaining ? Chronic Medical Conditions HLD (hyperlipidemia) (E78.5): Continue home atorvastatin HTN (hypertension) (I10): Continue Nifedipine 30mg daily. DC atenolol on discharge, will continue to hold home furosemide and restart as needed outpatient ?? Incidental Imaging Findings Requiring Outpatient Follow Up: Aneurysm: There is a 2 mm outpouching arising from the presumed the origin of the right posterior communicating artery suggesting a small aneurysm. Lung nodule (R91.1): 1.6 x 0.6 cm nodular density associated with the scar in the visualized right upper lung posteriorly which is not completely included in this study. Please correlate with CT chest. - PCP follow up outpatient Thyroid nodule (E04.1)- Bilateral thyroid lobes contain multiple nodules with the largest one on the right measuring up to 1.8 cm in size. Further evaluation with thyroid ultrasound is suggested. ? Objective Vital Signs?? Temperature: 98.7 DegF (10/01/23 11:00:00) Temperature Route: Oral (10/01/23 11:00:00) Pulse Rate: 77 bpm (10/01/23 11:00:00) Respiratory Rate: 18 br/min (10/01/23 11:00:00) Systolic Blood Pressure: 136 mm Hg (10/01/23 11:00:00) Diastolic Blood Pressure:??43 mm Hg??Low (10/01/23 11:00:00) Blood pressure sites: Arm, left (10/01/23 11:00:00) Mean Arterial Pressure: 86 mm Hg (10/01/23 07:26:00) Pulse Pressure: 102 mm Hg (10/01/23 07:26:00) Oxygen Saturation: 100 % (10/01/23 11:00:00) Mode of Delivery (Oxygen): Room air (10/01/23 11:00:00) Early Warning Score: 0 (10/01/23 11:02:01) ? . Physical Exam General:??No acute distress, well-nourished HEENT:??Moist mucus membranes, PERRL, no nystagmus, no scleral icterus,??bruising on the left side of the face?? Respiratory:??Clear to auscultation bilaterally, no increased work of breathing, no wheezes/crackles, good aeration to lung bases Cardiovascular:??Normal rate, regular rhythm, no murmurs, peripheral pulses intact Abdomen:??Normal active bowel sounds, soft, non-tender, non-distended, no hepatosplenomegaly Musculoskeletal:??No LE edema Neurologic:??Alert & Oriented??X3,??No focal neurologic deficits Skin:??Warm and dry, No rashes ecchymosis on left??face and??upper??extremities?? Psychiatric:??Normal mood/affect, normal cognition, normal judgement Surgical Procedures Intramedullary Nailing Femur Intermedull 09/25/2023 17:34 Consultants Orthopedic surgery Pending Results None Patient Education Titles [employer] Patient Education - Discharge Instructions for Hip Fracture Surgery?? [employer] Patient Education - After a Hip Fracture: Common Questions?? [employer] Patient Education - Understanding Hip Fractures?? [employer] Patient Education - Depression?? Follow-Up Appointments Added Follow Up ?Time Frame ?Comments Shelbi Infante MD?1-2 day: call to discuss follow up visit?Please call your primary care doctor when you are discharged from the rehab facility??to scheduled a follow up appointment?? Patient Instructions ??You came into the hospital because of??a fall and loss of consciousness. You were found to have aleft hip fracture which was corrected with surgery. We monitored your vital signs and your heart rhythm and did not find any cause for your fall. You will be going to rehab to work on physical therapy to get stronger before going home.? Please call your primary care doctor after you are discharged to schedule a follow up appointment and to discuss your hospitalization. We recommend obtaining Basic Metabolic Panel in 1 week from discharge (10/07) to assess kidney??function.? Postoperative protocol per orthopedic surgery:?? 1) weight bear as tolerated on operative extremity 2) staple removal after 2 weeks - this can be done in rehab or nursing facility or by home health care providers or if necessary orthopedic office visit (October 08)?? 3) routine x-rays at 4-6 weeks including pelvis and 2 views left hip 4) dressings can be exchanged if terribly soiled in first three days, and removed routinely after 7-10 days (October 31-) Home Health Face to Face ^HomeHealth[facility]F Results Discharge Labs BACTERIOLOGY Urine Culture Results Final report (Abnormal)?? 09/25/2023 09:00 ? BLOOD BANK Blood Type O Positive ()?? 09/28/2023 05:07 Antibody Screen Negative ()?? 09/28/2023 05:07 RBC Unit ID [id number] ()?? 09/28/2023 05:20 RBC Available PT ()?? 09/28/2023 05:20 ?? BLOOD COUNT & DIFF WBC 8.3 k/mm3 ()?? 10/01/2023 05:14 RBC 2.90 m/mm3 (Low)?? 10/01/2023 05:14 Hgb 8.7 Gm/dL (Low)?? 10/01/2023 05:14 Hct 27.4 % (Low)?? 10/01/2023 05:14 MCV 94.5 femtoliters ()?? 10/01/2023 05:14 MCH 30.0 pg ()?? 10/01/2023 05:14 MCHC 31.8 g/dL (Low)?? 10/01/2023 05:14 Platelet Count 273 k/mm3 ()?? 10/01/2023 05:14 RDW-SD 53.5 femtoliters (High)?? 10/01/2023 05:14 MPV 9.6 femtoliters ()?? 10/01/2023 05:14 Nucleated RBC (Automated) 0.0 #/100 WBC'S ()?? 10/01/2023 05:14 Abs. NRBC 0.0 k/mm3 ()?? 10/01/2023 05:14 Abs. Neut 7.9 k/mm3 (High)?? 09/24/2023 12:05 Abs. Lymph 0.7 k/mm3 (Low)?? 09/24/2023 12:05 Abs. [place] 0.6 k/mm3 ()?? 09/24/2023 12:05 Abs. Eo 0.1 k/mm3 ()?? 09/24/2023 12:05 Abs. Baso 0.1 k/mm3 ()?? 09/24/2023 12:05 Neut % 83.7 % (High)?? 09/24/2023 12:05 Lymph % 7.6 % (Low)?? 09/24/2023 12:05 [place] % 6.3 % ()?? 09/24/2023 12:05 Eos % 0.8 % ()?? 09/24/2023 12:05 Baso % 0.6 % ()?? 09/24/2023 12:05 Retic Count 2.2 % (High)?? 09/27/2023 05:50 Retic Count Corrected 1.1 % ()?? 09/27/2023 05:50 Retic Production Index 0.6 % (Low)?? 09/27/2023 05:50 Imm Gran 1.0 % ()?? 09/24/2023 12:05 Abs. Imm Gran 0.1 k/mm3 ()?? 09/24/2023 12:05 ? CARDIAC Nt-Probnp 1852 pg/mL (High)?? 09/24/2023 12:05 High Sensitivity Troponin (HSTnT) 16 ng/L (High)?? 09/25/2023 05:01 ?? CHEM GENERAL Sodium 137 mmol/L ()?? 10/01/2023 05:14 Potassium 4.8 mmol/L ()?? 10/01/2023 05:14 Chloride 105 mmol/L ()?? 10/01/2023 05:14 Bicarbonate Level 23 mmol/L ()?? 10/01/2023 05:14 Anion Gap 9 ()?? 10/01/2023 05:14 Glucose Level 141 mg/dL (High)?? 10/01/2023 05:14 Glucose, POC 96 mg/dL ()?? 09/30/2023 11:26 BUN 29 mg/dL (High)?? 10/01/2023 05:14 Creatinine-Blood 1.1 mg/dL (High)?? 10/01/2023 05:14 Estimated GFR Creatinine 51 ML/MIN/1.73 M2 ()?? 10/01/2023 05:14 Calcium 8.6 mg/dL ()?? 10/01/2023 05:14 Magnesium 2.3 mg/dL ()?? 09/24/2023 12:05 Protein, Total 6.4 Gm/dL ()?? 09/24/2023 12:05 Albumin 4.4 Gm/dL ()?? 09/24/2023 12:05 AG Ratio 2.2 ()?? 09/24/2023 12:05 Alkaline Phosphatase 66 units/L ()?? 09/24/2023 12:05 AST (SGOT) 31 units/L ()?? 09/24/2023 12:05 ALT (SGPT) 28 units/L ()?? 09/24/2023 12:05 Bilirubin, Total 0.4 mg/dL ()?? 09/24/2023 12:05 Iron Level 18 mcg/dL (Low)?? 09/27/2023 05:50 Iron Binding Capacity, Unsaturated 228 mcg/dL ()?? 09/27/2023 05:50 Iron Binding Capacity, Estimated Total 246 mcg/dL ()?? 09/27/2023 05:50 % Iron Saturation 7 % (Low)?? 09/27/2023 05:50 Ferritin Level 238 ng/mL ()?? 09/27/2023 05:50 ?? COAG INR 1.2 (High)?? 09/24/2023 12:05 Protime (PT) 12.4 seconds (High)?? 09/24/2023 12:05 APTT 26.8 seconds ()?? 09/24/2023 12:05 ? ENDOCRINE/TUMOR MARKER TSH 1.84 uIU/mL ()?? 09/24/2023 12:05 ? HEME OTHER Hold Lavender Top SPECIMEN DISCARDED AFTER 24 HOURS. ()?? 09/25/2023 01:33 Hold Blue Top SPECIMEN DISCARDED AFTER 4 HOURS. ()?? 09/24/2023 12:05 ?? IMMUNOLOGY GENERAL Transferrin 189 mg/dL (Low)?? 09/27/2023 05:50 ? MISC. CHEMISTRY 25 OH-Vitamin D Level 14.4 ng/mL (Low)?? 09/28/2023 05:43 Hold Gel Top SPECIMEN DISCARDED AFTER 1 WEEK ()?? 09/28/2023 05:43 ?? UA/URINALYSIS Appear/Color, Urine LIGHT YELLOW ()?? 09/25/2023 09:00 Specific [place], Urine 1.021 ()?? 09/25/2023 09:00 pH, Urine 6.5 ()?? 09/25/2023 09:00 Albumin, Urine TRACE (Abnormal)?? 09/25/2023 09:00 Glucose, Urine NEGATIVE ()?? 09/25/2023 09:00 Ketones, Urine NEGATIVE ()?? 09/25/2023 09:00 Bilirubin, Urine NEGATIVE ()?? 09/25/2023 09:00 Hemoglobin, Urine 1+ (Abnormal)?? 09/25/2023 09:00 Nitrite, Urine NEGATIVE ()?? 09/25/2023 09:00 Leukocyte, Urine 3+ (Abnormal)?? 09/25/2023 09:00 Urobilinogen NORMAL mg/dL ()?? 09/25/2023 09:00 WBC's, Urine 25 /HPF (High)?? 09/25/2023 09:00 RBC's, Urine 4 /HPF (High)?? 09/25/2023 09:00 Bacteria HEAVY HPF (Abnormal)?? 09/25/2023 09:00 Squamous Epith 1 /HPF ()?? 09/25/2023 09:00 WBC Clumps SLIGHT /HPF ()?? 09/25/2023 09:00 Hold Urine Culture Testing available 48 hours from time of collection. ()?? 09/25/2023 09:00 ? URINE OTHER Est Creatinine Clearance 31.48 mL/min ()?? 10/01/2023 06:47 Urine Culture Specimen Source URINE ()?? 09/25/2023 09:00 Urine Culture Isolate 1 Klebsiella pneumoniae (Abnormal)?? 09/25/2023 09:00 Urine Cult Antimicrobial Susceptibility Comment ()?? 09/25/2023 09:00 ? Imaging(s) ?CT Head/Brain W/O Contrast ?? 09/24/2023 13:08??by Margot DUNLAP, Jon ?Reason For Exam Trauma ?? RESULT: CT Head/Brain W/O Contrast CT Head/Brain W/O Contrast, CT Cervical Spine W/O Contrast, CT Maxillofacial W/O Contrast ?? INDICATION: Hx of Present Illness: FALL; Reason: Trauma; Clinical Question(s): Hematoma ?? TECHNIQUE: Noncontrast head CT using axial technique was reconstructed in axial and coronal planes.Noncontrast spiral CT through the facial bones and cervical spine was formatted in 3 planes. Automatic tube modulation was used for the cervical spine and iterative dose reconstruction was used for the head, face, and cervical spine to optimize scan parameters and image quality. ? CTDIvol Body: 9.90 mGy, DLP Body: 342 mGy*cm. CTDIvol Head: 41.00 mGy, DLP Head: 672 mGy*cm. ? COMPARISON: None. ?? FINDINGS: ?? 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 ?? BRAIN AND EXTRA-AXIAL SPACES: No parenchymal hemorrhage, midline shift, or mass effect. Henderson-white matter differentiation is wellpreserved. No acute infarct. Old left basal ganglia lacunar infarct. Bilateral basal ganglia mineralization. ?? Ventricles, sulci, and basilar cisterns are normal. ?? Mild low-density white matter changes. ?? No subarachnoid hemorrhage. No subdural or epidural collection. ?? CALVARIUM, SKULL BASE, AND SOFT TISSUES: No fractures or suspicious bony lesions. ?? Small retention cyst within the left maxillary sinus. The remaining paranasal sinuses and mastoid air cells are clear. ?? Visualized orbits and globes are intact. ?? The extracranial soft tissues are unremarkable. ?? MAXILLOFACIAL: Facial soft tissues: No hematoma or swelling. ?? Nasal bones: No fracture. ?? Orbits and orbital amin: No fracture of the orbital amin. No intraorbital hematoma. ?? Maxilla and alveolus: No fracture. ?? Pterygoid plates: No fracture. ?? Visualized parapharyngeal spaces: Symmetric without suspicious or acute abnormality. ?? Zygomatic arches: No fracture. ?? Mandible: The portions included on the exam are normal. No fracture or dislocation. ?? CERVICAL SPINE: No fracture. No acute osseous abnormalities. ?? Normal alignment. No locked or perched facet. Moderate multilevel degenerative disc space narrowingand end plate irregularity. Narrowing of the atlantodens interval. ?? OTHER BONES: No acute abnormality. ?? CERVICAL SOFT TISSUES AND LUNG APICES: Normal soft tissues. Visualized lung apices are clear. 6 mm low-attenuation area within the right thyroid lobe. ?? IMPRESSION: ?? No acute abnormality of the head, face, or cervical spine. ?CT Angio Neck ?? 09/25/2023 08:24??by Sameer Hu MD ?Reason For Exam aneurysm ;Other: ?? RESULT: CT Angio Neck CT Angio Head, CT Angio Neck ?? Reason: aneurysm; Clinical Question(s): Aneurysm; Order Comment: / Aneurysm ?? TECHNIQUE: CT angiogram of the head and neck was performed after bolus administration of intravenous contrast. 100 mL of Omnipaque 300 was administered intravenously. Coronal and sagittal MIP reformatted images were obtained. Additional 3-D images were created on a separate workstation under concurrent supervision by the attending radiologist. All stenoses are measured using NASCET criteria. Weight-based protocol using automatic tube modulation was used to optimize exposure parameters. ?? RADIATION DOSE PARAMETERS: ?? CTDIvol Head: 48.29 mGy, DLP Head: 1177 mGy*cm. ? COMPARISON: Noncontrast CT head performed concurrently. ?? FINDINGS: ?? There is a 3 vessel arch. Mural calcified and noncalcified atherosclerotic plaques are seen along the visualized aortic arch and the supraaortic proximal great neck vessel. No hemodynamically significant stenosis. ?? The right common carotid artery is normal in caliber. The right carotid bulb is normal. The right proximal ICA shows 0% stenosis by NASCET criteria. ?? The left common carotid artery is normal in caliber. The left carotid bulb is normal. Mild mural calcifications are seen at the left proximal internal carotid artery. The left proximal ICA shows 0% stenosis by NASCET criteria. ?? Right vertebral artery: Patent without stenosis. ?? Left vertebral artery: Dominant. Patent without stenosis. ?? Cervical spine: Multiple levels of spondylosis. A mild anterolisthesis seen at C4 over C5-C5 over C6. ?? Soft tissues and lung apices: The visualized upper lungs show diffuse ill- defined groundglass densities suggesting atelectasis. There is a 1.6 x 0.6 cm nodular density associated with the scar in thevisualized right upper lung posteriorly which is not completely included in this study. Please correlate with CT chest. Bilateral thyroid lobes contain multiple nodules with the largest one on the right measuring up to 1.8 cm in size. Further evaluation with thyroid ultrasound is suggested. There is no other abnormality throughout the soft tissue neck. ? [place] of [place]aff[place]: Concurrent CT of head showed no acute pathology. A small cystic area is seen in the left inferior basal ganglia which could represent a prominent perivascular space. Generalized volume loss and bilateral periventricular hypodensities are noted. Status post bilateral lens extractions. ?? Bilateral internal carotid arteries at the skull base have multiple mural calcifications. No definite stenosis is seen. The left posterior communicating artery is visualized. There is a 2 mm outpouching arising from the presumed the origin of the right posterior communicating artery suggesting a small aneurysm. ?? Bilateral ACAs, MCAs and their branches are patent. No stenosis or vessel cut off is seen. No definite aneurysm is noted. ?? Bilateral intracranial vertebral arteries show no definite stenosis. The vertebrobasilar junction is normal. The basilar artery is patent. No stenosis or dissection is seen. There is no basilar tip aneurysm. The P1 segment of left EDGE MOLDER is aplastic. There is a origin of left EDGE MOLDER. Otherwise PCAsand their branches are patent. ?? The superior sagittal sinuses, the straight sinus, bilateral transverse and sigmoid sinuses: Patentwithout dural sinus thrombosis. ?? IMPRESSION: ?? No cutoff or high-grade stenosis of the major branches of the intracranial arteries. There is a 2 mm outpouching arising from the presumed the origin of the right posterior communicating artery suggesting a small aneurysm. ?? The right proximal internal carotid artery show no significant stenosis by NASCET criteria. ?? The left proximal internal carotid artery show no significant stenosis by NASCET criteria. ?? The right cervical vertebral artery shows no significant stenosis. ?? The left cervical vertebral artery shows no significant stenosis. ?? There is a 1.6 x 0.6 cm nodular density associated with the scar in the visualized right upper lungposteriorly which is not completely included in this study. Please correlate with CT chest. ?? Bilateral thyroid lobes contain multiple nodules with the largest one on the right measuring up to 1.8 cm in size. Further evaluation with thyroid ultrasound is suggested. ?? REFERENCE: ?? NASCET Criteria: ?? The degree of internal carotid stenosis is based on NASCET Criteria: ?? Normal: No stenosis ?? Mild: Less than 50% stenosis ?? Moderate: 50-69% stenosis ?? Severe: 70-99% stenosis ?? Total occlusion: No detectable patent lumen. ?CT Cervical Spine W/O Contrast ?? 09/24/2023 13:08??by Margot DUNLAP, Jon Breumen ?Reason For Exam Neck trauma, dangerous injury mechanism;Other: ?? RESULT: CT Cervical Spine W/O Contrast CT Head/Brain W/O Contrast, CT Cervical Spine W/O Contrast, CT Maxillofacial W/O Contrast ?? INDICATION: Hx of Present Illness: FALL; Reason: Trauma; Clinical Question(s): Hematoma ?? TECHNIQUE: Noncontrast head CT using axial technique was reconstructed in axial and coronal planes.Noncontrast spiral CT through the facial bones and cervical spine was formatted in 3 planes. Automatic tube modulation was used for the cervical spine and iterative dose reconstruction was used for the head, face, and cervical spine to optimize scan parameters and image quality. ? CTDIvol Body: 9.90 mGy, DLP Body: 342 mGy*cm. CTDIvol Head: 41.00 mGy, DLP Head: 672 mGy*cm. ? COMPARISON: None. ?? FINDINGS: ?? 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 ?? BRAIN AND EXTRA-AXIAL SPACES: No parenchymal hemorrhage, midline shift, or mass effect. Henderson-white matter differentiation is wellpreserved. No acute infarct. Old left basal ganglia lacunar infarct. Bilateral basal ganglia mineralization. ?? Ventricles, sulci, and basilar cisterns are normal. ?? Mild low-density white matter changes. ?? No subarachnoid hemorrhage. No subdural or epidural collection. ?? CALVARIUM, SKULL BASE, AND SOFT TISSUES: No fractures or suspicious bony lesions. ?? Small retention cyst within the left maxillary sinus. The remaining paranasal sinuses and mastoid air cells are clear. ?? Visualized orbits and globes are intact. ?? The extracranial soft tissues are unremarkable. ?? MAXILLOFACIAL: Facial soft tissues: No hematoma or swelling. ?? Nasal bones: No fracture. ?? Orbits and orbital amin: No fracture of the orbital amin. No intraorbital hematoma. ?? Maxilla and alveolus: No fracture. ?? Pterygoid plates: No fracture. ?? Visualized parapharyngeal spaces: Symmetric without suspicious or acute abnormality. ?? Zygomatic arches: No fracture. ?? Mandible: The portions included on the exam are normal. No fracture or dislocation. ?? CERVICAL SPINE: No fracture. No acute osseous abnormalities. ?? Normal alignment. No locked or perched facet. Moderate multilevel degenerative disc space narrowingand end plate irregularity. Narrowing of the atlantodens interval. ?? OTHER BONES: No acute abnormality. ?? CERVICAL SOFT TISSUES AND LUNG APICES: Normal soft tissues. Visualized lung apices are clear. 6 mm low-attenuation area within the right thyroid lobe. ?? IMPRESSION: ?? No acute abnormality of the head, face, or cervical spine. ?Chest 2 Views Frontal and Lat ?? 09/24/2023 14:43??by Renata DUNLAP, Leonides V ?Reason For Exam Pain;Other: ?? RESULT: Chest 2 Views Frontal and Lat Chest 2 Views Frontal and Lat ?? Hx of Present Illness: FALL; Reason: Pain; Clinical Question(s): Fracture, pneumothorax, pulmonary contusion ?? COMPARISON: Chest x-ray 06/19/2019 ?? FINDINGS: ?? LINES AND TUBES: None. ?? LUNGS AND PLEURA: Clear lungs. Normal pulmonary vascularity. Mildly elevated left hemidiaphragm. No pleural effusion. No pneumothorax. ?? HEART, MEDIASTINUM AND HEATHER: Heart is normal in size. Status post TAVR. Aorta is mildly calcified. ?? BONES AND SOFT TISSUES: No acute abnormality. ?? IMPRESSION: ?? No acute abnormality. ?? I have personally reviewed the images and I agree with this report. ?CT Maxilloface W/O Contrast ?? 09/24/2023 13:08??by Jon Frost MD ?Reason For Exam Trauma ?? RESULT: CT Maxilloface W/O Contrast CT Head/Brain W/O Contrast, CT Cervical Spine W/O Contrast, CT Maxillofacial W/O Contrast ?? INDICATION: Hx of Present Illness: FALL; Reason: Trauma; Clinical Question(s): Hematoma ?? TECHNIQUE: Noncontrast head CT using axial technique was reconstructed in axial and coronal planes.Noncontrast spiral CT through the facial bones and cervical spine was formatted in 3 planes. Automatic tube modulation was used for the cervical spine and iterative dose reconstruction was used for the head, face, and cervical spine to optimize scan parameters and image quality. ? CTDIvol Body: 9.90 mGy, DLP Body: 342 mGy*cm. CTDIvol Head: 41.00 mGy, DLP Head: 672 mGy*cm. ? COMPARISON: None. ?? FINDINGS: ?? 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 ?? BRAIN AND EXTRA-AXIAL SPACES: No parenchymal hemorrhage, midline shift, or mass effect. Henderson-white matter differentiation is wellpreserved. No acute infarct. Old left basal ganglia lacunar infarct. Bilateral basal ganglia mineralization. ?? Ventricles, sulci, and basilar cisterns are normal. ?? Mild low-density white matter changes. ?? No subarachnoid hemorrhage. No subdural or epidural collection. ?? CALVARIUM, SKULL BASE, AND SOFT TISSUES: No fractures or suspicious bony lesions. ?? Small retention cyst within the left maxillary sinus. The remaining paranasal sinuses and mastoid air cells are clear. ?? Visualized orbits and globes are intact. ?? The extracranial soft tissues are unremarkable. ?? MAXILLOFACIAL: Facial soft tissues: No hematoma or swelling. ?? Nasal bones: No fracture. ?? Orbits and orbital amin: No fracture of the orbital amin. No intraorbital hematoma. ?? Maxilla and alveolus: No fracture. ?? Pterygoid plates: No fracture. ?? Visualized parapharyngeal spaces: Symmetric without suspicious or acute abnormality. ?? Zygomatic arches: No fracture. ?? Mandible: The portions included on the exam are normal. No fracture or dislocation. ?? CERVICAL SPINE: No fracture. No acute osseous abnormalities. ?? Normal alignment. No locked or perched facet. Moderate multilevel degenerative disc space narrowingand end plate irregularity. Narrowing of the atlantodens interval. ?? OTHER BONES: No acute abnormality. ?? CERVICAL SOFT TISSUES AND LUNG APICES: Normal soft tissues. Visualized lung apices are clear. 6 mm low-attenuation area within the right thyroid lobe. ?? IMPRESSION: ?? No acute abnormality of the head, face, or cervical spine. ?XR Femur 2 Views Left ?? 09/24/2023 14:43??by Renata DUNLAP, Leonides V ?Reason For Exam with Pain;Trauma ?? RESULT: Femur 2 Views Left Femur 2 Views Left, 2 views ?? Hx of Present Illness: FALL; Reason: Trauma; with Pain; Clinical Question(s): Fracture ?? COMPARISON: None. ?? FINDINGS: ?? Impacted intertrochanteric fracture of the greater trochanter extending into the lesser trochanter. ?? Moderate degenerative changes of the left hip joint with acetabular spurring. Severe joint space narrowing of the left knee at the medial compartment. ?? Moderate vascular calcification. ?? IMPRESSION: ?? Impacted intertrochanteric fracture extending from the greater trochanter into the lesser trochanter. ?? I have personally reviewed the images and I agree with this report. ?XR Hip Comp 2 Views Left ?? 09/25/2023 18:06??by Dominga DUNLAP, [facility] ?Reason For Exam Left Hip FX ORIF ?? RESULT: Hip Comp 2 Views Left Hip Comp 2 Views Left ?? Reason: ORIF Left Hip. ?? COMPARISON: 09/24/2023. ?? FINDINGS: ?? 4 fluoroscopic spot views labeled left for ongoing left proximal femoral nail insertion. Please see procedural report for further information. ?? IMPRESSION: ?? As above. ? Donna Junior MD [facility]- PGY2 Pager #[phone] ?? Patient was discussed with ??Rudy ?? 30??minutes spent on discharge * Clare Grant DO: PERFORM Event Display: Discharge/Transfer Note Hospital Authored Date: [id number] Attending Attestation: I have seen and evaluated this patient.?? I have discussed the case and its management with the resident and agree with the findings and plan as documented in the resident???s note. * Gauri Gonzalez RN: PERFORM, SIGN, VERIFY Event Display: Case Management Discharge Plan Authored Date: Patient: YOSEF RICHARDS Age: 83 years Sex: Female : 1940 Associated Diagnoses: None Author: Gauri Gonzalez RN Discharge Plan Case Management Discharge Plan : Case Management Discharge Plan Data 10/01/2023 15:21 EDT Discharge Level of Care at Discharge Short-term Acute Inpatient Discharge Nursing Homes/Rehab Facilities [facility] Discharge Transportation Arranged [facility] [address] [place] [id number] [phone] Discharge Arranged Transport Date/Time 10/01/2023 18:00 Mode of Transportation Arranged Ambulance Service Categories #1 Occupational Therapy, Physical Therapy, Alf * Ursula Astudillo: PERFORM Event Display: Patient Education/Instruction Authored Date: [id number] Inpatient Adult Discharge Instructions. [address] [address] Name: YOSEF RICHARDS : 1940?? Visit: 09/24/2023 17:01?? Current Date: 10/01/2023 17:43 ?? Account: [id number]?? Inpatient Adult Discharge Instructions We would like to thank you for allowing us to assist you with your healthcare needs. The following includes patient education materials and information regarding your injury/illness. Our entire staffstrives to provide an excellent experience for our patients and their families. PLEASE ENSURE YOU FOLLOW-UP PER THE INSTRUCTIONS BELOW! ?? YOUR OPINION IS IMPORTANT TO US! Please complete the survey you may receive by mail or email. Your feedback will be used to make improvements to the healthcare experiences of our patients and their families. Surveys are administered by [employer] ?? If further treatment with your primary care physician or another doctor is recommended, it is important for you to keep the appointment. Call your primary care physician or return to the Emergency Department immediately if your condition worsens, fails to improve, or new symptoms develop. If you need to find a doctor, you can call [facility] for a referral at [phone] or toll free at [phone]) or log in to [email or web address].. ?? [facility], in keeping with [facility] guidance, no longer requires face masks for staff, patientsor visitors in most situations. Similiar to time spent indoors at other locations, there is the chance that you were exposed to repiratory viruses during your time with us (such as flu or COVID-19). If you develop symptoms concerning for a viral respiratory infection, please seek testing (and treatment if indicated) from your medical provider or home test kit. ?? You can view and manage your care through the patient portal or by using a health care michelle of your choosing. [employer] is a website that allows you to securely view your medical information including your hospital discharge summary, office visit summaries, medications and follow-up visits. You can also request appointments, renew medications, and request access to your medical information using a health care michelle of your choosing, or just ask a question. You can enroll at [email or web address] or register during your next office visit. You have been discharged from [facility], Patient Care Unit: W4??. If you have any questions regarding these instructions, including results of studies pending, afteryou leave, please call us and we will be happy to assist you 31/12. [facility] Your Care Team Attending Physician Clare Grant DO?? Consulting Providers Clare Grant DO?? Discharging Providers Clare Grant DO Reason for Your Visit Patient coming from home after falling. Patient got dizzy and fell when walkign to the living room.patient has swelling above left eyebrow. on thinners. 10/10 left hip and leg pain. positive CMS. Patient has not been feeling well for the last month, weak?? Your Diagnosis Acute kidney injury Atrial fibrillation Bacteriuria Constipation General medical HLD (hyperlipidemia) HTN (hypertension) Lung nodule Normocytic anemia Thyroid nodule Urinary retention Tests Performed Below is a partial list of the tests performed during your hospitalization. You may have had other tests and procedures not included in this list. Please discuss all test results with your provider. 25OH VITAMIN D Basic Metabolic Panel CBC CBC w/ Differential Comprehensive Metabolic Panel FERRITIN GLUCOSE POC Hold Blue Top Tube HOLD GEL TUBE HOLD LAVENDER TUBE INR IRON & TIBC Magnesium Level ProBNP PTT RETICULOCYTE COUNT TRANSFERRIN Troponin T, High Sensitivity TSH with T4 Reflex (Adults Only) Type and Screen Urinalysis w/hold for Urine Culture Urine Culture Result Urine Culture, Routine CT Angio Head CT Angio Neck CT Cervical Spine W/O Contrast CT Head/Brain W/O Contrast CT Maxilloface W/O Contrast XR C-Arm < 1 Hour XR Chest 2 Views Frontal and Lat XR Femur 2 Views Left XR Hip Comp 2 Views Left Add On Lab Order?? Hold Lavender Tube (BB)?? Transfuse RBCs?? Primary Care Provider Shelbi Infante MD? Advance Directive Health Care Proxy on File Yes - Health Care Proxy Discharge Vitals Temperature: 98.7 DegF Height: 158 cm Pulse Rate:??98 bpm??High Weight: 60.8 kg Respiratory Rate: 18 br/min Body Mass Index: 24.36 kg/m2 Systolic Blood Pressure:??160 mm Hg??High Body surface area: 1.63 Diastolic Blood Pressure:??50 mm Hg??Low ?? Oxygen Saturation: 99 % ?? Studies Pending All studies ordered during this hospital stay have been completed unless listed below. Please discuss all pending results with your provider listed above in these instructions. ?? Add On Lab Order?? Hold Lavender Tube (BB)?? Transfuse RBCs?? What to do next Instructions From Your Doctor ??You came into the hospital because of??a fall and loss of consciousness. You were found to have aleft hip fracture which was corrected with surgery. We monitored your vital signs and your heart rhythm and did not find any cause for your fall. You will be going to rehab to work on physical therapy to get stronger before going home.? Please call your primary care doctor after you are discharged to schedule a follow up appointment and to discuss your hospitalization. We recommend obtaining Basic Metabolic Panel in 1 week from discharge (10/07) to assess kidney??function.? Postoperative protocol per orthopedic surgery:?? 1) weight bear as tolerated on operative extremity 2) staple removal after 2 weeks - this can be done in rehab or nursing facility or by home health care providers or if necessary orthopedic office visit (October 08)?? 3) routine x-rays at 4-6 weeks including pelvis and 2 views left hip 4) dressings can be exchanged if terribly soiled in first three days, and removed routinely after 7-10 days (October 31) ?? Orders? 10/01/23 15:17:00 EDT?? Scheduled Follow-Up Appointments Saturday 9:40 AM EDT ?? With: Irene [place], Shaila Slavador Where: [facility] [address] [place] [address]- Status: Pending You Need to Schedule the Following Appointments Follow Up with??Shelbi Infante MD When:??Within 1-2 day: call to discuss follow up visit Why: Please call your primary care doctor when you are discharged from the rehab facility??to scheduled a follow up appointment?? Where: [address] [place] [address] [facility] (1) Discharge Medications YOSEF RICHARDS :1940 Visit Date:09/24/2023 Medications: Please continue your medications until treatment is completed or stopped by your provider. Medications not listed below should be discontinued. Discuss any questions related to medications with your provider. What How Much When Instructions Next Dose New Acetaminophen (acetaminophen 325 mg oral tablet) 650 Milligram Oral Every 4 hours as needed for Pain , Mild Temperature Greater than 100.5 ?? as needed New Lidocaine Topical (lidocaine 5% topical film) Topically Daily 10/01 New Oxycodone (oxyCODONE 5 mg oral tablet) 5 Milligram Oral Every 6 hours as needed for Pain , Severe as needed New Polyethylene Glycol 3350 (MiraLax Powder) 17 gram Oral Daily Hold for loose stools ?? 10/01 New Remove Patch Unchanged amiODARONE (amiodarone 200 mg oral tablet) 1 tab(s) Oral Daily 10/01 Unchanged apixaban (Eliquis 5 mg oral tablet) 1 tab(s) Oral Twice a day Saturday 09/30 PM Unchanged Atorvastatin (Lipitor 40 mg oral tablet) 1 tab(s) Oral Daily 10/01 Unchanged Estradiol Topical (estradiol 0.1 mg/ g vaginal cream) 1 michelle Vaginally Every 14 days resume previous schedule prior to admission Unchanged Fenofibrate (TriCor 145 mg oral tablet) 1 tab(s) Oral Daily 10/01 Unchanged NIFEdipine (NIFEdipine (Eqv-Adalat CC) 30 mg oral tablet, extended release) 1 tab(s) Oral Daily 10/01 ?? What How Much When Comments Stop Taking Atenolol (Tenormin 100 mg oral tablet) 1 tab(s) Oral Daily Stop Taking Furosemide (furosemide 20 mg oral tablet) 1 tab(s) Oral Saturday, Saturday and Saturday Prescription Given During Visit No new medications prescribed at time of discharge.?? Laboratory Results Below is a partial list of the most recent Laboratory test results done prior to this discharge. You may have had other tests and procedures not included in this list. Please discuss all test resultswith your provider. Est Creatinine Clearance - 31.48 mL/min (10/01/2023) RBC Available - PT (09/28/2023) RBC Unit ID - [id number] (09/28/2023) 25OH VITAMIN D (09/28/2023) ???25 OH-Vitamin D Level - 14.4 ng/mL Basic Metabolic Panel (10/01/2023) ???Sodium - 137 mmol/L???Potassium - 4.8 mmol/L???Chloride - 105 mmol/L???Bicarbonate Level - 23 mmol/L???Anion Gap - 9???Glucose Level - 141 mg/dL???BUN - 29 mg/dL???Creatinine-Blood - 1.1 mg/dL???Estimated GFR Creatinine - 51 ML/MIN/1.73 M2???Calcium - 8.6 mg/dL CBC (10/01/2023) ???WBC - 8.3 k/mm3???RBC - 2.90 m/mm3???Hgb - 8.7 Gm/dL???Hct - 27.4 %???MCV - 94.5 femtoliters???MCH - 30.0 pg???MCHC - 31.8 g/dL???Platelet Count - 273 k/mm3???RDW-SD - 53.5 femtoliters???MPV - 9.6femtoliters???Nucleated RBC (Automated) - 0.0 #/100 WBC'S???Abs. NRBC - 0.0 k/mm3 CBC w/ Differential (09/24/2023) ???WBC - 9.5 k/mm3???RBC - 3.79 m/mm3???Hgb - 11.4 Gm/dL???Hct - 36.2 %???MCV - 95.5 femtoliters???MCH - 30.1 pg???MCHC - 31.5 g/dL???Platelet Count - 212 k/mm3???RDW-SD - 50.8 femtoliters???MPV - 9.9 femtoliters???Nucleated RBC (Automated) - 0.0 #/100 WBC'S???Abs. NRBC - 0.0 k/mm3???Abs. Neut - 7.9 k/mm3???Abs. Lymph - 0.7 k/mm3???Abs. [place] - 0.6 k/mm3???Abs. Eo - 0.1 k/mm3???Abs. Baso - 0.1 k/mm3???Neut % - 83.7 %???Lymph % - 7.6 %???[place] % - 6.3 %???Eos % - 0.8 %???Baso % - 0.6 %???Imm Gran - 1.0 %???Abs. Imm Gran - 0.1 k/mm3 Comprehensive Metabolic Panel (09/24/2023) ???Sodium - 141 mmol/L???Potassium - 4.5 mmol/L???Chloride - 107 mmol/L???Bicarbonate Level - 23 mmol/L???Anion Gap - 11???Glucose Level - 103 mg/dL???BUN - 30 mg/dL???Creatinine-Blood - 1.3 mg/dL???Estimated GFR Creatinine - 41 ML/MIN/1.73 M2???Calcium - 9.4 mg/dL???Protein, Total - 6.4 Gm/dL???Albumin - 4.4 Gm/dL???AG Ratio - 2.2???Alkaline Phosphatase - 66 units/L???AST (SGOT) - 31 units/L???ALT (SGPT) - 28 units/L???Bilirubin, Total - 0.4 mg/dL FERRITIN (09/27/2023) ???Ferritin Level - 238 ng/mL GLUCOSE POC (09/30/2023) ???Glucose, POC - 96 mg/dL Hold Blue Top Tube (09/24/2023) ???Hold Blue Top - SPECIMEN DISCARDED AFTER 4 HOURS. HOLD GEL TUBE (09/28/2023) ???Hold Gel Top - SPECIMEN DISCARDED AFTER 1 WEEK HOLD LAVENDER TUBE (09/25/2023) ???Hold Lavender Top - SPECIMEN DISCARDED AFTER 24 HOURS. INR (09/24/2023) ???INR - 1.2???Protime (PT) - 12.4 seconds IRON & TIBC (09/27/2023) ???Iron Level - 18 mcg/dL???Iron Binding Capacity, Unsaturated - 228 mcg/dL???Iron Binding Capacity, Estimated Total - 246 mcg/dL???% Iron Saturation - 7 % Magnesium Level (09/24/2023) ???Magnesium - 2.3 mg/dL ProBNP (09/24/2023) ???Nt-Probnp - 1852 pg/mL PTT (09/24/2023) ???APTT - 26.8 seconds RETICULOCYTE COUNT (09/27/2023) ???Retic Count - 2.2 %???Retic Count Corrected - 1.1 %???Retic Production Index - 0.6 % TRANSFERRIN (09/27/2023) ???Transferrin - 189 mg/dL Troponin T, High Sensitivity (09/25/2023) ???High Sensitivity Troponin (HSTnT) - 16 ng/L TSH with T4 Reflex (Adults Only) (09/24/2023) ???TSH - 1.84 uIU/mL Type and Screen (09/28/2023) ???Blood Type - O Positive???Antibody Screen - Negative Urinalysis w/hold for Urine Culture (09/25/2023) ???Appear/Color, Urine - LIGHT YELLOW???Specific [place], Urine - 1.021???pH, Urine - 6.5???Albumin, Urine - TRACE???Glucose, Urine - NEGATIVE???Ketones, Urine - NEGATIVE???Bilirubin, Urine - NEGATIVE???Hemoglobin, Urine - 1+???Nitrite, Urine - NEGATIVE???Leukocyte, Urine - 3+???Urobilinogen - TELLY L???WBC's, Urine - 25 /HPF???RBC's, Urine - 4 /HPF???Bacteria - HEAVY???Squamous Epith - 1 /HPF???WBC Clumps - SLIGHT???Hold Urine Culture - Testing available 48 hours from time of collection. Urine Culture Result (09/25/2023) ???Urine Culture Isolate 1 - Klebsiella pneumoniae???Urine Cult Antimicrobial Susceptibility - Comment Urine Culture, Routine (09/25/2023) ???Urine Culture Results - Final report???Urine Culture Specimen Source - URINE Allergies (NKA means No Known Allergies) sulfa drugs??(Rash) Problems Active Problems??(8) Aortic stenosis?? Cystocele, midline?? AGUIAR (dyspnea on exertion)?? High cholesterol?? Hypertension?? Rectocele?? Stress incontinence?? Vaginal vault prolapse after hysterectomy?? Education Materials Below is the list of Educational Leaflet Providered with your Discharge Instructions. [employer] Patient Education - Discharge Instructions for Hip Fracture Surgery?? [employer] Patient Education - After a Hip Fracture: Common Questions?? [employer] Patient Education - Understanding Hip Fractures?? [employer] Patient Education - Depression?? Valuables and Belongings I fully understand and agree that [facility] accepts no responsibility for all my personal property including clothing, toilet articles, radios, jewelry, dentures, hearing aids, rings, money, or any other property that is in my possession or is brought to me after admission. I understand certain valuables may be placed in a hospital safe for a short period of time. I understand that the hospital is not liable for loss or damage due to accident, fire, or other natural occurrence while said property is in the safe. I accept full responsibility for any personal property that I keep with me, and will not hold the hospital responsible in case of loss or disappearance. I acknowledge that i have been encouraged to send valuables and belongings home. ?? Review of Valuable and Belonging List: With patient Date for Pt to Sign Valuables/Belongings: 09/28/23 06:54:00 ?? Other Discharge Information ? Case Management Discharge Plan?? Discharge Plan?? Discharge Agency Information?? Discharge Level of Care at Discharge: Short-term Acute Inpatient Service Categories #1: Occupational Therapy, Physical Therapy, Alf Discharge Transportation Arranged: [facility] [address] [facility] [address] [phone] ?? Mode of Transportation Arranged: Ambulance ?? Discharge Arranged Transport Date/Time: 10/01/23 18:00:00 ?? Discharge Nursing Homes/Rehab Facilities: [facility] ??[place] ? Pulmonary Rehab Status?? Pulmonary Rehab Discharge Status?? Respiratory Rate: 18 br/min ? Common Emergency Awareness Tips IS IT A STROKE? Act FAST and Check for these signs: FACE Does the face look uneven? ARM Does one arm drift down? SPEECH Does their speech sound strange? TIME Call at any sign of stroke ?? Heart Attack Signs Chest discomfort: Most heart attacks involve discomfort in the center of the chest and lasts more than a few minutes, or goes away and comes back. It can feel like uncomfortable pressure, squeezing, fullness or pain. Discomfort in upper body: Symptoms can include pain or discomfort in one or both arms, back, neck, jaw or stomach. Shortness of breath: With or without discomfort. Other signs: Breaking out in a cold sweat, nausea, or lightheaded. Remember, MINUTES DO MATTER. If you experience any of these heart attack warning signs, call to get immediate medical attention! ?? Smoking can increase your chances of developing chronic health problems and can cause harmful effects to other family members in your house. If you smoke, you are strongly encouraged to quit. Please call [facility] at [phone] or [phone] ([phone]) or log in to [email or web address] for referrals to smoking cessation programs. ?? 988 Suicide & Crisis Lifeline is available 31/12 if you or someone you know needs to find a reason to keep living. By calling 248 you'll be connected to a skilled, trained counselor at a crisis center in your area. INPATIENT DISCHARGE INSTRUCTIONS SIGNATURE PAGE YOSEF RICHARDS Location:[facility] Registration Date and Time:09/24/2023 17:01 EDT Primary Care Physician: Shelbi Infante MD, Attending Physician: Clare Grant DO, I YOSEF RICHARDS, have received the above patient education materials/instructions and have verbalized understanding. If ambulance or transport services are being used I further acknowledge being given a choice of service. ?? If you need to contact me, please call me at this number: . Patient/Ground Instructor Advanced Name: Patient/Ground Instructor Advanced Signature: Relationship to Patient: Witness Name/Signature: Date: * Donna Junior MD: PERFORM, SIGN, VERIFY Event Display: Patient Education Handout Authored Date: * Donna Junior MD: PERFORM Event Display: Patient Education Leaflets Authored Date: Discharge Instructions for Hip Fracture Surgery ?? [id number] Discharge Instructions for Hip Fracture Surgery You had surgery to repair a hip fracture.??The type of surgery you??had depends on the location andseverity of the fracture. You may have??pins, screws, or rods (internal fixation devices) holding the fractured bone in place. Or some or all of your hip may have been replaced. You must take care ofyour hip as you recover at home or in a rehabilitation facility. This means moving and sitting the way you were taught in the hospital. You must also see your healthcare provider for follow-up visitsas you slowly return to activity.??Hip repair for fracture or hip replacement is major surgery. So don???t be surprised if it takes a few months before you can move comfortably. Plan to have your family and friends help when you return home. Home care ??? Take your pain medicine exactly as directed. ??? Don???t drive until your healthcare provider says it???s OK. And never drive if you are taking opioid pain medicine. ??? Wear the support stockings you were given in the hospital. Wear them??24??hours??a day for?? 3 to 4??weeks. ??? Make arrangements to have your joycelyn removed around?? 2??weeks after surgery. The joycelyn were used to close the skin incision. ??? Get up and carefully move around to ease pain. ??? If you got an artificial hip joint, tell all your healthcare providers???including your dentist???about the joint before any procedure. You??may need to take antibiotics before dental work and other medical procedures to reduce the risk for infection. ?? Incision care ??? Prevent infection by washing your hands often. If an infection occurs, it will likely need to be treated with antibiotics right away. Call your healthcare provider right away if youthink you may have an infection. Symptoms of infection include a fever, chills, redness, warmth,??or leakage of white, greenish, or yellowish-colored fluid from the incision. ??? Check your incision daily for redness, soreness, or drainage. ??? Don't soak your wound in water until your provider says it???s OK. This means no hot tubs, bathtubs, or swimming pools. ??? Wait?? 7??days after your surgery to begin showering. Then shower as needed. Carefully wash your incision with soap and water. Gently pat it dry. Don???t rub the incision or apply creams or lotions. And sit on a shower stool when you shower to keep from falling. ?? Sitting and sleeping ??? Don???t sit for more than?? 30 to 45 ??minutes at a time. ??? Use chairs with arms and sit with your knees slightly lower than your hips. Don???t sit on low or sagging chairsor couches. ??? Don???t lean forward while sitting. ??? Don???t cross your legs. ??? Keep your feetflat on the floor. Don???t turn your foot or leg inward. This stresses your hip joint. ??? Use a raised toilet seat for?? 6??weeks after surgery. ??? Use pillows between your legs when sleeping on your back or on your healthy side. ??? Sit on a firm cushion when you ride in a car and don't sit too low. Try not to bend your hip too much when getting in and out of the car. ?? Moving safely ??? Don???t bend at the hip when you bend over. Don???t bend at the waist to put on socks and shoes. And don't pick and shovel man items from the floor. ??? Use a cane, crutches, a walker, or handrails until your balance, flexibility, and strength improve. And remember to ask for help from otherswhen you need it. ??? Free up your hands so that you can use them to keep balance. Use a niharika pack, apron, or pockets to carry things. ??? Follow your healthcare provider's orders about how much weight to place on the affected leg. ??? Do all exercises as instructed. ??? Arrange your household to keep the items you need within reach. ??? Remove electrical cords, throw rugs,??and anything else that may cause you to fall. ??? Use nonslip bath mats, grab bars, an elevated toilet seat, and a shower chair in your bathroom. ?? Follow-up Make a follow-up appointment as advised by your healthcare provider. ?? Call 911 Call 911 right away??if you have any of the following: ??? Chest pain ??? Shortness of breath ?? When to call your healthcare provider Call your healthcare provider right away if you have any of the following: ??? Hip pain gets worse ??? Pain or swelling of your calf or leg not related to your incision ??? Soreness or redness in your calf ??? Fever of?? 100.4?? F?? ( 38??C) or higher, or as directed by your healthcare provider ???Shaking chills ??? Swelling or redness at the incision site gets worse ??? Fluid draining from the incision ?? Last Reviewed Date: 2021 ?? 7337-7228 [employer]. All rights reserved. This information is not intended as a substitute for professional medical care. Always follow your healthcare professional's instructions. ?? * Sandi DUNLAP, Donna F: PERFORM Event Display: Patient Education Leaflets Authored Date: [id number] After a Hip Fracture: Common Questions ?? 79617 After a Hip Fracture: Common Questions No one plans on having a hip fracture. But a sudden fall or accident can be a life-changing event. You???ll often need surgery to repair the fracture and time for it to heal. It???s normal to have concerns about what to expect at this time. Below are answers to some common questions. Can I be as active as I was before? After a hip fracture, you may not be able to move around as easily as you did before. But with someeffort and a positive attitude, you can get back to doing many things you enjoy. ?? When will the pain in my hip stop? Your hip will likely be sore for several weeks after surgery. But this pain can be managed with medicine. The pain should also lessen with time and proper exercise.? Why do I need to begin doing exercises right after surgery? Exercise is needed for correct healing. Some exercises help prevent blood clots. Others??build strength to help you get out of bed and get moving. ?? When can I go home? This often depends on your health and how well you can get around. You'll often leave the hospital within 1 week. But you may need to go to a rehabilitation center or nursing home facility??for anadditional 1 or 2 weeks??before returning home. ?? How long before I can use the bathroom on my own? Your catheter is removed once you can move to the bathroom. This is often 1 or 2 days after surgery. A therapist will teach you how to get on and off the toilet safely. ?? When will I walk again? With the help of a physical therapist, you???ll begin learning how to walk again before you leave the hospital. Your healthcare provider may restrict your amount of weight-bearing activities after surgery, depending on the location of the fracture and the surgery type. For several months after yoursurgery, you may need to continue physical therapy and??walking with a cane or walker. ?? Last Reviewed Date: 2023 ?? [employer]. All rights reserved. This information is not intended as a substitute for professional medical care. Always follow your healthcare professional's instructions. ?? * Sandi DUNLAP, Donna F: PERFORM Event Display: Patient Education Leaflets Authored Date: [id number] Understanding Hip Fractures ?? 45912 Understanding Hip Fractures The hip is one of the largest weight-bearing joints in the body. It???s also a common place for a fracture after a fall???especially in older people. Hip fractures are even more likely in people withosteoporosis, a disease that leads to weakened bones. A healthy hip The hip is a mwhj-luz-ijhigq joint where the thighbone (femur) joins the pelvis. When the hip is healthy, you can walk, turn, and move without pain. The head or ball of the femur fits into a socket in the pelvis. The ball and socket are each covered with smooth cartilage. This allows the ball to glide easily in the socket. Blood vessels supply oxygen and nutrients to keep the hip joint healthy. ?? A fractured hip The hip can fracture in many places. Most often, the fracture occurs in the upper part of the femur. In rare cases, you can also have more than one type of fracture at a time: ??? Transcervical fracture.??A break across the neck of the femur, just under the ball. This type of fracture can interrupt blood flow to the joint. ??? Intertrochanteric fracture.??A break down through the top of the femur. ??? Subtrochanteric fracture.??A break across the upper shaft of the femur. ?? Last Reviewed Date: 2023 ?? [employer]. All rights reserved. This information is not intended as a substitute for professional medical care. Always follow your healthcare professional's instructions. ?? * Event Display: Provider Clarification Note Please click on pdf link to open report Consult note * Jose Zayas: PERFORM, MODIFY Event Display: Consultation Note Authored Date: [id number] Patient: ??YOSEF RICHARDS ? Age:??83 Years?Sex:??Female?:??1940?? Chief Complaint/Reason for Consult Left hip pain History of Present Illness Orthopedic consultation was requested by?Mian??in [facility] emergency department under the supervision of Dr. Montoya ?? Yosef is a 83 year old female??with past medical history??of A-fib on Eliquis, aortic stenosisstatus post TAVR, hypertension, hypercholesterolemia??who presented to [facility] emergency department today after having a syncopal episode??and falling??onto her left side.?? Patient states that she hit her face??on a grandfather clock as well as landed onto the left hip. ??Patient immediately began to have pain to both areas and presented to the emergency department??for further evaluation.?? Imaging in the ED showed a left impacted??intertrochanteric??femur fracture.?? Orthopedics was consulted for further recommendations. Review of Systems Denies fevers, chills or sweats. ??Denies shortness of breath and chest pain. ??Denies other injuries or painful joints. Physical Exam Vitals & Measurements T:??98.0?F?? HR:??60??(Peripheral)?? RR:??20?? BP:??138/49?? SpO2:??100%?? HT:??159??cm?? Patient is well-developed and in no acute distress. ??Alert and cooperative with examination. ??Mood and affect appropriate. ??Examined on a stretcher in the emergency department.? HEENT: Large hematoma and edema noted to the left orbit Cardiac: Per ED provider Pulmonary: Per ED provider Abdomen: Soft, nontender, nondistended. ?? Right upper extremity: Full, supple, nonpainful range of motion of shoulder, elbow, wrist and digits. ??No tenderness to palpation. ??Grossly neurovascularly intact radial, median, ulnar nerve distributions. ?? Left upper extremity: Full, supple, nonpainful range of motion of shoulder, elbow, wrist and digits. ??No tenderness to palpation. Grossly neurovascularly intact radial, median, ulnar nerve distributions. ?? Right lower extremity: Full, supple, non-painful range of motion of the hip, knee, foot and ankle. ??No tenderness to palpation. Calf supple and nontender. ??Active dorsiflexion and plantar flexion strength. ??Grossly neurovascularly intact. ?? Left lower extremity:??Examination reveals minimal??external rotation at the hip.?? No shortening is noted as compared to contralateral lower extremity examination. ??Patient is exquisitely tender topalpation about the hip and is unable to tolerate range of motion of same. ??Moderate edema noted about the hip.?? Slight??discomfort about the femur distally. ??No discomfort about the knee, foot orankle. ??Range of motion of the knee is nonpainful but decreased due aggravation of proximal hip pain. ??Patient has active dorsiflexion and plantar flexion strength. ??Palpable DP and PT pulses. ??Grossly intact sensation to light touch. ??Compartments are soft. ??Calf supple and nontender. Assessment/Plan Left intertrochanteric femur fracture ?? Plan: Patient is admitted to the medical service. ??Orthopedics will follow. ??Preoperative medical??optimization is requested. ??Patient will be made n.p.o. after midnight tonight for possible surgery tomorrow. ??Recommend strict nonweightbearing status LLE, elevation, pain control and DVT prophylaxis. Patient is added to the orthopedic trauma surgery OR add on list with plan for surgical fixation once medically??optimized and when OR schedule allows. ??This was discussed with the patient who voiced understanding. ??Questions are asked and answered.? Case discussed with Dr. Workman Problem List/Past Medical History Ongoing Aortic stenosis Cystocele, midline AGUIAR (dyspnea on exertion) High cholesterol Hypertension Rectocele Stress incontinence Vaginal vault prolapse after hysterectomy Procedure/Surgical History Vaginal hysterectomy and anterior repair: 2005 Cataract extraction - right eye TAVR Home Medications amiODARONE: 200 mg = 1 tablet, By Mouth, Daily Amoxicillin: 2,000 mg = 4 capsule, By Mouth, Once, take 30 to 60 minutes prior to dental cleaning and procedures apixaban: 5 mg = 1 tablet, By Mouth, 2 times a day Aspirin: 81 mg = 1 tablet, By Mouth, Daily Atenolol: 100 mg, By Mouth, Daily Atorvastatin: 10 mg = 1 tablet, By Mouth, Daily Estradiol Topical: See Instructions, 1 Gm Vaginally at bedtime twice weekly Fenofibrate: 30 mg = 1 capsule, By Mouth, Daily Furosemide: 20 mg = 1 tablet, By Mouth, Daily NIFEdipine: 30 mg, By Mouth, Daily Allergies sulfa drugs??(Rash) Social History Currently lives at home with her Retired Denies any alcohol use Denies any tobacco use Denies any illicit drug use Family History Denies history of adverse reaction to anesthesia, bleeding dyscrasias, DVT. Radiology 2 view x-ray of the left femur was reviewed by myself which shows a minimally displaced and impacted left intertrochanteric femur fracture.?? There is minimal rotation or angulation noted at this time.?? There is approximately 1 mm of displacement noted on the lesser troches on the AP view.?? Otherwise no significant displacement can be seen.?? The femoral head appears to be articulating well within the acetabulum with no acute dislocations.?? No other acute fractures or dislocations can be seen at this time. Lab Results Labs Last 24 Hours BLOOD COUNT & DIFF ? Event Name?? Event Result?? Date/Time?? WBC 9.5 k/mm3 09/24/23 12:05:00 RBC 3.79 m/mm3??Low 09/24/23 12:05:00 Hgb 11.4 Gm/dL??Low 09/24/23 12:05:00 Hct 36.2 % 09/24/23 12:05:00 MCV 95.5 femtoliters 09/24/23 12:05:00 MCH 30.1 pg 09/24/23 12:05:00 MCHC 31.5 g/dL??Low 09/24/23 12:05:00 Platelet Count 212 k/mm3 09/24/23 12:05:00 MPV 9.9 femtoliters 09/24/23 12:05:00 Nucleated RBC (Automated) 0 #/100 WBC'S 09/24/23 12:05:00 ? COAG ? Event Name?? Event Result?? Date/Time?? INR 1.2??High 09/24/23 12:05:00 Protime (PT) 12.4 seconds??High 09/24/23 12:05:00 APTT 26.8 seconds 09/24/23 12:05:00 ? CHEM GENERAL ? Event Name?? Event Result?? Date/Time?? Sodium 141 mmol/L 09/24/23 12:05:00 Chloride 107 mmol/L 09/24/23 12:05:00 Bicarbonate Level 23 mmol/L 09/24/23 12:05:00 Anion Gap 11 09/24/23 12:05:00 Glucose Level 103 mg/dL??High 09/24/23 12:05:00 BUN 30 mg/dL??High 09/24/23 12:05:00 Creatinine-Blood 1.3 mg/dL??High 09/24/23 12:05:00 Magnesium 2.3 mg/dL 09/24/23 12:05:00 Alkaline Phosphatase 66 units/L 09/24/23 12:05:00 AST (SGOT) 31 units/L 09/24/23 12:05:00 ALT (SGPT) 28 units/L 09/24/23 12:05:00 Bilirubin, Total 0.4 mg/dL 09/24/23 12:05:00 ? Patient Care team information Care Team Personnel Name: Ruchi Hazel RN Position: S RN Member Role: Primary Care Nurse Name: Elidia Soto RN Position: S RN Member Role: Primary Care Nurse Name: Leia Richards NP Position: [facility] Associate Professional Member Role: Primary Care Nurse Address: Address: [address] [place] [id number] [place] Name: Milana Jaquez RN Position: S RN Member Role: Primary Care Nurse Name: Sathish Nguyen RN Position: [facility] RN Member Role: Primary Care Nurse Name: Shelbi Infante MD Position: Reference Physician Member Role: PCP Address: Address: [address] [place] [id number]- [place] Name: Ruby Garza RN Position: [facility] RN Member Role: Primary Care Nurse Name: Ruma Alex RN Position: S RN Member Role: Primary Care Nurse Care Team Related Persons Name: ODALYS RICHARDS Address: home [address] [place] [address]
--- OUTSIDE RECORDS SUMMARY | 2023-11-15 08:52 | XMS_ITS | Continuity of Care Document ---
Author Organization [facility] Address [address] [place] [address]- Care Team Providers Care Parachute Accessories Attacher Name Role Phone Shelbi Infante MD Primary Care Physician [phone] Encounter [facility] Date(s): 05/12/20 - 09/09/20 [facility] [address] [place] [id number]- Attending Physician: Harlan DUNLAP, Ashdelphine Admitting Physician: Luis Claros MD Referring Physician: Shelbi Infante MD Allergies, [...] 06/19/19 10:27:00 EST, [facility], only fill per pt [...] Gm, 3 Refills, Maintenance, 11/12/19 9:56:00 EDT, [id number], 155, cm, 11/12/19 9:33:00 EDT, Height,63, kg, [...]
== END 2023-11-11 15:31 | disposition home or self-care (01) | DRG 281 ==
LOC: HO.ED 11-10 00:26 → HO.EDOVER 11-10 03:02 → HO.IMC 11-10 03:09
PROVIDERS: Physician Assistant; Admitting Provider Internal Medicine; Emergency Provider Emergency Medicine; PCP Internal Medicine; Visit Provider Nurse Practitioner Acute Care
DX: I16.0 Hypertensive urgency (principal); I50.32 Chronic diastolic (congestive) heart failure; I21.A1 Myocardial infarction type 2; I11.0 Hypertensive heart disease with heart failure; I48.0 Paroxysmal atrial fibrillation; E78.5 Hyperlipidemia, unspecified; Z95.2 Presence of prosthetic heart valve; Z92.3 Personal history of irradiation; Z85.118 Personal history of other malignant neoplasm of bronchus and lung; Z79.01 Long term (current) use of anticoagulants; Z79.899 Other long term (current) drug therapy
CPT/HCPCS: 36415; 70450; 71045; 80048; 80053; 80076; 81001; 83735; 83880; 84484; 85025; 93005; 99285; J1920; J2404

== ENCOUNTER → 2023-11-09 16:56 | Outpatient (BNV) | payer MEDICARE, SELFPAY | PROVIDERS: Admitting Provider Internal Medicine; Emergency Provider Emergency Medicine; PCP Internal Medicine; Visit Provider Internal Medicine | DX: I10 Essential (primary) hypertension (principal) | CPT/HCPCS: 93010 ==

== ENCOUNTER → 2023-11-10 02:58 | Outpatient (BNV) | payer MEDICARE, SELFPAY | PROVIDERS: Admitting Provider Internal Medicine; Emergency Provider Emergency Medicine; PCP Internal Medicine; Visit Provider Internal Medicine | DX: I16.1 Hypertensive emergency (principal) | CPT/HCPCS: 99223; 99233 ==

== ENCOUNTER → 2023-11-10 02:58 | Outpatient (BNV) | payer MEDICARE, SELFPAY | PROVIDERS: Admitting Provider Internal Medicine; Emergency Provider Emergency Medicine; PCP Internal Medicine; Visit Provider Internal Medicine | DX: R79.89 Other specified abnormal findings of blood chemistry (principal); I16.0 Hypertensive urgency; I50.32 Chronic diastolic (congestive) heart failure; I48.0 Paroxysmal atrial fibrillation | CPT/HCPCS: 99222; 99239; 99499 ==

== ENCOUNTER 2023-11-15 13:19 | Outpatient (AMB) | payer MEDICARE, SELFPAY ==
[2023-11-15 13:22] VITALS: BP 142/58; PULSE 65; O2SAT 98; BMI 23.2
--- NOTE | 2023-11-15 13:22 | A.OFFPC_ITS ---
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 DOS: 11/10/23 and DOD: 11/11/23 for diagnosis of HTN emergency. H/o uncontrolled HTN, HFpEF, PAF, PVD and HLP. Pt was seen by Cardiology while in the hospital. She has a f/u Appointment with them 02/2024. New medications added: Nifedipine 30 mg Tablet Extended Release 24hr Atenolol 50 mg Tablet Discontinue Lisinopril. [facility] Medical History Osteopenia (HFpEF) heart failure with preserved ejection fraction Paroxysmal atrial fibrillation Atrial fibrillation Hospital discharge follow-up Elevated troponin Varicose vein of leg Pre-operative clearance Varicose veins of left leg with edema Carotid aneurysm, right Intracranial aneurysm Non-small cell cancer of right lung Thyroid nodule Pulmonary nodule Prolapsed bladder Hypercholesterolemia Peripheral vascular disease Diastolic dysfunction HTN (hypertension) Aortic stenosis Surgical History History of cataract surgery S/P TAVR (transcatheter aortic valve replacement) History of lung biopsy Hx of hysterectomy Hx of cardiac cath Hx of tonsillectomy Family History Father Brain tumor Mother Uterine cancer, sarcoma Social History Household Members: Spouse Housing: House Do you presently have visiting nurse or other home services: Yes (Since hip fx this 2023, 1-2 times per week) Alcohol intake: current Alcohol intake frequency: does not drink Alcohol type: wine Patient Tobacco Use Status: Never used Tobacco e-Cigarette/Vaping Use: Never Used Second Hand Smoke Exposure: No Advance Directives Date on File: 10/29/22 service: No Current occupational status: retired Cognitive needs: No Hearing needs: No Vision needs: Yes (glasses) Questionnaire Thrive Questionnaire Date Thrive assessed: 11/10/23 CRISTAL-7 AMB Questionnaire CRISTAL-7 Date CRISTAL - 7 assessed: 07/24/23 Source: Developed by Drs. Steve Kim, Madalyn Vee, Isaac Maza and colleagues, with an educational eddie from [employer] Review of Systems Const All systems reviewed & are unremarkable except as noted in HPI and below Physical exam (Primary Care) Vital Signs: Last Vital Signs Pulse 65 11/15/23 13:22 BP 142/58 H 11/15/23 13:22 Pulse Ox 98 11/15/23 13:22 Oxygen Delivery Method Room Air 11/15/23 13:22 BMI result Body Mass Index 23.2 Tobacco/Smoking Status: Tobacco use Status Tobacco use date assessed 07/24/23 11/15/23 13:23 Patient Tobacco Use Status Never used Tobacco 11/15/23 13:23 e-Cigarette/Vaping Use Never Used 11/15/23 13:23 Thrive Assessment: Date of Thrive Assessment Date Thrive assessed 11/10/23 11/15/23 13:23 Const General: cooperative, comfortable and no acute distress Orientation/consciousness: patient oriented x3 Resp Effort & Inspection: normal respiratory effort Auscultation: clear to auscultation bilaterally, no crackles, no rales, no rhonchi and no wheezes Cardio Rate: regular rate Rhythm: regular rhythm Neuro General: patient oriented x3 and gait normal (Walks with a walker) Psych Speech and movement: Normal speech and movement present Vital Signs: Last Vital Signs Pulse 65 11/15/23 13:22 BP 142/58 H 11/15/23 13:22 Pulse Ox 98 11/15/23 13:22 Oxygen Delivery Method Room Air 11/15/23 13:22 BMI result Body Mass Index 23.2 Const General: cooperative, comfortable and no acute distress Orientation/consciousness: patient oriented x3 Resp Effort & Inspection: normal respiratory effort Auscultation: clear to auscultation bilaterally, no crackles, no rales, no rhonchi and no wheezes Cardio Rate: regular rate Rhythm: regular rhythm Neuro General: patient oriented x3 and gait normal (Walks with a walker) Psych Speech and movement: Normal speech and movement present Assessment and Plan Assessment & Plan (1) Hypertensive urgency: Code(s): I16.0 - Hypertensive urgency Plan: Educated on lifestyle and diet changes. Avoid processed foods, High Sodium foods and oily greasy foods. Low impact exercises like swimming and short walks Weight management Avoid high stress. Obtain enough good sleep. Continue f/u with Cardiology F/U with PCP in the next 3 months or as scheduled. Coding Level of Care Code Est Pt Level 4 (18737) Diagnoses Hypertensive urgency I16.0 Comment Spent 20 minutes reviewing hospital notes
== END 2023-11-15 13:53 | disposition home or self-care (01) ==
PROVIDERS: PCP Internal Medicine; Visit Provider Nurse Practitioner Family
DX: I16.0 Hypertensive urgency (principal)
CPT/HCPCS: 99214

== ENCOUNTER 2024-01-07 09:28 | Outpatient (AMB) | payer MEDICARE, SELFPAY ==
--- NOTE | 2024-01-07 09:31 | MHC.OFFVIS ---
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 Allergies Sulfa (Sulfonamide Antibiotics) [SULFA (SULFONAMIDE ANTIBIOTICS)] Allergy (Mild, Verified 01/07/24 09:34) RASH Medication List - Last Reconciled 01/07/24 by SARITA Vaughn acetaminophen 650 mg PO Q6H PRN amiodarone 100 mg PO DAILY apixaban (Eliquis) 5 mg PO BID 90 days atenolol 50 mg See Protocol PO DAILY atorvastatin 40 mg PO DAILY calcium carbonate-vitamin D3 600 mg-10 mcg (400 unit) (Calcium 600 with Vitamin D3) 1 tab PO BID 90 days estradiol 0.01%(0.1mg/gram) 1 g vaginal 2XW fenofibrate nanocrystallized 145 mg PO DAILY furosemide 20 mg PO DAILY ulrygutlrpkd-ejng-uijan acid 18-400 mg-mcg 1 tab PO DAILY nifedipine ER 30 mg See Protocol PO BEDTIME oxycodone 5 mg PO Q6H PRN HPI HPI follow-up [facility] ED: Details: Eloisa is an 84-year-old female past medical history of hypertension, hyperlipidemia, heart failure with preserved EF, paroxysmal atrial fibrillation, severe aortic stenosis status post TAVR who was admitted to [facility] in September after having a fall at home. She denies having loss of consciousness. She did sustain a left hip fracture and underwent ORIF. Notes indicate that cardiac monitoring showed no acute abnormalities. Upon discharge she was sent to rehab. At some point she was taken off her usual atenolol and nifedipine and put on lisinopril. She then presented to [facility] on 11/09/2023 with uncontrolled hypertension, blood pressure 218/86. She was treated with labetalol and then put on her nifedipine and atenolol. Lisinopril was stopped. Her troponin was elevated up to 625.4, type 2 NSTEMI. Today she reports she has been doing well since her hospital discharge. She brings a list of her home blood pressures which I reviewed. Her systolic readings are mostly in the 120s with a high of 150 and diastolic typically runs in the 40s to 50s. She is taking her meds as directed. She has no chest discomfort at rest or with activity. No shortness of breath, PND, orthopnea. She does have some mild left ankle edema which is the side of her recent fracture. No palpitations, lightheadedness, presyncope, syncope, recurrent falls. She ambulates steady without assistive device. She has completed her physical therapy. is present. [facility] Medical History Hospital discharge follow-up (HFpEF) heart failure with preserved ejection fraction Paroxysmal atrial fibrillation Osteopenia Atrial fibrillation Elevated troponin Varicose vein of leg Pre-operative clearance Varicose veins of left leg with edema Carotid aneurysm, right Intracranial aneurysm Non-small cell cancer of right lung Thyroid nodule Pulmonary nodule Prolapsed bladder Hypercholesterolemia Peripheral vascular disease Diastolic dysfunction HTN (hypertension) Aortic stenosis Surgical History History of cataract surgery S/P TAVR (transcatheter aortic valve replacement) History of lung biopsy Hx of hysterectomy Hx of cardiac cath Hx of tonsillectomy Family History Father Brain tumor Mother Uterine cancer, sarcoma Social History Household Members: Spouse Housing: House Do you presently have visiting nurse or other home services: Yes (Since hip fx this year 2023, 1-2 times per week) Alcohol intake: current Alcohol intake frequency: does not drink Alcohol type: wine Patient Tobacco Use Status: Never used Tobacco e-Cigarette/Vaping Use: Never Used Second Hand Smoke Exposure: No Advance Directives Date on File: 10/29/22 service: No Current occupational status: retired Cognitive needs: No Hearing needs: No Vision needs: Yes (glasses) Review of Systems Const All systems reviewed & are unremarkable except as noted in HPI and below ENT Denies dizziness Card Denies chest pain, Denies chest pain at rest, Denies chest pain with activity, Denies rapid heart rate, Denies pedal edema, Denies edema, Denies leg edema, Denies lightheadedness, Denies palpitations, Denies dyspnea, Denies dyspnea on exertion and Denies orthopnea Resp Denies cough, Denies dyspnea and Denies dyspnea on exertion GI Denies hematochezia and Denies change in stool character Musc Denies abnormal gait, Denies limited range of motion, Denies muscle cramps, Denies muscle weakness, Denies numbness, Denies radiating pain into limb, Denies stiffness and Denies tingling Neuro Denies abnormal gait, Denies dizziness, Denies numbness and Denies tingling Endo Denies palpitations Physical Exam Vital Signs: Last Vital Signs Pulse 63 01/07/24 09:32 BP 142/40 H 01/07/24 09:32 BMI result Body Mass Index 24.0 Const General: cooperative, healthy appearing, comfortable and no acute distress Orientation/consciousness: patient oriented x3 Neck Neck: Yes normal visual inspection and Yes no JVD Resp Effort & Inspection: normal respiratory effort Auscultation: clear to auscultation bilaterally, no rales, no rhonchi and no wheezes Cardio Jugular venous distension: no JVD Rate: regular rate Rhythm: regular rhythm Heart sounds: S1 normal heart sound present, S2 normal heart sound present, no murmurs and no rubs Neuro General: patient oriented x3 Extrem General: Yes normal to inspection and No no pedal edema Psych Appearance: grossly normal Mental Status: mental status grossly normal Speech and movement: Normal speech and movement present Office Procedures EKG Details: Today, read by me, normal sinus rhythm, no acute ST or T-wave abnormalities, QTC 476 milliseconds, rate 63. [id number], Complete Assessment & Plan Assessment & Plan (1) Uncontrolled hypertension: Code(s): I10 - Essential (primary) hypertension Category: Medical Plan: Recent [facility] admission for uncontrolled hypertension. She had been taking her blood pressure at home and found the systolic to be up in the 200s. At that time she had been only on lisinopril 10 mg daily. Her meds were adjusted while inpatient and she was put back on her usual antihypertensives of nifedipine and atenolol. The atenolol dose was started lower than her prior dose as she did have a fall for unclear reason back in September. She has not had recent documented hypotension. Her blood pressure at home is typically running in the 120s over 40s to 50s. Blood pressure today 142/40. She will continue to monitor readings at home. Instructed to call if her systolic is running greater than 140 or less than 110. No med changes made. Cardiology follow-up in 3-4 months, sooner if needed. (2) NSTEMI (non-ST elevated myocardial infarction): Code(s): I21.4 - Non-ST elevation (NSTEMI) myocardial infarction Category: Medical Plan: NSTEMI noted at time of last hospitalization. Troponin rise up into the 600s. She did have uncontrolled hypertension at that time which likely contributed to the event. She had no reports of chest discomfort. Her EKG was nonischemic. Her blood pressure is better controlled at this time. Last echocardiogram done 07/23/2023 showing EF 65%, grade 2 diastolic dysfunction, bioprosthetic AVR is functioning normally, small septal defect with [id number]-cs-wckzt shunt. Due to NSTEMI will check a limited echo to ensure that EF and wall motion is unchanged. Will check a pharmacological nuclear stress test to evaluate for any ischemia. Plan to call her with results, will arrange for sooner follow-up if needed. (3) (HFpEF) heart failure with preserved ejection fraction: Code(s): I50.30 - Unspecified diastolic (congestive) heart failure Category: Medical Qualifiers: Heart failure chronicity: chronic Qualified Code(s): I50.32 - Chronic diastolic (congestive) heart failure Plan: History of heart failure with preserved EF. Her echocardiogram does show grade 2 diastolic dysfunction. She has no signs of decompensated heart failure on examination today. She continues on low-dose Lasix daily. Signs and symptoms of heart failure reviewed. (4) Paroxysmal atrial fibrillation: Code(s): I48.0 - Paroxysmal atrial fibrillation Category: Medical Plan: History of paroxysmal atrial fibrillation. Currently suppressed with amiodarone 200 mg daily for rhythm control. She is on atenolol 50 mg daily for blood pressure and heart rate control. She is on Eliquis 5 mg b.i.d. for anticoagulation. Her weight is 60 kg, age 84. If weight goes any lower then her Eliquis dose will be reduced to 2.5 mg b.i.d.. EKG done today shows normal sinus rhythm, rate 63, QTC 476 millisecond. Labs done 11/10/2023 shows normal AST and ALT. Labs done 10/23/2023 shows TSH 0.54. (5) Aortic stenosis: Comment: Severe. S/p TAVR 07/30. Nonobstructive CAD by cardiac catheterization. Proximal LAD 40% Code(s): I35.0 - Nonrheumatic aortic (valve) stenosis Category: Medical Plan: History of severe , status post TAVR July 2019. Last echocardiogram shows bioprosthetic aortic valve is functioning normally. Repeat full echo to check on valve due around July 2024. No murmur noted on examination. SBE prophylaxis reviewed. (6) S/P TAVR (transcatheter aortic valve replacement): Comment: 07/30. 26 mm Evolut bioprosthesis Code(s): Z95.2 - Presence of prosthetic heart valve Category: Surgical Plan: As above (7) Hospital discharge follow-up: Code(s): Z09 - Encounter for follow-up examination after completed treatment for conditions other than malignant neoplasm Category: Medical Plan: As above Plan Time spent on chart review, documentation, interview and assessment Orders: Orders CA Echo Limited Today I21.4 - Non-ST elevation (NSTEMI) myocardial infarction NM cardiolite stress test Today I21.4 - Non-ST elevation (NSTEMI) myocardial infarction CA lexiscan stress w kelley Today I21.4 - Non-ST elevation (NSTEMI) myocardial infarction Coding Level of Care Code Est Pt Level 4 (20665) Diagnoses Uncontrolled hypertension I10 NSTEMI (non-ST elevated myocardial infarction) I21.4 Chronic heart failure with preserved ejection fraction I50.32 Heart failure chronicity: chronic Paroxysmal atrial fibrillation I48.0 Aortic stenosis I35.0 S/P TAVR (transcatheter aortic valve replacement) Z95.2 Hospital discharge follow-up Z09 CPT Codes EKG - CPT: 49982-[id number], Complete ([id number]) Time Spent (min) 30
[2024-01-07 09:32] VITALS: BP 142/40; PULSE 63; BMI 24.0
== END 2024-01-07 10:04 | disposition home or self-care (01) ==
PROVIDERS: PCP Internal Medicine; Visit Provider Nurse Practitioner Family
DX: I10 Essential (primary) hypertension (principal); I21.4 Non-ST elevation (NSTEMI) myocardial infarction; I50.32 Chronic diastolic (congestive) heart failure; I48.0 Paroxysmal atrial fibrillation; I35.0 Nonrheumatic aortic (valve) stenosis; Z95.2 Presence of prosthetic heart valve; Z09 Encounter for follow-up examination after completed treatment for conditions other than malignant neoplasm
CPT/HCPCS: 93010; 99214

== ENCOUNTER → 2024-01-07 09:28 | Outpatient (BNVA) | payer MEDICARE, SELFPAY | PROVIDERS: PCP Internal Medicine; Visit Provider Nurse Practitioner Family | DX: I11.0 Hypertensive heart disease with heart failure (principal); I21.4 Non-ST elevation (NSTEMI) myocardial infarction; I50.32 Chronic diastolic (congestive) heart failure; I48.0 Paroxysmal atrial fibrillation; I35.0 Nonrheumatic aortic (valve) stenosis; Z95.2 Presence of prosthetic heart valve; Z79.891 Long term (current) use of opiate analgesic | CPT/HCPCS: 93005; 99212 ==

== ENCOUNTER 2024-02-20 08:27 | Outpatient (REF) | payer MEDICARE, SELFPAY ==
--- NOTE | ~2024-02-20 | MM_ITS ---
EXAMINATION: BONE DENSITOMETRY CLINICAL INDICATION: Encounter for general adult medical examination without abnormal findings. COMPARISON: Previous BD dated 10/06/2013, 08/01/2021 and baseline BD dated 09/06/2006. TECHNIQUE: Using a [employer] Mobile DXA System (software version: 13.1) manufactured by [employer], dual-energy x-ray absorptiometry was performed of the lumbar spine and right hip. The images are of good technical quality. Summary results are attached. FINDINGS: RIGHT FEMUR, NECK: Current: BMD 0.800 g/cm2, Z-score 0.7, T-score -1.7, osteopenia. Prior: BMD 0.834 g/cm2. Baseline: BMD 0.860 g/cm2. RIGHT FEMUR, TOTAL: Current: BMD 0.739 g/cm2, Z-score 0.2, T-score -2.1, osteopenia, 13.8% decrease from previous, 17.8% decrease from baseline (<5% change is not significant). Prior: BMD 0.857 g/cm2. Baseline: BMD 0.899 g/cm2. AP SPINE L1-L4: Current: BMD 1.236 g/cm2, Z-score 2.6, T-score 0.5, normal, 3.2% decrease from previous, 4.0% decrease from baseline (<5% change is not significant). Prior: BMD 1.277 g/cm2. Baseline: BMD 1.288 g/cm2. IDENTIFIED RISK FACTORS: Menopause, hysterectomy, bilateral oophorectomy, history of fracture (adult). HISTORY OF FRACTURE: Hip. MEDICATIONS: Calcium. MM/XR DEXA axial skeleton IMPRESSION: 1. DIAGNOSIS: Osteopenia based on the lowest T-score value of -2.1 in the total femur applying World Health Organization criteria. 2. 10-YEAR FRACTURE RISK PREDICTION, FRAX: Major osteoporotic fracture (clinical spine, forearm, hip or shoulder) 20.0%. Hip fracture 5.3%. 3. Treatment Recommendations: NOF guidelines recommend consideration for treatment in postmenopausal women and men age 50 and older presenting with the following: -A hip or vertebral (clinical or morphometric) fracture. -T-score less than or equal to -2.5 at the femoral neck or spine after appropriate evaluation to exclude secondary causes. -Low bone mass at the hip or spine and a 10-year fracture probability by FRAX of greater than or equal to 3% for hip fracture or greater than or equal to 20% for major osteoporotic fracture based on the [place] adapted WHO algorithm. 4. Other Recommendations: All treatment decisions require clinical judgment and consideration of individual patient factors, including patient preferences, comorbidities, previous drug use, risk factors not captured in the FRAX model (e.g. frailty, falls, vitamin D deficiency, increased bone turnover, interval significant decline in bone density) and possible under or overestimation of fracture risk by FRAX. Additional medical evaluation for secondary cause of low bone mineral density may be appropriate. FUTURE SCAN RECOMMENDATION: People with diagnosed cases of osteoporosis or at high risk for fracture should have regular bone mineral density tests. For patients eligible for Medicare, routine testing is allowed once every 2 years. The testing frequency can be increased to one year for patients who have rapidly progressing disease, those who are receiving or discontinuing medical therapy to restore bone mass, or have additional risk factors. Electronically signed by: Brittany Ashraf MD 02/24/2024 02:55 PM EDT
== END 2024-02-20 08:28 | disposition home or self-care (01) ==
LOC: HO.MAMMO 08:27
PROVIDERS: PCP Internal Medicine
DX: Z13.820 Encounter for screening for osteoporosis (principal); Z78.0 Asymptomatic menopausal state; M85.80 Other specified disorders of bone density and structure, unspecified site
CPT/HCPCS: 77080

== ENCOUNTER → 2024-03-02 07:51 | Outpatient (REF) | payer MEDICARE, SELFPAY ==
--- NOTE | ~2024-03-02 | NM_ITS ---
Lexiscan Myocardial perfusion study Indication: Non-ST elevation myocardial infarction with heart failure to evaluate for myocardial ischemia Technique: The patient was brought in for a Lexiscan perfusion study on 03/02/2024 and was injected 0.4 mg of Lexiscan intravenously. Within a minute of this injection 25 mCi of sestamibi was given intravenously. Images were obtained using the SPECT gamma camera interlaced with the gating device. Images were obtained in supine position. Resting perfusion study was performed on 03/03/2024. Patient was administered 25 mCi of sestamibi intravenously at rest. Images were then obtained in supine position. Images obtained without without CT attenuation. Total DLP 60 mGy-cm. Images were processed with the software and compared side to side in short axis, horizontal long axis and vertical long axis views. Findings: The stress perfusion study showed both attenuated as well as nonattenuated corrected images show normal uptake of radiotracer in all segments of the LV myocardium. The gated study shows normal LV systolic function with calculated LVEF of 74%. LV cavity is normal in size. The gated study shows normal systolic wall thickening and contraction of segments. Resting study shows no change in perfusion pattern compared to stress perfusion study. Gating at rest reveals normal systolic wall motion with ejection fraction at 64%. The findings are consistent with normal myocardial perfusion. NM/NM cardiolite stress test Impression: 1. Myocardial perfusion imaging study shows normal myocardial perfusion 2. Gated LVEF is 64% 3. Transient ischemic dilatation not present Nondiagnostic changes on EKG. Electronically signed by: Emmett Vogt MD 03/04/2024 01:53 PM EDT
--- NOTE | 2024-03-02 07:56 | CA_ITS ---
Acquisition Time: 2024-03-02 08:45:21 Total Exercise Time: 00:02:00 Test Indications: HTN, ELEVATED TROPONIS, AFIB Medications: SEE H Protocol: LEXISCAN Max HR: 090 BPM 65% of Pred: 137 BPM Max BP: 130/050 mmHG Max Work Load: 1.6 METS Pharmacological stress test with lexiscan injection while slowly walking on treadmill, without anginal symptoms, without arrhythmias noted, with normotensive response to injection, with nondiagnoisitic EKGs. Nuclear images pending. Test reviewed with Dr. Blackmon. Referred By: Huyen Andrea Overread By: Liliane Tim
--- NOTE | 2024-03-02 07:56 | CA_ITS ---
Transthoracic Echocardiogram Patient (Last, First, Middle): Eloisa Richards E Gender: Female Date of : 1940 Age: 84 Procedure Date: 03/02/2024 Procedure Type: Transthoracic Echocardiogram Location: OP Height: 157.48 cm Weight: 58.06 kg BSA: 1.58 m2 Heart Rate: bpm BP: 132 / 80 mmHg Licensed Vocational Nurse: Referring MD: Huyen Andrea ALGEBRAISTFarida Symptoms: I21.4 - Non-ST elevation (NSTEMI) myocardial infarction, Assess EF and WM Study Quality: Good ECG Rhythm: Sinus Conclusions: - The left ventricular systolic function is normal. The calculated ejection fraction is 66% by biplane method. Findings Left Ventricle Normal left ventricular cavity size. There is mildly increased left ventricular wall thickness. The left ventricular systolic function is normal. The calculated ejection fraction is 66% by biplane method. There is no evidence of regional wall motion abnormalities. Venous The inferior vena cava is normal in size and collapses greater than 50% with inspiration. Prior Study Comparison No significant change compared to prior study dated: 07/23/2023. Measurements 2D Linear Measurements IVSd: 1.32 0.6-0.9/0.6-1.0 cm LVIDd: 4.00 3.9-5.3/4.2-5.9 cm LVIDd Index: 2.53 2.4-3.2/2.2-3.1 cm/m2 LVIDs: 2.53 2.0-3.6 cm LVPWd: 1.21 0.7-1.1 cm LV Mass: 223.02 67-162/88-224 g LV Mass Index: 141.15 43-95/49-115 g/m2 2D Systolic Function EF 4C: 66.20 >55% EF 2C: 65.60 >55% EF BiP: 66.20 >55% Updated in Other Vendor System with Status of Final Arthur Blackmon MD electronically signed on 03/02/2024 2:38:47 PM with status of Final
== END ==
LOC: HO.CARD 07:51
PROVIDERS: PCP Internal Medicine; Visit Provider Nurse Practitioner Family
DX: I21.4 Non-ST elevation (NSTEMI) myocardial infarction (principal)
CPT/HCPCS: 78452; 93017; 93308; A9500; J0280; J2785

== ENCOUNTER → 2024-03-02 07:56 | Outpatient (BNV) | payer MEDICARE, SELFPAY | PROVIDERS: PCP Internal Medicine; Visit Provider Internal Medicine | DX: I21.4 Non-ST elevation (NSTEMI) myocardial infarction (principal); I50.9 Heart failure, unspecified | CPT/HCPCS: 78452; 93016; 93018; 93308 ==

== ENCOUNTER 2024-03-03 10:38 | Outpatient (AMB) | payer MEDICARE, SELFPAY ==
[2024-03-03 10:46] VITALS: BP 120/76; PULSE 65; BMI 23.4
--- NOTE | 2024-03-03 10:46 | MHC.OFFVIS ---
Vital Signs 03/03/24 10:46 Height 5 ft 2 in Weight 127 lb 13.89 oz BMI 23.4 BP 120/76 Blood Pressure Location Lt brachial Position Sitting Pulse 65 Intake Visit Reasons: 6 month follow up Intake Note: 6 month follow-up with ekg c/o fatigue and weakness Principal Scientist: Principal Scientist Present Accompanied by: Spouse Allergies Sulfa (Sulfonamide Antibiotics) [SULFA (SULFONAMIDE ANTIBIOTICS)] Allergy (Mild, Verified 01/07/24 09:34) RASH Medication List - Last Reconciled 03/03/24 by Emmett Vogt MD acetaminophen 650 mg PO Q6H PRN amiodarone 100 mg PO DAILY apixaban (Eliquis) 5 mg PO BID 90 days atenolol 50 mg See Protocol PO DAILY atorvastatin 40 mg PO DAILY calcium carbonate-vitamin D3 600 mg-10 mcg (400 unit) (Calcium 600 with Vitamin D3) 1 tab PO BID 90 days estradiol 0.01%(0.1mg/gram) 1 g vaginal 2XW fenofibrate nanocrystallized 145 mg PO DAILY furosemide 20 mg PO DAILY toftxulfajqm-gtbc-vilxh acid 18-400 mg-mcg 1 tab PO DAILY nifedipine ER 30 mg See Protocol PO BEDTIME oxycodone 5 mg PO Q6H PRN HPI Comments Details: Eloisa comes for follow-up after recent testing. Myocardial perfusion imaging visually appears to be within normal limits. Echocardiogram shows no decrease in LV EF. She continues to have no current cardiac symptoms. She has exertional shortness of breath and fatigue. However she says she has not been exercising as much. She has some balance use a support device. No prolonged palpitation irregular heartbeat. No lightheadedness, syncope. No orthopnea, PND, leg edema, abdominal distension. No exertional chest pain. No bleeding issues or neurologic events. [facility] Medical History (Updated 03/03/24 @ 12:25 by Emmett Vogt MD) Aortic stenosis (HFpEF) heart failure with preserved ejection fraction Paroxysmal atrial fibrillation Osteopenia Atrial fibrillation Elevated troponin Varicose vein of leg Pre-operative clearance Varicose veins of left leg with edema Carotid aneurysm, right Intracranial aneurysm Non-small cell cancer of right lung Thyroid nodule Pulmonary nodule Prolapsed bladder Hypercholesterolemia Peripheral vascular disease Diastolic dysfunction HTN (hypertension) Surgical History History of cataract surgery S/P TAVR (transcatheter aortic valve replacement) History of lung biopsy Hx of hysterectomy Hx of cardiac cath Hx of tonsillectomy Family History Father Brain tumor Mother Uterine cancer, sarcoma Social History Household Members: Spouse Housing: House Do you presently have visiting nurse or other home services: Yes (Since hip fx this 2023, 1-2 times per week) Alcohol intake: current Alcohol intake frequency: does not drink Alcohol type: wine Patient Tobacco Use Status: Never used Tobacco e-Cigarette/Vaping Use: Never Used Second Hand Smoke Exposure: No Advance Directives Date on File: 10/29/22 service: No Current occupational status: retired Cognitive needs: No Hearing needs: No Vision needs: Yes (glasses) Review of Systems Const Denies chills, Denies fatigue, Denies fever(s), Denies frequent falls, Denies weakness, Denies weight gain and Denies weight loss ENT Denies dizziness Card Denies chest pain, Denies leg edema, Denies lightheadedness, Denies palpitations, Denies dyspnea, Denies dyspnea on exertion, Denies orthopnea and Denies other (loss of consciousness) Resp Denies cough, Denies dyspnea and Denies dyspnea on exertion GI Denies hematochezia and Denies change in stool character Musc Denies abnormal gait, Denies muscle weakness, Denies numbness, Denies radiating pain into limb and Denies tingling Neuro Denies abnormal gait, Denies dizziness, Denies frequent falls, Denies numbness, Denies tingling and Denies weakness Endo Denies fatigue and Denies palpitations Physical Exam Vital Signs: Last Vital Signs Pulse 65 03/03/24 10:46 BP 120/76 03/03/24 10:46 BMI result Body Mass Index 23.4 Const General: cooperative, healthy appearing, comfortable and no acute distress Orientation/consciousness: patient oriented x3 Neck Neck: Yes normal visual inspection and Yes no JVD Resp Effort & Inspection: normal respiratory effort Auscultation: clear to auscultation bilaterally, no rales, no rhonchi and no wheezes Cardio Jugular venous distension: no JVD Rate: regular rate Rhythm: regular rhythm Heart sounds: S1 normal heart sound present, S2 normal heart sound present, no murmurs and no rubs Neuro General: patient oriented x3 Extrem General: Yes normal to inspection and No no pedal edema Psych Appearance: grossly normal Mental Status: mental status grossly normal Speech and movement: Normal speech and movement present Office Procedures EKG Details: EKG shows normal sinus rhythm with normal EKG [id number]-[id number], Complete Assessment & Plan Assessment & Plan (1) (HFpEF) heart failure with preserved ejection fraction: Code(s): I50.30 - Unspecified diastolic (congestive) heart failure Category: Medical Qualifiers: Heart failure chronicity: chronic Qualified Code(s): I50.32 - Chronic diastolic (congestive) heart failure Plan: Heart failure preserved ejection fraction, clinically euvolemic and well compensated current diuretic regimen. Importance of current therapy was discussed. Continue rhythm control approach. Advised daily weight monitoring avoidance of salt loading. Additional diuretics as need be. Continue aggressive blood pressure control. She is having exertional shortness of breath which is expected most likely due to cardiopulmonary deconditioning after recent multiple hospitalization. Importance of increasing activity level was discussed. She understands and agrees. (2) Paroxysmal atrial fibrillation: Code(s): I48.0 - Paroxysmal atrial fibrillation Category: Medical Plan: Paroxysmal atrial fibrillation, highly symptomatic with heart failure symptoms. Currently suppressed with low-dose amiodarone therapy. Continue monitor for amiodarone toxicity on annual basis. Importance of rhythm control approach was discussed. Continue currently on Eliquis for full oral anticoagulation at 5 mg b.i.d.. Semi annual renal function test should be pursued. Avoidance of stimulants was discussed. Continue aggressive blood pressure control. (3) S/P TAVR (transcatheter aortic valve replacement): Comment: 07/30. 26 mm Evolut bioprosthesis Code(s): Z95.2 - Presence of prosthetic heart valve Category: Surgical Plan: Status post transcatheter aortic valve replacement. Working well clinically. Continue Eliquis therapy. Continue aggressive risk factor modification. SBE prophylaxis as per ACC/[place] guidelines. (4) HTN (hypertension): Comment: Heart catheterization for TAVR severe July 2019 echo normal left ventricular function with grade 2 diastolic dysfunction Code(s): I10 - Essential (primary) hypertension Category: Medical Plan: Hypertension which has been difficult control. Continue to monitor blood pressure at home maintain a log. Goal blood pressure less than 130/84. Discussed with her about orthostatic precautions. Low-salt diet was discussed. Stress mitigation strategies was discussed. Will follow up in the clinic in 6 months time, sooner p.r.n.. Greater than 45 minutes was spent in managing his complex care. Medications: Refilled nifedipine ER 30 mg See Protocol PO BEDTIME 90 tabs 0RF atenolol 50 mg See Protocol PO DAILY 90 tabs 0RF Coding Level of Care Code Est Pt Level 5 (33748) Diagnoses Chronic heart failure with preserved ejection fraction I50.32 Heart failure chronicity: chronic Paroxysmal atrial fibrillation I48.0 S/P TAVR (transcatheter aortic valve replacement) Z95.2 HTN (hypertension) I10 CPT Codes EKG - CPT: 97998-[id number], Complete ([id number])
== END 2024-03-03 11:37 | disposition home or self-care (01) ==
PROVIDERS: PCP Internal Medicine; Visit Provider Internal Medicine Cardiovascular Disease
DX: I11.0 Hypertensive heart disease with heart failure (principal); I50.32 Chronic diastolic (congestive) heart failure; I48.0 Paroxysmal atrial fibrillation; Z95.2 Presence of prosthetic heart valve
CPT/HCPCS: 93010; 99215

== ENCOUNTER → 2024-03-03 10:38 | Outpatient (BNVA) | payer MEDICARE, SELFPAY | PROVIDERS: PCP Internal Medicine; Visit Provider Internal Medicine Cardiovascular Disease | DX: I11.0 Hypertensive heart disease with heart failure (principal); I50.32 Chronic diastolic (congestive) heart failure; I48.0 Paroxysmal atrial fibrillation; Z95.2 Presence of prosthetic heart valve | CPT/HCPCS: 93005; 99212 ==

== ENCOUNTER 2024-03-11 08:20 | Outpatient (REF) | payer MEDICARE, SELFPAY ==
[2024-03-11 08:32] LABS: MANUAL DIFF FLAG NO
[2024-03-11 08:57] LABS: Basophils Absolute Auto 0.1 X10*3/uL (0.0-0.2); Basophils Percent Auto 0.9 % (0-2); Eosinophils Absolute Auto 0.2 X10*3/uL (0.0-0.4); Eosinophils Percent Auto 3.3 % (0-4); Hemoglobin 11.3 g/dl (12.0-16.0); Imm Gran Abs Auto 0.03 X10*3/uL (0.00-0.03); Imm Gran Pct Auto 0.5 % (0.0-0.4); Immature Retic Fraction 8.6 % (3.0-15.9); Lymphocytes Absolute Auto 1.5 X10*3/uL (1.2-4.9); Lymphocytes Percent Auto 22.4 % (20-40); Mean Corpuscular HGB Conc 31.4 g/dl (31.0-35.0); Mean Corpuscular Hemoglobin 30.5 pg (27.0-33.0); Monocytes Absolute Auto 0.6 X10*3/uL (0.1-1.2); Monocytes Percent Auto 9.1 % (2-11); Neutrophils Absolute Auto 4.2 x10*3/uL (2.0-8.3); Neutrophils Percent Auto 63.8 % (45-73); Platelet Count 221 X10*3/uL (160-400); Red Blood Count 3.71 X10*6/uL (4.20-5.50); Red Cell Distribution Width 14.7 % (11.0-16.0); Retic HGB Equivalent 35.2 pg (30.0-35.0); Reticulocyte Percent 1.3 % (0.5-1.8); Reticulocytes Absolute 0.049 X10*6/uL (0.026-0.095); White Blood Count 6.6 X10*3/uL (4.8-10.8)
[2024-03-11 09:29] LABS: B Type Natriuretic Peptide 422 pg/mL (<100)
[2024-03-11 09:36] LABS: Alanine Aminotransferase 20 U/L (0-31); Albumin Level 3.8 g/dL (3.5-5.0); Alkaline Phosphatase 61 U/L (39-117); Anion Gap 13 (12-20); Aspartate Amino Transferase 30 U/L (5-31); Bilirubin Total 0.5 mg/dL (0.0-1.0); Blood Urea Nitrogen 34 mg/dL (9-16); Calcium 9.2 mg/dL (8.4-10.2); Carbon Dioxide 22 mmol/L (22-29); Chloride 113 mmol/L (96-108); Estimated Glomerular Filt Rate 36; Glucose Random 89 mg/dL (60-115); Iron 133 mcg/dL (30-160); Percent Iron Saturation 38 % (15-50); Potassium 3.7 mmol/L (3.3-5.1); Sodium 144 mmol/L (135-145); Total Iron Binding Capacity 346 mcg/dL (228-428); Total Protein 6.4 g/dL (6.5-8.0); Unsaturated Iron Binding 213 ug/dL
[2024-03-11 09:52] LABS: Ferritin 259 ng/mL (10-250)
[2024-03-11 10:01] LABS: Folate 8.1 ng/mL (> or = 4.0); Vitamin B12 382 pg/mL (200-900)
== END 2024-03-11 08:21 | disposition home or self-care (01) ==
LOC: HO.LAB 08:20
PROVIDERS: Internal Medicine Cardiovascular Disease; PCP Internal Medicine; Visit Provider Internal Medicine
DX: D64.9 Anemia, unspecified (principal); I50.30 Unspecified diastolic (congestive) heart failure
CPT/HCPCS: 36415; 80053; 82607; 82728; 82746; 83540; 83880; 85025; 85045

== ENCOUNTER 2024-03-12 11:40 | Outpatient (AMB) | payer MEDICARE, SELFPAY ==
[2024-03-12 11:50] VITALS: BP 116/78; PULSE 65; O2SAT 97; BMI 24.2
--- NOTE | 2024-03-12 11:50 | A.OFFPC_ITS ---
Vital Signs 03/12/24 11:50 Height 5 ft 2 in Weight 59.931 kg BMI 24.2 BP 116/78 Blood Pressure Location Lt brachial Position Sitting Pulse 65 Pulse Source Pulse Oximeter Pulse Oximetry (%) 97 Oxygen Delivery Method Room Air Intake Visit Reasons: CHF, Anemia Epidemiology Internship Required: No Accompanied by: Self / Same As Patient Allergies Sulfa (Sulfonamide Antibiotics) [SULFA (SULFONAMIDE ANTIBIOTICS)] Allergy (Mild, Verified 03/12/24 11:51) RASH Tobacco use date assessed: 03/12/24 Fall risk assessment: 1 Fall in past year Last assessed Fall Risk: 03/12/24 Dental Screening Dental Screen Date: 03/12/24 Did you have a dental visit in the last 12 months?: Yes Did you have a dental problem in the last 6 months where you did not have access to dental care?: No Was dental information given to patient?: Patient has dentist HPI CHF, Anemia HPI Details 84-year-old female with a history of sta tus post TAVR hypertension chronic anemia and history of left femur all fracture patient also has a history of non-small cell cancer of the right lung hypercholesterolemia peripheral vascular disease coronary artery disease coming in for follow-up. Review of the notes has followed up with Cardiology in March 03 myocardial perfusion imaging is normal. Echo normal EF diagnosis of heart failure with preserved ejection fraction euvolemic on diuretic. On low-dose amiodarone. Continue with full anticoagulation. Twice a day year renal function testing. The myocardial perfusion scan was done in 02/28/2024 which is negative. Bone density done February 2024 right femoral 13% decrease from previous spine no change. Diagnosis of osteopenia. Patient had a CT of the chest in February 05 to follow- up on cancer status post radiation therapy stable. Noted ER visit in November 09 for hypertensive urgency. At that time was discharged on nifedipine 30 mg once a day atenolol 50 mg once a day FORMERLY [facility], [facility] Medical History (Updated 03/12/24 @ 11:56 by Shelbi Infante MD) Aortic stenosis (HFpEF) heart failure with preserved ejection fraction Paroxysmal atrial fibrillation Osteopenia Atrial fibrillation Elevated troponin Varicose vein of leg Pre-operative clearance Varicose veins of left leg with edema Carotid aneurysm, right Intracranial aneurysm Non-small cell cancer of right lung Thyroid nodule Pulmonary nodule Prolapsed bladder Hypercholesterolemia Peripheral vascular disease Diastolic dysfunction HTN (hypertension) Surgical History History of cataract surgery S/P TAVR (transcatheter aortic valve replacement) History of lung biopsy Hx of hysterectomy Hx of cardiac cath Hx of tonsillectomy Family History Father Brain tumor Mother Uterine cancer, sarcoma Social History Household Members: Spouse Housing: House Do you presently have visiting nurse or other home services: Yes (Since hip fx this year 2023, 1-2 times per week) Alcohol intake: current Alcohol intake frequency: does not drink Alcohol type: wine Patient Tobacco Use Status: Never used Tobacco e-Cigarette/Vaping Use: Never Used Second Hand Smoke Exposure: No Advance Directives Date on File: 10/29/22 service: No Current occupational status: retired Cognitive needs: No Hearing needs: No Vision needs: Yes (glasses) Questionnaire PHQ-9 Over the last 2 weeks, how often have you been bothered by any of the following problems? 1. Little interest or pleasure in doing things: not at all 2. Feeling down, depressed, or hopeless: not at all 3. Trouble falling or staying asleep, or sleeping too much: not at all 4. Feeling tired or having little energy: not at all 5. Poor appetite or overeating: not at all 6. Feeling bad about yourself - or that you are a failure or have let yourself or your family down: not at all 7. Trouble concentrating on things, such as reading the newspaper or watching television: not at all 8. Moving or speaking so slowly that other people could have noticed. Or the opposite - being so fidgety or restless that you have been moving around a lot more than usual: not at all 9. Thoughts that you would be better off or of hurting yourself in some way: not at all Total score: 0 Depression Screening Interpretation: Negative Depression Screening Done: Yes 35775 - PHQ-9 Billing: Yes Source: Developed by Drs. Steve Kim, Madalyn Vee, Isaac Maza and colleagues, with an educational eddie from [employer]. Thrive Questionnaire Date Thrive assessed: 12/11/23 I am a: Patient What is your living situation today?: I have a steady place to live Within the past 12 months, did the food you bought not last and you didn't have the money to get more?: Never true Within the past 12 months, did you worry whether your food would run out before you got money to buy more?: Never true Do you have trouble paying for medicines?: No Do you have trouble getting transportation to medical appointments?: No Do you have trouble paying your heating and electricity bill?: No Do you have trouble taking care of your child, family member or friend?: No Do you have trouble with day-to-day activities such as bathing, preparing meals, shopping, managing finances, etc.?: No Are you currently unemployed and looking for a job?: No Are you interested in more education?: No Please select the resources that you would like help with: None Currently or been in a relationship where the following occur: No concerns reported THRIVE Score: 0 AUDIT C Alcohol Use Questionnaire (AUDIT-C) 1. How often do you have a drink containing alcohol?: Never 3. How often do you have six or more drinks on one occasion?: Never Total Score: 0 Score Reviewed/Action Taken: No CRISTAL-7 AMB Questionnaire CRISTAL-7 Date CRISTAL - 7 assessed: 03/12/24 Feeling nervous, anxious, or on edge: 0 = Not at all Not being able to stop or control worryin = Not at all Worrying too much about different things: 0 = Not at all Trouble relaxin = Not at all Being so restless that it is hard to sit still: 0 = Not at all Becoming easily annoyed or irritable: 0 = Not at all Feeling afraid as if something awful might happen: 0 = Not at all Total CRISTAL-7 score (0-4 normal; 5-9 mild; 10-14 moderate; 15-21 severe): 0 Source: Developed by Drs. Steve Kim, Madalyn Vee, Isaac Maza and colleagues, with an educational eddie from [employer]. Physical exam (Primary Care) Vital Signs: Last Vital Signs Pulse 65 03/12/24 11:50 BP 116/78 03/12/24 11:50 Pulse Ox 97 03/12/24 11:50 Oxygen Delivery Method Room Air 03/12/24 11:50 BMI result Body Mass Index 24.2 Tobacco/Smoking Status: Tobacco use Status Tobacco use date assessed 03/12/24 03/12/24 11:55 Patient Tobacco Use Status Never used Tobacco 03/12/24 11:55 e-Cigarette/Vaping Use Never Used 03/12/24 11:55 PHQ-9: PHQ-9 Score PHQ-9: Total score 0 03/12/24 12:13 Depression Screening Interpretation: Negative Thrive Assessment: Date of Thrive Assessment Date Thrive assessed 12/11/23 03/12/24 11:55 Currently or been in a relationship where the following occur: No concerns reported Const General: alert; No acute distress Eyes Conjunctivae: conjunctivae normal Resp Auscultation: clear to auscultation bilaterally Cardio Rate: regular rate Rhythm: regular rhythm GI Inspection: Yes normal to inspection Extrem General: Yes normal to inspection and No edema Office Procedures Flu Questionnaire Does the patient have a severe egg allergy?: No Immunizations Fluarix Triv [id number] (PF) 45 mcg (15 mcg x 3)/0.5 mL IM syringe Performing Provider: Shelbi Infante MD [facility] Documented (not given) by: AGUSTIN Sawant on 03/12/24 13:08 Reason Not Given: Not Given Coding Level of Care Code Est Pt Level 4 (63316) Diagnoses Paroxysmal atrial fibrillation I48.0 Chronic heart failure with preserved ejection fraction I50.32 Heart failure chronicity: chronic HTN (hypertension) I10 Non-small cell cancer of right lung C34.91 Hypercholesterolemia E78.00 S/P TAVR (transcatheter aortic valve replacement) Z95.2 Osteopenia M85.80 Anemia D64.9 Assessment & Plan Assessment & Plan (1) Paroxysmal atrial fibrillation: Code(s): I48.0 - Paroxysmal atrial fibrillation Category: Medical Plan: Patient on anticoagulation with Eliquis and on low-dose amiodarone continue to follow-up renal function. (2) (HFpEF) heart failure with preserved ejection fraction: Code(s): I50.30 - Unspecified diastolic (congestive) heart failure Category: Medical Qualifiers: Heart failure chronicity: chronic Qualified Code(s): I50.32 - Chronic diastolic (congestive) heart failure Plan: Continue with the diuretic furosemide 20 mg once a day continue with atenolol 50 mg once a day (3) HTN (hypertension): Comment: Heart catheterization for TAVR severe July 2019 echo normal left ventricular function with grade 2 diastolic dysfunction Code(s): I10 - Essential (primary) hypertension Category: Medical Plan: Continue with blood pressure medication. Decrease salt intake and exercise presently on atenolol 50 mg once a day nifedipine 30 mg once a day (4) Non-small cell cancer of right lung: Comment: May 2019, CT scan 2021October 202203/2023. 01/2024 Code(s): C34.91 - Malignant neoplasm of unspecified part of right bronchus or lung Category: Medical Plan: Continuing to be monitored with CT scans of the chest 01/2024 (5) Hypercholesterolemia: Code(s): E78.00 - Pure hypercholesterolemia, unspecified Category: Medical Plan: Avoid fried foods, chicken skin, eggs, butter margarine, pastries and meat. Be it pork or beef they have a lot of cholesterol on fenofibrate 145 mg once a day atorvastatin 40 mg once a day LDL goal of less than 70. (6) S/P TAVR (transcatheter aortic valve replacement): Comment: 07/30. 26 mm Evolut bioprosthesis Code(s): Z95.2 - Presence of prosthetic heart valve Category: Surgical Plan: Continue to be monitored by Cardiology (7) Osteopenia: Comment: 07/2021, 02/2024 Code(s): M85.80 - Other specified disorders of bone density and structure, unspecified site Category: Medical Plan: Up-to-date 02/28/2024 (8) Anemia: Code(s): D64.9 - Anemia, unspecified Category: Medical Plan: Stable continue to monitor Orders: Orders Comprehensive Met. Panel 3 Months E78.00 - Pure hypercholesterolemia, unspecified Complete Blood Count Auto Diff 3 Months E78.00 - Pure hypercholesterolemia, unspecified IRON PROFILE 3 Months E78.00 - Pure hypercholesterolemia, unspecified Thyroid Stimulating Hormone 3 Months E78.00 - Pure hypercholesterolemia, unspecified Influenza [id number] Immunization Today Z23 - Encounter for immunization Ferritin 3 Months E78.00 - Pure hypercholesterolemia, unspecified Reticulocyte Count 3 Months E78.00 - Pure hypercholesterolemia, unspecified Vitamin B12 and Folate 3 Months E78.00 - Pure hypercholesterolemia, unspecified Free T4 (Free Thyroxine) 3 Months E78.00 - Pure hypercholesterolemia, unspecified Medications: New Fluarix Triv [id number] (PF) (flu vacc [id number] 6mos up(PF)) 0.5 mL IM ONCE 0.5 mL 0RF NS Z23 - Encounter for immunization
== END 2024-03-12 12:28 | disposition home or self-care (01) ==
PROVIDERS: PCP Internal Medicine; Visit Provider Internal Medicine
DX: I48.0 Paroxysmal atrial fibrillation (principal); I50.32 Chronic diastolic (congestive) heart failure; I10 Essential (primary) hypertension; C34.91 Malignant neoplasm of unspecified part of right bronchus or lung; E78.00 Pure hypercholesterolemia, unspecified; Z95.2 Presence of prosthetic heart valve; M85.80 Other specified disorders of bone density and structure, unspecified site; D64.9 Anemia, unspecified; Z23 Encounter for immunization

== ENCOUNTER → 2024-03-12 11:40 | Outpatient (BNVA) | payer MEDICARE, SELFPAY | PROVIDERS: PCP Internal Medicine; Visit Provider Internal Medicine | DX: I48.0 Paroxysmal atrial fibrillation (principal); I11.0 Hypertensive heart disease with heart failure; I50.32 Chronic diastolic (congestive) heart failure; C34.91 Malignant neoplasm of unspecified part of right bronchus or lung; E78.00 Pure hypercholesterolemia, unspecified; M85.80 Other specified disorders of bone density and structure, unspecified site; D64.9 Anemia, unspecified; Z95.2 Presence of prosthetic heart valve | CPT/HCPCS: 90471; 96127; 99212 ==

== ENCOUNTER 2024-03-30 09:37 | Outpatient (AMB) | payer MEDICARE, SELFPAY ==
--- NOTE | 2024-03-30 09:44 | AM.OFFVISNUR ---
Intake Visit Reasons: Flu Shot Allergies Sulfa (Sulfonamide Antibiotics) [SULFA (SULFONAMIDE ANTIBIOTICS)] Allergy (Mild, Verified 03/12/24 11:51) RASH Office Procedures Flu Questionnaire Does the patient have a severe egg allergy?: No Does the patient have severe life threatening allergies?: No Does the patient have a fever or illness today?: No Has the patient ever had Guillain-[place] Syndrome?: No Has the patient ever had any past reaction to a flu shot?: No Assessment & Plan Assessment & Plan Orders: Orders Influenza [id number] Immunization Today Z23 - Encounter for immunization Medications: New Fluarix Triv [id number] (PF) (flu vacc [id number] 6mos up(PF)) 0.5 mL IM ONCE 0.5 mL 0RF NS Z23 - Encounter for immunization
== END 2024-03-30 09:45 | disposition home or self-care (01) ==
PROVIDERS: PCP Internal Medicine
DX: Z23 Encounter for immunization (principal)

== ENCOUNTER → 2024-03-30 09:37 | Outpatient (BNVA) | payer MEDICARE, SELFPAY | PROVIDERS: PCP Internal Medicine | DX: Z23 Encounter for immunization (principal) | CPT/HCPCS: 90471; 90656 ==

== ENCOUNTER 2024-06-15 07:15 | Outpatient (REF) | payer MEDICARE, SELFPAY ==
[2024-06-15 07:38] LABS: MANUAL DIFF FLAG NO
[2024-06-15 08:19] LABS: Basophils Absolute Auto 0.1 X10*3/uL (0.0-0.2); Basophils Percent Auto 0.8 % (0-2); Eosinophils Absolute Auto 0.2 X10*3/uL (0.0-0.4); Hematocrit 36.4 % (37.0-47.0); Hemoglobin 11.4 g/dl (12.0-16.0); Imm Gran Abs Auto 0.02 X10*3/uL (0.00-0.03); Imm Gran Pct Auto 0.3 % (0.0-0.4); Immature Retic Fraction 11.9 % (3.0-15.9); Lymphocytes Absolute Auto 1.2 X10*3/uL (1.2-4.9); Mean Corpuscular HGB Conc 31.3 g/dl (31.0-35.0); Mean Corpuscular Hemoglobin 29.9 pg (27.0-33.0); Mean Corpuscular Volume 95.5 fL (80.0-98.0); Mean Platelet Volume 10.3 fL (9.4-12.3); Monocytes Absolute Auto 0.7 X10*3/uL (0.1-1.2); Monocytes Percent Auto 10.5 % (2-11); Neutrophils Absolute Auto 4.5 x10*3/uL (2.0-8.3); Neutrophils Percent Auto 67.4 % (45-73); Platelet Count 221 X10*3/uL (160-400); Red Blood Count 3.81 X10*6/uL (4.20-5.50); Red Cell Distribution Width 14.4 % (11.0-16.0); Retic HGB Equivalent 34.6 pg (30.0-35.0); Reticulocyte Percent 1.6 % (0.5-1.8); Reticulocytes Absolute 0.061 X10*6/uL (0.026-0.095); White Blood Count 6.7 X10*3/uL (4.8-10.8)
[2024-06-15 09:35] LABS: Alanine Aminotransferase 27 U/L (0-31); Alkaline Phosphatase 60 U/L (39-117); Anion Gap 13 (12-20); Aspartate Amino Transferase 41 U/L (5-31); Bilirubin Total 0.5 mg/dL (0.0-1.0); Blood Urea Nitrogen 28 mg/dL (9-16); Calcium 9.9 mg/dL (8.4-10.2); Carbon Dioxide 22 mmol/L (22-29); Chloride 113 mmol/L (96-108); Estimated Glomerular Filt Rate 41; Ferritin 202 ng/mL (10-250); Free T4 (Free Thyroxine) 1.25 ng/dL (0.71-1.85); Glucose Random 89 mg/dL (60-115); Iron 85 mcg/dL (30-160); Percent Iron Saturation 25 % (15-50); Sodium 144 mmol/L (135-145); Thyroid Stimulating Hormone 1.62 uIU/mL (0.32-4.0); Total Iron Binding Capacity 342 mcg/dL (228-428); Total Protein 6.6 g/dL (6.5-8.0); Unsaturated Iron Binding 257 ug/dL
[2024-06-15 09:59] LABS: Folate 8.5 ng/mL (> or = 4.0); Vitamin B12 384 pg/mL (200-900)
== END 2024-06-15 07:16 | disposition home or self-care (01) ==
LOC: HO.LAB 07:15
PROVIDERS: PCP Internal Medicine; Visit Provider Internal Medicine
DX: I48.0 Paroxysmal atrial fibrillation (principal); D64.9 Anemia, unspecified; E78.00 Pure hypercholesterolemia, unspecified
CPT/HCPCS: 36415; 80053; 82607; 82728; 82746; 83540; 84439; 84443; 85025; 85027; 85045

== ENCOUNTER 2024-06-23 11:38 | Outpatient (AMB) | payer MEDICARE, SELFPAY ==
[2024-06-23 11:58] VITALS: BP 136/62; PULSE 75; O2SAT 98; BMI 24.1
--- NOTE | 2024-06-23 11:58 | A.OFFPC_ITS ---
Vital Signs 06/23/24 11:58 Height 5 ft 2 in Weight 132 lb BMI 24.1 BP 136/62 Blood Pressure Location Lt brachial Position Sitting Pulse 75 Pulse Source Pulse Oximeter Pulse Oximetry (%) 98 Oxygen Delivery Method Room Air Intake Visit Reasons: 3 Month F/U Allergies Sulfa (Sulfonamide Antibiotics) [SULFA (SULFONAMIDE ANTIBIOTICS)] Allergy (Mild, Verified 06/23/24 11:59) RASH Tobacco use date assessed: 06/23/24 Fall risk assessment: No Falls in past year Last assessed Fall Risk: 06/23/24 Dental Screening Dental Screen Date: 06/23/24 Did you have a dental visit in the last 12 months?: Yes Did you have a dental problem in the last 6 months where you did not have access to dental care?: No Was dental information given to patient?: Patient has dentist HPI 3 Month F/U HPI Details The patient is an 84-year-old female presenting with a request for a follow-up evaluation of her chronic medical conditions and to review recent laboratory results. The patient has a history of anemia, which has been stable and managed with iron supplementation. She reports having taken iron pills intermittently and is not experiencing adverse effects. The patient also has congestive heart failure, characterized by diastolic dysfunction, where the heart has difficulty relaxing, leading to occasional fluid accumulation in the lungs. She is currently managed with a diuretic to prevent fluid retention. Her kidney function has shown slight improvement from a blood creatinine level of 1.4 to 1.25, and her glomerular filtration rate has increased to 41 from 36, consistent with stable but impaired renal function. The patient reports no current symptoms suggestive of hyperlipidemia or any specific concerns, although her cholesterol levels were not assessed in the most recent tests due to an oversight. Previously, she noted elevated cholesterol in August but without recent measurements. She has been treated for hypertension, and current blood pressure readings are well-managed. Liver function tests have shown a slightly elevated enzyme level, not markedly different from prior assessments. Recently, the patient has received multiple unsolicited phone calls inquiring about back pain, which she denies experiencing. These calls also suggested the use of back or wrist braces; however, she confirmed they were not from her physician's office. [facility] Medical History (Updated 06/23/24 @ 12:36 by Shelbi Infante MD) Aortic stenosis (HFpEF) heart failure with preserved ejection fraction Paroxysmal atrial fibrillation Osteopenia Atrial fibrillation Elevated troponin Varicose vein of leg Pre-operative clearance Varicose veins of left leg with edema Carotid aneurysm, right Intracranial aneurysm Non-small cell cancer of right lung Thyroid nodule Pulmonary nodule Prolapsed bladder Hypercholesterolemia Peripheral vascular disease Diastolic dysfunction HTN (hypertension) Surgical History History of cataract surgery S/P TAVR (transcatheter aortic valve replacement) History of lung biopsy Hx of hysterectomy Hx of cardiac cath Hx of tonsillectomy Family History Father Brain tumor Mother Uterine cancer, sarcoma Social History Household Members: Spouse Housing: House Do you presently have visiting nurse or other home services: Yes (Since hip fx this year 2023, 1-2 times per week) Alcohol intake: current Alcohol intake frequency: does not drink Alcohol type: wine Patient Tobacco Use Status: Never used Tobacco Tobacco use type: Cigarette e-Cigarette/Vaping Use: Never Used Second Hand Smoke Exposure: No Advance Directives Date on File: 10/29/22 service: No Current occupational status: retired Cognitive needs: No Hearing needs: No Vision needs: Yes (glasses) Questionnaire PHQ-9 Over the last 2 weeks, how often have you been bothered by any of the following problems? 1. Little interest or pleasure in doing things: not at all 2. Feeling down, depressed, or hopeless: not at all 3. Trouble falling or staying asleep, or sleeping too much: not at all 4. Feeling tired or having little energy: not at all 5. Poor appetite or overeating: not at all 6. Feeling bad about yourself - or that you are a failure or have let yourself or your family down: not at all 7. Trouble concentrating on things, such as reading the newspaper or watching television: not at all 8. Moving or speaking so slowly that other people could have noticed. Or the opposite - being so fidgety or restless that you have been moving around a lot more than usual: not at all 9. Thoughts that you would be better off or of hurting yourself in some way: not at all Total score: 0 Depression Screening Interpretation: Negative Depression Screening Done: Yes 78553 - PHQ-9 Billing: Yes Source: Developed by Drs. Steve Kim, Isaac Cee and colleagues, with an educational eddie from [employer] Thrive Questionnaire Date Thrive assessed: 06/23/24 I am a: Patient What is your living situation today?: I have a steady place to live Within the past 12 months, did the food you bought not last and you didn't have the money to get more?: Never true Within the past 12 months, did you worry whether your food would run out before you got money to buy more?: Never true Do you have trouble paying for medicines?: No Do you have trouble getting transportation to medical appointments?: No Do you have trouble paying your heating and electricity bill?: No Do you have trouble taking care of your child, family member or friend?: No Do you have trouble with day-to-day activities such as bathing, preparing meals, shopping, managing finances, etc.?: No Are you currently unemployed and looking for a job?: No Are you interested in more education?: No Please select the resources that you would like help with: None Currently or been in a relationship where the following occur: No concerns reported THRIVE Score: 0 AUDIT C Alcohol Use Questionnaire (AUDIT-C) 1. How often do you have a drink containing alcohol?: Never 3. How often do you have six or more drinks on one occasion?: Never Total Score: 0 Score Reviewed/Action Taken: No CRISTAL-7 AMB Questionnaire CRISTAL-7 Date CRISTAL - 7 assessed: 06/23/24 Feeling nervous, anxious, or on edge: 0 = Not at all Not being able to stop or control worryin = Not at all Worrying too much about different things: 0 = Not at all Trouble relaxin = Not at all Being so restless that it is hard to sit still: 0 = Not at all Becoming easily annoyed or irritable: 0 = Not at all Feeling afraid as if something awful might happen: 0 = Not at all Total CRISTAL-7 score (0-4 normal; 5-9 mild; 10-14 moderate; 15-21 severe): 0 Source: Developed by Madalyn Tran Mariusz, Isaac Maza and colleagues, with an educational eddie from [employer]. Physical exam (Primary Care) Vital Signs: Last Vital Signs Pulse 75 06/23/24 11:58 BP 136/62 06/23/24 11:58 Pulse Ox 98 06/23/24 11:58 Oxygen Delivery Method Room Air 06/23/24 11:58 BMI result Body Mass Index 24.1 Tobacco/Smoking Status: Tobacco use Status Tobacco use date assessed 06/23/24 06/23/24 12:04 Patient Tobacco Use Status Never used Tobacco 06/23/24 12:04 Tobacco use type Cigarette 06/23/24 12:04 e-Cigarette/Vaping Use Never Used 06/23/24 12:04 PHQ-9: PHQ-9 Score PHQ-9: Total score 0 06/23/24 12:35 Depression Screening Interpretation: Negative Thrive Assessment: Date of Thrive Assessment Date Thrive assessed 06/23/24 06/23/24 12:04 Currently or been in a relationship where the following occur: No concerns reported Const General: alert; No acute distress Eyes Conjunctivae: conjunctivae normal Resp Auscultation: clear to auscultation bilaterally Cardio Rate: regular rate Rhythm: regular rhythm GI Inspection: Yes normal to inspection Extrem General: Yes normal to inspection and No edema Coding Level of Care Code Est Pt Level 4 (11704) Complex EM visit Add On G2211 Diagnoses Paroxysmal atrial fibrillation I48.0 Chronic heart failure with preserved ejection fraction I50.32 Heart failure chronicity: chronic Anemia D64.9 S/P TAVR (transcatheter aortic valve replacement) Z95.2 HTN (hypertension) I10 Hypercholesterolemia E78.00 Coronary artery disease (CAD) excluded Z03.89 Additional Codes PHQ-9 - 55700 - PHQ-9 Billing: Yes ([id number]) Assessment & Plan Assessment & Plan (1) Paroxysmal atrial fibrillation: Code(s): I48.0 - Paroxysmal atrial fibrillation Category: Medical (2) (HFpEF) heart failure with preserved ejection fraction: Code(s): I50.30 - Unspecified diastolic (congestive) heart failure Category: Medical Qualifiers: Heart failure chronicity: chronic Qualified Code(s): I50.32 - Chronic diastolic (congestive) heart failure (3) Anemia: Code(s): D64.9 - Anemia, unspecified Category: Medical (4) S/P TAVR (transcatheter aortic valve replacement): Comment: 07/30. 26 mm Evolut bioprosthesis Code(s): Z95.2 - Presence of prosthetic heart valve Category: Surgical (5) HTN (hypertension): Comment: Heart catheterization for TAVR severe July 2019 echo normal left ventricular function with grade 2 diastolic dysfunction Code(s): I10 - Essential (primary) hypertension Category: Medical (6) Hypercholesterolemia: Code(s): E78.00 - Pure hypercholesterolemia, unspecified Category: Medical (7) Coronary artery disease (CAD) excluded: Code(s): Z03.89 - Encounter for observation for other suspected diseases and conditions ruled out Category: Medical Plan - Continue current management of anemia, stable without acute intervention. - Maintain diuretic therapy for congestive heart failure; continue monitoring for any symptoms suggestive of fluid overload. - Monitor renal function and encourage adequate hydration; caution against NSAID use. - Arrange for cholesterol re-evaluation with fasting blood work during the next visit. - Continue antihypertensive regimen; blood pressure is well-controlled at present. - Regular monitoring of liver enzyme levels suggested due to slight elevation. - Discuss with the patient the nature of fraudulent calls regarding supposed back pain and advise on potential scams. - Recommend ongoing use of vitamin D supplements and encourage a nutritious diet for bone health. - Encourage ongoing regular physical activity as tolerated and stress the importance of avoiding infection exposure. - Reinforce the importance of vaccinations, especially for influenza and pneumonia, and RSV awareness. Orders: Orders Lipid Panel 3 Months E78.00 - Pure hypercholesterolemia, unspecified B Type Natriuretic Peptide 3 Months I50.32 - Chronic diastolic (congestive) heart failure Complete Blood Count Auto Diff 3 Months I50.32 - Chronic diastolic (congestive) heart failure Comprehensive Met. Panel 3 Months I50.32 - Chronic diastolic (congestive) heart failure
== END 2024-06-23 13:02 | disposition home or self-care (01) ==
PROVIDERS: PCP Internal Medicine; Visit Provider Internal Medicine
DX: I48.0 Paroxysmal atrial fibrillation (principal); I50.32 Chronic diastolic (congestive) heart failure; D64.9 Anemia, unspecified; Z95.2 Presence of prosthetic heart valve; I10 Essential (primary) hypertension; E78.00 Pure hypercholesterolemia, unspecified; Z03.89 Encounter for observation for other suspected diseases and conditions ruled out

== ENCOUNTER → 2024-06-23 11:38 | Outpatient (BNVA) | payer MEDICARE, SELFPAY | PROVIDERS: PCP Internal Medicine; Visit Provider Internal Medicine | DX: E78.5 Hyperlipidemia, unspecified (principal); I48.0 Paroxysmal atrial fibrillation; I11.0 Hypertensive heart disease with heart failure; I50.32 Chronic diastolic (congestive) heart failure; D64.9 Anemia, unspecified; E78.00 Pure hypercholesterolemia, unspecified; Z95.2 Presence of prosthetic heart valve; Z03.89 Encounter for observation for other suspected diseases and conditions ruled out | CPT/HCPCS: 96127; 99212 ==

== ENCOUNTER 2024-08-28 06:59 | Outpatient (REF) | payer MEDICARE, SELFPAY ==
[2024-08-28 07:15] LABS: MANUAL DIFF FLAG NO
[2024-08-28 08:02] LABS: Basophils Absolute Auto 0.1 X10*3/uL (0.0-0.2); Basophils Percent Auto 0.7 % (0-2); Eosinophils Absolute Auto 0.2 X10*3/uL (0.0-0.4); Eosinophils Percent Auto 2.1 % (0-4); Hematocrit 35.9 % (37.0-47.0); Hemoglobin 11.7 g/dl (12.0-16.0); Imm Gran Abs Auto 0.04 X10*3/uL (0.00-0.03); Imm Gran Pct Auto 0.5 % (0.0-0.4); Lymphocytes Absolute Auto 1.6 X10*3/uL (1.2-4.9); Lymphocytes Percent Auto 21.7 % (20-40); Mean Corpuscular HGB Conc 32.6 g/dl (31.0-35.0); Mean Corpuscular Hemoglobin 30.5 pg (27.0-33.0); Mean Corpuscular Volume 93.7 fL (80.0-98.0); Mean Platelet Volume 10.2 fL (9.4-12.3); Monocytes Absolute Auto 0.8 X10*3/uL (0.1-1.2); Monocytes Percent Auto 11.5 % (2-11); Neutrophils Absolute Auto 4.6 x10*3/uL (2.0-8.3); Neutrophils Percent Auto 63.5 % (45-73); Platelet Count 225 X10*3/uL (160-400); Red Blood Count 3.83 X10*6/uL (4.20-5.50); Red Cell Distribution Width 14.6 % (11.0-16.0); White Blood Count 7.3 X10*3/uL (4.8-10.8)
[2024-08-28 08:32] LABS: Alanine Aminotransferase 23 U/L (0-31); Albumin Level 3.7 g/dL (3.5-5.0); Alkaline Phosphatase 68 U/L (39-117); Anion Gap 12 (12-20); Aspartate Amino Transferase 33 U/L (5-31); Bilirubin Total 0.4 mg/dL (0.0-1.0); Blood Urea Nitrogen 33 mg/dL (9-16); Calcium 9.9 mg/dL (8.4-10.2); Carbon Dioxide 25 mmol/L (22-29); Chloride 112 mmol/L (96-108); Cholesterol 138 mg/dL (<200); Estimated Glomerular Filt Rate 42; Glucose Random 84 mg/dL (60-115); HDL Cholesterol 51 mg/dL (>40); LDL Cholesterol Calculated 72 mg/dL (<100); Potassium 4.3 mmol/L (3.3-5.1); Sodium 145 mmol/L (135-145); Total Protein 6.5 g/dL (6.5-8.0); Triglycerides 79 mg/dL (<150)
[2024-08-28 08:34] LABS: B Type Natriuretic Peptide 368 pg/mL (<100)
== END 2024-08-28 07:00 | disposition home or self-care (01) ==
LOC: HO.LAB 06:59
PROVIDERS: PCP Internal Medicine; Visit Provider Internal Medicine
DX: E78.00 Pure hypercholesterolemia, unspecified (principal); I50.32 Chronic diastolic (congestive) heart failure
CPT/HCPCS: 36415; 80053; 80061; 83880; 85025

== ENCOUNTER 2024-08-31 14:09 | Outpatient (REF) | payer MEDICARE, SELFPAY | END 2024-08-31 14:10 | disposition home or self-care (01) | LOC: HO.MAMMO 14:09 | PROVIDERS: PCP Internal Medicine; Visit Provider Internal Medicine | DX: Z12.31 Encounter for screening mammogram for malignant neoplasm of breast (principal) | CPT/HCPCS: 77063; 77067 ==

== ENCOUNTER → 2024-08-31 14:30 | Outpatient (BNV) | payer MEDICARE, SELFPAY | PROVIDERS: PCP Internal Medicine; Visit Provider Internal Medicine | DX: Z12.31 Encounter for screening mammogram for malignant neoplasm of breast (principal) | CPT/HCPCS: 77063; 77067 ==

== ENCOUNTER 2024-09-07 09:47 | Outpatient (AMB) | payer MEDICARE, SELFPAY ==
[2024-09-07 10:04] VITALS: BP 130/74; PULSE 60; BMI 24.2
--- NOTE | 2024-09-07 10:04 | A.OFFVIS_ITS ---
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 Accompanied by: Spouse Allergies Sulfa (Sulfonamide Antibiotics) [SULFA (SULFONAMIDE ANTIBIOTICS)] Allergy (Mild, Verified 06/23/24 11:59) RASH Medication List - Last Reconciled 09/07/24 by Emmett Vogt MD acetaminophen 650 mg PO Q6H PRN amiodarone 100 mg PO DAILY apixaban (Eliquis) 5 mg PO BID 90 days atenolol 50 mg PO DAILY atorvastatin 40 mg PO DAILY calcium carbonate-vitamin D3 600 mg-10 mcg (400 unit) (Calcium 600 with Vitamin D3) 1 tab PO BID 90 days estradiol 0.01%(0.1mg/gram) 1 g vaginal 2XW fenofibrate nanocrystallized 145 mg PO DAILY furosemide 20 mg PO DAILY wxbmilmspljc-bvwn-skfuy acid 18-400 mg-mcg 1 tab PO DAILY nifedipine ER 30 mg PO BEDTIME oxycodone 5 mg PO Q6H PRN HPI Comments Details: Eloisa comes for follow-up. She has been doing very well from cardiac perspective. She has been exercising more and walk in his treadmill for up to 12-15 minutes and has no symptoms. Denies any worsening shortness of breath. No orthopnea, PND, leg edema. No prolonged palpitation irregular heartbeat. Takes all her medications. No exertional chest pain. [facility] Medical History Aortic stenosis (HFpEF) heart failure with preserved ejection fraction Paroxysmal atrial fibrillation Osteopenia Atrial fibrillation Elevated troponin Varicose vein of leg Pre-operative clearance Varicose veins of left leg with edema Carotid aneurysm, right Intracranial aneurysm Non-small cell cancer of right lung Thyroid nodule Pulmonary nodule Prolapsed bladder Hypercholesterolemia Peripheral vascular disease Diastolic dysfunction HTN (hypertension) Surgical History History of cataract surgery S/P TAVR (transcatheter aortic valve replacement) History of lung biopsy Hx of hysterectomy Hx of cardiac cath Hx of tonsillectomy Family History Father Brain tumor Mother Uterine cancer, sarcoma Social History Household Members: Spouse Housing: House Do you presently have visiting nurse or other home services: Yes (Since hip fx this year 2023, 1-2 times per week) Alcohol intake: current Alcohol intake frequency: does not drink Alcohol type: wine Patient Tobacco Use Status: Never used Tobacco Tobacco use type: Cigarette e-Cigarette/Vaping Use: Never Used Second Hand Smoke Exposure: No Advance Directives Date on File: 10/29/22 service: No Current occupational status: retired Cognitive needs: No Hearing needs: No Vision needs: Yes (glasses) Review of Systems Const Denies chills, Denies fatigue, Denies fever(s), Denies frequent falls, Denies weakness, Denies weight gain and Denies weight loss ENT Denies dizziness Card Denies chest pain, Denies leg edema, Denies lightheadedness, Denies palpitations, Denies dyspnea, Denies dyspnea on exertion, Denies orthopnea and Denies other (loss of consciousness) Resp Denies cough, Denies dyspnea and Denies dyspnea on exertion GI Denies hematochezia and Denies change in stool character Musc Denies abnormal gait, Denies muscle weakness, Denies numbness, Denies radiating pain into limb and Denies tingling Neuro Denies abnormal gait, Denies dizziness, Denies frequent falls, Denies numbness, Denies tingling and Denies weakness Endo Denies fatigue and Denies palpitations Physical Exam Vital Signs: Last Vital Signs Pulse 60 09/07/24 10:04 BP 130/74 09/07/24 10:04 BMI result Body Mass Index 24.2 Const General: cooperative, healthy appearing, comfortable and no acute distress Orientation/consciousness: patient oriented x3 Neck Neck: Yes normal visual inspection and Yes no JVD Resp Effort & Inspection: normal respiratory effort Auscultation: clear to auscultation bilaterally, no rales, no rhonchi and no wheezes Cardio Jugular venous distension: no JVD Rate: regular rate Rhythm: regular rhythm Heart sounds: S1 normal heart sound present, S2 normal heart sound present, no murmurs and no rubs Neuro General: patient oriented x3 Extrem General: Yes normal to inspection and No no pedal edema Psych Appearance: grossly normal Mental Status: mental status grossly normal Speech and movement: Normal speech and movement present Office Procedures EKG Details: EKG shows normal sinus rhythm with normal EKG [id number], Complete Assessment & Plan Assessment & Plan (1) S/P TAVR (transcatheter aortic valve replacement): Comment: 07/30. 26 mm Evolut bioprosthesis Code(s): Z95.2 - Presence of prosthetic heart valve Category: Surgical Plan: Status post transcatheter aortic valve replacement doing very well from that perspective. Continue full oral anticoagulation, currently on Eliquis 5 mg b.i.d.. SBE prophylaxis as per ACC/[facility] guidelines. Continue aggressive vascular risk factor modification. (2) (HFpEF) heart failure with preserved ejection fraction: Code(s): I50.30 - Unspecified diastolic (congestive) heart failure Category: Medical Qualifiers: Heart failure chronicity: chronic Qualified Code(s): I50.32 - Chronic diastolic (congestive) heart failure Plan: Heart failure preserved ejection fraction, clinically euvolemic and well compensated has done well with aggressive blood pressure control as well as rhythm control. Continue aggressive blood pressure control with target goal blood pressure less than 130/84. Advised daily weight monitoring avoidance salt loading. Additional diuretics as need be. Continue current Lasix therapy. Continue rhythm control approach, see below. (3) Paroxysmal atrial fibrillation: Code(s): I48.0 - Paroxysmal atrial fibrillation Category: Medical Plan: Paroxysmal atrial fibrillation which has remained controlled with low-dose amiodarone therapy. Continue the same. She has derived significant clinical benefit from rhythm control approach. Continue the same. Continue full oral anticoagulation, currently on Eliquis 5 mg b.i.d.. Quarterly renal function test should be pursued. Will follow up in the clinic in 6 months after an echocardiogram and chest x-ray as well as blood work for to evaluate for amiodarone toxicity. Orders: Orders CA echo transthoracic complete 6 Months Z95.2 - Presence of prosthetic heart valve Medications: Refilled furosemide 20 mg PO DAILY 90 tabs 3RF Z95.2 - Presence of prosthetic heart valve Coding Level of Care Code Est Pt Level 4 (38409) Complex EM visit Add On G2211 Diagnoses S/P TAVR (transcatheter aortic valve replacement) Z95.2 Chronic heart failure with preserved ejection fraction I50.32 Heart failure chronicity: chronic Paroxysmal atrial fibrillation I48.0 CPT Codes EKG - CPT: 15151-[id number], Complete ([id number])
== END 2024-09-07 10:40 | disposition home or self-care (01) ==
LOC: HO.HCS 09:48
PROVIDERS: PCP Internal Medicine; Visit Provider Internal Medicine Cardiovascular Disease
DX: Z95.2 Presence of prosthetic heart valve (principal); I50.32 Chronic diastolic (congestive) heart failure; I48.0 Paroxysmal atrial fibrillation
CPT/HCPCS: 93010; 99214; G2211

== ENCOUNTER → 2024-09-07 09:47 | Outpatient (BNVA) | payer MEDICARE, SELFPAY | PROVIDERS: PCP Internal Medicine; Visit Provider Internal Medicine Cardiovascular Disease | DX: I48.0 Paroxysmal atrial fibrillation (principal); I50.32 Chronic diastolic (congestive) heart failure; Z95.2 Presence of prosthetic heart valve | CPT/HCPCS: 93005; 99212 ==

== ENCOUNTER 2024-09-22 10:09 | Outpatient (AMB) | payer MEDICARE, SELFPAY ==
[2024-09-22 10:13] VITALS: BP 130/82; PULSE 112; O2SAT 96; BMI 24.6
--- NOTE | 2024-09-22 10:13 | MHC.PC.OV ---
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 Accompanied by: Self / Same As Patient Allergies Sulfa (Sulfonamide Antibiotics) [SULFA (SULFONAMIDE ANTIBIOTICS)] Allergy (Mild, Verified 09/22/24 10:13) RASH Medication List - Last Reconciled 09/22/24 by Shelbi Infante MD acetaminophen 650 mg PO Q6H PRN amiodarone 100 mg PO DAILY apixaban (Eliquis) 5 mg PO BID 90 days atenolol 50 mg PO DAILY atorvastatin 40 mg PO DAILY calcium carbonate-vitamin D3 600 mg-10 mcg (400 unit) (Calcium 600 with Vitamin D3) 1 tab PO BID 90 days estradiol 0.01%(0.1mg/gram) 1 g vaginal 2XW fenofibrate nanocrystallized 145 mg PO DAILY furosemide 20 mg PO DAILY xdivpislmlbl-wnqt-vdtzu acid 18-400 mg-mcg 1 tab PO DAILY nifedipine ER 30 mg PO BEDTIME oxycodone 5 mg PO Q6H PRN Tobacco use date assessed: 09/22/24 Fall risk assessment: No Falls in past year Last assessed Fall Risk: 09/22/24 Dental Screening Dental Screen Date: 09/22/24 Did you have a dental visit in the last 12 months?: No Did you have a dental problem in the last 6 months where you did not have access to dental care?: No Was dental information given to patient?: Patient has dentist [facility] Medical History Aortic stenosis (HFpEF) heart failure with preserved ejection fraction Paroxysmal atrial fibrillation Osteopenia Atrial fibrillation Elevated troponin Varicose vein of leg Pre-operative clearance Varicose veins of left leg with edema Carotid aneurysm, right Intracranial aneurysm Non-small cell cancer of right lung Thyroid nodule Pulmonary nodule Prolapsed bladder Hypercholesterolemia Peripheral vascular disease Diastolic dysfunction HTN (hypertension) Surgical History History of cataract surgery S/P TAVR (transcatheter aortic valve replacement) History of lung biopsy Hx of hysterectomy Hx of cardiac cath Hx of tonsillectomy Family History Father Brain tumor Mother Uterine cancer, sarcoma Social History Household Members: Spouse Housing: House Do you presently have visiting nurse or other home services: Yes (Since hip fx this 2023, 1-2 times per week) Alcohol intake: current Alcohol intake frequency: does not drink Alcohol type: wine Patient Tobacco Use Status: Never used Tobacco Tobacco use type: Cigarette e-Cigarette/Vaping Use: Never Used Second Hand Smoke Exposure: No Advance Directives Date on File: 10/29/22 service: No Current occupational status: retired Cognitive needs: No Hearing needs: No Vision needs: Yes (glasses) Questionnaire PHQ-9 Over the last 2 weeks, how often have you been bothered by any of the following problems? 1. Little interest or pleasure in doing things: not at all 2. Feeling down, depressed, or hopeless: not at all 3. Trouble falling or staying asleep, or sleeping too much: not at all 4. Feeling tired or having little energy: not at all 5. Poor appetite or overeating: not at all 6. Feeling bad about yourself - or that you are a failure or have let yourself or your family down: not at all 7. Trouble concentrating on things, such as reading the newspaper or watching television: not at all 8. Moving or speaking so slowly that other people could have noticed. Or the opposite - being so fidgety or restless that you have been moving around a lot more than usual: not at all 9. Thoughts that you would be better off or of hurting yourself in some way: not at all Total score: 0 Depression Screening Interpretation: Negative Depression Screening Done: Yes 43137 - PHQ-9 Billing: Yes Source: Developed by Drs. Steve Kim, Madalyn Vee, Isaac Maza and colleagues, with an educational eddie from [employer] Thrive Questionnaire Date Thrive assessed: 09/22/24 I am a: Patient What is your living situation today?: I have a steady place to live Within the past 12 months, did the food you bought not last and you didn't have the money to get more?: Never true Within the past 12 months, did you worry whether your food would run out before you got money to buy more?: Never true Do you have trouble paying for medicines?: No Do you have trouble getting transportation to medical appointments?: No Do you have trouble paying your heating and electricity bill?: No Do you have trouble taking care of your child, family member or friend?: No Do you have trouble with day-to-day activities such as bathing, preparing meals, shopping, managing finances, etc.?: No Are you currently unemployed and looking for a job?: No Are you interested in more education?: No Please select the resources that you would like help with: None Currently or been in a relationship where the following occur: No concerns reported THRIVE Score: 0 AUDIT C Alcohol Use Questionnaire (AUDIT-C) 1. How often do you have a drink containing alcohol?: Never 3. How often do you have six or more drinks on one occasion?: Never Total Score: 0 Score Reviewed/Action Taken: No CRISTAL-7 AMB Questionnaire CRISTAL-7 Date CRISTAL - 7 assessed: 09/22/24 Feeling nervous, anxious, or on edge: 0 = Not at all Not being able to stop or control worryin = Not at all Worrying too much about different things: 0 = Not at all Trouble relaxin = Not at all Being so restless that it is hard to sit still: 0 = Not at all Becoming easily annoyed or irritable: 0 = Not at all Feeling afraid as if something awful might happen: 0 = Not at all Total CRISTAL-7 score (0-4 normal; 5-9 mild; 10-14 moderate; 15-21 severe): 0 Source: Developed by Drs. Steve Kim, Madalyn Vee, Isaac Maza and colleagues, with an educational eddie from [employer] Physical exam (Primary Care) Vital Signs: Last Vital Signs Pulse 112 H 09/22/24 10:13 BP 130/82 09/22/24 10:13 Pulse Ox 96 09/22/24 10:13 Oxygen Delivery Method Room Air 09/22/24 10:13 BMI result Body Mass Index 24.6 Tobacco/Smoking Status: Tobacco use Status Tobacco use date assessed 09/22/24 09/22/24 10:15 Patient Tobacco Use Status Never used Tobacco 09/22/24 10:15 Tobacco use type Cigarette 09/22/24 10:15 e-Cigarette/Vaping Use Never Used 09/22/24 10:15 PHQ-9: PHQ-9 Score PHQ-9: Total score 0 09/22/24 10:19 Depression Screening Interpretation: Negative Thrive Assessment: Date of Thrive Assessment Date Thrive assessed 09/22/24 09/22/24 10:15 Currently or been in a relationship where the following occur: No concerns reported Const General: alert; No acute distress Eyes Conjunctivae: conjunctivae normal Resp Auscultation: clear to auscultation bilaterally Cardio Rate: regular rate Rhythm: regular rhythm GI Inspection: Yes normal to inspection Extrem General: Yes normal to inspection and No edema Coding Level of Care Code Est Pt Level 4 (07791) Complex EM visit Add On G2211 Diagnoses Paroxysmal atrial fibrillation I48.0 Chronic heart failure with preserved ejection fraction I50.32 Heart failure chronicity: chronic Anemia D64.9 S/P TAVR (transcatheter aortic valve replacement) Z95.2 HTN (hypertension) I10 Hypercholesterolemia E78.00 Non-small cell cancer of right lung C34.91 Additional Codes PHQ-9 - 97267 - PHQ-9 Billing: Yes ([id number]) Assessment & Plan Assessment & Plan (1) Paroxysmal atrial fibrillation: Code(s): I48.0 - Paroxysmal atrial fibrillation Category: Medical Plan: Continuing with anticoagulation advised quarterly renal function August 2024 last blood work (2) (HFpEF) heart failure with preserved ejection fraction: Code(s): I50.30 - Unspecified diastolic (congestive) heart failure Category: Medical Qualifiers: Heart failure chronicity: chronic Qualified Code(s): I50.32 - Chronic diastolic (congestive) heart failure Plan: Continuing with diuretics renal function being monitored on beta kandace atenolol (3) Anemia: Code(s): D64.9 - Anemia, unspecified Category: Medical Plan: Improved and continuing to monitor (4) S/P TAVR (transcatheter aortic valve replacement): Comment: 07/30. 26 mm Evolut bioprosthesis Code(s): Z95.2 - Presence of prosthetic heart valve Category: Surgical Plan: Patient has followed up with Cardiology and echocardiogram in 6 months (5) HTN (hypertension): Comment: Heart catheterization for TAVR severe July 2019 echo normal left ventricular function with grade 2 diastolic dysfunction Code(s): I10 - Essential (primary) hypertension Category: Medical Plan: Continue with blood pressure medication. Decrease salt intake and exercise takes nifedipine 30 mg once a day atenolol 50 mg once a day (6) Hypercholesterolemia: Code(s): E78.00 - Pure hypercholesterolemia, unspecified Category: Medical Plan: Avoid fried foods, chicken skin, eggs, butter margarine, pastries and meat. Be it pork or beef they have a lot of cholesterol patient on atorvastatin 40 and fenofibrate LDL goal of less than 70 and triglyceride of less than 150 (7) Non-small cell cancer of right lung: Comment: May 2019, CT scan 2021October 202203/2023. 01/2024, August 2024 Code(s): C34.91 - Malignant neoplasm of unspecified part of right bronchus or lung Category: Medical Plan: CT scan done August 2024 Plan History of Present Illness The patient is an 84-year-old female presenting with concerns related to atrial fibrillation and congestive heart failure management. She has been on anticoagulation therapy with Eliquis and follows a regimen aimed at controlling her blood pressure and cholesterol. Recent diagnostic evaluations include a chest CAT scan with no significant findings of recurrence and blood work showing mild anemia and stable kidney function. Additional historical medical issues include a history of non-small cell lung cancer, thyroid nodule, hypertension, and those addressed post-TAVR intervention. Her health maintenance includes regular physical activity and cholesterol management with atorvastatin. Overall, her chronic conditions are being actively monitored, and regular follow-ups with cardiology are essential for ongoing management. Health Maintenance - Regular echocardiogram recommended every 6 months. - Quarterly renal function testing advised. - Routine monitoring of lipid profile. - Emphasis on dietary aspects, specifically increasing vegetable intake. - Encouragement of cardiovascular exercise and physical activity. - Blood pressure management to maintain target BP of 130/84 mmHg. - Ongoing assessment for heart failure indicators and thyroid function. Social History - Engaged in routine physical activities, particularly gardening. - Diet primarily consists of vegetables with conscious efforts to manage cholesterol levels. - Long-term stable lifestyle with a supportive family environment. Review of Systems - Cardiovascular: Reports atrial fibrillation, managed with anticoagulation therapy. - Respiratory: Denies new respiratory symptoms; stable post lung cancer treatment. - Endocrine: Reports a history of thyroid nodule; TSH slightly elevated. - Hematologic: Reports mild anemia. - Musculoskeletal: Denies significant joint or bone-related discomfort post-TAVR. - General: Denies significant fatigue beyond manageable limits. Physical Exam Results - Labs: Mild anemia with hemoglobin at 11.6 g/dL, normal electrolytes, TSH mildly elevated at 5.16 mIU/L, LDL recorded at 72 mg/dL. - Tests and Diagnostics: Chest CAT scan without significant changes or evidence of recurrent disease as of August 14, 2024. Plan The current plan for managing atrial fibrillation and congestive heart failure includes maintaining anticoagulation therapy with Eliquis and managing blood pressure within the target range using nifedipine and atenolol. The patient should continue cholesterol-lowering therapy with atorvastatin 40 mg with rewnewd emphasis on achieving an LDL below 70 mg/dL. Regular echocardiograms and renal function tests are advised to monitor patient response and adjust treatment as necessary. Recent lab findings suggest mild anemia and a raised TSH, warranting further observation and potential dietary adjustments. The patient's efforts in staying physically active and following a healthy diet are encouraged for overall cardiovascular health. Patient was informed and verbally consented to the use of an ambient scribe for clinic note documentation during this visit. Discussion Notes In discussion with the patient, I focused on the continuous management of her atrial fibrillation, stressing the importance of adherence to anticoagulation therapy with Eliquis to mitigate stroke risk. We reviewed her current blood pressure medications and target levels, reiterating the need to maintain these to prevent complications. We addressed her lipid management with atorvastatin, confirming her LDL is near target and suggesting further diet improvements to optimize her cholesterol levels. I advised regular echocardiograms to monitor cardiac health and recommended quarterly renal function assessments considering her medication profile. We also discussed her mild anemia and slightly elevated TSH levels, suggesting dietary modifications and ongoing monitoring. The patient is advised to maintain her active lifestyle with gardening, as it contributes to her general well-being. I emphasized the importance of keeping regular follow-up appointments with cardiology and reporting any new symptoms promptly. Patient Instructions - Continue taking Eliquis 5 mg twice daily. - Maintain your current blood pressure medications as prescribed. - Stick to a heart-healthy diet, high in vegetables, monitoring cholesterol levels. - Engage in regular exercise, such as gardening, for cardiovascular health. - Schedule an echocardiogram in the next 6 months and regular blood work, including renal function tests. - Monitor your hemoglobin and TSH levels periodically as advised. - Stay hydrated, especially while on diuretic therapy. - Follow up with your career services assistant regularly and report any new or worsening symptoms immediately. Orders: Orders Complete Blood Count Auto Diff 3 Months I50.32 - Chronic diastolic (congestive) heart failure Thyroid Stimulating Hormone 3 Months I50.32 - Chronic diastolic (congestive) heart failure Vitamin D 25-OH Total 3 Months I50.32 - Chronic diastolic (congestive) heart failure Ferritin 3 Months I50.32 - Chronic diastolic (congestive) heart failure Magnesium 3 Months I50.32 - Chronic diastolic (congestive) heart failure B Type Natriuretic Peptide 3 Months I50.32 - Chronic diastolic (congestive) heart failure Comprehensive Met. Panel 3 Months I50.32 - Chronic diastolic (congestive) heart failure Free T4 (Free Thyroxine) 3 Months I50.32 - Chronic diastolic (congestive) heart failure Vitamin B12 and Folate 3 Months I50.32 - Chronic diastolic (congestive) heart failure IRON PROFILE 3 Months I50.32 - Chronic diastolic (congestive) heart failure Lipid Panel 3 Months E78.00 - Pure hypercholesterolemia, unspecified, I50.32 - Chronic diastolic (congestive) heart failure
--- OUTSIDE RECORDS SUMMARY | 2024-09-22 12:01 | XMS_ITS | Clinical Summary ---
Author Organization [facility] Address [address] [place] [phone] Phone Care Team Providers Care Lamp Developer Name Role Phone Shelbi Infante MD Primary Care Provider [phone] Allergies No known active allergies Medications amiodarone (PACERONE) 200 mg tablet Take 0.5 tablets (100 mg total) by mouth 1 (one) time each day. 5 Active Eliquis 5 mg tablet Take 1 tablet (5 mg total) by mouth 2 (two) times a day. 5 Active ascorbic acid (VITAMIN C) 500 mg tablet Take 1 tablet (500 mg total) by mouth 1 (one) time each day. 4 Active atenoloL (TENORMIN) 50 mg tablet Take 1 tablet (50 mg total) by mouth 1 (one) time each day. 4 Active atorvastatin (LIPITOR) 40 mg tablet Take 1 tablet (40 mg total) by mouth. at bedtime. 4 Active calcium carbonate-david calciferol 500 mg-10 mcg (400 unit) per chewable tablet CHEW AND SWALLOW ONE TABLET TWICE DAILY 4 Active fenofibrate (TRICOR) 145 mg tablet Take 1 tablet (145 mg total) by mouth 1 (one) time each day. 4 Active estradioL (ESTRACE) 0.01 % (0.1 mg/gram) vaginal cream USE 1 GRAM VAGINALLY 2 TIMES A WEEK AT BEDTIME 4 Active FeroSuL 325 mg (65 mg iron) tablet Take 1 tablet (325 mg total) by mouth 1 (one) time each day. 4 Active furosemide (LASIX) 20 mg tablet Take 1 tablet (20 mg total) by mouth 1 (one) time each day. 5 Active NIFEdipine XL (PROCARDIA XL) 30 mg 24 hr tablet Take 1 tablet (30 mg total) by mouth. at bedtime. 4 Active Active Problems Problem Noted Date Diagnosed Date Osteopenia 08/11/2024 Hyperlipidemia 08/11/2024 Hypertension 08/11/2024 Coronary artery disease 08/11/2024 Thyroid nodule 08/11/2024 Aortic stenosis 08/11/2024 Non-small cell carcinoma of lung, right (CMS/FORMERLY [facility] V24, CMS/[facility]ER[facility] V28) 08/11/2024 Encounters Date Type Department Care Team Description 08/18/2024 10:54 AM EDT - 08/18/2024 11:59 PM EDT Hospital Encounter [facility] Radiation Oncology [address] [phone] Liliane Tim NP Non-small cell carcinoma of lung, right (CMS/HCC V24, CMS/FORMERLY [facility] V28) (Primary Dx) Discharge Disposition: Home or Self Care 08/14/2024 7:04 AM EST - 08/14/2024 11:59 PM EST Hospital Encounter [facility] CT Scan [address] [place] [id number] Malignant neoplasm of lower lobe, right bronchus or lung (CMS/HCC V24, CMS/FORMERLY [facility] V28) Discharge Disposition: Home or Self Care from Last 3 Months Social History Tobacco Use Types Packs/Day Years Used Date Smoking Tobacco: Never Assessed Comments Unknown Sex and Gender Information Value Date Recorded Sex Assigned at Female 07/30/2024 12:37 PM EST Legal Sex Female 7:41 PM EST Gender Identity Female 07/30/2024 12:37 PM EST Sexual Orientation Straight 07/30/2024 12 :37 PM EST Last Filed Vital Signs Vital Sign Reading Time Taken Comments Blood Pressure 155/50 08/18/2024 10:58 AM EDT Pulse 59 08/18/2024 10:58 AM EDT Temperature 36.2 ??C (97.1 ??F) 08/18/2024 1 0:58 AM EDT Respiratory Rate 16 08/18/2024 10:5 8 AM EDT Oxygen Saturation 100% 08/18/2024 10: 58 AM EDT Inhaled Oxygen Concentration - - Weight 59.3 kg (130 lb 12.8 oz) 025 10:58 AM EDT Height 157.5 cm (5' 2 ) 08/18/2024 10:5 8 AM EDT Body Mass Index 23.92 08/18/2024 10:58 AM EDT Plan of Treatment Upcoming Encounters Date Type Department Care Team (Late st Contact Info) Description 08/18/2025 11:00 AM EDT Appointment [facility] Radiation Oncology [address] [phone] Liliane Tim NP [address] [place] [address] Health Maintenance Due Date Last Done Comments Zoster Vaccines (1 of 2) 01/04/1959 RSV Immunization Adult Patients (1 - 1-dose 75+ series) 01/04/2016 Cholesterol Screening (Lipid Panel) 05/12/2022 Depression Screening 05/12/2022 Falls Risk Assessment 05/12/2022 Medicare Annual Wellness Visit 05/12/2022 Osteoporosis Screening (Bone Density Screening) 05/12/2022 Social Influencers of Health Screening 05/12/2022 COVID-19 Vaccine ( season) 2024 11/23/2021, 05/23/2021, 08/10/2020, Additional history exists Hypertension/CHF/CAD Annual BMP Blood Test 08/12/2024 DTaP,Tdap,and Td Vaccines (2 - Td or Tdap) 11/11/2031 11/10/2021 Pneumococcal Vaccine: 50+ Years Completed 05/16/2018, 06/06/2015 Influenza Vaccine Completed 03/30/2024, , 03/30/2022, Additional history exists HIB Vaccines Aged Out No longer eligi ble based on patient's age to complete this topic HPV Vaccines Aged Out No longer eligi ble based on patient's age to complete this topic Hepatitis A Vaccines Aged Out No long er eligible based on patient's age to complete this topic Hepatitis B Vaccines Aged Out No long er eligible based on patient's age to complete this topic IPV Vaccines Aged Out No longer eligi ble based on patient's age to complete this topic MMR Vaccines Aged Out No longer eligi ble based on patient's age to complete this topic Meningococcal ACWY Vaccine Aged Out N o longer eligible based on patient's age to complete this topic Meningococcal B Vaccine Aged Out No l onger eligible based on patient's age to complete this topic RSV Immunization Patients Under 20 months Aged Out No longer eligible based on patient's age to complete this topic Varicella Vaccines Aged Out No longer eligible based on patient's age to complete this topic Procedures Procedure Name Priority Date/Time Associated Diagnosis Comments CT CHEST WO CONTRAST Routine 08/14/2024 7:33 AM EST Malignant neoplasm of lower lobe, right bronchus or lung (CMS/HCC V24, CMS/HCC V28) from Last 3 Months Results * CT Chest wo Contrast (08/14/2024 7:33 AM EST) Anatomical Region Laterality Modality Body Computed Tomogra phy 08/17/2024 5:28 PM EDT Impressions 08/17/2024 5:41 PM EDT No significant change compared to prior examination. ??Stable posttreatment changes without CT evidence for recurrent disease. ??Continued surveillance advised. -------- FINAL REPORT -------- Dictated By: Sukhi Miles Dictated Date: 08/17/2024 17:28 ET Assigned Physician: Sukhi Miles Reviewed and Electronically Signed By: Sukhi Miles Signed Date: 08/17/2024 17:41 ET Workstation ID: [id number] Transcribed By: Self Edit Transcribed Date: 08/17/2024 17:28 ET Narrative 08/17/2024 5:41 PM EDT PROCEDURE: CT CHEST WITHOUT CONTRAST INDICATION: Non-small cell lung cancer, monitor s/p SBRT June 2019 TECHNIQUE: Chest CT without contrast. Multi planar reformats were created and interpreted. The examination was performed utilizing dose reduction techniques.Total DLP 309 mGy/cm COMPARISON: ??02/06/2024 FINDINGS: LUNGS/PLEURA: Stable posttreatment changes anterior aspect of the right lower lobe with volume loss and fissural consolidation with calcifications. ??Stable 3-4 mm nodule at the right lung base MEDIASTINUM: Atherosclerotic plaque of the aorta. ??Status post transcatheter aortic valve replacement with coronary artery calcifications. ??Thyroid nodules. CHEST WALL: No axillary lymphadenopathy or superficial hematoma. UPPER ABDOMEN:Stable low-density lesions in the liver presumably benign. BONES: Degenerative changes of the bones and osteopenia. Procedure Note Sukhi Miles MD - 08/17/2024 PROCEDURE: CT CHEST WITHOUT CONTRAST INDICATION: Non-small cell lung cancer, monitor s/p SBRT June 2019 TECHNIQUE: Chest CT without contrast. Multi planar reformats were createdand interpreted. The examination was performed utilizing dose reductiontechniques.Total DLP 309 mGy/cm COMPARISON: 02/06/2024 FINDINGS: LUNGS/PLEURA: Stable posttreatment changes anterior aspect of the rightlower lobe with volume loss and fissural consolidation withcalcifications. Stable 3-4 mm nodule at the right lung base MEDIASTINUM: Atherosclerotic plaque of the aorta. Status posttranscatheter aortic valve replacement with coronary arterycalcifications. Thyroid nodules. CHEST WALL: No axillary lymphadenopathy or superficial hematoma. UPPER ABDOMEN:Stable low-density lesions in the liver presumably benign. BONES: Degenerative changes of the bones and osteopenia. IMPRESSION: No significant change compared to prior examination. Stable posttreatmentchanges without CT evidence for recurrent disease. Continued surveillanceadvised. 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
--- OUTSIDE RECORDS SUMMARY | 2024-09-22 12:01 | XMS_ITS | Patient Health Record ---
Author Organization [employer] [facility] Address [address] [place] [address] Care Team Providers Care Radar Repairer Name Role Phone ESTEFANI SENIOR M.D. Primary Care Provider Unavaila Jeanne Crawford Unavailable [phone] Allergies Allergen (clinical drug ingredient) Drug/Non Drug Allergy documented on EMR Reaction Allergy Type Onset Date Status sulfur (uncoded) Unknown Allergy Act wanda Reason For Referral No Information Medications Medication SIG (Take, Route, Frequency, Duration) Notes Start Date End Date Status Calcium 1 tablet Once a day Active Vitamin D-3 1 tablet Once a day Active Folic Acid 800 MCG Orally A ctive Vitamin B-12 1000 MCG 1 tablet Orally On ce a day Active Dicloxacillin Sodium [address] meals Orally every 8 hrs for 10 day(s) 07/09/2018 Active Atenolol 100 MG 1 tablet Orally Once a day Active NIFEdipine 30 mg Act wanda Fenofibrate 145 MG 1 tablet Orally Active Aspirin 81 MG 1 tablet Orally Once a day Active hydroCHLOROthiazide 12.5 MG Orally Active Atorvastatin Calcium 40 MG 1 tablet Oral ly Once a day Active Social History Tobacco Use: Social History Observation Description Date Details (start date - stop date) Never Smoker NA - NA Tobacco Use/Smoking Question Answer Notes Are you a nonsmoker Alcohol Screen (Audit-C) Question Answer Notes Did you have a drink contain ing alcohol in the past year? Yes How often did you have a dri nk containing alcohol in the past year? Monthly or less (1 point) How many drinks did you have on a typical day when you were drinking in the past year? 1 or 2 drinks (0 point) Points 1 Interpretation Negative Tobacco use other than smoking: Question Answer Notes Are you an other tobacco user? No Problems Problem Type SNOMED Code ICD Code Onset Dates Problem Status W/U Status Risk Notes Problem Essential hypertension (57845237) Essential (primary) hypertension (I10) Active confirmed Problem Hyperlipidemia (40661437) Hyperlipidemia, unspecified (E78.5) Active confirmed Problem Midline cystocele (505748096) Cystocele, midline (N81.11) Active confirmed Plan Of Treatment No Information Insurance Providers Payer Name Payer Address Payer Phone Subscriber Number Group Number Insured Name Patient Relationship to Insured Coverage Start Date Coverage End Date BCBS MEDICARE PPO [address] [place] [address] [id number] YOSEF MCWILLIAMS Self - patient is the insured Medical (General) History Medical History History ICD Code Hyperlipidemia, unspecified E78.5 Essential (primary) hypertension I10 Surgical History Surgery Date(Month/Year) Hysterectomy+Bladder Lift 09/23/2005 Hospitalization History Reason Date(Month/Year) See surgical Hx
== END 2024-09-22 10:56 | disposition home or self-care (01) ==
LOC: HO.HMCH 10:09
PROVIDERS: PCP Internal Medicine; Visit Provider Internal Medicine
DX: I11.0 Hypertensive heart disease with heart failure (principal); I48.0 Paroxysmal atrial fibrillation; I50.32 Chronic diastolic (congestive) heart failure; C34.91 Malignant neoplasm of unspecified part of right bronchus or lung; D64.9 Anemia, unspecified; Z95.2 Presence of prosthetic heart valve; E78.00 Pure hypercholesterolemia, unspecified

== ENCOUNTER → 2024-09-22 10:09 | Outpatient (BNVA) | payer MEDICARE, SELFPAY | PROVIDERS: PCP Internal Medicine; Visit Provider Internal Medicine | DX: I25.10 Atherosclerotic heart disease of native coronary artery without angina pectoris (principal); I48.0 Paroxysmal atrial fibrillation; I50.32 Chronic diastolic (congestive) heart failure; D64.9 Anemia, unspecified; I10 Essential (primary) hypertension; E78.00 Pure hypercholesterolemia, unspecified; C34.91 Malignant neoplasm of unspecified part of right bronchus or lung; Z95.2 Presence of prosthetic heart valve; Z79.01 Long term (current) use of anticoagulants; Z79.899 Other long term (current) drug therapy | CPT/HCPCS: 96127; 99212 ==

== ENCOUNTER 2024-12-30 07:10 | Outpatient (REF) | payer MEDICARE, SELFPAY ==
--- OUTSIDE RECORDS SUMMARY | 2024-12-30 07:12 | XMS_ITS | Patient Health Record ---
Author Organization [facility] Address [address] [place] [phone] Care Team Providers Care Finish Off Operator Name Role Phone Po Shelbi DUNLAP Primary Care Provider Steve Curiel [phone] Allergies Allergen (clinical drug ingredient) Drug/Non Drug Allergy documented on EMR Reaction Allergy Type Onset Date Status Sulfa Unknown Drug Allergy Active Reason For Referral No Information Medications Medication SIG (Take, Route, Frequency, Duration) Notes Start Date End Date Status Folic Acid 800 MCG 1 tablet Orally Once a day for 30 day(s) Active Aspirin Adult Low Dose 81 MG 1 tablet Or ally Once a day Active Estradiol mg/gm oil Two times a Week Active hydroCHLOROthiazide 25 MG 1 tablet Orall y Once a day Active NIFEdipine ER 30 MG 1 tablet Orally Once a day Active Fenofibrate 145 MG 1 tablet Orally Once a day Active Atorvastatin Calcium 40 MG 1 tablet Oral ly Once a day Active Atenolol 100 MG 1 tablet Orally Once a day Active Immunizations Vaccine Route Administration Date Status Comme nts Influenza Unknown 02/08/2019 Administered Problems Problem Type SNOMED Code ICD Code Onset Dates Problem Status W/U Status Risk Notes Problem [id number] Abnormal CT scan, stomach (R93.3) Active confirmed Plan Of Treatment Future Test Test Name Order Date COLONOSCOPY 02/02/2014 UPPER GI ENDOSCOPY 05/14/2019 Insurance Providers Payer Name Payer Address Payer Phone Subscriber Number Group Number Insured Name Patient Relationship to Insured Coverage Start Date Coverage End Date [facility] [address] [place], [place] [id number] YOSEF MCWILLIAMS Self - patient is the insured Medical (General) History Medical History History ICD Code HTN Denies DC,DM,CVA,Lung disease,renal dise ase Neg. screeniing colonoscopy in 12/[address] Warren and in 03/2014 with me Hyperlipidemia Aortic stenosis-- critical - -has progressed and was being worked up for a valve replacement, s/p cath at [facility]--sees Dr. Vogt Abnormal PET-CT 04/2019 invo lvong lung nodule RLL, Right thyroid nodule, and proximal stomach--she is scheduled for a biopsy of the lung nodule on 05/15/19 and is scheduled for a biopsy of the thyroid nodule in early June. Surgical History Surgery Date(Month/Year) RICHARD and bladder suspension 09/26/2005 Cataract & lens implants-right eye 12/27 Shaneary
--- OUTSIDE RECORDS SUMMARY | 2024-12-30 07:12 | XMS_ITS | Patient Health Record ---
Author Organization [employer] [facility] Address [address] [place] [address] Care Team Providers Care Farmworker Fruit Name Role Phone ESTEFANI SENIOR M.D. Primary Care Provider Unavaila alban BrentonJeanne davidson Unavailable [phone] Allergies Allergen (clinical drug ingredient) Drug/Non Drug [...] capsule af ter meals Orally every 8 hrs; Duration: 10 day(s) 07/09/2018 Active Atenolol 100 MG [...] W/U Status Risk Notes Problem Essential hypertension (44896612) Essential (primary) hypertension (I10) Active confirmed Problem Hyperlipidemia, unspecified (E78.5) Active confirmed Problem Midline cystocele (018163826) Cystocele, midline (N81.11) Active confirmed Plan Of Treatment No Information Insurance Providers Payer Name Payer Address Payer Phone Subscriber Number Group Number Insured Name Patient Relationship to Insured Coverage Start Date Coverage End Date BCBS MEDICARE PPO [address] [place] [address] [id number] YOSEF MCWILLIAMS Self - patient is the insured Medical (General) History Medical History History ICD Code Hyperlipidemia, unspecified E78.5 Essential (primary) hypertension I10 Surgical History Surgery Date(Month/Year) Hysterectomy+Bladder Lift 09/23/2005 Hospitalization History Reason Date(Month/Year) See surgical Hx
--- OUTSIDE RECORDS SUMMARY | 2024-12-30 07:12 | XMS_ITS | Clinical Summary ---
Author Organization [facility] Address [address] [place] [phone] Phone Care Team Providers Care Aws Architect Name Role Phone Shelbi Infante MD Primary Care Provider [phone] Allergies No known active allergies Medications amiodarone [...] 08/11/2024 Non-small cell carcinoma of lung, right ([facility] V24, [facility] V28) 08/11/2024 Social History Tobacco Use Types Packs/Day Years [...] 59 08/18/2024 10:58 AM EDT Temperature 36.2 C (97.1 F) 08/18/2024 10:58 AM EDT Respiratory Rate 16 08/18/2024 10:5 [...] Info) Description 08/18/2025 11:00 AM EDT Appointment [facility] Radiation Oncology [address] [place] [phone] Liliane Tim NP [address] [place] [address] Health Maintenance Due Date Last Done Comments Zoster Vaccines (1 of 2) 01/04/1959 RSV Immunization Adult Patients (1 - 1-dose 75+ series) 01/04/2016 Cholesterol Screening (Lipid Panel) 05/12/2022 Falls Risk Assessment 05/12/2022 Medicare Annual Wellness Visit 05/12/2022 Osteoporosis Screening (Bone Density Screening) 05/12/2022 Social Influencers of Health Screening 05/12/2022 COVID-19 Vaccine ( season) 2024 11/23/2021, 05/23/2021, 08/10/2020, Additional history exists Depression Screening 06/10/2024 Hypertension/CHF/CAD Annual BMP Blood Test 08/12/2024 Influenza Vaccine (#1) 2025 , 04/12/2023, 03/30/2022, Additional history exists DTaP,Tdap,and Td Vaccines (2 - Td or Tdap) 11/11/2031 11/10/2021 Pneumococcal Vaccine: 50+ Years Completed 05/16/2018, 06/06/2015 HIB Vaccines Aged Out No longer eligi [...] on patient's age to complete this topic Insurance [place] on file Advance Directives Documents on File Type Date Recorded 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
--- OUTSIDE RECORDS SUMMARY | 2024-12-30 07:12 | XMS_ITS | Patient Health Record ---
Author Organization [facility] Address [address] [place] [address] Care Team Providers Care Scleroscope Tester Name Role Phone Shelbi Infante Primary Care Provider Galo Dugan Unavailable [phone] Reason For Referral No Information Medications Medication SIG (Take, Route, Frequency, Duration) Notes Start Date End Date Status Fenofibrate 145 MG Orally A ctive Atorvastatin Calcium 40 MG Orally Active hydroCHLOROthiazide 12.5 MG Orally Active NIFEdipine 30mg once a day Act wanda Atenolol 100 MG Orally Once a day Active Vitamin B 12 1000mcg Active Folic Acid 800 MCG Orally A ctive Aspirin 81 MG Orally Active Calcium Active Social History Tobacco Use: Social History Observation Description Date Details (start date - stop date) Never Smoker NA - NA Tobacco Use/Smoking Question Answer Notes Are you a: nonsmoker Additional Findings: Tobacco Non-User Current no n-smoker Alcohol Screen Question Answer Notes Did you have a drink containing alcohol in the p ast year? Yes Points 0 Interpretation Negative Tobacco use other than smoking: Question Answer Notes Are you an other tobacco user? No Problems Problem Type SNOMED Code ICD Code Onset Dates Problem Status W/U Status Risk Notes Problem Acquired hallux valgus (05966816) Hallux valgus (acquired), left foot (M20.12) Active confirmed Problem Other hammer toe(s) (acquired), left foot (M20.42) Active confirmed Plan Of Treatment Pending Test Test Name Order Date X ray : Foot, left 3V 06/12/2017 [id number] NAIL, 1-5 06/12/2017 [id number] Destruction, 1-14 06/12/2017 Insurance Providers Payer Name Payer Address Payer Phone Subscriber Number Group Number Insured Name Patient Relationship to Insured Coverage Start Date Coverage End Date [facility] 65 Medicare Preferred [address] [place] [address] [id number] Eloisa Richards Self - patient is the insured Medical (General) History Medical History History ICD Code Cataracts High blood pressure Warts Chicken pox Hypercholesterolemia Aortiv Valve Stenosis Surgical History Surgery Date(Month/Year) hysterectomy 09/23/05 cataract 12/27/08
[2024-12-30 07:23] LABS: MANUAL DIFF FLAG NO
[2024-12-30 08:07] LABS: Hematocrit 34.3 % (37.0-47.0); Hemoglobin 10.9 g/dl (12.0-16.0); Imm Gran Abs Auto 0.03 X10*3/uL (0.00-0.03); Imm Gran Pct Auto 0.4 % (0.0-0.4); Lymphocytes Absolute Auto 1.7 X10*3/uL (1.2-4.9); Mean Corpuscular HGB Conc 31.8 g/dl (31.0-35.0); Mean Corpuscular Hemoglobin 29.9 pg (27.0-33.0); Mean Corpuscular Volume 94.2 fL (80.0-98.0); NRBC Abs Auto 0.000 X10*3/uL (0.0-0.012); NRBC Pct Auto 0.0 /100WBC (0.0-0.2); Platelet Count 202 X10*3/uL (160-400); Red Blood Count 3.64 X10*6/uL (4.20-5.50); White Blood Count 7.5 X10*3/uL (4.8-10.8)
[2024-12-30 08:30] LABS: B Type Natriuretic Peptide 447 pg/mL (<100)
[2024-12-30 08:37] LABS: Alanine Aminotransferase 21 U/L (0-31); Albumin Level 3.8 g/dL (3.5-5.0); Alkaline Phosphatase 50 U/L (39-117); Anion Gap 11 (12-20); Aspartate Amino Transferase 36 U/L (5-31); Blood Urea Nitrogen 40 mg/dL (9-16); Calcium 9.7 mg/dL (8.4-10.2); Carbon Dioxide 28 mmol/L (22-29); Chloride 112 mmol/L (96-108); Cholesterol 130 mg/dL (<200); Estimated Glomerular Filt Rate 36; HDL Cholesterol 43 mg/dL (>40); Iron 71 mcg/dL (30-160); Magnesium 2.3 mg/dL (1.6-2.6); Percent Iron Saturation 21 % (15-50); Potassium 4.6 mmol/L (3.3-5.1); Sodium 146 mmol/L (135-145); Total Iron Binding Capacity 332 mcg/dL (228-428); Total Protein 5.9 g/dL (6.5-8.0); Triglycerides 86 mg/dL (<150); Unsaturated Iron Binding 261 ug/dL
[2024-12-30 09:01] LABS: Ferritin 148 ng/mL (10-250); Free T4 (Free Thyroxine) 1.08 ng/dL (0.71-1.85); Thyroid Stimulating Hormone 0.92 uIU/mL (0.32-4.0)
[2024-12-30 09:06] LABS: Folate 8.6 ng/mL (> or = 4.0); Vitamin B12 386 pg/mL (200-900)
== END 2024-12-30 07:11 | disposition home or self-care (01) ==
LOC: HO.LAB 07:10
PROVIDERS: PCP Internal Medicine; Visit Provider Internal Medicine
DX: I50.32 Chronic diastolic (congestive) heart failure (principal); E78.00 Pure hypercholesterolemia, unspecified
CPT/HCPCS: 36415; 80053; 80061; 82306; 82607; 82728; 82746; 83540; 83735; 83880; 84439; 84443; 85025

== ENCOUNTER 2025-01-07 10:33 | Outpatient (AMB) | payer MEDICARE, SELFPAY ==
[2025-01-07 10:47] VITALS: BP 150/58; PULSE 66; RESP 18; TEMP 36.3; O2SAT 95; BMI 24.4
--- NOTE | 2025-01-07 10:47 | MHC.PC.OV ---
Vital Signs 01/07/25 10:47 Height 5 ft 2 in Weight 133 lb 6 oz BMI 24.4 BP 150/58 H Blood Pressure Location Lt brachial Position Sitting Respiration 18 Pulse 66 Pulse Source Pulse Oximeter Temp 97.3 F Temp Source Temporal Artery Scan Pulse Oximetry (%) 95 Oxygen Delivery Method Room Air Intake Visit Reasons: HTN , CHF Accompanied by: Spouse Allergies Sulfa (Sulfonamide Antibiotics) (SULFA (SULFONAMIDE ANTIBIOTICS)) Allergy (Mild, Verified 01/07/25 10:47) RASH Tobacco use date assessed: 01/07/25 Fall risk assessment: 1 Fall in past year Last assessed Fall Risk: 01/07/25 Dental Screening Dental Screen Date: 01/07/25 Did you have a dental visit in the last 12 months?: No Did you have a dental problem in the last 6 months where you did not have access to dental care?: No Was dental information given to patient?: Patient has dentist [facility] Medical History Aortic stenosis (HFpEF) heart failure with preserved ejection fraction Paroxysmal atrial fibrillation Osteopenia Atrial fibrillation Elevated troponin Varicose vein of leg Pre-operative clearance Varicose veins of left leg with edema Carotid aneurysm, right Intracranial aneurysm Non-small cell cancer of right lung Thyroid nodule Pulmonary nodule Prolapsed bladder Hypercholesterolemia Peripheral vascular disease Diastolic dysfunction HTN (hypertension) Surgical History History of cataract surgery S/P TAVR (transcatheter aortic valve replacement) History of lung biopsy Hx of hysterectomy Hx of cardiac cath Hx of tonsillectomy Family History Father Brain tumor Mother Uterine cancer, sarcoma Social History Household Members: Spouse Housing: House Do you presently have visiting nurse or other home services: Yes (Since hip fx this 2023, 1-2 times per week) Alcohol intake: current Alcohol intake frequency: does not drink Alcohol type: wine Patient Tobacco Use Status: Never used Tobacco e-Cigarette/Vaping Use: Never Used Second Hand Smoke Exposure: No Advance Directives Date on File: 10/29/22 service: No Current occupational status: retired Cognitive needs: No Hearing needs: No Vision needs: Yes (glasses) Questionnaire PHQ-9 Over the last 2 weeks, how often have you been bothered by any of the following problems? 1. Little interest or pleasure in doing things: not at all 2. Feeling down, depressed, or hopeless: not at all 3. Trouble falling or staying asleep, or sleeping too much: not at all 4. Feeling tired or having little energy: not at all 5. Poor appetite or overeating: not at all 6. Feeling bad about yourself - or that you are a failure or have let yourself or your family down: not at all 7. Trouble concentrating on things, such as reading the newspaper or watching television: not at all 8. Moving or speaking so slowly that other people could have noticed. Or the opposite - being so fidgety or restless that you have been moving around a lot more than usual: not at all 9. Thoughts that you would be better off or of hurting yourself in some way: not at all Total score: 0 Depression Screening Interpretation: Negative Depression Screening Done: Yes Source: Developed by Drs. Steve Kim, Madalyn Vee, Isaac Maza and colleagues, with an educational eddie from [employer]. Thrive Questionnaire Date Thrive assessed: 09/22/24 I am a: Patient What is your living situation today?: I have a steady place to live Within the past 12 months, did the food you bought not last and you didn't have the money to get more?: Never true Within the past 12 months, did you worry whether your food would run out before you got money to buy more?: Never true Do you have trouble paying for medicines?: No Do you have trouble getting transportation to medical appointments?: No Do you have trouble paying your heating and electricity bill?: No Do you have trouble taking care of your child, family member or friend?: No Do you have trouble with day-to-day activities such as bathing, preparing meals, shopping, managing finances, etc.?: No Are you currently unemployed and looking for a job?: No Are you interested in more education?: No Please select the resources that you would like help with: None Currently or been in a relationship where the following occur: No concerns reported THRIVE Score: 0 AUDIT C Alcohol Use Questionnaire (AUDIT-C) 1. How often do you have a drink containing alcohol?: Never 3. How often do you have six or more drinks on one occasion?: Never Total Score: 0 Score Reviewed/Action Taken: No CRISTAL-7 AMB Questionnaire CRISTAL-7 Date CRISTAL - 7 assessed: 09/22/24 Feeling nervous, anxious, or on edge: 0 = Not at all Not being able to stop or control worryin = Not at all Worrying too much about different things: 0 = Not at all Trouble relaxin = Not at all Being so restless that it is hard to sit still: 0 = Not at all Becoming easily annoyed or irritable: 0 = Not at all Feeling afraid as if something awful might happen: 0 = Not at all Total CRISTAL-7 score (0-4 normal; 5-9 mild; 10-14 moderate; 15-21 severe): 0 Source: Developed by Drs. Steve Kim, Madalyn Vee, Isaac Maza and colleagues, with an educational eddie from [employer]. Physical exam (Primary Care) Vital Signs: Last Vital Signs Temp 97.3 F 01/07/25 10:47 Pulse 66 01/07/25 10:47 Resp 18 01/07/25 10:47 BP 150/58 H 01/07/25 10:47 Pulse Ox 95 01/07/25 10:47 Oxygen Delivery Method Room Air 01/07/25 10:47 BMI result Body Mass Index 24.4 Tobacco/Smoking Status: Tobacco use Status Tobacco use date assessed 01/07/25 01/07/25 10:48 Patient Tobacco Use Status Never used Tobacco 01/07/25 10:48 Tobacco use type 01/07/25 10:48 e-Cigarette/Vaping Use Never Used 01/07/25 10:48 PHQ-9: PHQ-9 Score PHQ-9: Total score 0 01/07/25 11:36 Depression Screening Interpretation: Negative Thrive Assessment: Date of Thrive Assessment Date Thrive assessed 09/22/24 01/07/25 10:48 Currently or been in a relationship where the following occur: No concerns reported Const General: alert; No acute distress Eyes Conjunctivae: conjunctivae normal Resp Auscultation: clear to auscultation bilaterally Cardio Rate: regular rate Rhythm: regular rhythm GI Inspection: Yes normal to inspection Extrem General: Yes normal to inspection and No edema Coding Level of Care Code Est Pt Level 4 (25875) Complex EM visit Add On G2211 Diagnoses HTN (hypertension) I10 Chronic heart failure with preserved ejection fraction I50.32 Heart failure chronicity: chronic S/P TAVR (transcatheter aortic valve replacement) Z95.2 Coronary artery disease (CAD) excluded Z03.89 Paroxysmal atrial fibrillation I48.0 Hypercholesterolemia E78.00 Non-small cell cancer of right lung C34.91 Assessment & Plan Assessment & Plan (1) HTN (hypertension): Comment: Heart catheterization for TAVR severe July 2019 echo normal left ventricular function with grade 2 diastolic dysfunction Code(s): I10 - Essential (primary) hypertension Category: Medical Plan: Continue with blood pressure medication. Decrease salt intake and exercise patient is on atenolol 50 mg once a day nifedipine 30 mg once a day (2) (HFpEF) heart failure with preserved ejection fraction: Code(s): I50.30 - Unspecified diastolic (congestive) heart failure Category: Medical Qualifiers: Heart failure chronicity: chronic Qualified Code(s): I50.32 - Chronic diastolic (congestive) heart failure Plan: Weigh daily and on furosemide at 20 mg once a day (3) S/P TAVR (transcatheter aortic valve replacement): Comment: 07/30. 26 mm Evolut bioprosthesis Code(s): Z95.2 - Presence of prosthetic heart valve Category: Surgical Plan: Continue to follow-up with cardiology February echocardiogram (4) Coronary artery disease (CAD) excluded: Code(s): Z03.89 - Encounter for observation for other suspected diseases and conditions ruled out Category: Medical Plan: Control the cholesterol, weight, blood pressure, continuing with apixaban anticoagulation (5) Paroxysmal atrial fibrillation: Code(s): I48.0 - Paroxysmal atrial fibrillation Category: Medical Plan: Continue with anticoagulation and amiodarone (6) Hypercholesterolemia: Code(s): E78.00 - Pure hypercholesterolemia, unspecified Category: Medical Plan: Avoid fried foods, chicken skin, eggs, butter margarine, pastries and meat. Be it pork or beef they have a lot of cholesterol on atorvastatin 40 mg once a day (7) Non-small cell cancer of right lung: Comment: May 2019, CT scan 2021October 202203/2023. August 2025 Code(s): C34.91 - Malignant neoplasm of unspecified part of right bronchus or lung Category: Medical Plan: CT scan August 2024 Plan History of Present Illness The patient is an 85-year-old female presenting for follow-up of multiple chronic conditions including lung cancer, hypercholesterolemia, hypertension, atrial fibrillation, and coronary artery disease. The patient has a history of lung cancer diagnosed in 2018, with a recent CT scan in August showing no significant change and stable post-treatment status without evidence of recurrence. She is up to date with her mammogram and bone density screening as of February 2024. The patient has hypercholesterolemia and is currently on atorvastatin 40 mg daily, with LDL levels at 70 mg/dL. Her blood pressure is managed with atenolol 50 mg, nifedipine 30 mg, and furosemide 20 mg daily, with home readings generally within acceptable limits. She has a history of atrial fibrillation and coronary artery disease, for which she is on apixaban and amiodarone. Her last echocardiogram in February 2024 showed an ejection fraction of 66%, indicating good cardiac function. The patient reports anemia, with a ferritin level of 140, and is advised to continue iron supplementation every other day to manage her condition. She experiences dehydration, with sodium levels at 146 mmol/L and BUN at 40 mg/dL, indicating the need for increased fluid intake. Chronic kidney disease is noted with a creatinine level of 1.39 mg/dL, and she is advised to maintain hydration to support kidney function. Congestive heart failure is managed with diuretics, and her BNP is elevated at 447 pg/mL. Health Maintenance - Mammogram up to date as of August 2024 - Bone density screening completed in February 2024 - Regular cardiology follow-up scheduled for March History - Exercise: Engages in gardening and physical activity, takes breaks as needed Review of Systems - Cardiovascular: Denies chest pain, palpitations controlled with medication - Respiratory: Denies dyspnea, breathing is fine - Musculoskeletal: Reports leg weakness and ache during walking, denies joint pain - General: Denies swelling of the legs, uses compression socks Physical Exam - Cardiovascular: Peripheral pulses palpable, no edema noted - Musculoskeletal: No joint pain, calf muscles ache on exertion Results - Labs: Sodium 146 mmol/L, BUN 40 mg/dL, Creatinine 1.39 mg/dL, Ferritin 140 ng/mL, BNP 447 pg/mL, LDL 70 mg/dL - Imaging: CT scan of chest in August 2024 showed no significant change, stable post-treatment for lung cancer - Echocardiogram: February 2024, ejection fraction 66% Plan The patient will continue on her current regimen of atorvastatin for hypercholesterolemia, with LDL levels being monitored regularly. Blood pressure management will continue with atenolol, nifedipine, and furosemide, with regular home monitoring advised. For atrial fibrillation and coronary artery disease, the patient will remain on apixaban and amiodarone, with cardiology follow-up scheduled for March. Anemia management includes iron supplementation every other day, with monitoring of blood counts. The patient is advised to increase fluid intake to address dehydration and support kidney function, with regular monitoring of renal parameters. Congestive heart failure will be managed with diuretics, and BNP levels will be monitored. Patient was informed and verbally consented to the use of an ambient scribe for clinic note documentation during this visit. Discussion Notes During the visit, we discussed the importance of maintaining current medication regimens for hypercholesterolemia, hypertension, atrial fibrillation, and coronary artery disease. I emphasized the need for regular monitoring of blood pressure and LDL levels, as well as the importance of fluid intake to prevent dehydration. We also reviewed the patient's anemia management plan, including the continuation of iron supplementation and monitoring of blood counts. The patient was informed about the upcoming cardiology follow-up and the need for regular echocardiograms to monitor cardiac function. Patient Instructions - Continue taking atorvastatin, atenolol, nifedipine, furosemide, apixaban, and amiodarone as prescribed. - Monitor blood pressure at home regularly and report any significant changes. - Increase fluid intake to prevent dehydration. - Continue iron supplementation every other day and monitor for any side effects. - Follow up with cardiology in March for routine check-up. Medications: New ferrous sulfate ER (Slow Fe) 137 mg PO DAILY 90 tabs 2RF
--- OUTSIDE RECORDS SUMMARY | 2025-01-07 11:16 | XMS_ITS | Patient Health Record ---
Author Organization [facility]alyleon Johnson Address [address] [place] [address] Care Team Providers Care Charge Account Identification Clerk Name Role Phone Shelbi Infante Primary Care Provider Galo Dugan Unavailable [phone] Reason For Referral No Information Medications Medication [...] Status Risk Notes Problem Acquired hallux valgus (02479069) Hallux valgus (acquired), left foot (M20.12) Active confirmed Problem Acquired hammer toe of left foot ([id number] 103) Other hammer toe(s) (acquired), left foot (M20.42) Active confirmed Plan Of Treatment Pending Test Test Name Order Date X ray : Foot, left 3V 06/12/2017 [id number] NAIL, 1-5 06/12/2017 [id number] Destruction, 1-14 06/12/2017 Insurance Providers Payer Name Payer Address Payer Phone Subscriber Number Group Number Insured Name Patient Relationship to Insured Coverage Start Date Coverage End Date [facility] 65 Medicare Preferred [address] [place] [address] [id number] Eloisa Richards Self - patient is the insured Medical (General) History Medical History History ICD Code Cataracts High blood pressure Warts Chicken pox Hypercholesterolemia Aortiv Valve Stenosis Surgical History Surgery Date(Month/Year) hysterectomy 09/23/05 cataract 12/27/08
--- OUTSIDE RECORDS SUMMARY | 2025-01-07 11:16 | XMS_ITS | Clinical Summary ---
Author Organization [facility] Address [address] [place] [phone] Phone Care Team Providers Care Integration Consultant Name Role Phone Shelbi Infante MD Primary Care Provider [phone] Allergies No known active allergies Medications amiodarone [...] 08/11/2024 Non-small cell carcinoma of lung, right ([facility] V24, [facility] V28) 08/11/2024 Social History Tobacco Use Types [...] Info) Description 08/18/2025 11:[address] [facility] [address] [place] [id number] Liliane Tim NP [address] [place] [address] Health Maintenance Due Date Last Done Comments [...] Documents on File Type Date Recorded Patient Pump Assembler Expl anation Health Care Decision (hx) 03/26/2023 AD COOL DIRECTIVE Health Care Decision (hx) 03/26/2023 AD COOL DIRECTIVE Health Care Decision (hx) 03/26/2023 AD COOL DIRECTIVE Health Care Decision (hx) 03/26/2023 AD COOL DIRECTIVE Health Care Decision (hx) 03/26/2023 AD COOL DIRECTIVE Health Care Decision (hx) 03/26/2023 AD COOL DIRECTIVE Care Teams Integration Consultant Relationship Specialty Start Date End Date Shelbi Infante MD PCP - General Internal Medicine 07/30/24
--- OUTSIDE RECORDS SUMMARY | 2025-01-07 11:16 | XMS_ITS | Patient Health Record ---
Author Organization [employer] [facility] Address [address] [place] [address] Care Team Providers Care Liquor Establishment Manager Name Role Phone ESTEFANI SENIOR M.D. Primary Care Provider Unavaila alban BrentonJeanne davidson Unavailable [phone] Allergies Allergen (clinical drug ingredient) Drug/Non Drug Allergy documented on EMR Reaction Allergy Type Onset Date Status sulfur (uncoded) Unknown Allergy Act wadna Reason For Referral No Information Medications Medication [...] W/U Status Risk Notes Problem Essential hypertension (83275294) Essential (primary) hypertension (I10) Active confirmed Problem Hyperlipidemia (51514621) Hyperlipidemia, unspecified (E78.5) Active confirmed Problem Midline cystocele (629886957) Cystocele, midline (N81.11) Active confirmed Plan Of Treatment No Information Insurance Providers Payer Name Payer Address Payer Phone Subscriber Number Group Number Insured Name Patient Relationship to Insured Coverage Start Date Coverage End Date BCBS MEDICARE PPO [address] [place] [address] [phone] [id number] YOSEF MCWILLIAMS Self - patient is the insured Medical (General) History Medical History History ICD Code Hyperlipidemia, unspecified E78.5 Essential (primary) hypertension I10 Surgical History Surgery Date(Month/Year) Hysterectomy+Bladder Lift 09/23/2005 Hospitalization History Reason Date(Month/Year) See surgical Hx
--- OUTSIDE RECORDS SUMMARY | 2025-01-07 11:16 | XMS_ITS | Patient Health Record ---
Author Organization [facility] Address [address] [place] [address] Care Team Providers Care Shoe Shiner Name Role Phone Po Shelbi DUNLAP Primary Care Provider Steve Curiel [phone] Allergies Allergen (clinical drug ingredient) Drug/Non Drug [...] Problem Status W/U Status Risk Notes Problem [id number] Abnormal CT scan, stomach (R93.3) Active confirmed Plan Of Treatment Future Test Test Name Order Date COLONOSCOPY 02/02/2014 UPPER GI ENDOSCOPY 05/14/2019 Insurance Providers Payer Name Payer Address Payer Phone Subscriber Number Group Number Insured Name Patient Relationship to Insured Coverage Start Date Coverage End Date [facility] [address] [place], [place] [id number] YOSEF MCWILLIAMS Self - patient is the insured Medical (General) History Medical History History ICD Code HTN Denies UT,DM,CVA,Lung disease,renal dise ase Neg. screeniing colonoscopy in 12/[address] Warren and in 03/2014 with me Hyperlipidemia Aortic stenosis-- critical - -has progressed and was being worked up for a valve replacement, s/p cath at [facility]--sees Dr. Vogt Abnormal PET-CT 04/2019 invo lvong lung nodule RLL, Right thyroid nodule, and proximal stomach--she is scheduled for a biopsy of the lung nodule on 05/15/19 and is scheduled for a biopsy of the thyroid nodule in early June. Surgical History Surgery Date(Month/Year) RICHARD and bladder suspension 09/26/2005 Cataract & lens implants-right eye 12/27 Shaneary
== END 2025-01-07 11:43 | disposition home or self-care (01) ==
LOC: HO.HMCH 10:34
PROVIDERS: PCP Internal Medicine; Visit Provider Internal Medicine
DX: I11.0 Hypertensive heart disease with heart failure (principal); I50.32 Chronic diastolic (congestive) heart failure; I48.0 Paroxysmal atrial fibrillation; C34.91 Malignant neoplasm of unspecified part of right bronchus or lung; Z95.2 Presence of prosthetic heart valve; Z03.89 Encounter for observation for other suspected diseases and conditions ruled out; E78.00 Pure hypercholesterolemia, unspecified

== ENCOUNTER → 2025-01-07 10:33 | Outpatient (BNVA) | payer MEDICARE, SELFPAY | PROVIDERS: PCP Internal Medicine; Visit Provider Internal Medicine | DX: I11.0 Hypertensive heart disease with heart failure (principal); I50.32 Chronic diastolic (congestive) heart failure; I48.0 Paroxysmal atrial fibrillation; E78.00 Pure hypercholesterolemia, unspecified; C34.91 Malignant neoplasm of unspecified part of right bronchus or lung; Z95.2 Presence of prosthetic heart valve; Z03.89 Encounter for observation for other suspected diseases and conditions ruled out | CPT/HCPCS: 96127; 99212 ==

== ENCOUNTER 2025-03-02 08:09 | Outpatient (REF) | payer MEDICARE, SELFPAY ==
--- NOTE | ~2025-03-02 | XR_ITS ---
EXAMINATION: XR CHEST CLINICAL INFORMATION: I48.0 - Paroxysmal atrial fibrillation COMPARISON: November 10, 2023. TECHNIQUE: PA and lateral views FINDINGS: Bilateral pulmonary reticular pattern. Linear opacity/scarring right lung. No gross consolidation, pleural effusion or pneumothorax. Cardiomediastinal silhouette size is normal. There is a stent in the ascending thoracic aorta. There is calcified plaques throughout the thoracic and abdominal aorta. S-shaped curvature of the thoracolumbar spine. Multilevel spondylosis. Osteopenia versus osteoporosis. XR/XR chest 2V IMPRESSION: Chronic interstitial lung disease. Questionable scarring, right lung. Consider further imaging evaluation with CT chest. Scoliosis, thoracolumbar spine. Atherosclerosis disease, aorta. Electronically signed by: Maldonado Ramos MD 03/02/2025 08:47 AM EDT
--- OUTSIDE RECORDS SUMMARY | 2025-03-02 09:02 | XMS_ITS | Patient Health Record ---
Author Organization [facility] Address [address] [place] [phone] Care Team Providers Care Personnel Security Assistant Name Role Phone Po Shelbi DUNLAP Primary Care Provider Steve Curiel [phone] Allergies Allergen (clinical drug ingredient) Drug/Non Drug [...] Problem Status W/U Status Risk Notes Problem [id number] Abnormal CT scan, stomach (R93.3) Active confirmed Plan Of Treatment Future Test Test Name Order Date COLONOSCOPY 02/02/2014 UPPER GI ENDOSCOPY 05/14/2019 Insurance Providers Payer Name Payer Address Payer Phone Subscriber Number Group Number Insured Name Patient Relationship to Insured Coverage Start Date Coverage End Date [facility] [address] [place], [place] [id number] YOSEF MCWILLIAMS Self - patient is the insured Medical (General) History Medical History History ICD Code HTN Denies MS,DM,CVA,Lung disease,renal dise ase Neg. screeniing colonoscopy in 12/[address] Warren and in 03/2014 with me Hyperlipidemia Aortic stenosis-- critical - -has progressed and was being worked up for a valve replacement, s/p cath at [facility]--sees Dr. Vogt Abnormal PET-CT 04/2019 invo lvong lung nodule RLL, Right thyroid nodule, and proximal stomach--she is scheduled for a biopsy of the lung nodule on 05/15/19 and is scheduled for a biopsy of the thyroid nodule in early June. Surgical History Surgery Date(Month/Year) RICHARD and bladder suspension 09/26/2005 Cataract & lens implants-right eye 12/27 Shaneary
--- OUTSIDE RECORDS SUMMARY | 2025-03-02 09:02 | XMS_ITS | Patient Health Record ---
Author Organization [facility] rigo [facility] Address [address] [place] [address] Care Team Providers Care Inspector Assembly Name Role Phone Shelbi Infante Primary Care Provider Galo Dugan Unavailable [phone] Reason For Referral No Information Medications Medication [...] Status Risk Notes Problem Acquired hallux valgus (68400233) Hallux valgus (acquired), left foot (M20.12) Active confirmed Problem Acquired hammer toe of left foot ([id number] 103) Other hammer toe(s) (acquired), left foot (M20.42) Active confirmed Plan Of Treatment Pending Test Test Name Order Date X ray : Foot, left 3V 06/12/2017 [id number] NAIL, 1-5 06/12/2017 [id number] Destruction, 1-14 06/12/2017 Insurance Providers Payer Name Payer Address Payer Phone Subscriber Number Group Number Insured Name Patient Relationship to Insured Coverage Start Date Coverage End Date [facility] 65 Medicare Preferred [address] [place] [address] Eloisa Richards Self - patient is the insured Medical (General) History Medical History History ICD Code Cataracts High blood pressure Warts Chicken pox Hypercholesterolemia Aortiv Valve Stenosis Surgical History Surgery Date(Month/Year) hysterectomy 09/23/05 cataract 12/27/08
--- OUTSIDE RECORDS SUMMARY | 2025-03-02 09:02 | XMS_ITS | Patient Health Record ---
Author Organization [facility] [facility] Address [address] [place] [address] Care Team Providers Care Heel Shaper Name Role Phone ESTEFANI SENIOR M.D. Primary Care Provider Unavaila alban AyaanJeanne arthur Unavailable [phone] Allergies Allergen (clinical drug ingredient) Drug/Non Drug [...] W/U Status Risk Notes Problem Essential hypertension (28134823) Essential (primary) hypertension (I10) Active confirmed Problem Hyperlipidemia (95377225) Hyperlipidemia, unspecified (E78.5) Active confirmed Problem Midline cystocele (656446968) Cystocele, midline (N81.11) Active confirmed Plan Of Treatment No Information Insurance Providers Payer Name Payer Address Payer Phone Subscriber Number Group Number Insured Name Patient Relationship to Insured Coverage Start Date Coverage End Date BCBS MEDICARE PPO [address] [place] [address] [phone] [id number] YOSEF MCWILLIAMS Self - patient is the insured Medical (General) History Medical History History ICD Code Hyperlipidemia, unspecified E78.5 Essential (primary) hypertension I10 Surgical History Surgery Date(Month/Year) Hysterectomy+Bladder Lift 09/23/2005 Hospitalization History Reason Date(Month/Year) See surgical Hx
--- OUTSIDE RECORDS SUMMARY | 2025-03-02 09:02 | XMS_ITS | Clinical Summary ---
Author Organization [facility] Address [address] [place] [phone] Phone Care Team Providers Care Director Advanced Name Role Phone Shelbi Infante MD Primary Care Provider [phone] Allergies No known active allergies Medications amiodarone [...] 08/11/2024 Non-small cell carcinoma of lung, right ([facility] V24, [facility] V28) 08/11/2024 Social History Tobacco Use Types [...] Info) Description 08/18/2025 11:00 AM EDT Appointment [facility] Radiation Oncology [address] [place] [phone] Liliane Tim NP [address] [place] [address] Health Maintenance Due Date Last Done Comments Zoster Vaccines (1 of 2) 01/04/1960 RSV Immunization Adult Patients (1 - 1-dose 75+ series) 01/04/2016 Cholesterol Screening (Lipid Panel) 05/12/2022 Falls Risk Assessment 05/12/2022 Medicare Annual Wellness Visit 05/12/2022 Osteoporosis Screening (Bone Density Screening) 05/12/2022 Social Influencers of Health Screening 05/12/2022 Depression Screening 06/10/2024 Hypertension/CHF/CAD Annual BMP Blood Test 08/12/2024 COVID-19 Vaccine ( season) 2025 11/23/2021, 05/23/2021, 08/10/2020, Additional history exists Influenza Vaccine (#1) 2025 , 04/12/2023, 03/30/2022, [...] Documents on File Type Date Recorded Patient 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
== END 2025-03-02 08:10 | disposition home or self-care (01) ==
LOC: HO.XRAY 08:09
PROVIDERS: PCP Internal Medicine; Visit Provider Internal Medicine Cardiovascular Disease
DX: I48.0 Paroxysmal atrial fibrillation (principal)
CPT/HCPCS: 36415; 71046; 80048; 80076; 84443; 85027

== ENCOUNTER → 2025-03-02 08:26 | Outpatient (BNV) | payer MEDICARE, SELFPAY | PROVIDERS: PCP Internal Medicine; Visit Provider Radiology Diagnostic Radiology | DX: J84.9 Interstitial pulmonary disease, unspecified (principal) | CPT/HCPCS: 71046 ==

== ENCOUNTER → 2025-03-03 10:47 | Outpatient (REF) | payer MEDICARE, SELFPAY ==
--- NOTE | 2025-03-03 10:52 | CA_ITS ---
Transthoracic Echocardiogram Patient (Last, First, Middle): Eloisa Richards E Gender: F Date of : 1940 Age: 85 Procedure Date: 03/03/2025 Procedure Type: Transthoracic Echocardiogram Location: OP Height: 157.48 cm Weight: 60.33 kg BSA: 1.61 m2 Heart Rate: bpm BP: 150 / 58 mmHg Pattern Chain Builder: LILIA Referring MD: Emmett Vogt MD Custom Bookbinder: Emmett Vogt MD Symptoms: Z95.2 - Presence of prosthetic heart valve Study Quality: Adequate ECG Rhythm: Sinus Conclusions: - 1. Normal LV ejection fraction of 60-65% with grade 2 diastolic dysfunction 2. Mild biatrial enlargement 3. Normally function bioprosthetic aortic valve with mean gradient of 5 mm Hg 4. Mildly elevated right ventricular systolic pressure with normal right atrial pressures 5. No gross pericardial effusion Findings Left Ventricle Normal left ventricular size, thickness, and systolic function. Spectral Doppler is indicative of a pseudonormal filling pattern. E/E prime ratio is >15, consistent with elevated filling pressures. Evidence suggests grade II (moderate) diastolic dysfunction. Right Ventricle Mildly increased right ventricular cavity size. There is normal right ventricular systolic function. Atria Mild biatrial enlargement. Patent foramen ovale detected using by color Doppler. There is evidence of a patent foramen ovale with left to right shunting. Aortic Valve A bioprosthetic aortic valve is present. The prosthetic aortic valve appears to be functioning normally. The mean gradient is 5 mmHg. There is no aortic valve regurgitation. Mitral Valve There is mild anterior and posterior mitral leaflet thickening. There is mild mitral annular calcification. There is mild to moderate mitral valve regurgitation. There is no mitral valve stenosis. Pulmonic Valve The pulmonic valve is likely normal. Tricuspid Valve Normal tricuspid valve structure. There is mild tricuspid valve regurgitation. Normal right atrial pressure. Mild pulmonary hypertension is present. Great Vessels All visible segments of the aorta are normal in size. The pulmonary artery was not well visualized. There is no dilatation of the ascending aorta measuring 2.90 cm. Venous The inferior vena cava is normal in size and collapses greater than 50% with inspiration. Pericardium/Pleural There is no evidence of pericardial effusion. Prior Study Comparison No significant change compared to prior study dated: 03/02/2024. Measurements 2D Linear Measurements IVSd: 1.10 0.6-0.9/0.6-1.0 cm LVIDd: 3.95 3.9-5.3/4.2-5.9 cm LVIDd Index: 2.45 2.4-3.2/2.2-3.1 cm/m2 LVIDs: 2.70 2.0-3.6 cm LVPWd: 1.08 0.7-1.1 cm LA Diam: 3.60 2.7-3.8/3.0-4.0 cm LAIDs Index: 2.24 1.5-2.3 cm/m2 LV Mass: 175.47 67-162/88-224 g LV Mass Index: 108.98 43-95/49-115 g/m2 LVOT Diam: 2.10 3.0+(-)1.3 cm 2D Systolic Function EF 4C: 60.40 >55% EF 2C: 64.70 >55% EF BiP: 62.20 >55% Mitral Valve MV Pk E: 1.35 MV PK A: 0.73 MV Decel Time: 206.00 E/A: 1.80 E'Lateral: 6.09 E'Medial: 5.11 E/E' Med: 26.40 E/E' Lat: 22.20 PHT: 60.00 MVA PHT: 3.67 Decel [place]: 6.54 Aortic Valve AoV Pk Walt: 1.64 AoV Mn Walt: 1.09 AoV VTI: 0.41 AoV Pk Grad: 11.00 Aov Mn Grad: 5.00 HUNTER Cont.VTI: 2.26 LVOT LVOT Pk Walt: 1.07 LVOT Mn Walt: 0.72 LVOT VTI: 0.27 LVOT Pk Grad: 5.00 LVOT Mn Grad: 2.00 LVOT Diam: 2.10 LVOT Area: 3.46 Diastolic Function MV Pk E: 1.35 MV Pk A: 0.73 E/A: 1.80 E'Medial: 5.11 E/E' Med: 26.40 E' Laterial: 6.09 E/E' Lat: 22.20 Right Ventricle TAPSE (mm): 26.90 TVS' Walt: 15.30 Tricuspid Valve TR Pk Walt: 3.04 TR Pk Grad: 37.00 RA Press: 3.00 RVSP: 40.00 Great Vessels Aorta Ao Asc: 2.90 2.1-3.4 cm Ao Arch: 2.80 Pulmonary Veins Pulm Vein S/D 0.50 Pulmonary Valve PV Pk Walt: 0.82 PV Min Walt: 0.44 Peak PV Grad: 3.00 PV Mn Grad: 1.00 Updated in Other Vendor System with Status of Final Emmett Vogt MD electronically signed on 03/03/2025 12:17:19 PM with status of Final
--- OUTSIDE RECORDS SUMMARY | 2025-03-03 13:33 | XMS_ITS | Patient Health Record ---
Author Organization [facility] Address [address] [place] [phone] Care Team Providers Care Divinity Professor Name Role Phone Po Shelbi DUNLAP Primary Care Provider Steve Curiel [phone] Allergies Allergen (clinical drug ingredient) Drug/Non Drug [...] Problem Status W/U Status Risk Notes Problem [id number] Abnormal CT scan, stomach (R93.3) Active confirmed Plan Of Treatment Future Test Test Name Order Date COLONOSCOPY 02/02/2014 UPPER GI ENDOSCOPY 05/14/2019 Insurance Providers Payer Name Payer Address Payer Phone Subscriber Number Group Number Insured Name Patient Relationship to Insured Coverage Start Date Coverage End Date [facility] [address] [place], [place] [id number] YOSEF MCWILLIAMS Self - patient is the insured Medical (General) History Medical History History ICD Code HTN Denies ME,DM,CVA,Lung disease,renal dise ase Neg. screeniing colonoscopy in 12/[address] Warren and in 03/2014 with me Hyperlipidemia Aortic stenosis-- critical - -has progressed and was being worked up for a valve replacement, s/p cath at [facility]--sees Dr. Vogt Abnormal PET-CT 04/2019 invo [...]
--- OUTSIDE RECORDS SUMMARY | 2025-03-03 13:33 | XMS_ITS | Patient Health Record ---
Author Organization [facility] Address [address] [place] [address] Care Team Providers Care Cutter Out Name Role Phone ESTEFANI SENIOR M.D. Primary Care Provider Unavaila alban AyaanJeanne arthur Unavailable [phone] Allergies Allergen (clinical drug ingredient) Drug/Non Drug [...] W/U Status Risk Notes Problem Essential hypertension (74874501) Essential (primary) hypertension (I10) Active confirmed Problem Hyperlipidemia (51966438) Hyperlipidemia, unspecified (E78.5) Active confirmed Problem Midline cystocele (303977948) Cystocele, midline (N81.11) Active confirmed Plan Of Treatment No Information Insurance Providers Payer Name Payer Address Payer Phone Subscriber Number Group Number Insured Name Patient Relationship to Insured Coverage Start Date Coverage End Date [employer] MEDICARE PPO [address] [place] [address] [phone] [id number] YOSEF MCWILLIAMS Self - patient is the insured Medical (General) History Medical History History ICD Code Hyperlipidemia, unspecified E78.5 Essential (primary) hypertension I10 Surgical History Surgery Date(Month/Year) Hysterectomy+Bladder Lift 09/23/2005 Hospitalization History Reason Date(Month/Year) See surgical Hx
--- OUTSIDE RECORDS SUMMARY | 2025-03-03 13:33 | XMS_ITS | Clinical Summary ---
Author Organization [facility] Address [address] [place] [phone] Phone Care Team Providers Care Wirer Street Light Name Role Phone Shelbi Infante MD Primary Care Provider [phone] Allergies No known active allergies Medications amiodarone [...] 08/11/2024 Non-small cell carcinoma of lung, right ([facility] V24, [facility] V28) 08/11/2024 Social History Tobacco Use [...] Info) Description 08/18/2025 11:00 AM EDT Appointment [facility] Radiation Oncology [address] [place] [phone] Liliane Tim NP [address] [place] [address] Health Maintenance Due Date Last Done Comments [...] Documents on File Type Date Recorded Patient 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
--- OUTSIDE RECORDS SUMMARY | 2025-03-03 13:34 | XMS_ITS | Patient Health Record ---
Author Organization [facility] Address [address] [place] [address] Care Team Providers Care Trust Clerk Name Role Phone Shelbi Infante Primary Care Provider Galo Dugan Unavailable [phone] Reason For Referral No Information Medications Medication [...] Status Risk Notes Problem Acquired hallux valgus (30207590) Hallux valgus (acquired), left foot (M20.12) Active confirmed Problem Acquired hammer toe of left foot ([id number] 103) Other hammer toe(s) (acquired), left foot (M20.42) Active confirmed Plan Of Treatment Pending Test Test Name Order Date X ray : Foot, left 3V 06/12/2017 [id number] NAIL, 1-5 06/12/2017 [id number] Destruction, 1-14 06/12/2017 Insurance Providers Payer Name Payer Address Payer Phone Subscriber Number Group Number Insured Name Patient Relationship to Insured Coverage Start Date Coverage End Date [facility] 65 Medicare Preferred [address] [place] [address] [id number] Eloisa Richards Self - patient is the insured Medical (General) History Medical History History ICD Code Cataracts High blood pressure Warts Chicken pox Hypercholesterolemia Aortiv Valve Stenosis Surgical History Surgery Date(Month/Year) hysterectomy 09/23/05 cataract 12/27/08
== END ==
LOC: HO.CARD 10:47
PROVIDERS: PCP Internal Medicine; Visit Provider Internal Medicine Cardiovascular Disease
DX: Z95.2 Presence of prosthetic heart valve (principal)
CPT/HCPCS: 93306

== ENCOUNTER → 2025-03-03 10:52 | Outpatient (BNV) | payer MEDICARE, SELFPAY | PROVIDERS: PCP Internal Medicine; Visit Provider Internal Medicine Cardiovascular Disease | DX: I51.7 Cardiomegaly (principal); Z95.2 Presence of prosthetic heart valve | CPT/HCPCS: 93306 ==

== ENCOUNTER 2025-03-23 10:38 | Outpatient (AMB) | payer MEDICARE, SELFPAY ==
[2025-03-23 10:40] VITALS: BP 118/64; PULSE 63; BMI 23.8
--- NOTE | 2025-03-23 10:40 | MHC.OFFVIS ---
Vital Signs 03/23/25 10:40 Height 5 ft 2 in Weight 130 lb 1.164 oz BMI 23.8 BP 118/64 Blood Pressure Location Lt brachial Position Sitting Pulse 63 Intake Visit Reasons: 6 mth s/p echo Intake Note: 6 month follow-up with ekg feeling good Wire Walker Required: No Accountant Manager: Accountant Manager Present Accompanied by: Spouse Allergies Sulfa (Sulfonamide Antibiotics) (SULFA (SULFONAMIDE ANTIBIOTICS)) Allergy (Mild, Verified 01/07/25 10:47) RASH Medication List - Last Reconciled 03/23/25 by Emmett Vogt MD acetaminophen 650 mg PO Q6H PRN amiodarone 100 mg (1/2 x 200 mg) PO DAILY apixaban (Eliquis) 5 mg PO BID 90 days atenolol 50 mg PO DAILY atorvastatin 40 mg PO DAILY calcium carbonate-vitamin D3 600 mg-10 mcg (400 unit) (Calcium 600 with Vitamin D3) 1 tab PO BID 90 days estradiol 0.01%(0.1mg/gram) 1 g vaginal 2XW fenofibrate nanocrystallized 145 mg PO DAILY ferrous sulfate ER (Slow Fe) 137 mg PO DAILY furosemide 20 mg PO DAILY crbpmvzxntuu-kykc-hwzue acid 18-400 mg-mcg 1 tab PO DAILY nifedipine ER 30 mg PO BEDTIME HPI Comments Details: Eloisa comes for follow-up. She has been overall doing well from cardiac perspective. She denies any symptoms of exertional chest pain or shortness of breath. She complains of leg pain when she walks up a hill. Denies any lightheadedness, syncope. No prolonged palpitation irregular heartbeat. She denies any orthopnea, PND, leg edema. Denies any bleeding issues or neurologic events. Recent chest x-ray suggest some interstitial changes which are chronic. No interstitial infiltrates. Echocardiogram shows normally functioning bioprosthetic aortic valve. [facility] Medical History (Updated 03/23/25 @ 11:12 by Emmett Vogt MD) Uncontrolled hypertension Aortic stenosis (HFpEF) heart failure with preserved ejection fraction Paroxysmal atrial fibrillation Osteopenia Atrial fibrillation Elevated troponin Varicose vein of leg Pre-operative clearance Varicose veins of left leg with edema Carotid aneurysm, right Intracranial aneurysm Non-small cell cancer of right lung Thyroid nodule Pulmonary nodule Prolapsed bladder Hypercholesterolemia Peripheral vascular disease Diastolic dysfunction HTN (hypertension) Surgical History History of cataract surgery S/P TAVR (transcatheter aortic valve replacement) History of lung biopsy Hx of hysterectomy Hx of cardiac cath Hx of tonsillectomy Family History Father Brain tumor Mother Uterine cancer, sarcoma Social History Household Members: Spouse Housing: House Do you presently have visiting nurse or other home services: Yes (Since hip fx this year 2023, 1-2 times per week) Alcohol intake: current Alcohol intake frequency: does not drink Alcohol type: wine Patient Tobacco Use Status: Never used Tobacco e-Cigarette/Vaping Use: Never Used Second Hand Smoke Exposure: No Advance Directives Date on File: 10/29/22 service: No Current occupational status: retired Cognitive needs: No Hearing needs: No Vision needs: Yes (glasses) Review of Systems Const Denies chills, Denies fatigue, Denies fever(s), Denies frequent falls, Denies weakness, Denies weight gain and Denies weight loss ENT Denies dizziness Card Denies chest pain, Denies leg edema, Denies lightheadedness, Denies palpitations, Denies dyspnea, Denies dyspnea on exertion, Denies orthopnea and Denies other (loss of consciousness) Resp Denies cough, Denies dyspnea and Denies dyspnea on exertion GI Denies hematochezia and Denies change in stool character Musc Denies abnormal gait, Denies muscle weakness, Denies numbness, Denies radiating pain into limb and Denies tingling Neuro Denies abnormal gait, Denies dizziness, Denies frequent falls, Denies numbness, Denies tingling and Denies weakness Endo Denies fatigue and Denies palpitations Physical Exam Vital Signs: Last Vital Signs Pulse 63 03/23/25 10:40 BP 118/64 03/23/25 10:40 BMI result Body Mass Index 23.8 Const General: cooperative, healthy appearing, comfortable and no acute distress Orientation/consciousness: patient oriented x3 Neck Neck: Yes normal visual inspection and Yes no JVD Resp Effort & Inspection: normal respiratory effort Auscultation: clear to auscultation bilaterally, no rales, no rhonchi and no wheezes Cardio Jugular venous distension: no JVD Rate: regular rate Rhythm: regular rhythm Heart sounds: S1 normal heart sound present, S2 normal heart sound present, no murmurs and no rubs Neuro General: patient oriented x3 Extrem General: Yes normal to inspection and No no pedal edema Psych Appearance: grossly normal Mental Status: mental status grossly normal Speech and movement: Normal speech and movement present Office Procedures EKG Details: EKGs shows normal sinus rhythm with normal EKG [id number], Complete Assessment & Plan Assessment & Plan (1) (HFpEF) heart failure with preserved ejection fraction: Code(s): I50.30 - Unspecified diastolic (congestive) heart failure Category: Medical Qualifiers: Heart failure chronicity: chronic Qualified Code(s): I50.32 - Chronic diastolic (congestive) heart failure Plan: Heart failure preserved ejection fraction, clinically euvolemic and well compensated. Has done well with rhythm control approach will continue to pursue rhythm control approach. Also on low-dose diuretic therapy. Advised daily weight monitoring avoidance salt loading. Continue aggressive blood pressure control, see below. Additional diuretics as need be. Advised to call me with any worsening symptoms. (2) S/P TAVR (transcatheter aortic valve replacement): Comment: 07/30. 26 mm Evolut bioprosthesis Code(s): Z95.2 - Presence of prosthetic heart valve Category: Surgical Plan: Status post transcatheter aortic valve replacement for severe aortic stenosis. The valve is working well both clinically as well as by echocardiogram. SBE prophylaxis as per ACC/aha guidelines. Continue oral anticoagulation therapy. (3) Paroxysmal atrial fibrillation: Code(s): I48.0 - Paroxysmal atrial fibrillation Category: Medical Plan: Paroxysmal atrial fibrillation which has remained controlled on low-dose amiodarone therapy. Will switch her to dronedarone 400 mg b.i.d. to reduce pulmonary toxicity given chronic interstitial changes in his chest x-ray. Discussed with her the management. Will need EKGs in 3 months. Continue to avoid stimulants. Advised to call me with any new symptoms. Continue full oral anticoagulation, currently on Eliquis 5 mg b.i.d.. Semi annual renal function test should be pursued. (4) HTN (hypertension): Comment: Heart catheterization for TAVR severe July 2019 echo normal left ventricular function with grade 2 diastolic dysfunction Code(s): I10 - Essential (primary) hypertension Category: Medical Plan: Hypertension which is labile. Currently blood pressure is well controlled on current therapy. Importance of good blood pressure control was discussed advised to monitor blood pressure at home intermittently. Low-salt diet was discussed. Stress mitigation strategies were discussed. Will follow up in the clinic in 3 months for EKG in 6 months with me. Thank you for allowing me to partake in her care Medications: New dronedarone (Multaq) must administer with a meal/food 400 mg PO BID 60 tabs 5RF Discontinued amiodarone Discontinued Reason: Doctor's Order 100 mg (1/2 x 200 mg) PO DAILY 45 tabs 3RF I48.91 - Unspecified atrial fibrillation Coding Level of Care Code Est Pt Level 4 (77054) Complex EM visit Add On G2211 Diagnoses Chronic heart failure with preserved ejection fraction I50.32 Heart failure chronicity: chronic S/P TAVR (transcatheter aortic valve replacement) Z95.2 Paroxysmal atrial fibrillation I48.0 HTN (hypertension) I10 CPT Codes EKG - CPT: 85872-[id number], Complete ([id number])
--- OUTSIDE RECORDS SUMMARY | 2025-03-23 12:33 | XMS_ITS | Clinical Summary ---
Author Organization [facility] Address [address] [place] [phone] Phone Care Team Providers Care Retail Visual Merchandiser Name Role Phone Shelbi Infante MD Primary Care Provider [phone] Allergies No known active allergies Medications amiodarone [...] 08/11/2024 Non-small cell carcinoma of lung, right ([facility] V24, [facility] V28) 08/11/2024 Social History Tobacco Use [...] Info) Description 08/18/2025 11:00 AM EDT Appointment [facility] Radiation Oncology [address] [place] [phone] Liliane Tim NP [address] [place] [address] Health Maintenance Due Date Last Done Comments [...] Documents on File Type Date Recorded Patient Vacation Guide Expl anation Health Care Decision (hx) 03/26/2023 AD COOL DIRECTIVE Health Care Decision (hx) 03/26/2023 AD COOL DIRECTIVE Health Care Decision (hx) 03/26/2023 AD COOL DIRECTIVE Health Care Decision (hx) 03/26/2023 AD COOL DIRECTIVE Health Care Decision (hx) 03/26/2023 AD COOL DIRECTIVE Health Care Decision (hx) 03/26/2023 AD COOL DIRECTIVE Care Teams Retail Visual Merchandiser Relationship Specialty Start Date End Date Shelbi Infante MD PCP - General Internal Medicine 07/30/24
--- OUTSIDE RECORDS SUMMARY | 2025-03-23 12:33 | XMS_ITS | Patient Health Record ---
Author Organization [facility] Address [address] [place] [address] Care Team Providers Care Junk Removal Specialist Name Role Phone Shelbi Infante Primary Care Provider Galo Prieto Unavailable [phone] Reason For Referral No Information Medications Medication [...] Status Risk Notes Problem Acquired hallux valgus (69078992) Hallux valgus (acquired), left foot (M20.12) Active confirmed Problem Acquired hammer toe of left foot (1354221305691 103) Other hammer toe(s) (acquired), left foot (M20.42) Active confirmed Plan Of Treatment Pending Test Test Name Order Date X ray : Foot, left 3V 06/12/2017 [id number] NAIL, 1-5 06/12/2017 [id number] Destruction, 1-14 06/12/2017 Insurance Providers Payer Name Payer Address Payer Phone Subscriber Number Group Number Insured Name Patient Relationship to Insured Coverage Start Date Coverage End Date [facility] 65 Medicare Preferred [address] [place] [address] [id number] Eloisa Richards Self - patient is the insured Medical (General) History Medical History History ICD Code Cataracts High blood pressure Warts Chicken pox Hypercholesterolemia Aortiv Valve Stenosis Surgical History Surgery Date(Month/Year) hysterectomy 09/23/05 cataract 12/27/08
--- OUTSIDE RECORDS SUMMARY | 2025-03-23 12:33 | XMS_ITS | Patient Health Record ---
Author Organization [facility] Address [address] [place] [address] Care Team Providers Care Robotic Machine Operator Name Role Phone ESTEFANI SENIOR M.D. Primary Care Provider Unavaila alban AyaanJeanne arthur Unavailable [phone] Allergies Allergen (clinical drug ingredient) Drug/Non Drug [...] W/U Status Risk Notes Problem Essential hypertension (83324258) Essential (primary) hypertension (I10) Active confirmed Problem Hyperlipidemia (84742044) Hyperlipidemia, unspecified (E78.5) Active confirmed Problem Midline cystocele (028226044) Cystocele, midline (N81.11) Active confirmed Plan Of Treatment No Information Insurance Providers Payer Name Payer Address Payer Phone Subscriber Number Group Number Insured Name Patient Relationship to Insured Coverage Start Date Coverage End Date BCBS MEDICARE PPO [address] [place] [address] [phone] [id number] YOSEF MCWILLIAMS Self - patient is the insured Medical (General) History Medical History History ICD Code Hyperlipidemia, unspecified E78.5 Essential (primary) hypertension I10 Surgical History Surgery Date(Month/Year) Hysterectomy+Bladder Lift 09/23/2005 Hospitalization History Reason Date(Month/Year) See surgical Hx
--- OUTSIDE RECORDS SUMMARY | 2025-03-23 12:33 | XMS_ITS | Patient Health Record ---
Author Organization [facility] Address [address] [place] [address] Care Team Providers Care Caul Puller Name Role Phone Po Shelbi DUNLAP Primary Care Provider Steve Curiel [phone] Allergies Allergen (clinical drug ingredient) Drug/Non Drug Allergy documented on EMR Reaction Allergy Type Onset Date Status Sulfa Unknown Drug Allergy Active Reason For Referral No Information Medications Medication SIG (Take, Route, Frequency, Duration) Notes Start Date End Date Status Folic Acid 800 MCG 1 tablet Orally Once a day; Duration: 30 day(s) Active Aspirin Adult Low Dose [...] Problem Status W/U Status Risk Notes Problem Computed tomography of abdomen abnormal (71085347324298 107) Abnormal CT scan, stomach (R93.3) Active confirmed Plan Of Treatment Future Test Test Name Order Date COLONOSCOPY 02/02/2014 UPPER GI ENDOSCOPY 05/14/2019 Insurance Providers Payer Name Payer Address Payer Phone Subscriber Number Group Number Insured Name Patient Relationship to Insured Coverage Start Date Coverage End Date [facility] [address] [place], [place] [id number] [phone] [id number] YOSEF MCWILLIAMS Self - patient is the insured Medical (General) History Medical History History ICD Code HTN Denies [place],DM,CVA,Lung disease,renal dise ase Neg. screeniing colonoscopy in 12/[address] Warren and in 03/2014 with ne Hyperlipidemia Aortic stenosis-- critical - -has progressed and was being worked up for a valve replacement, s/p cath at [facility]--sees Dr. Vogt Abnormal PET-CT 04/2019 invo lvong lung nodule RLL, Right thyroid nodule, and proximal stomach--she is scheduled for a biopsy of the lung nodule on 05/15/19 and is scheduled for a biopsy of the thyroid nodule in early June. Surgical History Surgery Date(Month/Year) RICHARD and bladder suspension 09/26/2005 Cataract & lens implants-right eye 12/27 [place]
== END 2025-03-23 11:09 | disposition home or self-care (01) ==
LOC: HO.HCS 10:39
PROVIDERS: PCP Internal Medicine; Visit Provider Internal Medicine Cardiovascular Disease
DX: I50.32 Chronic diastolic (congestive) heart failure (principal); Z95.2 Presence of prosthetic heart valve; I48.0 Paroxysmal atrial fibrillation; I10 Essential (primary) hypertension
CPT/HCPCS: 93010; 99214; G2211

== ENCOUNTER → 2025-03-23 10:38 | Outpatient (BNVA) | payer MEDICARE, SELFPAY | PROVIDERS: PCP Internal Medicine; Visit Provider Internal Medicine Cardiovascular Disease | DX: I50.32 Chronic diastolic (congestive) heart failure (principal); Z23 Encounter for immunization; Z95.2 Presence of prosthetic heart valve; I48.0 Paroxysmal atrial fibrillation; I10 Essential (primary) hypertension | CPT/HCPCS: 90471; 90656; 93005; 99212 ==

== ENCOUNTER 2025-03-23 11:21 | Outpatient (AMB) | payer MEDICARE, SELFPAY ==
--- NOTE | 2025-03-23 11:35 | AM.OFFVISNUR ---
Intake Visit Reasons: flu shot Allergies Sulfa (Sulfonamide Antibiotics) (SULFA (SULFONAMIDE ANTIBIOTICS)) Allergy (Mild, Verified 01/07/25 10:47) RASH Office Procedures Flu Questionnaire Does the patient have a severe egg allergy?: No Does the patient have severe life threatening allergies?: No Does the patient have a fever or illness today?: No Has the patient ever had Guillain-[place] Syndrome?: No Has the patient ever had any past reaction to a flu shot?: No Immunizations Fluarix [id number] (PF) 45 mcg (15 mcg x 3)/0.5 mL IM syringe Performing Provider: Shelbi Infante MD [facility] Administered by: Amanda Elizabeth LPN on 03/23/25 11:35 Dose Route Admin Location Dispensed Lot Number Expiration Date [facility] [employer] Un[employer] 0.5 mL IM Left Deltoid 0.5 mL [id number] 12/07/25 [id number] [employer] VIS Given Date VIS Provided VIS Publication Date 03/23/25 Single Vaccine 24 Eligibility Eligibility Date Funding Source Not [facility] Eligible 03/23/25 Private Assessment & Plan Assessment & Plan Orders: Orders Influenza [id number] Immunization Today Z23 - Encounter for immunization Coding
== END 2025-03-23 11:36 | disposition home or self-care (01) ==
LOC: HO.HMCH 11:22
PROVIDERS: PCP Internal Medicine; Visit Provider Internal Medicine
DX: Z23 Encounter for immunization (principal)

== ENCOUNTER 2025-05-11 10:41 | Outpatient (AMB) | payer MEDICARE, SELFPAY ==
[2025-05-11 10:53] VITALS: BP 140/62; PULSE 79; O2SAT 98; BMI 23.4
--- NOTE | 2025-05-11 10:53 | A.OFFPC_ITS ---
Vital Signs 05/11/25 10:53 Height 5 ft 2 in Weight 128 lb BMI 23.4 BP 140/62 H Blood Pressure Location Lt brachial Position Sitting Pulse 79 Pulse Source Pulse Oximeter Pulse Oximetry (%) 98 Oxygen Delivery Method Room Air Intake Visit Reasons: 3mth f/u Allergies Sulfa (Sulfonamide Antibiotics) (SULFA (SULFONAMIDE ANTIBIOTICS)) Allergy (Mild, Verified 05/11/25 10:54) RASH Medication List - Last Reconciled 05/11/25 by Shelbi Infante MD acetaminophen 650 mg PO Q6H PRN apixaban (Eliquis) 5 mg PO BID 90 days calcium carbonate-vitamin D3 600 mg-10 mcg (400 unit) (Calcium 600 with Vitamin D3) 1 tab PO BID 90 days dronedarone (Multaq) 400 mg PO BID fenofibrate nanocrystallized 145 mg PO DAILY ferrous sulfate ER (Slow Fe) 137 mg PO DAILY furosemide 20 mg PO DAILY nifedipine ER 30 mg PO BEDTIME Tobacco use date assessed: 01/07/25 Fall risk assessment: No Falls in past year Last assessed Fall Risk: 05/11/25 Dental Screening Dental Screen Date: 01/07/25 HPI 3mth f/u HPI Details declined visinting nurses HPI Comments History of Present Illness Details History of Present Illness The patient is an 85-year-old female presenting for a follow-up visit regarding atrial fibrillation management. The patient experienced adverse cardiac rhythm disturbances after transitioning from amiodarone to dronedarone due to pulmonary toxicity concerns. Hospitalization was required for atrial fibrillation with rapid ventricular response, during which therapy adjustments were made. Additionally, the patient suffers from coronary artery disease, congestive heart failure with preserved ejection fraction, hypertension, and hypercholesterolemia. A noted urinary tract infection was treated during the recent hospitalization. The patient's anemia and renal function are being actively monitored. Lipid levels have presented within goal parameters under current treatment. Health Maintenance - Up to date with mammogram screening. - Bone density scan performed in 2023 for osteopenia. - Twice-yearly renal function monitoring due to oral anticoagulation therapy. - Flu vaccination recently received; COV ID vaccination declined. - Pneumonia and tetanus vaccinations are up to date. - Patient received shingles vaccination last month. Social History - Reports daily self-monitoring of blood pressure; blood pressure considered well-controlled at home (around 130/80 mmHg). - Reports feeling anxious at times when visited by the home nurse, leading to a decision to discontinue this service. Results - Labs: - Hemoglobin 11.3, Hematocrit 34 .2 (post-hospitalization). - Creatinine 1.26 (February 2025). - Liver function tests: Mildly elevated at 43. - Lipid panel (December 2024): LDL 70, Trigl ycerides 146, HDL 43. - Tests and Diagnostics: - Echocardiogra m (March 31, 2025): Normal left ventricular size, mild focal basal hypertrophy, hyperdynamic systolic function with EF 71%, mild mitral regurgitation. - EKG (April 01, 2025): Atrial fibrill ation with rapid ventricular rate at 133. - Chest X-ray: Chronic interstitial pearce ges. [facility] Medical History (Updated 03/23/25 @ 11:12 by Emmett Vogt MD) Uncontrolled hypertension Aortic stenosis (HFpEF) heart failure with preserved ejection fraction Paroxysmal atrial fibrillation Osteopenia Atrial fibrillation Elevated troponin Varicose vein of leg Pre-operative clearance Varicose veins of left leg with edema Carotid aneurysm, right Intracranial aneurysm Non-small cell cancer of right lung Thyroid nodule Pulmonary nodule Prolapsed bladder Hypercholesterolemia Peripheral vascular disease Diastolic dysfunction HTN (hypertension) Surgical History History of cataract surgery S/P TAVR (transcatheter aortic valve replacement) History of lung biopsy Hx of hysterectomy Hx of cardiac cath Hx of tonsillectomy Family History Father Brain tumor Mother Uterine cancer, sarcoma Social History Household Members: Spouse Housing: House Do you presently have visiting nurse or other home services: Yes (Since hip fx this year 2023, 1-2 times per week) Alcohol intake: current Alcohol intake frequency: does not drink Alcohol type: wine Patient Tobacco Use Status: Never used Tobacco Tobacco use type: Cigarette e-Cigarette/Vaping Use: Never Used Second Hand Smoke Exposure: No Advance Directives Date on File: 10/29/22 service: No Current occupational status: retired Cognitive needs: No Hearing needs: No Vision needs: Yes (glasses) Questionnaire PHQ-9 Over the last 2 weeks, how often have you been bothered by any of the following problems? 1. Little interest or pleasure in doing things: not at all 2. Feeling down, depressed, or hopeless: not at all 3. Trouble falling or staying asleep, or sleeping too much: not at all 4. Feeling tired or having little energy: not at all 5. Poor appetite or overeating: not at all 6. Feeling bad about yourself - or that you are a failure or have let yourself or your family down: not at all 7. Trouble concentrating on things, such as reading the newspaper or watching television: not at all 8. Moving or speaking so slowly that other people could have noticed. Or the opposite - being so fidgety or restless that you have been moving around a lot more than usual: not at all 9. Thoughts that you would be better off or of hurting yourself in some way: not at all Total score: 0 Depression Screening Interpretation: Negative Depression Screening Done: Yes Source: Developed by Drs. Steve Kim, Madalyn Vee, Isaac Maza and colleagues, with an educational eddie from [employer]. Thrive Questionnaire Date Thrive assessed: 09/22/24 CRISTAL-7 AMB Questionnaire CRISTAL-7 Date CRISTAL - 7 assessed: 09/22/24 Source: Developed by Drs. Steve Kim, Madalyn Vee, Isaac Maza and colleagues, with an educational eddie from [employer]. Review of Systems Narrative Review of Systems - General: Reports prior episodes of weakness. - Genitourinary: Denies awareness of urinary tract infection symptoms. Physical exam (Primary Care) Vital Signs: Last Vital Signs Pulse 79 05/11/25 10:53 BP 140/62 H 05/11/25 10:53 Pulse Ox 98 05/11/25 10:53 Oxygen Delivery Method Room Air 05/11/25 10:53 BMI result Body Mass Index 23.4 Tobacco/Smoking Status: Tobacco use Status Tobacco use date assessed 01/07/25 05/11/25 10:54 Patient Tobacco Use Status Never used Tobacco 05/11/25 10:54 Tobacco use type Cigarette 05/11/25 10:54 e-Cigarette/Vaping Use Never Used 05/11/25 10:54 PHQ-9: PHQ-9 Score PHQ-9: Total score 0 05/11/25 11:21 Depression Screening Interpretation: Negative Thrive Assessment: Date of Thrive Assessment Date Thrive assessed 09/22/24 05/11/25 10:54 Narrative Physical Exam - HEENT: Odor noted from the mouth. Const General: alert; No acute distress Eyes Conjunctivae: conjunctivae normal Resp Auscultation: clear to auscultation bilaterally Cardio Rate: regular rate Rhythm: regular rhythm GI Inspection: Yes normal to inspection Extrem General: Yes normal to inspection and No edema Coding Level of Care Code Est Pt Level 4 (56829) Complex visit Add On G2211 Diagnoses Paroxysmal atrial fibrillation I48.0 Coronary artery disease (CAD) excluded Z03.89 S/P TAVR (transcatheter aortic valve replacement) Z95.2 Chronic heart failure with preserved ejection fraction I50.32 Heart failure chronicity: chronic HTN (hypertension) I10 Hypercholesterolemia E78.00 Assessment & Plan Assessment & Plan (1) Paroxysmal atrial fibrillation: Code(s): I48.0 - Paroxysmal atrial fibrillation Category: Medical Plan: Patient continues to be on anticoagulation with Eliquis and continue to monitor renal function twice a day year. February 2025 last blood work 0.26 creatinine. Continuing with Multaq 400 mg twice a day (2) Coronary artery disease (CAD) excluded: Code(s): Z03.89 - Encounter for observation for other suspected diseases and conditions ruled out Category: Medical Plan: Control the cholesterol, weight, blood pressure, on anticoagulation (3) S/P TAVR (transcatheter aortic valve replacement): Comment: mm Evolut bioprosthesis Code(s): Z95.2 - Presence of prosthetic heart valve Category: Surgical Plan: Continuing to monitor and patient follows up with Cardiology (4) (HFpEF) heart failure with preserved ejection fraction: Code(s): I50.30 - Unspecified diastolic (congestive) heart failure Category: Medical Qualifiers: Heart failure chronicity: chronic Qualified Code(s): I50.32 - Chronic diastolic (congestive) heart failure Plan: Continue with furosemide 20 mg once a day, weigh daily (5) HTN (hypertension): Comment: Heart catheterization for TAVR severe July 2019 echo normal left ventricular function with grade 2 diastolic dysfunction Code(s): I10 - Essential (primary) hypertension Category: Medical Plan: Continue with blood pressure medication. Decrease salt intake and exercise on nifedipine 30 mg once a day (6) Hypercholesterolemia: Code(s): E78.00 - Pure hypercholesterolemia, unspecified Category: Medical Plan: Avoid fried foods, chicken skin, eggs, butter margarine, pastries and meat. Be it pork or beef they have a lot of cholesterol LDL goal of less than 70 and triglyceride of less than 150 patient is on fenofibrate only Plan Plan Patient was informed and verbally consented to the use of an ambient scribe for clinic note documentation during this visit. 1. Atrial Fibrillation Multaq 400 mg twice daily is being maintained for atrial rhythm control. Anticoagulant therapy with Eliquis will continue, with renal function monitoring scheduled biannually to ensure safety and efficacy. 2. Coronary Artery Disease The patient is advised to maintain oral anticoagulation therapy, with continued cardiology oversight to adjust management as necessary. 3. Congestive Heart Failure The patient will maintain furosemide 20 mg once daily, with daily monitoring of weight to preempt fluid retention. 4. Hypertension Continuation of nifedipine 30 mg daily is planned to keep blood pressure levels well-controlled. 5. Hypercholesterolemia The patient will persist with fenofibrate therapy, with a focus on maintaining LDL and triglyceride control, contingent upon hepatic function stability. Discussion Notes We thoroughly examined and discussed the patient's ongoing concerns about atrial fibrillation and other cardiovascular conditions. The rationale behind the management plan was addressed, particularly the transition to Multaq for rate control. We reviewed the implications of anticoagulation therapy, noting the necessity of renal monitoring. The reasons for medication adjustments during the recent hospitalization were clarified, emphasizing the need for vigilant observation for symptomatic changes. We also reviewed preventive measures, including recent vaccinations and immunization status. The patient agreed to forgo home nursing services, feeling confident in self-monitoring blood pressure effectively at home. It was recognized that ongoing engagement with specialists will be essential for optimal disease management. Patient Instructions - Take Multaq 400 mg two times a day for heart rhythm. - Continue taking Eliquis to prevent blood clots; get kidney tests twice a year. - Take furosemide 20 mg once a day. Weigh yourself each day. - Continue nifedipine 30 mg daily for blood pressure. - Keep taking fenofibrate for cholesterol. - Get regular heart check-ups with a specialist. Orders: Orders Complete Blood Count Auto Diff Today I10 - Essential (primary) hypertension Lipid Panel Today E78.00 - Pure hypercholesterolemia, unspecified, I10 - Essential (primary) hypertension Free T4 (Free Thyroxine) Today I10 - Essential (primary) hypertension Vitamin B12 and Folate Today I10 - Essential (primary) hypertension Ferritin Today I10 - Essential (primary) hypertension NT Pro B Type Natriuretic Pept Today I10 - Essential (primary) hypertension Comprehensive Met. Panel Today I10 - Essential (primary) hypertension IRON PROFILE Today I10 - Essential (primary) hypertension Thyroid Stimulating Hormone Today I10 - Essential (primary) hypertension Reticulocyte Count Today I10 - Essential (primary) hypertension
--- OUTSIDE RECORDS SUMMARY | 2025-05-11 12:28 | XMS_ITS | Clinical Summary ---
Author Organization [facility] Address [address] [place] [address] Phone Care Team Providers Care Management Psychologist Name Role Phone Shelbi Infante MD Primary Care Provider Allergies No known active allergies Medications amiodarone [...] 08/11/2024 Non-small cell carcinoma of lung, right ([facility] V24, [facility] V28) 08/11/2024 Social History Tobacco [...] AM EDT Appointment [facility] Radiation Oncology [address] [place] [id number] Liliane Tim NP [address] [place] [address] Health Maintenance Due Date Last Done Comments [...] Documents on File Type Date Recorded Patient Strategic Partnership Representative Expl anation Health Care Decision (hx) 03/26/2023 AD COOL DIRECTIVE Health Care Decision (hx) 03/26/2023 AD COOL DIRECTIVE Health Care Decision (hx) 03/26/2023 AD COOL DIRECTIVE Health Care Decision (hx) 03/26/2023 AD COOL DIRECTIVE Health Care Decision (hx) 03/26/2023 AD COOL DIRECTIVE Health Care Decision (hx) 03/26/2023 AD COOL DIRECTIVE Care Teams Management Psychologist Relationship Specialty Start Date End Date Shelbi Infante MD PCP - General Internal Medicine 07/30/24
== END 2025-05-11 11:58 | disposition home or self-care (01) ==
LOC: HO.HMCH 10:42
PROVIDERS: PCP Internal Medicine; Visit Provider Internal Medicine
DX: I48.0 Paroxysmal atrial fibrillation (principal); Z03.89 Encounter for observation for other suspected diseases and conditions ruled out; Z95.2 Presence of prosthetic heart valve; I50.32 Chronic diastolic (congestive) heart failure; I10 Essential (primary) hypertension; E78.00 Pure hypercholesterolemia, unspecified

== ENCOUNTER → 2025-05-11 10:41 | Outpatient (BNVA) | payer MEDICARE, SELFPAY | PROVIDERS: PCP Internal Medicine; Visit Provider Internal Medicine | DX: I11.0 Hypertensive heart disease with heart failure (principal); I50.32 Chronic diastolic (congestive) heart failure; I25.10 Atherosclerotic heart disease of native coronary artery without angina pectoris; E78.00 Pure hypercholesterolemia, unspecified; I48.0 Paroxysmal atrial fibrillation; Z95.2 Presence of prosthetic heart valve; Z03.89 Encounter for observation for other suspected diseases and conditions ruled out | CPT/HCPCS: 96127; 99212 ==

== ENCOUNTER 2025-05-24 08:00 | Outpatient (REF) | payer MEDICARE, SELFPAY ==
[2025-05-24 08:13] LABS: MANUAL DIFF FLAG NO
--- OUTSIDE RECORDS SUMMARY | 2025-05-24 08:14 | XMS_ITS | Patient Health Record ---
Author Organization [facility] Address [address] [place] [address] Care Team Providers Care Drawer In Hand Name Role Phone ESTFEANI SENIOR M.D. Primary Care Provider Unavaila alban AyaanJeanne arthur Unavailable [phone] Allergies Allergen (clinical drug ingredient) Drug/Non Drug [...] W/U Status Risk Notes Problem Essential hypertension (76408664) Essential (primary) hypertension (I10) Active confirmed Problem Hyperlipidemia (96104440) Hyperlipidemia, unspecified (E78.5) Active confirmed Problem Midline cystocele (220173576) Cystocele, midline (N81.11) Active confirmed Plan Of Treatment No Information Insurance Providers Payer Name Payer Address Payer Phone Subscriber Number Group Number Insured Name Patient Relationship to Insured Coverage Start Date Coverage End Date BCBS MEDICARE PPO [address] [place] [address] [phone] [id number] YOSEF MCWILLIAMS Self - patient is the insured Medical (General) History Medical History History ICD Code Hyperlipidemia, unspecified E78.5 Essential (primary) hypertension I10 Surgical History Surgery Date(Month/Year) Hysterectomy+Bladder Lift 09/23/2005 Hospitalization History Reason Date(Month/Year) See surgical Hx
--- OUTSIDE RECORDS SUMMARY | 2025-05-24 08:15 | XMS_ITS | Patient Health Record ---
Author Organization [facility] Address [address] [place] [address] Care Team Providers Care Product Support Representative Name Role Phone Shelbi Infante Primary Care Provider Galo Prieto Unavailable [phone] Reason For Referral No Information Medications Medication [...] Status Risk Notes Problem Acquired hallux valgus (98586664) Hallux valgus (acquired), left foot (M20.12) Active confirmed Problem Acquired hammer toe of left foot (2755667922076 103) Other hammer toe(s) (acquired), left foot (M20.42) Active confirmed Plan Of Treatment Pending Test Test Name Order Date X ray : Foot, left 3V 06/12/2017 [id number] NAIL, 1-5 06/12/2017 [id number] Destruction, 1-14 06/12/2017 Insurance Providers Payer Name Payer Address Payer Phone Subscriber Number Group Number Insured Name Patient Relationship to Insured Coverage Start Date Coverage End Date [facility] 65 Medicare Preferred [address] [place] [address] [id number] Eloisa Richards Self - patient is the insured Medical (General) History Medical History History ICD Code Cataracts High blood pressure Warts Chicken pox Hypercholesterolemia Aortiv Valve Stenosis Surgical History Surgery Date(Month/Year) hysterectomy 09/23/05 cataract 12/27/08
--- OUTSIDE RECORDS SUMMARY | 2025-05-24 08:15 | XMS_ITS | Patient Health Record ---
Author Organization [facility] Address [address] [place] [address] Care Team Providers Care Crime Laboratory Analyst Name Role Phone Po Shelbi DUNLAP Primary Care Provider Steve Curiel [phone] Allergies Allergen (clinical drug ingredient) Drug/Non Drug Allergy documented on EMR Reaction Allergy Type Onset Date Status Sulfa Unknown Drug Allergy Active Reason For Referral No Information Medications Medication SIG (Take, Route, Frequency, Duration) Notes Start Date End Date Status Folic Acid 800 MCG Tablet 1 tablet Orall y Once a day; Duration: 30 day(s) Active Aspirin Adult Low Dose 81 MG Tablet Delayed Release 1 tablet Orally Once a day Active Estradiol mg/gm oil Two times a Week Active hydroCHLOROthiazide 25 MG Tablet 1 tablet Orally Once a day Active NIFEdipine ER 30 MG Tablet Extended Release 24 Hour 1 tablet Orally Once a day Active Fenofibrate 145 MG Tablet 1 tablet Orall y Once a day Active Atorvastatin Calcium 40 MG Tablet 1 tablet Orally Once a day Active Atenolol 100 MG Tablet 1 tablet Orally O nce a day Active Immunizations Vaccine Route Administration Date Status Comme nts Influenza Unknown 02/08/2019 Administered Social History Social History Additional Details Category Social Info Options Details Miscellaneous: Marital status: Occupation: retired Section Notes: Nonsmoker; no sig alcohol--o cc. red wine Nonsmoker; no sig alcohol--o cc. red wine Problems Problem Type SNOMED Code ICD Code Onset Dates Problem Status W/U Status Risk Notes Problem Computed tomography of abdomen abnormal (55081567826815 107) Abnormal CT scan, stomach (R93.3) Active confirmed Plan Of Treatment Future Test Test Name Order Date COLONOSCOPY 02/02/2014 UPPER GI ENDOSCOPY 05/14/2019 Insurance Providers Payer Name Payer Address Payer Phone Subscriber Number Group Number Insured Name Patient Relationship to Insured Coverage Start Date Coverage End Date [facility] [address] [place], [place] [id number] YOSEF MCWILLIAMS Self - patient is the insured Medical (General) History Medical History History ICD Code HTN Denies [place],DM,CVA,Lung disease,renal dise ase Neg. screeniing colonoscopy in 12/[address] Warren and in 03/2014 with [place] Hyperlipidemia Aortic stenosis-- critical - -has progressed and was being worked up for a valve replacement, s/p cath at [facility]--sees Dr. Vogt Abnormal PET-CT 04/2019 invo [...]
--- OUTSIDE RECORDS SUMMARY | 2025-05-24 08:15 | XMS_ITS | Clinical Summary ---
Author Organization [facility] Address [address] [place] [address] Phone Care Team Providers Care Security Monitor Name Role Phone Shelbi Infante MD Primary [...] 08/11/2024 Non-small cell carcinoma of lung, right 08/12/19 25 Social History Tobacco Use Types Packs/Day Years [...] Info) Description 08/18/2025 11:00 AM EDT Appointment [facility] Radiation Oncology [address] [place] [phone] Liliane Tim NP [address] [place] [address] Health Maintenance Due Date Last Done Comments [...] Documents on File Type Date Recorded Patient Staffing Clerk Expl anation Health Care Decision (hx) 03/26/2023 AD COOL DIRECTIVE Health Care Decision (hx) 03/26/2023 AD COOL DIRECTIVE Health Care Decision (hx) 03/26/2023 AD COOL DIRECTIVE Health Care Decision (hx) 03/26/2023 AD COOL DIRECTIVE Health Care Decision (hx) 03/26/2023 AD COOL DIRECTIVE Health Care Decision (hx) 03/26/2023 AD COOL DIRECTIVE Care Teams Security Monitor Relationship Specialty Start Date End Date Shelbi Infante MD PCP - General Internal Medicine 07/30/24
[2025-05-24 08:25] LABS: Hematocrit 34.9 % (37.0-47.0); Hemoglobin 10.9 g/dl (12.0-16.0); Imm Gran Abs Auto 0.03 X10*3/uL (0.00-0.03); Imm Gran Pct Auto 0.4 % (0.0-0.4); Lymphocytes Absolute Auto 1.6 X10*3/uL (1.2-4.9); Mean Corpuscular HGB Conc 31.2 g/dl (31.0-35.0); Mean Corpuscular Hemoglobin 29.8 pg (27.0-33.0); Mean Corpuscular Volume 95.4 fL (80.0-98.0); NRBC Abs Auto 0.000 X10*3/uL (0.0-0.012); NRBC Pct Auto 0.0 /100WBC (0.0-0.2); Platelet Count 223 X10*3/uL (160-400); Red Blood Count 3.66 X10*6/uL (4.20-5.50); Reticulocytes Absolute 0.047 X10*6/uL (0.026-0.095); White Blood Count 7.2 X10*3/uL (4.8-10.8)
[2025-05-24 09:20] LABS: NT Pro B Type Natriuretic Pept 856.3 pg/mL (<300)
[2025-05-24 09:28] LABS: Alanine Aminotransferase 40 U/L (0-31); Albumin Level 3.9 g/dL (3.5-5.0); Alkaline Phosphatase 62 U/L (39-117); Anion Gap 13 (12-20); Aspartate Amino Transferase 56 U/L (5-31); Blood Urea Nitrogen 37 mg/dL (9-16); Calcium 10.2 mg/dL (8.4-10.2); Carbon Dioxide 25 mmol/L (22-29); Chloride 112 mmol/L (96-108); Cholesterol 171 mg/dL (<200); Estimated Glomerular Filt Rate 30; HDL Cholesterol 56 mg/dL (>40); Iron 88 mcg/dL (30-160); Percent Iron Saturation 28 % (15-50); Potassium 4.9 mmol/L (3.3-5.1); Sodium 145 mmol/L (135-145); Total Iron Binding Capacity 316 mcg/dL (228-428); Total Protein 6.4 g/dL (6.5-8.0); Triglycerides 114 mg/dL (<150); Unsaturated Iron Binding 228 ug/dL
[2025-05-24 09:32] LABS: Ferritin 237 ng/mL (10-250); Free T4 (Free Thyroxine) 1.09 ng/dL (0.71-1.85); Thyroid Stimulating Hormone 1.35 uIU/mL (0.32-4.0)
[2025-05-24 09:48] LABS: Folate 7.1 ng/mL (> or = 4.0); Vitamin B12 305 pg/mL (200-900)
== END 2025-05-24 08:01 | disposition home or self-care (01) ==
LOC: HO.LAB 08:00
PROVIDERS: PCP Internal Medicine; Visit Provider Internal Medicine
DX: I10 Essential (primary) hypertension (principal); E78.00 Pure hypercholesterolemia, unspecified; Z13.0 Encounter for screening for diseases of the blood and blood-forming organs and certain disorders involving the immune mechanism
CPT/HCPCS: 36415; 80053; 80061; 82607; 82728; 82746; 83540; 83880; 84439; 84443; 85025; 85045